=== PATIENT | male | born 1975 | race Native Hawaiian/Other Pacific Islander ===

== ENCOUNTER 2017-09-05 21:23 | Observation (INO) | payer OTHER, MEDICAID, SELFPAY ==
[2017-09-05 21:43] VITALS: BP 154/99; PULSE 99; RESP 18; TEMP 37.2; O2SAT 97; BMI 26.6
[2017-09-05 22:24] LABS: Add Manual Diff / Slide Review NO; Basophils Percent Auto 0.6 % (0-2); Eosinophils Percent Auto 0.1 % (2-4); Hematocrit 42.8 % (41-53); Lymphocytes Percent Auto 4.6 % (25-40); Mean Corpuscular Hemoglobin 36.1 PG (26-34); Monocytes Percent Auto 4.3 % (3-14); Neutrophils Absolute Auto 7600 /uL (3000-5900); Neutrophils Percent Auto 90.4 % (50-75); Platelet Count 84 X10^3/uL (150-400); Red Blood Cell Count 4.16 X10^6/uL (4.5-5.9); Red Cell Distribution Width 13.6 % (11.6-14.8); White Blood Cell Count 8.4 X10^3/uL (4.5-11.0)
[2017-09-05 22:31] LABS: Alanine Aminotransferase 70 IU/L (21-72); Albumin Globulin Ratio 1.4 (1.0-2.8); Alkaline Phosphatase 218 U/L (38-126); Aspartate Aminotransferase 268 IU/L (17-59); Bilirubin Total 1.4 mg/dL (0.2-1.3); Bilirubin Unconjugated 0.7 mg/dL (0.0-1.1); Blood Urea Nitrogen 5 mg/dL (9-20); Calcium 9.7 mg/dL (8.4-10.2); Carbon Dioxide 23 mmol/L (22-32); Chloride 95 mmol/L (98-107); Estimated Glomerular Filt Rate > 60.0 mL/min (>60); Ethanol (ETOH) < 10 mg/dL; Globulin 3.6 g/dL (1.7-4.1); Glucose 146 mg/dL (70-100); HEMOLYSIS < 15 (0-50); Lipase 143 U/L (23-300); Magnesium 1.9 mg/dL (1.6-2.3); Potassium 4.1 mmol/L (3.4-5.1); Sodium 133 mmol/L (137-145); Total Protein 8.6 g/dL (6.3-8.2)
--- NOTE | 2017-09-05 23:05 | DI.CT.S_ITS ---
PROCEDURE: CT HEAD/BRAIN WO CON INDICATIONS: seizures TECHNIQUE: Noncontrast 4.5 mm thick angled axial sections acquired from the foramen magnum to the vertex, with coronal and sagittal reformats. For radiation dose reduction, the following was used: automated exposure control, adjustment of mA and/or kV according to patient size. COMPARISON: None. FINDINGS: Image quality: Excellent. CSF spaces: Basal cisterns are patent. No extra-axial fluid collections. Ventricles are normal in size and shape. Brain: No midline shift. No intracranial masses or hemorrhage. Parmar-white matter interface is normal. Skull and face: Calvarium and visualized facial bones are intact, without suspicious lesions. Sinuses: Mucosal thickening noted in the visualized maxillary sinuses bilaterally. mastoids are clear. IMPRESSION: No acute intracranial disease process. Dictated by: Toya Marina MD, PhD on 09/06/2017 at 7:32 Approved by: Toya Marina MD, PhD on 09/06/2017 at 7:33
[2017-09-05] MEDS: LORazepam 2 MG/ML SYRINGE 4 MG IV (23:10)
[2017-09-05] MEDS: ONDANSETRON 4 MG/2 ML INJ IV (23:11)
[2017-09-05] MEDS: SODIUM CHLORIDE 0.9% 1,000 ML 1000 ML IV (23:12)
--- NOTE | 2017-09-05 23:13 | PC.NURSE ---
Called into room by family, pt having seizure like activity, bleeding from mouth, performed suctioning, medicated with 4mg of ativan and 4mg of zofran at this time. Pt confused and no vocal at this time but agitated in bed. Family at bedside assisting with care.
[2017-09-05 23:19] VITALS: BP 163/102; PULSE 121; RESP 23; O2SAT 97
[2017-09-06 00:11] VITALS: BP 145/86; PULSE 104; RESP 20; O2SAT 97
[2017-09-06] MEDS: PHENobarbital 65 MG/ML VIAL 260 MG IV (00:32)
[2017-09-06 01:10] VITALS: BP 128/75; PULSE 104; RESP 20; O2SAT 94
--- NOTE | 2017-09-06 01:15 | ED_ITS ---
HPI - Seizure General Chief Complaint: Seizure Stated Complaint: SEIZURE History of Present Illness HPI Narrative: HPI 42-year-old male presents for evaluation of an estimated 3-5 minute long generalized seizure with 10+ minutes of post ictal gradually clearing confusion and urinary incontinence. * Seizure history: denies. * Drugs: denies recreational drugs. Denies new medications or medication changes. * Alcohol: notes daily a sixpack or more drinking, he drank only one glass of wine today, did not have his usual alcohol consumption * Diabetes: denies. * Sleep: notes normal sleep. * Trauma: denies. * Notes daily tremors that resolved with alcohol. M/S/F/SocHx notable for: please see HPI; remainder reviewed with patient and in chart. ROS: Negative constitutional, eye, cardiovascular, pulmonary, GI, , MSK, skin , neurologic, psychiatric, endocrine unless noted in the HPI. Exam Gen: Pleasant, non-toxic appearing, resting comfortably. HEENT: NC, AT, PEERL, EOMI. Resp: Clear to auscultation bilaterally, normal work of breathing, no accessory muscle usage. Card: Regular rate and rhythm with no murmurs, rubs, or gallops, extremities warm and well perfused. GI: Non-tender to palpation throughout all quadrants, non-distended, no rebound or guarding. : No suprapubic tenderness to palpation. No incontinence. MSK: No visible deformities, strength and tone without visually appreciable deficit. C, T, L-spine without TTP or palpable abnormalities. Shoulder girdle, chest, pelvis, and appendicular skeleton without palpable or visible abnormalities, full functional range of motion of the appendicular skeleton. Skin: Normal color with no visible lesions. Neuro: Gen AO x 3, no facial asymmetry, no gaze preference, no slurring of speech. CN II-III: pupils equal and reactive; III, IV, : EOMI, V1-V3: sensation to touch bilaterally intact; VII: no facial asymmetry (frown / smile) ; VIII: no nystagmus; X: phonation intact; XI: trapezius 5/5 bilaterally, XII: tongue midline. Cerebellar: no pronator drift, [id number] testing without dysmetria bilaterally, heel to goodwin without dysmetria bilaterally. Bilateral intention tremor. Psych: Mood and affect appropriate. Labs / Imaging: WBC 8.4, Hb 15.0, Na 133, K 4.1, Mg 1.9, AST 268, ALT 70, EtOH <10, UDS pending , CT Head: no acute intracranial abnormality. EKG: SR at [address]-segment elevations or depressions, T-wave inversions or new LBBB. SD interval 148 msec, QTc 91 msec, no delta waves, epsilon waves, coved or saddle ST-segment changes in leads V1-3, preseptal or inferior lead Q-waves, biphasic P-waves, or T-wave inversions; no LVH. MDM Previous chart, nursing note, labs, imaging, and vitals reviewed. A: 42-year-old male presents for evaluation of an estimated 3-5 minute long generalized seizure with 10+ minutes of post ictal gradually clearing confusion and urinary incontinence. DDx: trauma secondary to seizure, medication non-compliance, trauma, intracranial mass, intracranial bleeding, EtOH intoxication, EtOH withdraw, seizure disorder, infection (ENVELOPE STAMPING MACHINE OPERATOR vs non-ENVELOPE STAMPING MACHINE OPERATOR), hyponatremia, B6 deficiency, psychogenic non-epileptiform syndrome (pseudo-seizure), hypoxemia with secondary myoclonus (arrhythmia, ACS, vasovagal, orthostatic syncope, dehydration as primary cause), hypoglycemia, narcolepsy with cataplexy. IF FEMALE 13-55, R/O ECLAMPSIA. Evaluation: basement history and, negative alcohol level, and exam findings suggestive of alcohol withdraw strongly suspect alcohol withdraw seizure. Immediately after examining the patient the patient had a generalized and self- limited approximately 2 minute long seizure, the patient was given 4 mg lorazepam and a 130 mg phenobarbital load. Patient given 1 L normal saline for dehydration. Disposition: admitted for further care. Impression: Seizure. (please reference below for remainder of encounter information) you wake Related Data Home Medications Medication Instructions Recorded Confirmed No Known Home Medications 09/06/17 09/06/17 Allergies Allergy/AdvReac Type Severity Reaction Status Date / Time aspirin [ASPIRIN] Allergy Unknown ?CHILDHOOD Verified 09/05/17 21:43 [facility] Medical History Alcohol abuse (Acute) Alcohol withdrawal seizure (Acute) Social History Smoking Status: Current every day smoker Exam Initial Vital Signs Initial Vital Signs: Vital Signs Temperature 98.9 F 09/05/17 21:43 Pulse Rate 99 H 09/05/17 21:43 Respiratory Rate 18 09/05/17 21:43 Blood Pressure 154/99 H 09/05/17 21:43 Pulse Oximetry 97 09/05/17 21:43 Course Orders Ordered: ED Orders 09/05/17 22:04 Urine Drug Screen, Rapid Stat 09/05/17 22:15 Complete Blood Count AUTO DIFF Stat Comprehensive Metabolic Panel Stat Ethanol (ETOH) Stat Hepatic (Liver) Panel Stat Lipase Stat Magnesium Stat 09/05/17 23:05 CT head/brain wo con Stat 09/05/17 23:06 EKG-12 Lead Stat 09/06/17 01:45 Urinalysis and Microscopic Stat Lorazepam (Ativan) 2 mg IV NOW PRN PRN Reason: Alcohol Withdrawal Discontinued Medications Sodium Chloride (Normal Saline 0.9%) 1,000 mls @ 1,000 mls/hr IV BOLUS ONE Stop: 09/06/17 00:04 Last Infusion: 09/06/17 02:10 Dose: 0 mls/hr Admin: 09/05/17 23:12 Dose: 1,000 mls/hr Lorazepam (Ativan) 4 mg IV NOW ONE Stop: 09/05/17 23:09 Last Admin: 09/05/17 23:10 Dose: 4 mg Ondansetron HCl (Zofran) 4 mg IV NOW ONE Stop: 09/05/17 23:10 Last Admin: 09/05/17 23:11 Dose: 4 mg Phenobarbital (Phenobarbital) 260 mg IV NOW ONE Stop: 09/05/17 23:06 Last Admin: 09/06/17 00:32 Dose: 130 mg Vital Signs - 8 hr 09/05/17 21:43 09/05/17 23:19 09/06/17 00:11 Temperature 98.9 F Pulse Rate 99 H 121 H 104 H Respiratory Rate 18 23 20 Blood Pressure 154/99 H Blood Pressure [Right Arm] 163/102 H 145/86 H Pulse Oximetry 97 97 97 09/06/17 01:10 09/06/17 01:46 09/06/17 02:08 Temperature 99.1 F Pulse Rate 104 H 101 H 98 H Respiratory Rate 20 22 18 Blood Pressure 128/75 H Blood Pressure [Right Arm] 128/75 H Pulse Oximetry 94 99 99 MDM - Seizure Lab Data Result diagrams: 09/05/17 22:15 09/05/17 22:15 Lab Results 09/05/17 09/05/17 09/06/17 Range/Units 22:15 22:15 01:45 WBC 8.4 (4.5-11.0) X10^3/uL RBC 4.16 L (4.5-5.9) X10^6/uL Hgb 15.0 (13.5-17.5) g/dL Hct 42.8 (41-53) % MCV 103.0 H (80-100) fL MCH 36.1 H (26-34) PG MCHC 35.0 (30-36) % RDW 13.6 (11.6-14.8) % Plt Count 84 L (150-400) X10^3/uL Neut % (Auto) 90.4 H (50-75) % Lymph % (Auto) 4.6 L (25-40) % [place] % (Auto) 4.3 (3-14) % Eos % (Auto) 0.1 L (2-4) % Baso % (Auto) 0.6 (0-2) % Neut # (Auto) 7600 H (7173-6008) /uL Sodium 133 L (137-145) mmol/L Potassium 4.1 (3.4-5.1) mmol/L Chloride 95 L (98-107) mmol/L Carbon Dioxide 23 (22-32) mmol/L BUN 5 L (9-20) mg/dL Creatinine 0.50 L (0.66-1.25) mg/dL Estimated GFR > 60.0 (>60) mL/min BUN/Creatinine Ratio 10.0 (6-22) Glucose 146 H (70-100) mg/dL Calcium 9.7 (8.4-10.2) mg/dL Magnesium 1.9 (1.6-2.3) mg/dL Total Bilirubin 1.4 H (0.2-1.3) mg/dL Conjugated Bilirubin 0.0 (0.0-0.3) md/dL Unconjugated Bilirubin 0.7 (0.0-1.1) mg/dL AST 268 H (17-59) IU/L ALT 70 (21-72) IU/L Alkaline Phosphatase 218 H (38-126) U/L Total Protein 8.6 H (6.3-8.2) g/dL Albumin 5.0 (3.5-5.0) g/dL Globulin 3.6 (1.7-4.1) g/dL Albumin/Globulin Ratio 1.4 (1.0-2.8) Lipase 143 (23-300) U/L Urine Opiates Screen Negative (Negative) Ur Oxycodone Screen Negative (Negative) Urine Methadone Screen Negative (Negative) Ur Barbiturates Screen Positive H (Negative) U Tricyclic Antidepress Negative (Negative) Ur Phencyclidine Scrn Negative (Negative) Ur Amphetamines Screen Negative (Negative) U Methamphetamines Scrn Negative (Negative) Ur MDMA Scrn (Ecstasy) Negative (Negative) U Benzodiazepines Scrn Positive H (Negative) Urine Cocaine Screen Negative (Negative) U Marijuana (THC) Screen Positive H (Negative) Ethyl Alcohol < 10 mg/dL Discharge Plan Departure Patient Disposition: Home, Self-Care Clinical Impression: Alcohol withdrawal, Seizures Interventions: ED Discharge Assessment Last Done: 09/06/17 02:08 Prescriptions: No Action No Known Home Medications RF: 0
[2017-09-06 01:46] VITALS: PULSE 101; RESP 22; O2SAT 99
[2017-09-06 01:53] LABS: Urine Amphetamines Negative (Negative); Urine Barbiturates Positive (Negative); Urine Benzodiazepines Positive (Negative); Urine Cocaine Negative (Negative); Urine MDMA Negative (Negative); Urine Methadone Negative (Negative); Urine Methamphetamines Negative (Negative); Urine Morphine/Opi cutoff 2000 Negative (Negative); Urine Oxycodone Negative (Negative); Urine Phencyclidine Negative (Negative); Urine THC Positive (Negative); Urine Tricyclic Antidepressant Negative (Negative)
[2017-09-06 02:08] VITALS: BP 128/75; PULSE 98; RESP 18; TEMP 37.3; O2SAT 99
[2017-09-06 02:38] LABS: Bacteria Urine None Seen
[2017-09-06 02:39] LABS: Appearance Urine UA CLEAR; Bilirubin Urine UA NEGATIVE (NEGATIVE); Color Urine UA YELLOW; Glucose Urine UA NEGATIVE (Normal); Ketones Urine UA 2+ (NEGATIVE); Leukocyte Esterase Urine UA NEGATIVE (NEGATIVE); Nitrite Urine UA Negative (Negative); Occult Blood Urine UA 1+ (Negative); Protein Urine UA 1+ (Negative); Specific Gravity Urine UA 1.015 (1.000-1.035); Urobilinogen Urine UA 0.2 E.U./dL (0.2); pH Urine UA 6.5 (4.5-8.0)
[2017-09-06 02:46] LABS: Hyaline Casts Urine 0-1/LPF; RBC Urine 0-1/HPF (0-5/HPF); WBC Urine 0-1/HPF (0-5/HPF)
[2017-09-06 02:48] LABS: Culture Indicated Urine Cult Not Indicated
[2017-09-06 03:05] VITALS: BP 153/99; PULSE 96; RESP 22; TEMP 38.6; O2SAT 98
[2017-09-06 03:14] VITALS: BMI 26.6
--- NOTE | 2017-09-06 03:38 | PC.NURSE ---
Processing Assistant Note: 0250: Admitted to ICU room 103 from ER. Pt is alert, oriented X3. He was able to stand and walk to the bed from the stretcher. He has a minor tremor in his hands, denies visual, auditory and tactile hallucinations, but states he has a mild headache. No seizure activity noted. Parents are at bedside briefly, to say mariaa.
[2017-09-06] MEDS: LORazepam 2 MG/ML SYRINGE IV (04:08)
[2017-09-06 07:25] VITALS: BP 141/90; PULSE 102; RESP 24; TEMP 38.1; O2SAT 95
--- NOTE | 2017-09-06 09:19 | PC.NURSE ---
Addendum entered by Gaby Rodriguez R.N. 09/06/17 10:46: 1045-Pt is advised of Original Note: Am shift note Pt A/o x3, recalls events leading to ER arrival. No previous Hx of seizures with ETOH w/d. Would like nicotine patch today, reminded of policy for no smoking while in hospital. Pt agreeable. Using light for needs. Seizure pads in place, CIWA 5.
--- NOTE | 2017-09-06 10:16 | P.HP_ITS ---
History of Present Illness Date Patient Seen: 09/06/17 Time Patient Seen: 10:06 Chief complaint: SEIZURE Narrative: Patient is a 42-year-old male with alcohol dependency who had a 1-2 minute seizure at home. He was evaluated in the ER and while there had a witnessed tonic-clonic seizure. He was provided IV lorazepam and phenobarbital. He denies prior history of seizures. He states he drinks 6-8 beers a day but had been trying to cut back over the last couple of days. He has not sought prior treatment for alcohol dependency. Patient History Medical History Alcohol withdrawal seizure (Acute) Alcohol abuse (Acute) Alcohol dependence (Acute) Family & Social History Social History: household members family Prior Living Arrangements House Safety & Behavioral: Feels Safe in Current Yes Environment Been Physically Hurt or No Threatened By a Person Suicidal Ideation Description None Suicide Plan Description No Plan Tobacco & Substance use: Smoking Status Current every day smoker alcohol intake frequency 3 or more drinks per day Substance Use Type marijuana Meds Home Medications Medication Instructions Recorded Confirmed Type citalopram 20 mg PO DAILY 09/06/17 09/06/17 History Allergies Allergy/AdvReac Type Severity Reaction Status Date / Time aspirin [ASPIRIN] Allergy Unknown ?CHILDHOOD Verified 09/05/17 21:43 Review of Systems Review of Systems All systems reviewed & are unremarkable except as noted in HPI and below Exam Vital Signs (past 8 hours): - 09/06/17 02:08 09/06/17 03:05 09/06/17 07:25 Temperature 99.1 F 101.5 F H 100.5 F H Pulse Rate 98 H 96 H 102 H Respiratory Rate 18 22 24 Blood Pressure 128/75 H 153/99 H 141/90 H Pulse Oximetry 99 98 95 Oxygen Delivery Method Room Air Narrative Exam Narrative: GENERAL: This is an alert cooperative well-nourished, well- developed patient, in no apparent distress at this. HEAD: Atraumatic. Normocephalic. EYES: Pupils equal, round and reactive. Extraocular motions intact. No scleral icterus. No injection or drainage. OROPHARYNX: moist mucosa NECK: Trachea midline. No JVD or lymphadenopathy. CARDIOVASCULAR: Mildly tachycardic with regular rhythm without murmurs, gallops , or rubs. RESPIRATORY: Clear to auscultation bilaterally. GASTROINTESTINAL: Abdomen nondistended, soft, non-tender. No hepato- splenomegaly, or palpable masses. EXTREMITIES: No edema. NEUROLOGICAL: Alert, well oriented, speech is intact, normal bilateral upper and lower extremity strength SKIN: warm, dry, no rash petechia Objective Labs Result Diagrams: 09/05/17 22:15 09/05/17 22:15 Labs: Head CT: No acute finding Chest x-ray: No acute findings EKG: Sinus tach, mild ST depression V4 to V6 Laboratory Results - last 24 hr 09/05/17 09/05/17 09/06/17 22:15 22:15 01:45 WBC 8.4 RBC 4.16 L Hgb 15.0 Hct 42.8 MCV 103.0 H MCH 36.1 H MCHC 35.0 RDW 13.6 Plt Count 84 L Neut % (Auto) 90.4 H Lymph % (Auto) 4.6 L [place] % (Auto) 4.3 Eos % (Auto) 0.1 L Baso % (Auto) 0.6 Neut # (Auto) 7600 H Sodium 133 L Potassium 4.1 Chloride 95 L Carbon Dioxide 23 BUN 5 L Creatinine 0.50 L Estimated GFR > 60.0 BUN/Creatinine Ratio 10.0 Glucose 146 H Calcium 9.7 Magnesium 1.9 Total Bilirubin 1.4 H Conjugated Bilirubin 0.0 Unconjugated Bilirubin 0.7 AST 268 H ALT 70 Alkaline Phosphatase 218 H Total Protein 8.6 H Albumin 5.0 Globulin 3.6 Albumin/Globulin Ratio 1.4 Lipase 143 Urine Color Urine Appearance Urine pH Ur Specific [place] Urine Protein Urine Glucose (UA) Urine Ketones Urine Occult Blood Urine Nitrate Urine Bilirubin Urine Urobilinogen Ur Leukocyte Esterase Urine RBC Urine WBC Urine Bacteria Hyaline Casts Ur Culture Indicated? Micro UA Comment Nasal Screen MRSA (PCR) Urine Opiates Screen Negative Ur Oxycodone Screen Negative Urine Methadone Screen Negative Ur Barbiturates Screen Positive H U Tricyclic Antidepress Negative Ur Phencyclidine Scrn Negative Ur Amphetamines Screen Negative U Methamphetamines Scrn Negative Ur MDMA Scrn (Ecstasy) Negative U Benzodiazepines Scrn Positive H Urine Cocaine Screen Negative U Marijuana (THC) Screen Positive H Ethyl Alcohol < 10 09/06/17 09/06/17 01:45 03:20 WBC RBC Hgb Hct MCV MCH MCHC RDW Plt Count Neut % (Auto) Lymph % (Auto) [place] % (Auto) Eos % (Auto) Baso % (Auto) Neut # (Auto) Sodium Potassium Chloride Carbon Dioxide BUN Creatinine Estimated GFR BUN/Creatinine Ratio Glucose Calcium Magnesium Total Bilirubin Conjugated Bilirubin Unconjugated Bilirubin AST ALT Alkaline Phosphatase Total Protein Albumin Globulin Albumin/Globulin Ratio Lipase Urine Color Yellow Urine Appearance Clear Urine pH 6.5 Ur Specific [place] 1.015 Urine Protein 1+ H Urine Glucose (UA) Negative Urine Ketones 2+ H Urine Occult Blood 1+ H Urine Nitrate Negative Urine Bilirubin Negative Urine Urobilinogen 0.2 Ur Leukocyte Esterase Negative Urine RBC 0-1/hpf Urine WBC 0-1/hpf Urine Bacteria None seen Hyaline Casts 0-1/lpf Ur Culture Indicated? Cult not indicated Micro UA Comment Not Reportable Nasal Screen MRSA (PCR) Negative for mrsa Urine Opiates Screen Ur Oxycodone Screen Urine Methadone Screen Ur Barbiturates Screen U Tricyclic Antidepress Ur Phencyclidine Scrn Ur Amphetamines Screen U Methamphetamines Scrn Ur MDMA Scrn (Ecstasy) U Benzodiazepines Scrn Urine Cocaine Screen U Marijuana (THC) Screen Ethyl Alcohol Assessment & Plan Plan: Assessment/Plan Narrative: 1. Acute alcohol withdrawal seizures. Patient has not had any further events since witnessed seizure in the ER. His potassium and magnesium are normal. Glucose normal. Currently mildly tachycardic and hypertensive but without other withdrawal symptoms. He appears stable for discharge home. I have asked care management to provide him information on community resources for alcohol dependency. He is advised not to drive for at least the next week which is his high risk time for another seizure due to alcohol withdrawal. He is strongly advised to seek treatment for alcohol dependency. 2. Transaminitis and mildly elevated bilirubin. Undetermined whether this is acute or chronic related to affects of chronic alcohol intake. Outpatient workup with ultrasonography, testing for hepatitis-C can be obtained but unfortunately the patient is not established with primary care provider. Patient is advised of lab test results and to establish with local PCP. He is currently getting his citalopram filled [facility]. 3. Thrombocytopenia, unknown acuity. This is again likely related to affects of chronic alcohol intake. Patient is advised of this abnormality. Patient is at low risk for another seizure and is medically stable for discharge.
--- NOTE | 2017-09-06 15:39 | CM.SWNOTE ---
COMMERCIAL CREDIT REVIEWER Consult Request: Requested by Dr Ramos to review outpt alcohol treatment/counseling options w/pt before he leaves today. Pt here under obs after a seizure at home, long h/o alcohol dependence. Per RN, CIWA has been approx 6-7. Met w/pt, explained SW role. Pt lives at home w/his parents, he denies h/o seizure. Pt drinks approx 6 beers daily, and has recently attempted to cut down to 2-3. Pt explains he has been drinking for approx 15 years at the prior rate. He has stayed sober for 2 days at a time, he reports drinking again because I'm depressed. Pt takes an anti-depressant, does not know the name, prescribed by a doctor in [place] that he can not remember. Pt is [place] (on my dad's side) and knows of an inpt treatment center in [place] that his cousin had success with. Pt has [facility] benefits like medical, dental. Pt agreeable to [facility] stay because he would like to stay sober once he leaves here. Provided pt with the number for [place] [facility] and offered to arrange direct transportation to [facility] if they have a bed today. Also left pt w/the [facility] Community Resource Guide which includes a listing of all alcohol treatment/counseling agencies and centers in the [facility]. Returned an hour later and pt had gone home w/his parents. [facility]
== END 2017-09-06 12:10 | disposition home or self-care (01) ==
LOC: ED 09-06 02:28 → ICU 09-06 10:16
PROVIDERS: Admitting Provider Internal Medicine; Emergency Provider Emergency Medicine; Family Provider Physician Assistant; PCP Physician Assistant; Visit Provider Internal Medicine
DX: F10.239 Alcohol dependence with withdrawal, unspecified (principal); R56.9 Unspecified convulsions; E80.6 Other disorders of bilirubin metabolism; D69.6 Thrombocytopenia, unspecified; F17.210 Nicotine dependence, cigarettes, uncomplicated; F12.90 Cannabis use, unspecified, uncomplicated
CPT/HCPCS: 36591; 70450; 80053; 80076; 80305; 80320; 81001; 82075; 83690; 83735; 85025; 87797; 93005; 96361; 96374; 96375; 99283; 99285; 99291; G0378; J2060; J2405; J2560

== ENCOUNTER 2018-02-14 20:18 | Emergency (ER) | payer MEDICAID, SELFPAY ==
[2018-02-14 20:37] VITALS: BP 167/106; PULSE 92; RESP 15; TEMP 37; O2SAT 98; BMI 23.6
--- NOTE | 2018-02-14 20:46 | ED.ALCOHOL ---
HPI - Alcohol General Chief Complaint: Toxicology Problem Stated Complaint: NEEDS DETOX FROM ALCOHOL Time Seen by Provider: 02/14/18 20:45 Source: patient Mode of arrival: ambulatory Limitations: no limitations History of Present Illness HPI narrative: Patient is a 42-year-old male brought in with his family requesting help with detox from alcohol. The patient was seen here in the emergency department several weeks ago. Was admitted because he was having withdrawal seizures. Stated he spent 28 days and in patient rehab facility. When he was discharged he went approximately 30 days without drinking and that approximately 30 days ago started drinking again. He said was no specific reason. His last drink was approximately 45 min prior to coming here to the emergency department. He does smoke on a daily basis. Denies any other illicit substances. States that he drinks approximately 1/5 a day. Related Data Home Medications Medication Instructions Recorded Confirmed citalopram 20 mg PO DAILY 09/06/17 10/18/17 ibuprofen 400 mg tablet 400 mg PO QID PRN 10/18/17 10/18/17 Previous Rx's Medication Instructions Recorded epinephrine 0.3 mg/0.3 mL 0.3 mg IM ONCE #2 each 10/17/17 injection, auto-injector albuterol sulfate HFA 90 2 puff INHALATION Q6H PRN #8.5 gram 10/18/17 mcg/actuation aerosol inhaler epinephrine 0.3 mg/0.3 mL 0.3 mg IM ONCE #1 each 10/18/17 injection, auto-injector chlordiazepoxide HCl 25 mg PO Q12H PRN #6 cap 02/15/18 Allergies Allergy/AdvReac Type Severity Reaction Status Date / Time aspirin [ASPIRIN] Allergy Unknown ?CHILDHOOD Verified 02/14/18 20:37 Review of Systems Constitutional Denies fatigue and Denies fever(s) ENT Ears, Nose, Mouth, and Throat: Denies vertigo, Denies dizziness and Denies disequilibrium Cardiovascular Denies chest pain and Denies dyspnea Respiratory Denies dyspnea Gastrointestinal Gastrointestinal: Denies abdominal pain, Denies nausea and Denies vomiting Genitourinary Denies dysuria Musculoskeletal Denies myalgias and Denies arthralgias Integumentary/Breasts Denies rash Neurologic Denies confusion, Denies vertigo, Denies dizziness and Denies disequilibrium Psychiatric Denies anxiety, Denies confusion, Denies depression and Denies irritability Endocrine Denies fatigue Hematologic/Lymphatic Denies easy bleeding and Denies easy bruising PFSH Medical History Alcohol withdrawal seizure (Acute) Alcohol abuse (Acute) Alcohol dependence (Acute) Social History household members: family Smoking Status: Current every day smoker Exam Initial Vital Signs Initial Vital Signs: Vital Signs Temperature 98.6 F 02/14/18 20:37 Pulse Rate 92 H 02/14/18 20:37 Respiratory Rate 15 02/14/18 20:37 Blood Pressure 167/106 H 02/14/18 20:37 Pulse Oximetry 98 02/14/18 20:37 Const General: cooperative, comfortable, well developed, well groomed and No acute distress Orientation: alert, awake and oriented x3 HENMT Head: normal to inspection and normocephalic Resp Effort & Inspection: normal respiratory effort Auscultation: clear to auscultation bilaterally Cardio Rate: regular rate Rhythm: regular rhythm GI Inspection: non-distended Palpation: soft and No firm Skin Lesions: no lesions Rashes: no rashes Neuro General: alert, awake and oriented x3 Extrem General: normal to inspection and capillary refill normal Psych Appearance: grossly normal and well kempt Speech and Movement: speech and movement normal Attitude: cooperative Thought Content: normal Course Orders Ordered: ED Orders 02/14/18 22:02 Consult to Patient Services Clerk Stat 02/15/18 00:52 Ethanol (ETOH) Stat 02/15/18 05:10 Ethanol (ETOH) Stat Discontinued Medications Acetaminophen (Tylenol) 650 mg PO NOW ONE Stop: 02/15/18 03:22 Last Admin: 02/15/18 03:24 Dose: 650 mg Chlordiazepoxide HCl (Librium) 25 mg PO NOW ONE Stop: 02/14/18 21:58 Last Admin: 02/14/18 22:13 Dose: 25 mg Chlordiazepoxide HCl (Librium) 25 mg PO NOW ONE Stop: 02/15/18 05:09 Last Admin: 02/15/18 05:22 Dose: 25 mg Ibuprofen (Advil) 800 mg PO NOW ONE Stop: 02/14/18 22:43 Last Admin: 02/14/18 22:44 Dose: 800 mg Nicotine (Nicoderm) 21 mg TOP NOW ONE Stop: 02/14/18 21:58 Last Admin: 02/14/18 22:14 Dose: 21 mg Vital Signs - 8 hr 02/15/18 01:01 02/15/18 05:24 Pulse Rate 87 88 Respiratory Rate 18 16 Blood Pressure [Left Arm] 142/78 H 131/87 Pulse Oximetry 98 98 MDM - Alcohol Lab Data Attestation: I reviewed the patient's lab results. Result diagrams: 02/14/18 21:12 02/14/18 21:12 Labs: Lab Results 02/14/18 02/14/18 02/15/18 Range/Units 21:12 21:12 00:52 WBC 6.1 (4.5-11.0) X10^3/uL RBC 4.45 L (4.5-5.9) X10^6/uL Hgb 14.7 (13.5-17.5) g/dL Hct 42.4 (41-53) % MCV 95.3 (80-100) fL MCH 33.0 (26-34) PG MCHC 34.7 (30-36) % RDW 14.7 (11.6-14.8) % Plt Count 300 (150-400) X10^3/uL Neut % (Auto) 42.0 L (50-75) % Lymph % (Auto) 47.1 H (25-40) % [place] % (Auto) 6.9 (3-14) % Eos % (Auto) 3.7 (2-4) % Baso % (Auto) 0.3 (0-2) % Neut # (Auto) 2600 (3975-1656) /uL Sodium 145 (137-145) mmol/L Potassium 4.1 (3.4-5.1) mmol/L Chloride 105 (98-107) mmol/L Carbon Dioxide 23 (22-32) mmol/L BUN 7 L (9-20) mg/dL Creatinine 0.80 (0.66-1.25) mg/dL Estimated GFR > 60.0 (>60) mL/min BUN/Creatinine Ratio 8.8 (6-22) Glucose 94 (70-100) mg/dL Calcium 8.9 (8.4-10.2) mg/dL Total Bilirubin 0.4 (0.2-1.3) mg/dL AST 60 H (17-59) IU/L ALT 39 (21-72) IU/L Alkaline Phosphatase 90 (38-126) U/L Total Protein 7.8 (6.3-8.2) g/dL Albumin 4.7 (3.5-5.0) g/dL Globulin 3.1 (1.7-4.1) g/dL Albumin/Globulin Ratio 1.5 (1.0-2.8) Lipase 125 (23-300) U/L Ethyl Alcohol 368 268 mg/dL //18 Range/Units 05:10 WBC (4.5-11.0) X10^3/uL RBC (4.5-5.9) X10^6/uL Hgb (13.5-17.5) g/dL Hct (41-53) % MCV (80-100) fL MCH (26-34) PG MCHC (30-36) % RDW (11.6-14.8) % Plt Count (150-400) X10^3/uL Neut % (Auto) (50-75) % Lymph % (Auto) (25-40) % [place] % (Auto) (3-14) % Eos % (Auto) (2-4) % Baso % (Auto) (0-2) % Neut # (Auto) (3489-6233) /uL Sodium (137-145) mmol/L Potassium (3.4-5.1) mmol/L Chloride (98-107) mmol/L Carbon Dioxide (22-32) mmol/L BUN (9-20) mg/dL Creatinine (0.66-1.25) mg/dL Estimated GFR (>60) mL/min BUN/Creatinine Ratio (6-22) Glucose (70-100) mg/dL Calcium (8.4-10.2) mg/dL Total Bilirubin (0.2-1.3) mg/dL AST (17-59) IU/L ALT (21-72) IU/L Alkaline Phosphatase (38-126) U/L Total Protein (6.3-8.2) g/dL Albumin (3.5-5.0) g/dL Globulin (1.7-4.1) g/dL Albumin/Globulin Ratio (1.0-2.8) Lipase (23-300) U/L Ethyl Alcohol 152 mg/dL MDM Narrative Medical decision making narrative: Patient had no seizure-like activity here in the emergency department. He was re-dosed with Librium again this morning patient is medically cleared. Alcohol level decreasing nicely. We were able to contact [facility] triage beds and they did have a bed available. They evaluated the patient over the phone. The patient stated that the interview went well. He did receive an e-mail from them given call back numbers. He stated that he had to ?figure things out with work ?he was asking to be discharged. His mother was available to come and pick him up. He was given phone numbers for this facility and he had already received an e-mail from them. He stated that he still would like to go to rehab. He was instructed he could return to the emergency department any time if he felt like he needed to. He was also instructed that he could not drive for the next 24 hr. Discharge Plan Departure Patient Disposition: Home Clinical Impression: Alcoholic intoxication Instructions: DI for Alcohol Abuse Activity Restrictions/Additional Instructions: You can contact the [facility] beds at [phone] extension [phone]. This is who you talked with here in the emergency department. Another option would be the [facility] triage Peds at [facility]. We contacted them this morning and they did not have any beds however it is an option in the future. Their phone number is [phone]. Your not to drive for the next 24 hr or in the future if you partake in intoxicating substances. You may return to the emergency department at any point for new or worsening symptoms. You were given a prescription for medication that can help with some of the symptoms of alcohol withdrawal. Use this medication as directed. Prescriptions: New chlordiazepoxide HCl 25 mg capsule 25 mg PO Q12H PRN (Reason: alcohol withdrawal) Qty: 6 RF: 0 No Action epinephrine 0.3 mg/0.3 mL auto-injector 0.3 mg IM ONCE Qty: 1 RF: 0 albuterol sulfate 90 mcg/actuation HFA aerosol inhaler 2 puff INHALATION Q6H PRN (Reason: shortness of breath) Qty: 8.5 RF: 0 ibuprofen 400 mg tablet 400 mg PO QID PRNRF: 0 epinephrine 0.3 mg/0.3 mL auto-injector 0.3 mg IM ONCE Qty: 2 RF: 0 citalopram 20 mg Tablet 20 mg PO DAILY RF: 0
[2018-02-14 21:22] LABS: Add Manual Diff / Slide Review NO; Basophils Percent Auto 0.3 % (0-2); Eosinophils Percent Auto 3.7 % (2-4); Hematocrit 42.4 % (41-53); Hemoglobin 14.7 g/dL (13.5-17.5); Lymphocytes Percent Auto 47.1 % (25-40); Mean Corpuscular HGB Conc 34.7 % (30-36); Mean Corpuscular Volume 95.3 fL (80-100); Monocytes Percent Auto 6.9 % (3-14); Neutrophils Absolute Auto 2600 /uL (1500-7000); Platelet Count 300 X10^3/uL (150-400); Red Blood Cell Count 4.45 X10^6/uL (4.5-5.9); Red Cell Distribution Width 14.7 % (11.6-14.8); White Blood Cell Count 6.1 X10^3/uL (4.5-11.0)
[2018-02-14 21:39] LABS: Alanine Aminotransferase 39 IU/L (21-72); Albumin 4.7 g/dL (3.5-5.0); Albumin Globulin Ratio 1.5 (1.0-2.8); Alkaline Phosphatase 90 U/L (38-126); Aspartate Aminotransferase 60 IU/L (17-59); BUN Creatinine Ratio 8.8 (6-22); Bilirubin Total 0.4 mg/dL (0.2-1.3); Blood Urea Nitrogen 7 mg/dL (9-20); Calcium 8.9 mg/dL (8.4-10.2); Carbon Dioxide 23 mmol/L (22-32); Chloride 105 mmol/L (98-107); Estimated Glomerular Filt Rate > 60.0 mL/min (>60); Globulin 3.1 g/dL (1.7-4.1); Glucose 94 mg/dL (70-100); HEMOLYSIS < 15 (0-50); Lipase 125 U/L (23-300); Potassium 4.1 mmol/L (3.4-5.1); Sodium 145 mmol/L (137-145); Total Protein 7.8 g/dL (6.3-8.2)
[2018-02-14 21:46] LABS: Ethanol (ETOH) 368 mg/dL
[2018-02-14] MEDS: chlordiazePOXIDE 25 MG CAPSULE PO (22:13)
[2018-02-14] MEDS: NICOTINE 21 MG PATCH TOP (22:14)
[2018-02-14] MEDS: IBUPROFEN 400 MG TABLET 800 MG PO (22:44)
[2018-02-15 01:01] VITALS: BP 142/78; PULSE 87; RESP 18; O2SAT 98
[2018-02-15 01:08] LABS: Ethanol (ETOH) 268 mg/dL
[2018-02-15] MEDS: ACETAMINOPHEN 325 MG TABLET 650 MG PO (03:24)
[2018-02-15] MEDS: chlordiazePOXIDE 25 MG CAPSULE PO (05:22)
[2018-02-15 05:24] VITALS: BP 131/87; PULSE 88; RESP 16; O2SAT 98
[2018-02-15 05:53] LABS: Ethanol (ETOH) 152 mg/dL
--- NOTE | 2018-02-15 06:00 | PC.NURSE ---
No beds at [facility], unknown if beds will open until later this afternoon, will call other facilities.
--- NOTE | 2018-02-15 06:11 | PC.NURSE ---
Pt speaking with intake at [facility].
== END 2018-02-15 06:49 | disposition home or self-care (01) ==
PROVIDERS: Emergency Provider Emergency Medicine; Family Provider Family Medicine; PCP Family Medicine
DX: F10.929 Alcohol use, unspecified with intoxication, unspecified (principal)
CPT/HCPCS: 36415; 80053; 80320; 83690; 85025; 99283

== ENCOUNTER 2018-07-12 16:38 | Emergency (ER) | payer MEDICAID, SELFPAY ==
[2018-07-12 16:40] VITALS: BP 154/95; PULSE 121; RESP 17; TEMP 36.4; O2SAT 99
--- NOTE | 2018-07-12 17:10 | ED.MEDCLEAR ---
HPI - Medical Clearance General Chief complaint: Medical Clearance Stated complaint: DETOX Time Seen by Provider: 07/12/18 16:45 Source: patient Mode of arrival: ambulatory Limitations: no limitations History of Present Illness HPI Narrative: 42-year-old smoker with extensive cardiac history presents with a chief complaint of requesting medical clearance prior to detox. He has a bed waiting for him at [facility]. He drinks upwards of 1/5 of liquor daily and had his last drink about 3-4 hours ago. He denies any fever, chills nor nausea or vomiting. He denies any recent injuries. He has had DTs on multiple occasions and even progressed to seizures. His last rehab was about 6 months ago[address] He denies any street drugs. MD complaint: medical clearance requested Onset (ago): hour(s) Reason for Medical Clearance: intoxication Place: home Alleged Intoxication: Yes Compliant with Home Medications: Yes Traumatic Symptoms: denies traumatic injury Associated Symptoms: denies other symptoms Treatments Prior to Arrival: none Home Medications Medication Instructions Recorded Confirmed citalopram 1 tab PO DAILY 07/12/18 07/12/18 naltrexone 1 tab PO DAILY 07/12/18 07/12/18 Previous Rx's Medication Instructions Recorded lorazepam [Ativan] See Rx Instructions .ROUTE 07/12/18 .COMPLEX PRN #19 tab Allergies Allergy/AdvReac Type Severity Reaction Status Date / Time aspirin [ASPIRIN] Allergy Unknown ?CHILDHOOD Verified 02/14/18 20:37 Review of Systems Constitutional Denies chills, Denies fever(s), Denies lethargy and Denies weakness Eyes Denies change in vision, Denies eye discharge, Denies irritation and Denies loss of vision ENT Ears, Nose, Mouth, and Throat: Denies change in voice, Denies neck pain and Denies sore throat Cardiovascular Denies chest pain, Denies irregular heart rhythm, Denies lightheadedness, Denies palpitations, Denies dyspnea, Denies dyspnea on exertion and Denies orthopnea Respiratory Denies cough, Denies dyspnea, Denies dyspnea on exertion and Denies wheezing Gastrointestinal Gastrointestinal: Denies abdominal pain, Denies change in bowel habits, Denies diarrhea, Denies nausea and Denies vomiting Genitourinary Denies hematuria, Denies flank pain, Denies urinary incontinence and Denies urinary urgency Musculoskeletal Denies neck pain Integumentary/Breasts Denies pruritus, Denies erythema, Denies rash and Denies wounds Neurologic Denies confusion, Denies loss of vision and Denies weakness Psychiatric Denies anxiety, Denies confusion, Denies depression, Denies homicidal ideation and Denies suicidal ideation Endocrine Denies palpitations Hematologic/Lymphatic Denies easy bruising Allergic/Immunologic Denies wheezing [facility] Medical History (Updated 07/12/18 @ 18:52 by Mendez Chao DO) Alcohol withdrawal seizure (Acute) Alcohol abuse (Acute) Alcohol dependence (Acute) Social History household members: family Smoking Status: Current every day smoker Social History household members: family Smoking Status: Current every day smoker Exam Narrative Exam Narrative: GENERAL: 42-year-old male appears stated age, bit disheveled, bloodshot eyes, smells of alcohol but speaking clearly HEAD: Atraumatic. Normocephalic. No temporal or scalp tenderness. EYES: Pupils equal round and reactive. Extraocular motions intact. ENT: Nose without bleeding, purulent drainage or septal hematoma. Throat without erythema, tonsillar hypertrophy or exudate. Uvula midline. Airway patent. NECK: Trachea midline. No JVD or lymphadenopathy. Supple, nontender, no meningeal signs. CARDIOVASCULAR: Regular rate and rhythm without murmurs, gallops, or rubs. RESPIRATORY: Clear to auscultation. Breath sounds equal bilaterally. No wheezes, rales, or rhonchi. GASTROINTESTINAL: Abdomen soft, non-tender, nondistended. No hepato-splenomegaly, or palpable masses. No guarding. EXTREMITIES: No clubbing, cyanosis, or edema. No joint tenderness, effusion, or edema noted. BACK: Nontender without deformity or crepitance. No flank tenderness. NEURO: AOx3. SKIN: No rash or erythema. Initial Vital Signs Initial Vital Signs: Vital Signs Temperature 97.6 F 07/12/18 16:40 Pulse Rate 121 H 07/12/18 16:40 Respiratory Rate 17 07/12/18 16:40 Blood Pressure 154/95 H 07/12/18 16:40 Pulse Oximetry 99 07/12/18 16:40 MDM - Medical Clearance Lab Data Result diagrams: 07/12/18 17:30 07/12/18 17:30 Lab Results 07/12/18 07/12/18 07/12/18 Range/Units 00:33 17:30 17:30 WBC 6.5 (4.5-11.0) X10^3/uL RBC 4.73 (4.5-5.9) X10^6/uL Hgb 15.1 (13.5-17.5) g/dL Hct 46.1 (41-53) % MCV 97.6 (80-100) fL MCH 32.0 (26-34) PG MCHC 32.8 (30-36) % RDW 15.5 H (11.6-14.8) % Plt Count 168 (150-400) X10^3/uL Neut % (Auto) 63.5 (50-75) % Lymph % (Auto) 26.7 (25-40) % [place] % (Auto) 6.5 (3-14) % Eos % (Auto) 1.9 L (2-4) % Baso % (Auto) 1.4 (0-2) % Neut # (Auto) 4200 (0579-9617) /uL Lymph # (Auto) 1700 (3057-7408) /uL [place] # (Auto) 400 (0-900) /uL Eos # (Auto) 100 (0-450) /uL Baso # (Auto) 100 (0-100) /uL Sodium 141 (137-145) mmol/L Potassium 4.2 (3.4-5.1) mmol/L Chloride 102 (98-107) mmol/L Carbon Dioxide 25 (22-32) mmol/L BUN 8 L (9-20) mg/dL Creatinine 0.80 (0.66-1.25) mg/dL Estimated GFR > 60.0 (>60) mL/min BUN/Creatinine Ratio 10.0 (6-22) Glucose 88 (70-100) mg/dL Calcium 8.5 (8.4-10.2) mg/dL Phosphorus 2.8 (2.5-4.5) mg/dL Magnesium 1.9 (1.6-2.3) mg/dL Total Bilirubin 0.6 (0.2-1.3) mg/dL Conjugated Bilirubin 0.0 (0.0-0.3) md/dL Unconjugated Bilirubin 0.3 (0.0-1.1) mg/dL AST 57 (17-59) IU/L ALT 36 (21-72) IU/L Alkaline Phosphatase 85 (38-126) U/L Total Protein 8.1 (6.3-8.2) g/dL Albumin 4.9 (3.5-5.0) g/dL Globulin 3.2 (1.7-4.1) g/dL Albumin/Globulin Ratio 1.5 (1.0-2.8) Lipase 179 (23-300) U/L Urine Opiates Screen Negative (Negative) Ur Oxycodone Screen Negative (Negative) Urine Methadone Screen Negative (Negative) Ur Barbiturates Screen Negative (Negative) U Tricyclic Antidepress Negative (Negative) Ur Phencyclidine Scrn Negative (Negative) Ur Amphetamines Screen Negative (Negative) U Methamphetamines Scrn Negative (Negative) Ur MDMA Scrn (Ecstasy) Negative (Negative) U Benzodiazepines Scrn Positive H (Negative) Urine Cocaine Screen Negative (Negative) U Marijuana (THC) Screen Negative (Negative) Ethyl Alcohol 395 mg/dL 07/12/18 07/13/18 Range/Units 21:03 06:28 WBC (4.5-11.0) X10^3/uL RBC (4.5-5.9) X10^6/uL Hgb (13.5-17.5) g/dL Hct (41-53) % MCV (80-100) fL MCH (26-34) PG MCHC (30-36) % RDW (11.6-14.8) % Plt Count (150-400) X10^3/uL Neut % (Auto) (50-75) % Lymph % (Auto) (25-40) % [place] % (Auto) (3-14) % Eos % (Auto) (2-4) % Baso % (Auto) (0-2) % Neut # (Auto) (2599-5803) /uL Lymph # (Auto) (6413-5489) /uL [place] # (Auto) (0-900) /uL Eos # (Auto) (0-450) /uL Baso # (Auto) (0-100) /uL Sodium (137-145) mmol/L Potassium (3.4-5.1) mmol/L Chloride (98-107) mmol/L Carbon Dioxide (22-32) mmol/L BUN (9-20) mg/dL Creatinine (0.66-1.25) mg/dL Estimated GFR (>60) mL/min BUN/Creatinine Ratio (6-22) Glucose (70-100) mg/dL Calcium (8.4-10.2) mg/dL Phosphorus (2.5-4.5) mg/dL Magnesium (1.6-2.3) mg/dL Total Bilirubin (0.2-1.3) mg/dL Conjugated Bilirubin (0.0-0.3) md/dL Unconjugated Bilirubin (0.0-1.1) mg/dL AST (17-59) IU/L ALT (21-72) IU/L Alkaline Phosphatase (38-126) U/L Total Protein (6.3-8.2) g/dL Albumin (3.5-5.0) g/dL Globulin (1.7-4.1) g/dL Albumin/Globulin Ratio (1.0-2.8) Lipase (23-300) U/L Urine Opiates Screen (Negative) Ur Oxycodone Screen (Negative) Urine Methadone Screen (Negative) Ur Barbiturates Screen (Negative) U Tricyclic Antidepress (Negative) Ur Phencyclidine Scrn (Negative) Ur Amphetamines Screen (Negative) U Methamphetamines Scrn (Negative) Ur MDMA Scrn (Ecstasy) (Negative) U Benzodiazepines Scrn (Negative) Urine Cocaine Screen (Negative) U Marijuana (THC) Screen (Negative) Ethyl Alcohol 257 12 mg/dL Urine Dip Bedside Urine Glucose Negative Bedside Urine Bilirubin - Negative Bedside Urine Ketone ++ 40 Urine Specific [place] 1.030 Bedside Urine Occult Blood - Negative Bedside Urine pH 6.0 Bedside Urine Protein + 30 Bedside Urine Urobilinogen - Negative Bedside Urine Nitrite - Negative Bedside Urine Leukocytes - Negative Esterase Discharge Plan Departure Patient Disposition: [facility] Clinical Impression: Alcohol abuse Discharge Date/Time: 07/13/18 07:41 Interventions: ED Discharge Assessment Last Done: 07/13/18 07:40 Activity Restrictions/Additional Instructions: Please proceed directly to [place], stopping anywhere in route and the consumption of any alcohol or street drugs will in validate your medical clearance Prescriptions: New lorazepam [Ativan] 1 mg tablet See Rx Instructions .ROUTE .COMPLEX PRN (Reason: alcohol withdrawal) Qty: 19 RF: 0 No Action citalopram 10 mg tablet 1 tab PO DAILY RF: 0 naltrexone 50 mg tablet 1 tab PO DAILY RF: 0 Referrals: Preston,Alda, DO [Primary Care Provider] -
[2018-07-12] MEDS: SODIUM CHLORIDE 0.9% 1,000 ML 1000 ML IV (17:12)
[2018-07-12 17:16] VITALS: BP 143/103; PULSE 110; RESP 22; O2SAT 100
--- NOTE | 2018-07-12 17:16 | ED_ITS ---
HPI - Medical Clearance General Chief complaint: Medical Clearance Stated complaint: DETOX Time Seen by Provider: 07/12/18 16:45 Source: patient Mode of arrival: ambulatory Limitations: no limitations History of Present Illness HPI Narrative: 42-year-old smoker with extensive cardiac history presents with a chief complaint of requesting medical clearance prior to detox. He has a bed waiting for him at [facility]. He drinks upwards of 1/5 of liquor daily and had his last drink about 3-4 hours ago. He denies any fever, chills nor nausea or vomiting. He denies any recent injuries. He has had DTs on multiple occasions and even progressed to seizures. His last rehab was about 6 months ago. He denies any street drugs. MD complaint: medical clearance requested Onset (ago): hour(s) Reason for Medical Clearance: intoxication Place: home Alleged Intoxication: Yes Compliant with Home Medications: Yes Traumatic Symptoms: denies traumatic injury Associated Symptoms: denies other symptoms Treatments Prior to Arrival: none Home Medications Medication Instructions Recorded Confirmed citalopram 1 tab PO DAILY 07/12/18 07/12/18 naltrexone 1 tab PO DAILY 07/12/18 07/12/18 Previous Rx's Medication Instructions Recorded lorazepam [Ativan] See Rx Instructions .ROUTE 07/12/18 .COMPLEX PRN #19 tab Allergies Allergy/AdvReac Type Severity Reaction Status Date / Time aspirin [ASPIRIN] Allergy Unknown ?CHILDHOOD Verified 02/14/18 20:37 Review of Systems Constitutional Denies chills, Denies fever(s), Denies lethargy and Denies weakness Eyes Denies change in vision, Denies eye discharge, Denies irritation and Denies loss of vision ENT Ears, Nose, Mouth, and Throat: Denies change in voice, Denies neck pain and Denies sore throat Cardiovascular Denies chest pain, Denies irregular heart rhythm, Denies lightheadedness, Denies palpitations, Denies dyspnea, Denies dyspnea on exertion and Denies orthopnea Respiratory Denies cough, Denies dyspnea, Denies dyspnea on exertion and Denies wheezing Gastrointestinal Gastrointestinal: Denies abdominal pain, Denies change in bowel habits, Denies diarrhea, Denies nausea and Denies vomiting Genitourinary Denies hematuria, Denies flank pain, Denies urinary incontinence and Denies urinary urgency Musculoskeletal Denies neck pain Integumentary/Breasts Denies pruritus, Denies erythema, Denies rash and Denies wounds Neurologic Denies confusion, Denies loss of vision and Denies weakness Psychiatric Denies anxiety, Denies confusion, Denies depression, Denies homicidal ideation and Denies suicidal ideation Endocrine Denies palpitations Hematologic/Lymphatic Denies easy bruising Allergic/Immunologic Denies wheezing [facility] Medical History (Updated 07/12/18 @ 18:52 by Mendez Chao DO) Alcohol withdrawal seizure (Acute) Alcohol abuse (Acute) Alcohol dependence (Acute) Social History household members: family Smoking Status: Current every day smoker Social History household members: family Smoking Status: Current every day smoker Exam Narrative Exam Narrative: GENERAL: 42-year-old male appears stated age, bit disheveled, bloodshot eyes, smells of alcohol but speaking clearly HEAD: Atraumatic. Normocephalic. No temporal or scalp tenderness. EYES: Pupils equal round and reactive. Extraocular motions intact. ENT: Nose without bleeding, purulent drainage or septal hematoma. Throat without erythema, tonsillar hypertrophy or exudate. Uvula midline. Airway patent. NECK: Trachea midline. No JVD or lymphadenopathy. Supple, nontender, no meningeal signs. CARDIOVASCULAR: Regular rate and rhythm without murmurs, gallops, or rubs. RESPIRATORY: Clear to auscultation. Breath sounds equal bilaterally. No wheezes, rales, or rhonchi. GASTROINTESTINAL: Abdomen soft, non-tender, nondistended. No hepato-splenom egaly, or palpable masses. No guarding. EXTREMITIES: No clubbing, cyanosis, or edema. No joint tenderness, effusion, or edema noted. BACK: Nontender without deformity or crepitance. No flank tenderness. NEURO: AOx3. SKIN: No rash or erythema. Initial Vital Signs Initial Vital Signs: Vital Signs Temperature 97.6 F 07/12/18 16:40 Pulse Rate 121 H 07/12/18 16:40 Respiratory Rate 17 07/12/18 16:40 Blood Pressure 154/95 H 07/12/18 16:40 Pulse Oximetry 99 07/12/18 16:40 MDM - Medical Clearance Lab Data Result diagrams: 07/12/18 17:30 07/12/18 17:30 Lab Results 07/12/18 07/12/18 07/12/18 Range/Units 00:33 17:30 17:30 WBC 6.5 (4.5-11.0) X10^3/uL RBC 4.73 (4.5-5.9) X10^6/uL Hgb 15.1 (13.5-17.5) g/dL Hct 46.1 (41-53) % MCV 97.6 (80-100) fL MCH 32.0 (26-34) PG MCHC 32.8 (30-36) % RDW 15.5 H (11.6-14.8) % Plt Count 168 (150-400) X10^3/uL Neut % (Auto) 63.5 (50-75) % Lymph % (Auto) 26.7 (25-40) % [place] % (Auto) 6.5 (3-14) % Eos % (Auto) 1.9 L (2-4) % Baso % (Auto) 1.4 (0-2) % Neut # (Auto) 4200 (7351-9884) /uL Lymph # (Auto) 1700 (0741-7777) /uL [place] # (Auto) 400 (0-900) /uL Eos # (Auto) 100 (0-450) /uL Baso # (Auto) 100 (0-100) /uL Sodium 141 (137-145) mmol/L Potassium 4.2 (3.4-5.1) mmol/L Chloride 102 (98-107) mmol/L Carbon Dioxide 25 (22-32) mmol/L BUN 8 L (9-20) mg/dL Creatinine 0.80 (0.66-1.25) mg/dL Estimated GFR > 60.0 (>60) mL/min BUN/Creatinine Ratio 10.0 (6-22) Glucose 88 (70-100) mg/dL Calcium 8.5 (8.4-10.2) mg/dL Phosphorus 2.8 (2.5-4.5) mg/dL Magnesium 1.9 (1.6-2.3) mg/dL Total Bilirubin 0.6 (0.2-1.3) mg/dL Conjugated Bilirubin 0.0 (0.0-0.3) md/dL Unconjugated Bilirubin 0.3 (0.0-1.1) mg/dL AST 57 (17-59) IU/L ALT 36 (21-72) IU/L Alkaline Phosphatase 85 (38-126) U/L Total Protein 8.1 (6.3-8.2) g/dL Albumin 4.9 (3.5-5.0) g/dL Globulin 3.2 (1.7-4.1) g/dL Albumin/Globulin Ratio 1.5 (1.0-2.8) Lipase 179 (23-300) U/L Urine Opiates Screen Negative (Negative) Ur Oxycodone Screen Negative (Negative) Urine Methadone Screen Negative (Negative) Ur Barbiturates Screen Negative (Negative) U Tricyclic Antidepress Negative (Negative) Ur Phencyclidine Scrn Negative (Negative) Ur Amphetamines Screen Negative (Negative) U Methamphetamines Scrn Negative (Negative) Ur MDMA Scrn (Ecstasy) Negative (Negative) U Benzodiazepines Scrn Positive H (Negative) Urine Cocaine Screen Negative (Negative) U Marijuana (THC) Screen Negative (Negative) Ethyl Alcohol 395 mg/dL 07/12/18 07/13/18 Range/Units 21:03 06:28 WBC (4.5-11.0) X10^3/uL RBC (4.5-5.9) X10^6/uL Hgb (13.5-17.5) g/dL Hct (41-53) % MCV (80-100) fL MCH (26-34) PG MCHC (30-36) % RDW (11.6-14.8) % Plt Count (150-400) X10^3/uL Neut % (Auto) (50-75) % Lymph % (Auto) (25-40) % [place] % (Auto) (3-14) % Eos % (Auto) (2-4) % Baso % (Auto) (0-2) % Neut # (Auto) (9395-9766) /uL Lymph # (Auto) (2169-9755) /uL [place] # (Auto) (0-900) /uL Eos # (Auto) (0-450) /uL Baso # (Auto) (0-100) /uL Sodium (137-145) mmol/L Potassium (3.4-5.1) mmol/L Chloride (98-107) mmol/L Carbon Dioxide (22-32) mmol/L BUN (9-20) mg/dL Creatinine (0.66-1.25) mg/dL Estimated GFR (>60) mL/min BUN/Creatinine Ratio (6-22) Glucose (70-100) mg/dL Calcium (8.4-10.2) mg/dL Phosphorus (2.5-4.5) mg/dL Magnesium (1.6-2.3) mg/dL Total Bilirubin (0.2-1.3) mg/dL Conjugated Bilirubin (0.0-0.3) md/dL Unconjugated Bilirubin (0.0-1.1) mg/dL AST (17-59) IU/L ALT (21-72) IU/L Alkaline Phosphatase (38-126) U/L Total Protein (6.3-8.2) g/dL Albumin (3.5-5.0) g/dL Globulin (1.7-4.1) g/dL Albumin/Globulin Ratio (1.0-2.8) Lipase (23-300) U/L Urine Opiates Screen (Negative) Ur Oxycodone Screen (Negative) Urine Methadone Screen (Negative) Ur Barbiturates Screen (Negative) U Tricyclic Antidepress (Negative) Ur Phencyclidine Scrn (Negative) Ur Amphetamines Screen (Negative) U Methamphetamines Scrn (Negative) Ur MDMA Scrn (Ecstasy) (Negative) U Benzodiazepines Scrn (Negative) Urine Cocaine Screen (Negative) U Marijuana (THC) Screen (Negative) Ethyl Alcohol 257 12 mg/dL Urine Dip Bedside Urine Glucose Negative Bedside Urine Bilirubin - Negative Bedside Urine Ketone ++ 40 Urine Specific [place] 1.030 Bedside Urine Occult Blood - Negative Bedside Urine pH 6.0 Bedside Urine Protein + 30 Bedside Urine Urobilinogen - Negative Bedside Urine Nitrite - Negative Bedside Urine Leukocytes - Negative Esterase Discharge Plan Departure Patient Disposition: [facility] Clinical Impression: Alcohol abuse Discharge Date/Time: 07/13/18 07:41 Interventions: ED Discharge Assessment Last Done: 07/13/18 07:40 Activity Restrictions/Additional Instructions: Please proceed directly to [place], stopping anywhere in route and the cons umption of any alcohol or street drugs will in validate your medical clearance Prescriptions: New lorazepam [Ativan] 1 mg tablet See Rx Instructions .ROUTE .COMPLEX PRN (Reason: alcohol withdrawal) Qty: 19 RF: 0 No Action citalopram 10 mg tablet 1 tab PO DAILY RF: 0 naltrexone 50 mg tablet 1 tab PO DAILY RF: 0 Referrals: Alda Johnston DO [Primary Care Provider] -
[2018-07-12] MEDS: LORazepam 2 MG/ML SYRINGE IV (17:20)
[2018-07-12] MEDS: THIAMINE 100 MG in DEXTROSE 5 % IN WATER 50 ML 204 ML IV (17:38)
[2018-07-12 17:49] LABS: Add Manual Diff / Slide Review NO; Basophils Absolute Auto 100 /uL (0-100); Basophils Percent Auto 1.4 % (0-2); Eosinophils Absolute Auto 100 /uL (0-450); Eosinophils Percent Auto 1.9 % (2-4); Hematocrit 46.1 % (41-53); Hemoglobin 15.1 g/dL (13.5-17.5); Lymphocytes Absolute Auto 1700 /uL (1100-4500); Lymphocytes Percent Auto 26.7 % (25-40); Mean Corpuscular HGB Conc 32.8 % (30-36); Mean Corpuscular Volume 97.6 fL (80-100); Monocytes Absolute Auto 400 /uL (0-900); Monocytes Percent Auto 6.5 % (3-14); Neutrophils Absolute Auto 4200 /uL (1500-7000); Neutrophils Percent Auto 63.5 % (50-75); Platelet Count 168 X10^3/uL (150-400); Red Blood Cell Count 4.73 X10^6/uL (4.5-5.9); Red Cell Distribution Width 15.5 % (11.6-14.8); White Blood Cell Count 6.5 X10^3/uL (4.5-11.0)
[2018-07-12 18:02] LABS: Alanine Aminotransferase 36 IU/L (21-72); Albumin 4.9 g/dL (3.5-5.0); Albumin Globulin Ratio 1.5 (1.0-2.8); Alkaline Phosphatase 85 U/L (38-126); Aspartate Aminotransferase 57 IU/L (17-59); Bilirubin Total 0.6 mg/dL (0.2-1.3); Bilirubin Unconjugated 0.3 mg/dL (0.0-1.1); Blood Urea Nitrogen 8 mg/dL (9-20); Calcium 8.5 mg/dL (8.4-10.2); Carbon Dioxide 25 mmol/L (22-32); Chloride 102 mmol/L (98-107); Estimated Glomerular Filt Rate > 60.0 mL/min (>60); Globulin 3.2 g/dL (1.7-4.1); Glucose 88 mg/dL (70-100); Lipase 179 U/L (23-300); Magnesium 1.9 mg/dL (1.6-2.3); Phosphorous 2.8 mg/dL (2.5-4.5); Potassium 4.2 mmol/L (3.4-5.1); Sodium 141 mmol/L (137-145); Total Protein 8.1 g/dL (6.3-8.2)
[2018-07-12 18:09] LABS: Ethanol (ETOH) 395 mg/dL; HEMOLYSIS 48 (0-50)
[2018-07-12 21:00] VITALS: BP 136/84; PULSE 117; RESP 16; O2SAT 92
[2018-07-12 21:32] LABS: Ethanol (ETOH) 257 mg/dL
[2018-07-12 23:20] VITALS: BP 118/72; PULSE 96; RESP 16; O2SAT 94
[2018-07-13 00:39] LABS: Urine Amphetamines Negative (Negative); Urine Barbiturates Negative (Negative); Urine Benzodiazepines Positive (Negative); Urine Cocaine Negative (Negative); Urine MDMA Negative (Negative); Urine Methadone Negative (Negative); Urine Methamphetamines Negative (Negative); Urine Morphine/Opi cutoff 2000 Negative (Negative); Urine Oxycodone Negative (Negative); Urine Phencyclidine Negative (Negative); Urine Tetrahydrocannabinol Negative (Negative); Urine Tricyclic Antidepressant Negative (Negative)
[2018-07-13] MEDS: LORazepam 2 MG/ML SYRINGE IV (02:19)
[2018-07-13 02:25] VITALS: BP 137/87; PULSE 102; RESP 20; O2SAT 100
[2018-07-13 06:45] LABS: Ethanol (ETOH) 12 mg/dL
[2018-07-13 07:40] VITALS: BP 169/103; PULSE 118; RESP 20; O2SAT 96
== END 2018-07-13 07:41 | disposition short-term general hospital (02) ==
PROVIDERS: Emergency Medicine; Emergency Provider Emergency Medicine; PCP Family Medicine
DX: F10.239 Alcohol dependence with withdrawal, unspecified (principal)
CPT/HCPCS: 36415; 36591; 80053; 80076; 80305; 80320; 81003; 83690; 83735; 84100; 85025; 96361; 96374; 96376; 99283; 99284; J2060

== ENCOUNTER 2018-07-26 20:08 | Emergency (ER) | payer MEDICAID, SELFPAY ==
[2018-07-26 20:13] VITALS: BP 136/95; PULSE 102; RESP 20; TEMP 36.6; O2SAT 99; BMI 28.8
[2018-07-26 21:22] LABS: Add Manual Diff / Slide Review NO; Basophils Absolute Auto 200 /uL (0-100); Basophils Percent Auto 2.5 % (0-2); Eosinophils Absolute Auto 200 /uL (0-450); Eosinophils Percent Auto 2.2 % (2-4); Hematocrit 44.9 % (41-53); Hemoglobin 15.6 g/dL (13.5-17.5); Lymphocytes Absolute Auto 2900 /uL (1100-4500); Lymphocytes Percent Auto 41.6 % (25-40); Mean Corpuscular HGB Conc 34.8 % (30-36); Mean Corpuscular Hemoglobin 33.7 PG (26-34); Mean Corpuscular Volume 96.9 fL (80-100); Monocytes Absolute Auto 600 /uL (0-900); Monocytes Percent Auto 8.7 % (3-14); Neutrophils Absolute Auto 3100 /uL (1500-7000); Platelet Count 322 X10^3/uL (150-400); Red Blood Cell Count 4.64 X10^6/uL (4.5-5.9); Red Cell Distribution Width 15.2 % (11.6-14.8); White Blood Cell Count 6.9 X10^3/uL (4.5-11.0)
[2018-07-26 21:35] LABS: HEMOLYSIS < 15 (0-50); Potassium 4.1 mmol/L (3.4-5.1)
[2018-07-26 21:37] LABS: Albumin 4.5 g/dL (3.5-5.0); Albumin Globulin Ratio 1.6 (1.0-2.8); Aspartate Aminotransferase 51 IU/L (17-59); Bilirubin Total 0.3 mg/dL (0.2-1.3); Bilirubin Unconjugated 0.1 mg/dL (0.0-1.1); Blood Urea Nitrogen 12 mg/dL (9-20); Calcium 8.9 mg/dL (8.4-10.2); Carbon Dioxide 27 mmol/L (22-32); Chloride 104 mmol/L (98-107); Estimated Glomerular Filt Rate > 60.0 mL/min (>60); Globulin 2.8 g/dL (1.7-4.1); Glucose 101 mg/dL (70-100); Sodium 142 mmol/L (137-145); Total Protein 7.3 g/dL (6.3-8.2)
[2018-07-26 21:39] LABS: Alanine Aminotransferase 54 IU/L (21-72); Alkaline Phosphatase 79 U/L (38-126); Lipase 158 U/L (23-300); Magnesium 2.2 mg/dL (1.6-2.3)
[2018-07-26 21:47] LABS: Ethanol (ETOH) 361 mg/dL
--- NOTE | 2018-07-26 22:16 | ED.ALCOHOL ---
HPI - Alcohol General Chief Complaint: Toxicology Problem Stated Complaint: DETOX Time Seen by Provider: 07/26/18 21:20 Source: patient and family Mode of arrival: ambulatory Limitations: no limitations History of Present Illness HPI narrative: 43-year-old male smoker and heavy alcohol drinker presents requesting help with detox from alcohol. He states he drinks upwards of 1/5 per day and has an expectant bed at a local facility tomorrow. He was most recently seen under similar conditions about 10 days ago which resulted in a 5 day course at a local. He was discharged 5 days and started drinking heavily nearly immediately. He denies chest pain or shortness of breath. He denies any abdominal pain and was not dizzy nor weak or lightheaded MD complaint: alcohol intoxication Last drink: just prior to this admission Chronic alcohol use: Yes Previous visits for alcohol intoxication: Yes Recent trauma: No Associated symptoms: denies other symptoms Treatments prior to arrival: none Related Data Home Medications Medication Instructions Recorded Confirmed citalopram 1 tab PO DAILY 07/12/18 07/12/18 naltrexone 1 tab PO DAILY 07/12/18 07/12/18 Previous Rx's Medication Instructions Recorded lorazepam [Ativan] See Rx Instructions .ROUTE 07/12/18 .COMPLEX PRN #19 tab lorazepam [Ativan] See Rx Instructions .ROUTE 07/27/18 .COMPLEX #19 tab Allergies Allergy/AdvReac Type Severity Reaction Status Date / Time aspirin [ASPIRIN] Allergy Unknown ?CHILDHOOD Verified 02/14/18 20:37 Review of Systems Constitutional Denies chills, Denies fever(s), Denies lethargy and Denies weakness Eyes Denies change in vision, Denies eye discharge, Denies irritation and Denies loss of vision ENT Ears, Nose, Mouth, and Throat: Denies change in voice, Denies neck pain and Denies sore throat Cardiovascular Denies chest pain, Denies irregular heart rhythm, Denies lightheadedness, Denies palpitations, Denies dyspnea, Denies dyspnea on exertion and Denies orthopnea Respiratory Denies cough, Denies dyspnea, Denies dyspnea on exertion and Denies wheezing Gastrointestinal Gastrointestinal: Denies abdominal pain, Denies change in bowel habits, Denies diarrhea, Denies nausea and Denies vomiting Genitourinary Denies hematuria, Denies flank pain, Denies urinary incontinence and Denies urinary urgency Musculoskeletal Denies neck pain Integumentary/Breasts Denies pruritus, Denies erythema, Denies rash and Denies wounds Neurologic Denies confusion, Denies loss of vision and Denies weakness Psychiatric Denies anxiety, Denies confusion, Denies depression, Denies homicidal ideation and Denies suicidal ideation Endocrine Denies palpitations Hematologic/Lymphatic Denies easy bruising Allergic/Immunologic Denies wheezing [facility] Medical History (Updated 07/27/18 @ 07:12 by Mendez Chao DO) Alcohol withdrawal seizure (Acute) Alcohol abuse (Acute) Alcohol dependence (Acute) Social History household members: family Smoking Status: Current every day smoker Social History household members: family Smoking Status: Current every day smoker Exam Narrative Exam Narrative: GENERAL: 43M, slurring his words, walking with steady gait HEAD: Atraumatic. Normocephalic. No temporal or scalp tenderness. EYES: Pupils equal round and reactive. Extraocular motions intact. No scleral icterus. No injection or drainage. ENT: Nose without bleeding, purulent drainage or septal hematoma. Throat without erythema, tonsillar hypertrophy or exudate. Uvula midline. Airway patent. NECK: Trachea midline. No JVD or lymphadenopathy. Supple, nontender, no meningeal signs. CARDIOVASCULAR: Regular rate and rhythm without murmurs, gallops, or rubs. RESPIRATORY: Clear to auscultation. Breath sounds equal bilaterally. No wheezes, rales, or rhonchi. GASTROINTESTINAL: Abdomen soft, non-tender, nondistended. No hepato-splenomegaly, or palpable masses. No guarding. EXTREMITIES: No clubbing, cyanosis, or edema. No joint tenderness, effusion, or edema noted. BACK: Nontender without deformity or crepitance. No flank tenderness. NEURO: AOx3. SKIN: No rash or erythema. Initial Vital Signs Initial Vital Signs: Vital Signs Temperature 97.9 F 07/26/18 20:13 Pulse Rate 102 H 07/26/18 20:13 Respiratory Rate 20 07/26/18 20:13 Blood Pressure 136/95 H 07/26/18 20:13 Pulse Oximetry 99 07/26/18 20:13 Course Orders Ordered: Discontinued Medications Lorazepam (Ativan) 1 mg PO NOW ONE Stop: 07/27/18 08:54 Last Admin: 07/27/18 09:06 Dose: 1 mg Lorazepam (Ativan) 1 mg PO NOW ONE Stop: 07/27/18 10:08 Last Admin: 07/27/18 10:12 Dose: Not Given Vital Signs - 8 hr 07/26/18 20:13 07/26/18 23:41 Temperature 97.9 F Pulse Rate 102 H 87 Respiratory Rate 20 17 Blood Pressure 136/95 H Blood Pressure [Left Arm] 147/91 H Pulse Oximetry 99 99 MDM - Alcohol Lab Data Result diagrams: 07/26/18 21:10 07/26/18 21:10 Labs: Lab Results 07/26/18 07/26/18 07/26/18 Range/Units 21:10 21:10 21:10 WBC 6.9 (4.5-11.0) X10^3/uL RBC 4.64 (4.5-5.9) X10^6/uL Hgb 15.6 (13.5-17.5) g/dL Hct 44.9 (41-53) % MCV 96.9 (80-100) fL MCH 33.7 (26-34) PG MCHC 34.8 (30-36) % RDW 15.2 H (11.6-14.8) % Plt Count 322 (150-400) X10^3/uL Neut % (Auto) 45.0 L (50-75) % Lymph % (Auto) 41.6 H (25-40) % [place] % (Auto) 8.7 (3-14) % Eos % (Auto) 2.2 (2-4) % Baso % (Auto) 2.5 H (0-2) % Neut # (Auto) 3100 (9851-4806) /uL Lymph # (Auto) 2900 (9148-8166) /uL [place] # (Auto) 600 (0-900) /uL Eos # (Auto) 200 (0-450) /uL Baso # (Auto) 200 H (0-100) /uL Sodium 142 (137-145) mmol/L Potassium 4.1 (3.4-5.1) mmol/L Chloride 104 (98-107) mmol/L Carbon Dioxide 27 (22-32) mmol/L BUN 12 (9-20) mg/dL Creatinine 0.80 (0.66-1.25) mg/dL Estimated GFR > 60.0 (>60) mL/min BUN/Creatinine Ratio 15.0 (6-22) Glucose 101 H (70-100) mg/dL Calcium 8.9 (8.4-10.2) mg/dL Magnesium 2.2 (1.6-2.3) mg/dL Total Bilirubin 0.3 (0.2-1.3) mg/dL Conjugated Bilirubin 0.0 (0.0-0.3) md/dL Unconjugated Bilirubin 0.1 (0.0-1.1) mg/dL AST 51 (17-59) IU/L ALT 54 (21-72) IU/L Alkaline Phosphatase 79 (38-126) U/L Total Protein 7.3 (6.3-8.2) g/dL Albumin 4.5 (3.5-5.0) g/dL Globulin 2.8 (1.7-4.1) g/dL Albumin/Globulin Ratio 1.6 (1.0-2.8) Lipase 158 (23-300) U/L TSH 6.03 H (0.47-4.68) uIU/mL Urine Color Urine Appearance Urine pH (4.5-8.0) Ur Specific [place] (1.000-1.035) Urine Protein (Negative) Urine Glucose (UA) (Negative) g/dL Urine Ketones (NEGATIVE) Urine Occult Blood (Negative) Urine Nitrate (Negative) Urine Bilirubin (NEGATIVE) Urine Urobilinogen (0.2) E.U./dL Ur Leukocyte Esterase (NEGATIVE) Urine RBC (0-5/HPF) Urine WBC (0-5/HPF) Urine Bacteria (None) Ur Culture Indicated? Urine Opiates Screen (Negative) Ur Oxycodone Screen (Negative) Urine Methadone Screen (Negative) Ur Barbiturates Screen (Negative) U Tricyclic Antidepress (Negative) Ur Phencyclidine Scrn (Negative) Ur Amphetamines Screen (Negative) U Methamphetamines Scrn (Negative) Ur MDMA Scrn (Ecstasy) (Negative) U Benzodiazepines Scrn (Negative) Urine Cocaine Screen (Negative) U Marijuana (THC) Screen (Negative) Ethyl Alcohol 361 mg/dL 07/27/18 07/27/18 Range/Units 04:05 04:05 WBC (4.5-11.0) X10^3/uL RBC (4.5-5.9) X10^6/uL Hgb (13.5-17.5) g/dL Hct (41-53) % MCV (80-100) fL MCH (26-34) PG MCHC (30-36) % RDW (11.6-14.8) % Plt Count (150-400) X10^3/uL Neut % (Auto) (50-75) % Lymph % (Auto) (25-40) % [place] % (Auto) (3-14) % Eos % (Auto) (2-4) % Baso % (Auto) (0-2) % Neut # (Auto) (8965-2391) /uL Lymph # (Auto) (5660-2126) /uL [place] # (Auto) (0-900) /uL Eos # (Auto) (0-450) /uL Baso # (Auto) (0-100) /uL Sodium (137-145) mmol/L Potassium (3.4-5.1) mmol/L Chloride (98-107) mmol/L Carbon Dioxide (22-32) mmol/L BUN (9-20) mg/dL Creatinine (0.66-1.25) mg/dL Estimated GFR (>60) mL/min BUN/Creatinine Ratio (6-22) Glucose (70-100) mg/dL Calcium (8.4-10.2) mg/dL Magnesium (1.6-2.3) mg/dL Total Bilirubin (0.2-1.3) mg/dL Conjugated Bilirubin (0.0-0.3) md/dL Unconjugated Bilirubin (0.0-1.1) mg/dL AST (17-59) IU/L ALT (21-72) IU/L Alkaline Phosphatase (38-126) U/L Total Protein (6.3-8.2) g/dL Albumin (3.5-5.0) g/dL Globulin (1.7-4.1) g/dL Albumin/Globulin Ratio (1.0-2.8) Lipase (23-300) U/L TSH (0.47-4.68) uIU/mL Urine Color Yellow Urine Appearance Clear Urine pH 6.5 (4.5-8.0) Ur Specific [place] 1.020 (1.000-1.035) Urine Protein Negative (Negative) Urine Glucose (UA) Negative (Negative) g/dL Urine Ketones Negative (NEGATIVE) Urine Occult Blood Negative (Negative) Urine Nitrate Negative (Negative) Urine Bilirubin Negative (NEGATIVE) Urine Urobilinogen 0.2 (0.2) E.U./dL Ur Leukocyte Esterase Negative (NEGATIVE) Urine RBC None seen (0-5/HPF) Urine WBC None seen (0-5/HPF) Urine Bacteria None seen (None) Ur Culture Indicated? Cult not indicated Urine Opiates Screen Negative (Negative) Ur Oxycodone Screen Negative (Negative) Urine Methadone Screen Negative (Negative) Ur Barbiturates Screen Negative (Negative) U Tricyclic Antidepress Negative (Negative) Ur Phencyclidine Scrn Negative (Negative) Ur Amphetamines Screen Negative (Negative) U Methamphetamines Scrn Negative (Negative) Ur MDMA Scrn (Ecstasy) Negative (Negative) U Benzodiazepines Scrn Positive H (Negative) Urine Cocaine Screen Negative (Negative) U Marijuana (THC) Screen Negative (Negative) Ethyl Alcohol mg/dL Discharge Plan Departure Patient Disposition: Home Clinical Impression: Alcohol abuse Alcoholic intoxication Qualifiers: Complication of substance-induced condition: uncomplicated Qualified Code(s): F10.920 - Alcohol use, unspecified with intoxication, uncomplicated Discharge Date/Time: 07/27/18 10:14 Interventions: ED Discharge Assessment Last Done: 07/27/18 10:13 Instructions: DI for Alcohol Abuse Activity Restrictions/Additional Instructions: *You have been diagnosed with [ alcohol abuse and intoxication ] *What to do: *Take medications as directed *Proceed directly to [facility]. You are medically cleared, if you go elsewhere, and do anything other than proceeding directly there it can negate this clearance *Return to ER if you should have any new, worsening or concerning symptoms Prescriptions: New lorazepam [Ativan] 1 mg tablet See Rx Instructions .ROUTE .COMPLEX Qty: 19 RF: 0 No Action lorazepam [Ativan] 1 mg tablet See Rx Instructions .ROUTE .COMPLEX PRN (Reason: alcohol withdrawal) Qty: 19 RF: 0 citalopram 10 mg tablet 1 tab PO DAILY RF: 0 naltrexone 50 mg tablet 1 tab PO DAILY RF: 0 Referrals: Alda Johnston, [Primary Care Provider] -
[2018-07-26 22:36] LABS: Thyroid Stimulating Hormone 6.03 uIU/mL (0.47-4.68)
[2018-07-26 23:41] VITALS: BP 147/91; PULSE 87; RESP 17; O2SAT 99
[2018-07-27 01:36] VITALS: BP 151/88; PULSE 84; RESP 20; O2SAT 99
--- NOTE | 2018-07-27 02:40 | PC.NURSE ---
He was given a sandwich ,crackers,juice and ate it all.He was alert,polite and thankfull.
[2018-07-27 04:12] LABS: Appearance Urine UA CLEAR; Bacteria Urine None Seen; Bilirubin Urine UA NEGATIVE (NEGATIVE); Color Urine UA YELLOW; Glucose Urine UA NEGATIVE (Negative); Ketones Urine UA NEGATIVE (NEGATIVE); Leukocyte Esterase Urine UA NEGATIVE (NEGATIVE); Nitrite Urine UA NEGATIVE (Negative); Occult Blood Urine UA NEGATIVE (Negative); Protein Urine UA NEGATIVE (Negative); RBC Urine None Seen (0-5/HPF); Urobilinogen Urine UA 0.2 E.U./dL (0.2); WBC Urine None Seen (0-5/HPF); pH Urine UA 6.5 (4.5-8.0)
[2018-07-27 04:16] LABS: Urine Amphetamines Negative (Negative); Urine Barbiturates Negative (Negative); Urine Cocaine Negative (Negative); Urine MDMA Negative (Negative); Urine Methamphetamines Negative (Negative); Urine Morphine/Opi cutoff 2000 Negative (Negative); Urine Phencyclidine Negative (Negative); Urine Tetrahydrocannabinol Negative (Negative)
[2018-07-27 04:17] LABS: Urine Benzodiazepines Positive (Negative); Urine Methadone Negative (Negative); Urine Oxycodone Negative (Negative); Urine Tricyclic Antidepressant Negative (Negative)
[2018-07-27 04:32] LABS: Culture Indicated Urine Cult Not Indicated
[2018-07-27 05:26] VITALS: BP 144/79; PULSE 88; RESP 18; O2SAT 98
[2018-07-27] MEDS: LORazepam 0.5 MG TABLET 1 MG PO (09:06)
--- NOTE | 2018-07-27 09:38 | PC.NURSE ---
Pt left ED and stated to parents I cant be here anymore. It was explained to parents that our attempts to get placement will stop if he is not a willing participate. Pt has returned and will wait to see is Crisis accepts.
[2018-07-27 10:12] VITALS: BP 154/103; PULSE 91; RESP 18; O2SAT 100
--- NOTE | 2018-07-27 10:13 | PC.NURSE ---
I talked with Rosana, The RN accepting the patient @ the [facility]. She has bed availability and would like the patient to come over now. Patient has been discharged and is headed that way. I called back to [facility] and let them know to expect the patient around 11am today.
== END 2018-07-27 10:14 | disposition home or self-care (01) ==
PROVIDERS: Nurse Practitioner Family; Emergency Provider Emergency Medicine; PCP Family Medicine
DX: F10.920 Alcohol use, unspecified with intoxication, uncomplicated (principal)
CPT/HCPCS: 36415; 80053; 80076; 80305; 80320; 81001; 83690; 83735; 84443; 85025; 99283

== ENCOUNTER 2018-09-25 15:35 | Emergency (ER) | payer MEDICAID, SELFPAY ==
[2018-09-25 15:39] VITALS: BP 151/79; PULSE 113; RESP 22; TEMP 37.2; O2SAT 94
--- NOTE | 2018-09-25 16:01 | PC.NURSE ---
Requesting to go out out smoke. Staff at bedside discussing this with pt.
--- NOTE | 2018-09-25 16:19 | PC.NURSE ---
Pt calls nurse into room. Requests ativan. Explained will let provider know of this request. States w/d sx but last drank 2 hours [employer].
[2018-09-25] MEDS: NICOTINE 14 PATCH 14 MG TOP (16:25)
[2018-09-25 16:44] LABS: Add Manual Diff / Slide Review NO; Basophils Absolute Auto 100 /uL (0-100); Basophils Percent Auto 1.3 % (0-2); Eosinophils Absolute Auto 200 /uL (0-450); Eosinophils Percent Auto 4.3 % (2-4); Hematocrit 43.9 % (41-53); Hemoglobin 15.2 g/dL (13.5-17.5); Lymphocytes Absolute Auto 2400 /uL (1100-4500); Lymphocytes Percent Auto 48.1 % (25-40); Mean Corpuscular HGB Conc 34.5 % (30-36); Mean Corpuscular Hemoglobin 33.6 PG (26-34); Mean Corpuscular Volume 97.5 fL (80-100); Monocytes Absolute Auto 400 /uL (0-900); Monocytes Percent Auto 8.6 % (3-14); Neutrophils Absolute Auto 1900 /uL (1500-7000); Neutrophils Percent Auto 37.7 % (50-75); Platelet Count 284 X10^3/uL (150-400); Red Blood Cell Count 4.51 X10^6/uL (4.5-5.9); Red Cell Distribution Width 14.8 % (11.6-14.8)
[2018-09-25 16:51] LABS: Prothrombin Time 11.8 SECONDS (10.1-12.7)
[2018-09-25 17:00] LABS: Urine Tetrahydrocannabinol Positive (Negative)
[2018-09-25 17:00] LABS: Alanine Aminotransferase 52 IU/L (21-72); Albumin 4.4 g/dL (3.5-5.0); Albumin Globulin Ratio 1.6 (1.0-2.8); Alkaline Phosphatase 84 U/L (38-126); Aspartate Aminotransferase 75 IU/L (17-59); BUN Creatinine Ratio 8.6 (6-22); Bilirubin Total 0.3 mg/dL (0.2-1.3); Blood Urea Nitrogen 6 mg/dL (9-20); Calcium 8.9 mg/dL (8.4-10.2); Carbon Dioxide 26 mmol/L (22-32); Chloride 105 mmol/L (98-107); Estimated Glomerular Filt Rate > 60.0 mL/min (>60); Globulin 2.8 g/dL (1.7-4.1); Glucose 92 mg/dL (70-100); HEMOLYSIS < 15 (0-50); Lipase 145 U/L (23-300); Magnesium 1.8 mg/dL (1.6-2.3); Phosphorous 3.9 mg/dL (2.5-4.5); Potassium 3.8 mmol/L (3.4-5.1); Sodium 145 mmol/L (137-145); Total Protein 7.2 g/dL (6.3-8.2)
[2018-09-25 17:01] LABS: Urine Amphetamines Negative (Negative); Urine Barbiturates Negative (Negative); Urine Benzodiazepines Negative (Negative); Urine Cocaine Negative (Negative); Urine MDMA Negative (Negative); Urine Methadone Negative (Negative); Urine Methamphetamines Negative (Negative); Urine Morphine/Opi cutoff 2000 Negative (Negative); Urine Oxycodone Negative (Negative); Urine Phencyclidine Negative (Negative); Urine Tricyclic Antidepressant Negative (Negative)
[2018-09-25 17:01] LABS: Acetaminophen < 10 ug/mL (10-30); Salicylate < 1.0 mg/dL (<20)
[2018-09-25 17:08] LABS: Ethanol (ETOH) 348 mg/dL
--- NOTE | 2018-09-25 20:48 | ED.ALCOHOL ---
HPI - Alcohol <KANDY Hooper-BC - Last Filed: 09/25/18 20:50> General Chief Complaint: Toxicology Problem Stated Complaint: wants alcohol detox Time Seen by Provider: 09/25/18 15:48 Source: patient Mode of arrival: ambulatory Limitations: no limitations History of Present Illness HPI narrative: The patient is a 43-year-old male who presents with a chief complaint of requesting detox. He states he is an alcoholic, and drinks lots of whiskey or [employer] lemonade per day. He states he went to [facility] in July and would like to go back there. He denies any other drug use to me. Denies any suicidal thoughts or suicidal ideations. He states he was drinking up until his arrival to the emergency department. Related Data Home Medications Medication Instructions Recorded Confirmed acamprosate 333 mg PO DAILY 09/25/18 09/30/18 citalopram 20 mg PO DAILY 09/25/18 09/30/18 doxepin 50 mg PO BEDTIME 09/25/18 09/30/18 gabapentin 600 mg PO TID PRN 09/25/18 09/30/18 lorazepam 1 dose PO DIRECTED 09/25/18 naltrexone 25 mg PO DIRECTED 09/30/18 09/30/18 Allergies Allergy/AdvReac Type Severity Reaction Status Date / Time aspirin [ASPIRIN] Allergy Unknown ?CHILDHOOD Verified 09/30/18 14:52 Review of Systems <KANDY Hooper- - Last Filed: 09/25/18 20:50> Review of Systems GENERAL: Denies chills, fatigue, malaise, fever, sweats. HEENT: Denies sinus pain, ear pain, sore throat, difficulty swallowing, dizziness. RESPIRATORY: Denies dyspnea, cough, wheezing, hemoptysis, sputum. CARDIOVASCULAR: Denies chest pain, palpitations, orthopnea, edema, GASTROINTESTINAL: Denies nausea, vomiting, abdominal pain, diarrhea, constipation, melena. : Denies dysuria, frequency, incontinence, hematuria, urinary retention. MUSCULOSKELETAL: denies weakness, joint pain, or bony pain SKIN: Denies rash, skin lesions, or other NEUROLOGIC: Denies weakness, headache, numbness, change in speech, confusion, seizures, incoordination. PSYCHIATRIC see HPI 12 point review of systems is negative except for those stated above PFSH <Sultana MeyersKANDY reece-BC - Last Filed: 09/25/18 20:50> Medical History (Updated 09/30/18 @ 16:59 by Kaur Abreu RN) Reactive airway disease (Chronic) Alcohol dependence (Chronic) Alcohol withdrawal seizure (Resolved) Alcohol abuse (Chronic) Social History household members: family Smoking Status: Current every day smoker Social History household members: family Smoking Status: Current every day smoker Exam <Sultana PrideMILENA - Last Filed: 09/25/18 20:50> Narrative Exam Narrative: GENERAL: This is a well-nourished, well-developed patient, in no acute distress HEAD: Atraumatic. Normocephalic. No temporal or scalp tenderness. EYES: Pupils equal round and reactive. Extraocular motions intact. No scleral icterus. No injection or drainage. ENT: Nose without bleeding, purulent drainage or septal hematoma. Throat without erythema, tonsillar hypertrophy or exudate. Uvula midline. Airway patent. NECK: Trachea midline. No JVD or lymphadenopathy. Supple, nontender, no meningeal signs. CARDIOVASCULAR: Regular rate and rhythm RESPIRATORY: Clear to auscultation. Breath sounds equal bilaterally. No wheezes, rales, or rhonchi. No cough. No increased respiratory effort. No accessory muscle use. GASTROINTESTINAL: Abdomen soft, non-tender, nondistended. No hepato-splenomegaly, or palpable masses. No guarding. Active bowel sounds all 4 quadrants. BACK: Nontender without deformity or crepitance. No flank tenderness. NEURO: AOx3. Perseverative speech. Pressured speech. SKIN: No rash or erythema. Initial Vital Signs Initial Vital Signs: Vital Signs Temperature 98.9 F 09/25/18 15:39 Pulse Rate 113 H 09/25/18 15:39 Respiratory Rate 22 09/25/18 15:39 Blood Pressure 151/79 H 09/25/18 15:39 Pulse Oximetry 94 09/25/18 15:39 <Sultana Ureña DO - Last Filed: 10/02/18 08:23> Initial Vital Signs Initial Vital Signs: Vital Signs Temperature 98.9 F 09/25/18 15:39 Pulse Rate 113 H 09/25/18 15:39 Respiratory Rate 22 09/25/18 15:39 Blood Pressure 151/79 H 09/25/18 15:39 Pulse Oximetry 94 09/25/18 15:39 Course <MILENA Hooper - Last Filed: 09/25/18 20:50> Orders Ordered: Discontinued Medications Nicotine (Nicoderm) 14 mg TOP NOW ONE Stop: 09/25/18 16:11 Last Admin: 09/25/18 16:25 Dose: 14 mg Vital Signs - 8 hr 09/25/18 15:39 Temperature 98.9 F Pulse Rate 113 H Respiratory Rate 22 Blood Pressure 151/79 H Pulse Oximetry 94 <Sultana Ureña DO - Last Filed: 10/02/18 08:23> Orders Ordered: Discontinued Medications Nicotine (Nicoderm) 14 mg TOP NOW ONE Stop: 09/25/18 16:11 Last Admin: 09/25/18 16:25 Dose: 14 mg Vital Signs - 8 hr 09/25/18 15:39 Temperature 98.9 F Pulse Rate 113 H Respiratory Rate 22 Blood Pressure 151/79 H Pulse Oximetry 94 MDM - Alcohol <MILENA Hooper - Last Filed: 09/25/18 20:50> Lab Data Result diagrams: 09/25/18 16:12 09/25/18 16:12 Labs: Lab Results 09/25/18 09/25/18 09/25/18 Range/Units 16:05 16:12 16:12 WBC (4.5-11.0) X10^3/uL RBC (4.5-5.9) X10^6/uL Hgb (13.5-17.5) g/dL Hct (41-53) % MCV (80-100) fL MCH (26-34) PG MCHC (30-36) % RDW (11.6-14.8) % Plt Count (150-400) X10^3/uL Neut % (Auto) (50-75) % Lymph % (Auto) (25-40) % [place] % (Auto) (3-14) % Eos % (Auto) (2-4) % Baso % (Auto) (0-2) % Neut # (Auto) (8426-6764) /uL Lymph # (Auto) (0184-2714) /uL [place] # (Auto) (0-900) /uL Eos # (Auto) (0-450) /uL Baso # (Auto) (0-100) /uL PT 11.8 (10.1-12.7) SECONDS INR 1.0 (0.9-1.3) Sodium Cancelled Potassium Cancelled Chloride Cancelled Carbon Dioxide Cancelled BUN Cancelled Creatinine Cancelled Estimated GFR Cancelled BUN/Creatinine Ratio Cancelled Glucose Cancelled Calcium Cancelled Phosphorus Cancelled Magnesium Cancelled Total Bilirubin Cancelled Conjugated Bilirubin Cancelled Unconjugated Bilirubin Cancelled AST Cancelled ALT Cancelled Alkaline Phosphatase Cancelled Total Protein Cancelled Albumin Cancelled Globulin Cancelled Albumin/Globulin Ratio Cancelled Lipase Cancelled TSH (0.47-4.68) uIU/mL Specimen Hemolysis Cancelled Salicylates (<20) mg/dL Urine Opiates Screen Negative (Negative) Ur Oxycodone Screen Negative (Negative) Urine Methadone Screen Negative (Negative) Acetaminophen (10-30) ug/mL Ur Barbiturates Screen Negative (Negative) U Tricyclic Antidepress Negative (Negative) Ur Phencyclidine Scrn Negative (Negative) Ur Amphetamines Screen Negative (Negative) U Methamphetamines Scrn Negative (Negative) Ur MDMA Scrn (Ecstasy) Negative (Negative) U Benzodiazepines Scrn Negative (Negative) Urine Cocaine Screen Negative (Negative) U Marijuana (THC) Screen Positive H (Negative) Ethyl Alcohol Cancelled 09/25/18 09/25/18 09/25/18 Range/Units 16:12 16:12 16:12 WBC 5.0 (4.5-11.0) X10^3/uL RBC 4.51 (4.5-5.9) X10^6/uL Hgb 15.2 (13.5-17.5) g/dL Hct 43.9 (41-53) % MCV 97.5 (80-100) fL MCH 33.6 (26-34) PG MCHC 34.5 (30-36) % RDW 14.8 (11.6-14.8) % Plt Count 284 (150-400) X10^3/uL Neut % (Auto) 37.7 L (50-75) % Lymph % (Auto) 48.1 H (25-40) % [place] % (Auto) 8.6 (3-14) % Eos % (Auto) 4.3 H (2-4) % Baso % (Auto) 1.3 (0-2) % Neut # (Auto) 1900 (8690-9700) /uL Lymph # (Auto) 2400 (6888-8445) /uL [place] # (Auto) 400 (0-900) /uL Eos # (Auto) 200 (0-450) /uL Baso # (Auto) 100 (0-100) /uL PT (10.1-12.7) SECONDS INR (0.9-1.3) Sodium 145 Potassium 3.8 Chloride 105 Carbon Dioxide 26 BUN 6 L Creatinine 0.70 Estimated GFR > 60.0 BUN/Creatinine Ratio 8.6 Glucose 92 Calcium 8.9 Phosphorus 3.9 Magnesium 1.8 Total Bilirubin 0.3 Conjugated Bilirubin 0.0 Unconjugated Bilirubin 0.0 AST 75 H ALT 52 Alkaline Phosphatase 84 Total Protein 7.2 Albumin 4.4 Globulin 2.8 Albumin/Globulin Ratio 1.6 Lipase 145 TSH (0.47-4.68) uIU/mL Specimen Hemolysis Salicylates < 1.0 (<20) mg/dL Urine Opiates Screen (Negative) Ur Oxycodone Screen (Negative) Urine Methadone Screen (Negative) Acetaminophen < 10 L (10-30) ug/mL Ur Barbiturates Screen (Negative) U Tricyclic Antidepress (Negative) Ur Phencyclidine Scrn (Negative) Ur Amphetamines Screen (Negative) U Methamphetamines Scrn (Negative) Ur MDMA Scrn (Ecstasy) (Negative) U Benzodiazepines Scrn (Negative) Urine Cocaine Screen (Negative) U Marijuana (THC) Screen (Negative) Ethyl Alcohol 348 09/25/18 Range/Units 16:12 WBC (4.5-11.0) X10^3/uL RBC (4.5-5.9) X10^6/uL Hgb (13.5-17.5) g/dL Hct (41-53) % MCV (80-100) fL MCH (26-34) PG MCHC (30-36) % RDW (11.6-14.8) % Plt Count (150-400) X10^3/uL Neut % (Auto) (50-75) % Lymph % (Auto) (25-40) % [place] % (Auto) (3-14) % Eos % (Auto) (2-4) % Baso % (Auto) (0-2) % Neut # (Auto) (1732-4919) /uL Lymph # (Auto) (5006-8986) /uL [place] # (Auto) (0-900) /uL Eos # (Auto) (0-450) /uL Baso # (Auto) (0-100) /uL PT (10.1-12.7) SECONDS INR (0.9-1.3) Sodium Potassium Chloride Carbon Dioxide BUN Creatinine Estimated GFR BUN/Creatinine Ratio Glucose Calcium Phosphorus Magnesium Total Bilirubin Conjugated Bilirubin Unconjugated Bilirubin AST ALT Alkaline Phosphatase Total Protein Albumin Globulin Albumin/Globulin Ratio Lipase TSH 1.60 (0.47-4.68) uIU/mL Specimen Hemolysis Salicylates (<20) mg/dL Urine Opiates Screen (Negative) Ur Oxycodone Screen (Negative) Urine Methadone Screen (Negative) Acetaminophen (10-30) ug/mL Ur Barbiturates Screen (Negative) U Tricyclic Antidepress (Negative) Ur Phencyclidine Scrn (Negative) Ur Amphetamines Screen (Negative) U Methamphetamines Scrn (Negative) Ur MDMA Scrn (Ecstasy) (Negative) U Benzodiazepines Scrn (Negative) Urine Cocaine Screen (Negative) U Marijuana (THC) Screen (Negative) Ethyl Alcohol MDM Narrative Medical decision making narrative: The patient is a 43-year-old male who presents requesting alcohol detox. His alcohol is very elevated on arrival, above 300. He received standard lab work for medical clearance for detox. However while waiting for repeat alcohol level, the patient left the department. Given that he is GCS 15, denies any suicidal thoughts or ideations and denies any homicidal thoughts or ideations he was allowed to leave. I was informed of his departure 30 minutes to an hour after he left. <Sultana Ureña, DO - Last Filed: 10/02/18 08:23> Lab Data Labs: Lab Results 09/25/18 09/25/18 09/25/18 Range/Units 16:05 16:12 16:12 WBC (4.5-11.0) X10^3/uL RBC (4.5-5.9) X10^6/uL Hgb (13.5-17.5) g/dL Hct (41-53) % MCV (80-100) fL MCH (26-34) PG MCHC (30-36) % RDW (11.6-14.8) % Plt Count (150-400) X10^3/uL Neut % (Auto) (50-75) % Lymph % (Auto) (25-40) % [place] % (Auto) (3-14) % Eos % (Auto) (2-4) % Baso % (Auto) (0-2) % Neut # (Auto) (7920-0724) /uL Lymph # (Auto) (5298-3361) /uL [place] # (Auto) (0-900) /uL Eos # (Auto) (0-450) /uL Baso # (Auto) (0-100) /uL PT 11.8 (10.1-12.7) SECONDS INR 1.0 (0.9-1.3) Sodium Cancelled Potassium Cancelled Chloride Cancelled Carbon Dioxide Cancelled BUN Cancelled Creatinine Cancelled Estimated GFR Cancelled BUN/Creatinine Ratio Cancelled Glucose Cancelled Calcium Cancelled Phosphorus Cancelled Magnesium Cancelled Total Bilirubin Cancelled Conjugated Bilirubin Cancelled Unconjugated Bilirubin Cancelled AST Cancelled ALT Cancelled Alkaline Phosphatase Cancelled Total Protein Cancelled Albumin Cancelled Globulin Cancelled Albumin/Globulin Ratio Cancelled Lipase Cancelled TSH (0.47-4.68) uIU/mL Specimen Hemolysis Cancelled Salicylates (<20) mg/dL Urine Opiates Screen Negative (Negative) Ur Oxycodone Screen Negative (Negative) Urine Methadone Screen Negative (Negative) Acetaminophen (10-30) ug/mL Ur Barbiturates Screen Negative (Negative) U Tricyclic Antidepress Negative (Negative) Ur Phencyclidine Scrn Negative (Negative) Ur Amphetamines Screen Negative (Negative) U Methamphetamines Scrn Negative (Negative) Ur MDMA Scrn (Ecstasy) Negative (Negative) U Benzodiazepines Scrn Negative (Negative) Urine Cocaine Screen Negative (Negative) U Marijuana (THC) Screen Positive H (Negative) Ethyl Alcohol Cancelled 09/25/18 09/25/18 09/25/18 Range/Units 16:12 16:12 16:12 WBC 5.0 (4.5-11.0) X10^3/uL RBC 4.51 (4.5-5.9) X10^6/uL Hgb 15.2 (13.5-17.5) g/dL Hct 43.9 (41-53) % MCV 97.5 (80-100) fL MCH 33.6 (26-34) PG MCHC 34.5 (30-36) % RDW 14.8 (11.6-14.8) % Plt Count 284 (150-400) X10^3/uL Neut % (Auto) 37.7 L (50-75) % Lymph % (Auto) 48.1 H (25-40) % [place] % (Auto) 8.6 (3-14) % Eos % (Auto) 4.3 H (2-4) % Baso % (Auto) 1.3 (0-2) % Neut # (Auto) 1900 (0245-3924) /uL Lymph # (Auto) 2400 (7588-2411) /uL [place] # (Auto) 400 (0-900) /uL Eos # (Auto) 200 (0-450) /uL Baso # (Auto) 100 (0-100) /uL PT (10.1-12.7) SECONDS INR (0.9-1.3) Sodium 145 Potassium 3.8 Chloride 105 Carbon Dioxide 26 BUN 6 L Creatinine 0.70 Estimated GFR > 60.0 BUN/Creatinine Ratio 8.6 Glucose 92 Calcium 8.9 Phosphorus 3.9 Magnesium 1.8 Total Bilirubin 0.3 Conjugated Bilirubin 0.0 Unconjugated Bilirubin 0.0 AST 75 H ALT 52 Alkaline Phosphatase 84 Total Protein 7.2 Albumin 4.4 Globulin 2.8 Albumin/Globulin Ratio 1.6 Lipase 145 TSH (0.47-4.68) uIU/mL Specimen Hemolysis Salicylates < 1.0 (<20) mg/dL Urine Opiates Screen (Negative) Ur Oxycodone Screen (Negative) Urine Methadone Screen (Negative) Acetaminophen < 10 L (10-30) ug/mL Ur Barbiturates Screen (Negative) U Tricyclic Antidepress (Negative) Ur Phencyclidine Scrn (Negative) Ur Amphetamines Screen (Negative) U Methamphetamines Scrn (Negative) Ur MDMA Scrn (Ecstasy) (Negative) U Benzodiazepines Scrn (Negative) Urine Cocaine Screen (Negative) U Marijuana (THC) Screen (Negative) Ethyl Alcohol 348 09/25/18 Range/Units 16:12 WBC (4.5-11.0) X10^3/uL RBC (4.5-5.9) X10^6/uL Hgb (13.5-17.5) g/dL Hct (41-53) % MCV (80-100) fL MCH (26-34) PG MCHC (30-36) % RDW (11.6-14.8) % Plt Count (150-400) X10^3/uL Neut % (Auto) (50-75) % Lymph % (Auto) (25-40) % [place] % (Auto) (3-14) % Eos % (Auto) (2-4) % Baso % (Auto) (0-2) % Neut # (Auto) (5849-2463) /uL Lymph # (Auto) (6746-3940) /uL [place] # (Auto) (0-900) /uL Eos # (Auto) (0-450) /uL Baso # (Auto) (0-100) /uL PT (10.1-12.7) SECONDS INR (0.9-1.3) Sodium Potassium Chloride Carbon Dioxide BUN Creatinine Estimated GFR BUN/Creatinine Ratio Glucose Calcium Phosphorus Magnesium Total Bilirubin Conjugated Bilirubin Unconjugated Bilirubin AST ALT Alkaline Phosphatase Total Protein Albumin Globulin Albumin/Globulin Ratio Lipase TSH 1.60 (0.47-4.68) uIU/mL Specimen Hemolysis Salicylates (<20) mg/dL Urine Opiates Screen (Negative) Ur Oxycodone Screen (Negative) Urine Methadone Screen (Negative) Acetaminophen (10-30) ug/mL Ur Barbiturates Screen (Negative) U Tricyclic Antidepress (Negative) Ur Phencyclidine Scrn (Negative) Ur Amphetamines Screen (Negative) U Methamphetamines Scrn (Negative) Ur MDMA Scrn (Ecstasy) (Negative) U Benzodiazepines Scrn (Negative) Urine Cocaine Screen (Negative) U Marijuana (THC) Screen (Negative) Ethyl Alcohol Discharge Plan Departure Patient Disposition: Left Against Medical Advice Clinical Impression: Left against medical advice Discharge Date/Time: 09/25/18 18:53 Interventions: ED Discharge Assessment Last Done: 09/25/18 18:53 Prescriptions: No Action doxepin 50 mg capsule 50 mg PO BEDTIME RF: 0 gabapentin 600 mg tablet 600 mg PO TID PRN (Reason: DIRECTED) RF: 0 citalopram 20 mg tablet 20 mg PO DAILY RF: 0 lorazepam 2 mg tablet 1 dose PO DIRECTED RF: 0 acamprosate 333 mg tablet,delayed release (DR/EC) 333 mg PO DAILY RF: 0 naltrexone 50 mg tablet 25 mg PO DIRECTED RF: 0 Stand Alone Forms: Against Medical Advice <Sultana Ureña DO - Last Filed: 10/02/18 08:23> Cosign ED Attending Cosignature Attestation: I was immediately available in the department for consultation. This documentation has been reviewed and I agree with assessment and plan. Supervised by Sultana Ureña DO
== END 2018-09-25 18:53 | disposition left against medical advice (07) ==
PROVIDERS: Emergency Provider Nurse Practitioner Family; Family Provider Family Medicine; PCP Family Medicine
DX: F10.129 Alcohol abuse with intoxication, unspecified (principal); Y90.8 Blood alcohol level of 240 mg/100 ml or more; Z53.20 Procedure and treatment not carried out because of patient's decision for unspecified reasons
CPT/HCPCS: 36415; 80053; 80305; 80320; 80329; 82248; 83690; 83735; 84100; 84443; 85025; 85610; 99282; 99283; G0480

== ENCOUNTER 2018-09-30 14:14 | Emergency (ER) | payer MEDICAID, SELFPAY ==
--- NOTE | 2018-09-30 14:37 | PC.NURSE ---
Patient out smoking, triage will call when he returns.
--- NOTE | 2018-09-30 14:44 | PC.NURSE ---
2 person assist with ambulation to room 7
[2018-09-30 14:50] VITALS: BP 146/96; PULSE 95; RESP 16; TEMP 36.8; O2SAT 97
--- NOTE | 2018-09-30 14:59 | PC.NURSE ---
family at bs.
--- NOTE | 2018-09-30 15:07 | ED.ALCOHOL ---
HPI - Alcohol <Laila Byrne PA-C - Last Filed: 09/30/18 20:25> General Chief Complaint: Toxicology Problem Stated Complaint: medical detox Time Seen by Provider: 09/30/18 14:55 Source: patient and family Mode of arrival: ambulatory Limitations: no limitations History of Present Illness HPI narrative: This 43-year-old female comes to ED to discuss referral for alcohol detox. He is accompanied by his parents who are concerned about his drinking. Initially he states ?I think I want to keep drinking?, but later admits that he is concerned about being an example for his young nephew as well as appreciative of his parent's concern for him and would like to discuss detox. He has been to detox in the past. He is involved with [facility] and does get medications prescribed by them. He has been hospitalized for alcohol withdrawal symptoms and seizures. He admits to drinking in the last hour prior to arrival, states he typically drinks about a 5th of alcohol per day has had a ?half rack? today. He denies any other drug use, has occasionally use THC in the past. He states he had some headache earlier, denies headache now, denies nausea, vomiting or abdominal pain or other new symptoms today. Related Data Home Medications Medication Instructions Recorded Confirmed acamprosate 333 mg PO DAILY 09/25/18 09/30/18 citalopram 20 mg PO DAILY 09/25/18 09/30/18 doxepin 50 mg PO BEDTIME 09/25/18 09/30/18 gabapentin 600 mg PO TID PRN 09/25/18 09/30/18 lorazepam 1 dose PO DIRECTED 09/25/18 naltrexone 25 mg PO DIRECTED 09/30/18 09/30/18 Allergies Allergy/AdvReac Type Severity Reaction Status Date / Time aspirin [ASPIRIN] Allergy Unknown ?CHILDHOOD Verified 09/30/18 14:52 Review of Systems <Laila Byrne PA-C - Last Filed: 09/30/18 20:25> Review of Systems ROS Unobtainable: All systems reviewed & are unremarkable except as noted in HPI and below PFSH <Laila Byrne PA-C - Last Filed: 09/30/18 20:25> Medical History (Updated 09/30/18 @ 16:59 by Kaur Abreu RN) Reactive airway disease (Chronic) Alcohol dependence (Chronic) Alcohol withdrawal seizure (Resolved) Alcohol abuse (Chronic) Social History household members: family Smoking Status: Current every day smoker Social History household members: family Smoking Status: Current every day smoker Exam <Laila Byrne PA-C - Last Filed: 09/30/18 20:25> Narrative Exam Narrative: GENERAL APPEARANCE: Patient sitting comfortably, in no distress. HEENT: PERRL, EOMI NECK: Supple LUNGS: Clear to auscultation bilaterally. HEART: Rate and rhythm regular without murmur, normal S1 and S2, no S3 or S4. ABDOMEN: Soft, NT, ND, + BS x 4 quadrants NEUROLOGIC: Alert, normal but at times tangential speech, normal coordination, no tremor Initial Vital Signs Initial Vital Signs: Vital Signs Temperature 98.3 F 09/30/18 14:50 Pulse Rate 95 H 09/30/18 14:50 Respiratory Rate 16 09/30/18 14:50 Blood Pressure 146/96 H 09/30/18 14:50 Pulse Oximetry 97 09/30/18 14:50 <Mendez Chao DO - Last Filed: 10/01/18 13:41> Initial Vital Signs Initial Vital Signs: Vital Signs Temperature 98.3 F 09/30/18 14:50 Pulse Rate 95 H 09/30/18 14:50 Respiratory Rate 16 09/30/18 14:50 Blood Pressure 146/96 H 09/30/18 14:50 Pulse Oximetry 97 09/30/18 14:50 Course <Laila Byrne PA-C - Last Filed: 09/30/18 20:25> Additional Information: Patient left Against Medical Advice while I was in another room and refused to wait. Care management did not get to visit with him prior to him leaving. Orders Ordered: ED Orders 09/30/18 14:55 Consult to Category Development Analyst Stat 09/30/18 15:15 Urine Drug Screen, Rapid Stat 09/30/18 15:29 Acetaminophen Stat Complete Blood Count AUTO DIFF Stat Comprehensive Metabolic Panel Stat Magnesium Stat Salicylate Stat Vital Signs - 8 hr 09/30/18 14:50 09/30/18 15:25 Temperature 98.3 F Pulse Rate 95 H 99 H Respiratory Rate 16 20 Blood Pressure 146/96 H Blood Pressure [Left Arm] 156/109 H Pulse Oximetry 97 100 <Mendez Chao DO - Last Filed: 10/01/18 13:41> Orders Ordered: ED Orders 09/30/18 14:55 Consult to Category Development Analyst Stat 09/30/18 15:15 Urine Drug Screen, Rapid Stat 09/30/18 15:29 Acetaminophen Stat Complete Blood Count AUTO DIFF Stat Comprehensive Metabolic Panel Stat Magnesium Stat Salicylate Stat Vital Signs - 8 hr 09/30/18 14:50 09/30/18 15:25 Temperature 98.3 F Pulse Rate 95 H 99 H Respiratory Rate 16 20 Blood Pressure 146/96 H Blood Pressure [Left Arm] 156/109 H Pulse Oximetry 97 100 MDM - Alcohol <Laila Byrne PA-C - Last Filed: 09/30/18 20:25> Lab Data Attestation: I reviewed the patient's lab results. Result diagrams: 09/30/18 15:29 09/30/18 15:29 Labs: Lab Results 09/30/18 09/30/18 09/30/18 Range/Units 15:15 15:29 15:29 WBC 7.9 (4.5-11.0) X10^3/uL RBC 4.80 (4.5-5.9) X10^6/uL Hgb 16.0 (13.5-17.5) g/dL Hct 46.6 (41-53) % MCV 97.2 (80-100) fL MCH 33.3 (26-34) PG MCHC 34.2 (30-36) % RDW 14.4 (11.6-14.8) % Plt Count 212 (150-400) X10^3/uL Neut % (Auto) 58.7 (50-75) % Lymph % (Auto) 32.8 (25-40) % [place] % (Auto) 5.9 (3-14) % Eos % (Auto) 2.0 (2-4) % Baso % (Auto) 0.6 (0-2) % Neut # (Auto) 4700 (8974-1219) /uL Lymph # (Auto) 2600 (1985-6435) /uL [place] # (Auto) 500 (0-900) /uL Eos # (Auto) 200 (0-450) /uL Baso # (Auto) 0 (0-100) /uL Sodium 142 (137-145) mmol/L Potassium 4.3 (3.4-5.1) mmol/L Chloride 104 (98-107) mmol/L Carbon Dioxide 23 (22-32) mmol/L BUN 15 (9-20) mg/dL Creatinine 0.80 (0.66-1.25) mg/dL Estimated GFR > 60.0 (>60) mL/min BUN/Creatinine Ratio 18.8 (6-22) Glucose 90 (70-100) mg/dL Calcium 8.8 (8.4-10.2) mg/dL Magnesium (1.6-2.3) mg/dL Total Bilirubin 0.5 (0.2-1.3) mg/dL AST 93 H (17-59) IU/L ALT 53 (21-72) IU/L Alkaline Phosphatase 107 (38-126) U/L Total Protein 7.5 (6.3-8.2) g/dL Albumin 4.6 (3.5-5.0) g/dL Globulin 2.9 (1.7-4.1) g/dL Albumin/Globulin Ratio 1.6 (1.0-2.8) Salicylates (<20) mg/dL Urine Opiates Screen Negative (Negative) Ur Oxycodone Screen Negative (Negative) Urine Methadone Screen Negative (Negative) Acetaminophen (10-30) ug/mL Ur Barbiturates Screen Negative (Negative) U Tricyclic Antidepress Negative (Negative) Ur Phencyclidine Scrn Negative (Negative) Ur Amphetamines Screen Negative (Negative) U Methamphetamines Scrn Negative (Negative) Ur MDMA Scrn (Ecstasy) Negative (Negative) U Benzodiazepines Scrn Negative (Negative) Urine Cocaine Screen Negative (Negative) U Marijuana (THC) Screen Negative (Negative) 09/30/18 Range/Units 15:29 WBC (4.5-11.0) X10^3/uL RBC (4.5-5.9) X10^6/uL Hgb (13.5-17.5) g/dL Hct (41-53) % MCV (80-100) fL MCH (26-34) PG MCHC (30-36) % RDW (11.6-14.8) % Plt Count (150-400) X10^3/uL Neut % (Auto) (50-75) % Lymph % (Auto) (25-40) % [place] % (Auto) (3-14) % Eos % (Auto) (2-4) % Baso % (Auto) (0-2) % Neut # (Auto) (0361-1386) /uL Lymph # (Auto) (8665-2094) /uL [place] # (Auto) (0-900) /uL Eos # (Auto) (0-450) /uL Baso # (Auto) (0-100) /uL Sodium (137-145) mmol/L Potassium (3.4-5.1) mmol/L Chloride (98-107) mmol/L Carbon Dioxide (22-32) mmol/L BUN (9-20) mg/dL Creatinine (0.66-1.25) mg/dL Estimated GFR (>60) mL/min BUN/Creatinine Ratio (6-22) Glucose (70-100) mg/dL Calcium (8.4-10.2) mg/dL Magnesium 1.9 (1.6-2.3) mg/dL Total Bilirubin (0.2-1.3) mg/dL AST (17-59) IU/L ALT (21-72) IU/L Alkaline Phosphatase (38-126) U/L Total Protein (6.3-8.2) g/dL Albumin (3.5-5.0) g/dL Globulin (1.7-4.1) g/dL Albumin/Globulin Ratio (1.0-2.8) Salicylates < 1.0 (<20) mg/dL Urine Opiates Screen (Negative) Ur Oxycodone Screen (Negative) Urine Methadone Screen (Negative) Acetaminophen < 10 L (10-30) ug/mL Ur Barbiturates Screen (Negative) U Tricyclic Antidepress (Negative) Ur Phencyclidine Scrn (Negative) Ur Amphetamines Screen (Negative) U Methamphetamines Scrn (Negative) Ur MDMA Scrn (Ecstasy) (Negative) U Benzodiazepines Scrn (Negative) Urine Cocaine Screen (Negative) U Marijuana (THC) Screen (Negative) Point of Care Testing Breathalizer 195 Urine Dip Bedside Urine Glucose Negative Bedside Urine Bilirubin - Negative Bedside Urine Ketone - Negative Urine Specific [place] 1.010 Bedside Urine Occult Blood - Negative Bedside Urine pH 6.0 Bedside Urine Protein - Negative Bedside Urine Urobilinogen - Negative Bedside Urine Nitrite - Negative Bedside Urine Leukocytes - Negative Esterase <Mendez Chao DO - Last Filed: 10/01/18 13:41> Lab Data Labs: Lab Results 09/30/18 09/30/18 09/30/18 Range/Units 15:15 15:29 15:29 WBC 7.9 (4.5-11.0) X10^3/uL RBC 4.80 (4.5-5.9) X10^6/uL Hgb 16.0 (13.5-17.5) g/dL Hct 46.6 (41-53) % MCV 97.2 (80-100) fL MCH 33.3 (26-34) PG MCHC 34.2 (30-36) % RDW 14.4 (11.6-14.8) % Plt Count 212 (150-400) X10^3/uL Neut % (Auto) 58.7 (50-75) % Lymph % (Auto) 32.8 (25-40) % [place] % (Auto) 5.9 (3-14) % Eos % (Auto) 2.0 (2-4) % Baso % (Auto) 0.6 (0-2) % Neut # (Auto) 4700 (5902-2384) /uL Lymph # (Auto) 2600 (1561-7412) /uL [place] # (Auto) 500 (0-900) /uL Eos # (Auto) 200 (0-450) /uL Baso # (Auto) 0 (0-100) /uL Sodium 142 (137-145) mmol/L Potassium 4.3 (3.4-5.1) mmol/L Chloride 104 (98-107) mmol/L Carbon Dioxide 23 (22-32) mmol/L BUN 15 (9-20) mg/dL Creatinine 0.80 (0.66-1.25) mg/dL Estimated GFR > 60.0 (>60) mL/min BUN/Creatinine Ratio 18.8 (6-22) Glucose 90 (70-100) mg/dL Calcium 8.8 (8.4-10.2) mg/dL Magnesium (1.6-2.3) mg/dL Total Bilirubin 0.5 (0.2-1.3) mg/dL AST 93 H (17-59) IU/L ALT 53 (21-72) IU/L Alkaline Phosphatase 107 (38-126) U/L Total Protein 7.5 (6.3-8.2) g/dL Albumin 4.6 (3.5-5.0) g/dL Globulin 2.9 (1.7-4.1) g/dL Albumin/Globulin Ratio 1.6 (1.0-2.8) Salicylates (<20) mg/dL Urine Opiates Screen Negative (Negative) Ur Oxycodone Screen Negative (Negative) Urine Methadone Screen Negative (Negative) Acetaminophen (10-30) ug/mL Ur Barbiturates Screen Negative (Negative) U Tricyclic Antidepress Negative (Negative) Ur Phencyclidine Scrn Negative (Negative) Ur Amphetamines Screen Negative (Negative) U Methamphetamines Scrn Negative (Negative) Ur MDMA Scrn (Ecstasy) Negative (Negative) U Benzodiazepines Scrn Negative (Negative) Urine Cocaine Screen Negative (Negative) U Marijuana (THC) Screen Negative (Negative) 09/30/18 Range/Units 15:29 WBC (4.5-11.0) X10^3/uL RBC (4.5-5.9) X10^6/uL Hgb (13.5-17.5) g/dL Hct (41-53) % MCV (80-100) fL MCH (26-34) PG MCHC (30-36) % RDW (11.6-14.8) % Plt Count (150-400) X10^3/uL Neut % (Auto) (50-75) % Lymph % (Auto) (25-40) % [place] % (Auto) (3-14) % Eos % (Auto) (2-4) % Baso % (Auto) (0-2) % Neut # (Auto) (0072-4096) /uL Lymph # (Auto) (3567-4425) /uL [place] # (Auto) (0-900) /uL Eos # (Auto) (0-450) /uL Baso # (Auto) (0-100) /uL Sodium (137-145) mmol/L Potassium (3.4-5.1) mmol/L Chloride (98-107) mmol/L Carbon Dioxide (22-32) mmol/L BUN (9-20) mg/dL Creatinine (0.66-1.25) mg/dL Estimated GFR (>60) mL/min BUN/Creatinine Ratio (6-22) Glucose (70-100) mg/dL Calcium (8.4-10.2) mg/dL Magnesium 1.9 (1.6-2.3) mg/dL Total Bilirubin (0.2-1.3) mg/dL AST (17-59) IU/L ALT (21-72) IU/L Alkaline Phosphatase (38-126) U/L Total Protein (6.3-8.2) g/dL Albumin (3.5-5.0) g/dL Globulin (1.7-4.1) g/dL Albumin/Globulin Ratio (1.0-2.8) Salicylates < 1.0 (<20) mg/dL Urine Opiates Screen (Negative) Ur Oxycodone Screen (Negative) Urine Methadone Screen (Negative) Acetaminophen < 10 L (10-30) ug/mL Ur Barbiturates Screen (Negative) U Tricyclic Antidepress (Negative) Ur Phencyclidine Scrn (Negative) Ur Amphetamines Screen (Negative) U Methamphetamines Scrn (Negative) Ur MDMA Scrn (Ecstasy) (Negative) U Benzodiazepines Scrn (Negative) Urine Cocaine Screen (Negative) U Marijuana (THC) Screen (Negative) Point of Care Testing Breathalizer 195 Urine Dip Bedside Urine Glucose Negative Bedside Urine Bilirubin - Negative Bedside Urine Ketone - Negative Urine Specific [place] 1.010 Bedside Urine Occult Blood - Negative Bedside Urine pH 6.0 Bedside Urine Protein - Negative Bedside Urine Urobilinogen - Negative Bedside Urine Nitrite - Negative Bedside Urine Leukocytes - Negative Esterase Discharge Plan Departure Patient Disposition: Left Against Medical Advice Clinical Impression: Alcohol abuse Discharge Date/Time: 09/30/18 16:59 Interventions: ED Discharge Assessment Last Done: 09/30/18 16:54 Prescriptions: No Action doxepin 50 mg capsule 50 mg PO BEDTIME RF: 0 gabapentin 600 mg tablet 600 mg PO TID PRN (Reason: DIRECTED) RF: 0 citalopram 20 mg tablet 20 mg PO DAILY RF: 0 lorazepam 2 mg tablet 1 dose PO DIRECTED RF: 0 acamprosate 333 mg tablet,delayed release (DR/EC) 333 mg PO DAILY RF: 0 naltrexone 50 mg tablet 25 mg PO DIRECTED RF: 0 Stand Alone Forms: Against Medical Advice <Mendez Chao, DO - Last Filed: 10/01/18 13:41> Cosign ED Attending Carrieature Attestation: I was immediately available in the department for consultation. Documentation has been reviewed. I agree with assessment and plan.
--- NOTE | 2018-09-30 15:11 | PC.NURSE ---
admitted to the hospital, states, working on detoxing from alcohol.
[2018-09-30 15:25] VITALS: BP 156/109; PULSE 99; RESP 20; O2SAT 100
[2018-09-30 15:31] LABS: Add Manual Diff / Slide Review NO; Basophils Absolute Auto 0 /uL (0-100); Basophils Percent Auto 0.6 % (0-2); Eosinophils Absolute Auto 200 /uL (0-450); Hematocrit 46.6 % (41-53); Lymphocytes Absolute Auto 2600 /uL (1100-4500); Lymphocytes Percent Auto 32.8 % (25-40); Mean Corpuscular HGB Conc 34.2 % (30-36); Mean Corpuscular Hemoglobin 33.3 PG (26-34); Mean Corpuscular Volume 97.2 fL (80-100); Monocytes Absolute Auto 500 /uL (0-900); Monocytes Percent Auto 5.9 % (3-14); Neutrophils Absolute Auto 4700 /uL (1500-7000); Neutrophils Percent Auto 58.7 % (50-75); Platelet Count 212 X10^3/uL (150-400); Red Cell Distribution Width 14.4 % (11.6-14.8); White Blood Cell Count 7.9 X10^3/uL (4.5-11.0)
--- NOTE | 2018-09-30 15:31 | ED_ITS ---
HPI - Alcohol <Laila Byrne PA-C - Last Filed: 09/30/18 20:25> General Chief Complaint: Toxicology Problem Stated Complaint: medical detox Time Seen by Provider: 09/30/18 14:55 Source: patient and family Mode of arrival: ambulatory Limitations: no limitations History of Present Illness HPI narrative: This 43-year-old female comes to ED to discuss referral for alcohol detox. He is accompanied by his parents who are concerned about his drinking. Initially he states ?I think I want to keep drinking?, but later admits that he is concerned about being an example for his young nephew as well as appreciative of his parent's concern for him and would like to discuss detox. He has been to detox in the past. He is involved with [facility] and does get medications prescribed by them. He has been hospitalized for alcohol withdrawal symptoms and seizures. He admits to drinking in the last hour prior to arrival, states he typically drinks about a 5th of alcohol per day has had a ?half rack? today. He denies any other drug use, has occasionally use THC in the past. He states he had some headache earlier, denies headache now, denies nausea, vomiting or abdominal pain or other new symptoms today. Related Data Home Medications Medication Instructions Recorded Confirmed acamprosate 333 mg PO DAILY 09/25/18 09/30/18 citalopram 20 mg PO DAILY 09/25/18 09/30/18 doxepin 50 mg PO BEDTIME 09/25/18 09/30/18 gabapentin 600 mg PO TID PRN 09/25/18 09/30/18 lorazepam 1 dose PO DIRECTED 09/25/18 naltrexone 25 mg PO DIRECTED 09/30/18 09/30/18 Allergies Allergy/AdvReac Type Severity Reaction Status Date / Time aspirin [ASPIRIN] Allergy Unknown ?CHILDHOOD Verified 09/30/18 14:52 Review of Systems <Laila Byrne PA-C - Last Filed: 09/30/18 20:25> Review of Systems ROS Unobtainable: All systems reviewed & are unremarkable except as noted in HPI and below PFSH <Laila Byrne PA-C - Last Filed: 09/30/18 20:25> Medical History (Updated 09/30/18 @ 16:59 by Kaur Abreu RN) Reactive airway disease (Chronic) Alcohol dependence (Chronic) Alcohol withdrawal seizure (Resolved) Alcohol abuse (Chronic) Social History household members: family Smoking Status: Current every day smoker Social History household members: family Smoking Status: Current every day smoker Exam <Laila Byrne PA-C - Last Filed: 09/30/18 20:25> Narrative Exam Narrative: GENERAL APPEARANCE: Patient sitting comfortably, in no distress. HEENT: PERRL, EOMI NECK: Supple LUNGS: Clear to auscultation bilaterally. HEART: Rate and rhythm regular without murmur, normal S1 and S2, no S3 or S4. ABDOMEN: Soft, NT, ND, + BS x 4 quadrants NEUROLOGIC: Alert, normal but at times tangential speech, normal coordination, no tremor Initial Vital Signs Initial Vital Signs: Vital Signs Temperature 98.3 F 09/30/18 14:50 Pulse Rate 95 H 09/30/18 14:50 Respiratory Rate 16 09/30/18 14:50 Blood Pressure 146/96 H 09/30/18 14:50 Pulse Oximetry 97 09/30/18 14:50 <Mendez Chao DO - Last Filed: 10/01/18 13:41> Initial Vital Signs Initial Vital Signs: Vital Signs Temperature 98.3 F 09/30/18 14:50 Pulse Rate 95 H 09/30/18 14:50 Respiratory Rate 16 09/30/18 14:50 Blood Pressure 146/96 H 09/30/18 14:50 Pulse Oximetry 97 09/30/18 14:50 Course <Laila Byrne PA-C - Last Filed: 09/30/18 20:25> Additional Information: Patient left Against Medical Advice while I was in another room and refused to wait. Care management did not get to visit with him prior to him leaving. Orders Ordered: ED Orders 09/30/18 14:55 Consult to Game Advisor Stat 09/30/18 15:15 Urine Drug Screen, Rapid Stat 09/30/18 15:29 Acetaminophen Stat Complete Blood Count AUTO DIFF Stat Comprehensive Metabolic Panel Stat Magnesium Stat Salicylate Stat Vital Signs - 8 hr 09/30/18 14:50 09/30/18 15:25 Temperature 98.3 F Pulse Rate 95 H 99 H Respiratory Rate 16 20 Blood Pressure 146/96 H Blood Pressure [Left Arm] 156/109 H Pulse Oximetry 97 100 <Mendez Chao DO - Last Filed: 10/01/18 13:41> Orders Ordered: ED Orders 09/30/18 14:55 Consult to Game Advisor Stat 09/30/18 15:15 Urine Drug Screen, Rapid Stat 09/30/18 15:29 Acetaminophen Stat Complete Blood Count AUTO DIFF Stat Comprehensive Metabolic Panel Stat Magnesium Stat Salicylate Stat Vital Signs - 8 hr 09/30/18 14:50 09/30/18 15:25 Temperature 98.3 F Pulse Rate 95 H 99 H Respiratory Rate 16 20 Blood Pressure 146/96 H Blood Pressure [Left Arm] 156/109 H Pulse Oximetry 97 100 MDM - Alcohol <Laila Byrne PA-C - Last Filed: 09/30/18 20:25> Lab Data Attestation: I reviewed the patient's lab results. Result diagrams: 09/30/18 15:29 09/30/18 15:29 Labs: Lab Results 09/30/18 09/30/18 09/30/18 Range/Units 15:15 15:29 15:29 WBC 7.9 (4.5-11.0) X10^3/uL RBC 4.80 (4.5-5.9) X10^6/uL Hgb 16.0 (13.5-17.5) g/dL Hct 46.6 (41-53) % MCV 97.2 (80-100) fL MCH 33.3 (26-34) PG MCHC 34.2 (30-36) % RDW 14.4 (11.6-14.8) % Plt Count 212 (150-400) X10^3/uL Neut % (Auto) 58.7 (50-75) % Lymph % (Auto) 32.8 (25-40) % Delta % (Auto) 5.9 (3-14) % Eos % (Auto) 2.0 (2-4) % Baso % (Auto) 0.6 (0-2) % Neut # (Auto) 4700 (9204-8723) /uL Lymph # (Auto) 2600 (9972-0471) /uL Delta # (Auto) 500 (0-900) /uL Eos # (Auto) 200 (0-450) /uL Baso # (Auto) 0 (0-100) /uL Sodium 142 (137-145) mmol/L Potassium 4.3 (3.4-5.1) mmol/L Chloride 104 (98-107) mmol/L Carbon Dioxide 23 (22-32) mmol/L BUN 15 (9-20) mg/dL Creatinine 0.80 (0.66-1.25) mg/dL Estimated GFR > 60.0 (>60) mL/min BUN/Creatinine Ratio 18.8 (6-22) Glucose 90 (70-100) mg/dL Calcium 8.8 (8.4-10.2) mg/dL Magnesium (1.6-2.3) mg/dL Total Bilirubin 0.5 (0.2-1.3) mg/dL AST 93 H (17-59) IU/L ALT 53 (21-72) IU/L Alkaline Phosphatase 107 (38-126) U/L Total Protein 7.5 (6.3-8.2) g/dL Albumin 4.6 (3.5-5.0) g/dL Globulin 2.9 (1.7-4.1) g/dL Albumin/Globulin Ratio 1.6 (1.0-2.8) Salicylates (<20) mg/dL Urine Opiates Screen Negative (Negative) Ur Oxycodone Screen Negative (Negative) Urine Methadone Screen Negative (Negative) Acetaminophen (10-30) ug/mL Ur Barbiturates Screen Negative (Negative) U Tricyclic Antidepress Negative (Negative) Ur Phencyclidine Scrn Negative (Negative) Ur Amphetamines Screen Negative (Negative) U Methamphetamines Scrn Negative (Negative) Ur MDMA Scrn (Ecstasy) Negative (Negative) U Benzodiazepines Scrn Negative (Negative) Urine Cocaine Screen Negative (Negative) U Marijuana (THC) Screen Negative (Negative) 09/30/18 Range/Units 15:29 WBC (4.5-11.0) X10^3/uL RBC (4.5-5.9) X10^6/uL Hgb (13.5-17.5) g/dL Hct (41-53) % MCV (80-100) fL MCH (26-34) PG MCHC (30-36) % RDW (11.6-14.8) % Plt Count (150-400) X10^3/uL Neut % (Auto) (50-75) % Lymph % (Auto) (25-40) % Delta % (Auto) (3-14) % Eos % (Auto) (2-4) % Baso % (Auto) (0-2) % Neut # (Auto) (2486-7607) /uL Lymph # (Auto) (7466-5800) /uL Delta # (Auto) (0-900) /uL Eos # (Auto) (0-450) /uL Baso # (Auto) (0-100) /uL Sodium (137-145) mmol/L Potassium (3.4-5.1) mmol/L Chloride (98-107) mmol/L Carbon Dioxide (22-32) mmol/L BUN (9-20) mg/dL Creatinine (0.66-1.25) mg/dL Estimated GFR (>60) mL/min BUN/Creatinine Ratio (6-22) Glucose (70-100) mg/dL Calcium (8.4-10.2) mg/dL Magnesium 1.9 (1.6-2.3) mg/dL Total Bilirubin (0.2-1.3) mg/dL AST (17-59) IU/L ALT (21-72) IU/L Alkaline Phosphatase (38-126) U/L Total Protein (6.3-8.2) g/dL Albumin (3.5-5.0) g/dL Globulin (1.7-4.1) g/dL Albumin/Globulin Ratio (1.0-2.8) Salicylates < 1.0 (<20) mg/dL Urine Opiates Screen (Negative) Ur Oxycodone Screen (Negative) Urine Methadone Screen (Negative) Acetaminophen < 10 L (10-30) ug/mL Ur Barbiturates Screen (Negative) U Tricyclic Antidepress (Negative) Ur Phencyclidine Scrn (Negative) Ur Amphetamines Screen (Negative) U Methamphetamines Scrn (Negative) Ur MDMA Scrn (Ecstasy) (Negative) U Benzodiazepines Scrn (Negative) Urine Cocaine Screen (Negative) U Marijuana (THC) Screen (Negative) Point of Care Testing Breathalizer 195 Urine Dip Bedside Urine Glucose Negative Bedside Urine Bilirubin - Negative Bedside Urine Ketone - Negative Urine Specific [place] 1.010 Bedside Urine Occult Blood - Negative Bedside Urine pH 6.0 Bedside Urine Protein - Negative Bedside Urine Urobilinogen - Negative Bedside Urine Nitrite - Negative Bedside Urine Leukocytes - Negative Esterase <Mendez Chao DO - Last Filed: 10/01/18 13:41> Lab Data Labs: Lab Results 09/30/18 09/30/18 09/30/18 Range/Units 15:15 15:29 15:29 WBC 7.9 (4.5-11.0) X10^3/uL RBC 4.80 (4.5-5.9) X10^6/uL Hgb 16.0 (13.5-17.5) g/dL Hct 46.6 (41-53) % MCV 97.2 (80-100) fL MCH 33.3 (26-34) PG MCHC 34.2 (30-36) % RDW 14.4 (11.6-14.8) % Plt Count 212 (150-400) X10^3/uL Neut % (Auto) 58.7 (50-75) % Lymph % (Auto) 32.8 (25-40) % Delta % (Auto) 5.9 (3-14) % Eos % (Auto) 2.0 (2-4) % Baso % (Auto) 0.6 (0-2) % Neut # (Auto) 4700 (9519-6259) /uL Lymph # (Auto) 2600 (3627-9489) /uL Delta # (Auto) 500 (0-900) /uL Eos # (Auto) 200 (0-450) /uL Baso # (Auto) 0 (0-100) /uL Sodium 142 (137-145) mmol/L Potassium 4.3 (3.4-5.1) mmol/L Chloride 104 (98-107) mmol/L Carbon Dioxide 23 (22-32) mmol/L BUN 15 (9-20) mg/dL Creatinine 0.80 (0.66-1.25) mg/dL Estimated GFR > 60.0 (>60) mL/min BUN/Creatinine Ratio 18.8 (6-22) Glucose 90 (70-100) mg/dL Calcium 8.8 (8.4-10.2) mg/dL Magnesium (1.6-2.3) mg/dL Total Bilirubin 0.5 (0.2-1.3) mg/dL AST 93 H (17-59) IU/L ALT 53 (21-72) IU/L Alkaline Phosphatase 107 (38-126) U/L Total Protein 7.5 (6.3-8.2) g/dL Albumin 4.6 (3.5-5.0) g/dL Globulin 2.9 (1.7-4.1) g/dL Albumin/Globulin Ratio 1.6 (1.0-2.8) Salicylates (<20) mg/dL Urine Opiates Screen Negative (Negative) Ur Oxycodone Screen Negative (Negative) Urine Methadone Screen Negative (Negative) Acetaminophen (10-30) ug/mL Ur Barbiturates Screen Negative (Negative) U Tricyclic Antidepress Negative (Negative) Ur Phencyclidine Scrn Negative (Negative) Ur Amphetamines Screen Negative (Negative) U Methamphetamines Scrn Negative (Negative) Ur MDMA Scrn (Ecstasy) Negative (Negative) U Benzodiazepines Scrn Negative (Negative) Urine Cocaine Screen Negative (Negative) U Marijuana (THC) Screen Negative (Negative) 09/30/18 Range/Units 15:29 WBC (4.5-11.0) X10^3/uL RBC (4.5-5.9) X10^6/uL Hgb (13.5-17.5) g/dL Hct (41-53) % MCV (80-100) fL MCH (26-34) PG MCHC (30-36) % RDW (11.6-14.8) % Plt Count (150-400) X10^3/uL Neut % (Auto) (50-75) % Lymph % (Auto) (25-40) % Delta % (Auto) (3-14) % Eos % (Auto) (2-4) % Baso % (Auto) (0-2) % Neut # (Auto) (1361-5988) /uL Lymph # (Auto) (8415-8706) /uL Delta # (Auto) (0-900) /uL Eos # (Auto) (0-450) /uL Baso # (Auto) (0-100) /uL Sodium (137-145) mmol/L Potassium (3.4-5.1) mmol/L Chloride (98-107) mmol/L Carbon Dioxide (22-32) mmol/L BUN (9-20) mg/dL Creatinine (0.66-1.25) mg/dL Estimated GFR (>60) mL/min BUN/Creatinine Ratio (6-22) Glucose (70-100) mg/dL Calcium (8.4-10.2) mg/dL Magnesium 1.9 (1.6-2.3) mg/dL Total Bilirubin (0.2-1.3) mg/dL AST (17-59) IU/L ALT (21-72) IU/L Alkaline Phosphatase (38-126) U/L Total Protein (6.3-8.2) g/dL Albumin (3.5-5.0) g/dL Globulin (1.7-4.1) g/dL Albumin/Globulin Ratio (1.0-2.8) Salicylates < 1.0 (<20) mg/dL Urine Opiates Screen (Negative) Ur Oxycodone Screen (Negative) Urine Methadone Screen (Negative) Acetaminophen < 10 L (10-30) ug/mL Ur Barbiturates Screen (Negative) U Tricyclic Antidepress (Negative) Ur Phencyclidine Scrn (Negative) Ur Amphetamines Screen (Negative) U Methamphetamines Scrn (Negative) Ur MDMA Scrn (Ecstasy) (Negative) U Benzodiazepines Scrn (Negative) Urine Cocaine Screen (Negative) U Marijuana (THC) Screen (Negative) Point of Care Testing Breathalizer 195 Urine Dip Bedside Urine Glucose Negative Bedside Urine Bilirubin - Negative Bedside Urine Ketone - Negative Urine Specific [place] 1.010 Bedside Urine Occult Blood - Negative Bedside Urine pH 6.0 Bedside Urine Protein - Negative Bedside Urine Urobilinogen - Negative Bedside Urine Nitrite - Negative Bedside Urine Leukocytes - Negative Esterase Discharge Plan Departure Patient Disposition: Left Against Medical Advice Clinical Impression: Alcohol abuse Discharge Date/Time: 09/30/18 16:59 Interventions: ED Discharge Assessment Last Done: 09/30/18 16:54 Prescriptions: No Action doxepin 50 mg capsule 50 mg PO BEDTIME RF: 0 gabapentin 600 mg tablet 600 mg PO TID PRN (Reason: DIRECTED) RF: 0 citalopram 20 mg tablet 20 mg PO DAILY RF: 0 lorazepam 2 mg tablet 1 dose PO DIRECTED RF: 0 acamprosate 333 mg tablet,delayed release (DR/EC) 333 mg PO DAILY RF: 0 naltrexone 50 mg tablet 25 mg PO DIRECTED RF: 0 Stand Alone Forms: Against Medical Advice <Mendez Chao, DO - Last Filed: 10/01/18 13:41> Cosign ED Attending Carrieature Attestation: I was immediately available in the department for consultation. Documentation has been reviewed. I agree with assessment and plan.
[2018-09-30 15:44] LABS: Alanine Aminotransferase 53 IU/L (21-72); Albumin 4.6 g/dL (3.5-5.0); Albumin Globulin Ratio 1.6 (1.0-2.8); Alkaline Phosphatase 107 U/L (38-126); Aspartate Aminotransferase 93 IU/L (17-59); BUN Creatinine Ratio 18.8 (6-22); Bilirubin Total 0.5 mg/dL (0.2-1.3); Blood Urea Nitrogen 15 mg/dL (9-20); Calcium 8.8 mg/dL (8.4-10.2); Carbon Dioxide 23 mmol/L (22-32); Chloride 104 mmol/L (98-107); Estimated Glomerular Filt Rate > 60.0 mL/min (>60); Globulin 2.9 g/dL (1.7-4.1); Glucose 90 mg/dL (70-100); HEMOLYSIS < 15 (0-50); Potassium 4.3 mmol/L (3.4-5.1); Sodium 142 mmol/L (137-145); Total Protein 7.5 g/dL (6.3-8.2)
[2018-09-30 15:55] LABS: Acetaminophen < 10 ug/mL (10-30); Magnesium 1.9 mg/dL (1.6-2.3); Salicylate < 1.0 mg/dL (<20)
[2018-09-30 15:56] LABS: Urine Amphetamines Negative (Negative); Urine Barbiturates Negative (Negative); Urine Benzodiazepines Negative (Negative); Urine Cocaine Negative (Negative); Urine MDMA Negative (Negative); Urine Methadone Negative (Negative); Urine Methamphetamines Negative (Negative); Urine Morphine/Opi cutoff 2000 Negative (Negative); Urine Oxycodone Negative (Negative); Urine Phencyclidine Negative (Negative); Urine Tetrahydrocannabinol Negative (Negative); Urine Tricyclic Antidepressant Negative (Negative)
== END 2018-09-30 16:59 | disposition left against medical advice (07) ==
PROVIDERS: Emergency Provider Internal Medicine; Family Provider Family Medicine; PCP Family Medicine
DX: F10.10 Alcohol abuse, uncomplicated (principal); Z53.20 Procedure and treatment not carried out because of patient's decision for unspecified reasons
CPT/HCPCS: 36415; 80053; 80305; 80329; 81003; 82075; 83735; 85025; 99283; G0480

== ENCOUNTER 2019-03-18 20:14 | Emergency (ER) | payer MEDICAID, SELFPAY ==
[2019-03-18 20:20] VITALS: BP 117/73; PULSE 99; RESP 16; TEMP 36.6; O2SAT 93
[2019-03-18 20:41] LABS: Add Manual Diff / Slide Review NO; Basophils Absolute Auto 100 /uL (0-100); Basophils Percent Auto 1.5 % (0-2); Eosinophils Absolute Auto 400 /uL (0-450); Eosinophils Percent Auto 5.5 % (2-4); Hematocrit 42.4 % (41-53); Hemoglobin 14.5 g/dL (13.5-17.5); Lymphocytes Absolute Auto 3300 /uL (1100-4500); Lymphocytes Percent Auto 50.9 % (25-40); Mean Corpuscular HGB Conc 34.1 % (30-36); Mean Corpuscular Hemoglobin 33.9 PG (26-34); Mean Corpuscular Volume 99.3 fL (80-100); Monocytes Absolute Auto 400 /uL (0-900); Monocytes Percent Auto 6.5 % (3-14); Neutrophils Absolute Auto 2300 /uL (1500-7000); Neutrophils Percent Auto 35.6 % (50-75); Platelet Count 270 X10^3/uL (150-400); Red Blood Cell Count 4.27 X10^6/uL (4.5-5.9); Red Cell Distribution Width 14.7 % (11.6-14.8); White Blood Cell Count 6.4 X10^3/uL (4.5-11.0)
[2019-03-18 20:56] LABS: Acetaminophen < 10 ug/mL (10-30); Alanine Aminotransferase 26 IU/L (<50); Albumin 4.7 g/dL (3.5-5.0); Albumin Globulin Ratio 1.7 (1.0-2.8); Alkaline Phosphatase 73 U/L (38-126); Aspartate Aminotransferase 39 IU/L (17-59); BUN Creatinine Ratio 11.3 (6-22); Bilirubin Total 0.2 mg/dL (0.2-1.3); Blood Urea Nitrogen 9 mg/dL (9-20); Calcium 9.1 mg/dL (8.4-10.2); Carbon Dioxide 27 mmol/L (22-32); Chloride 108 mmol/L (98-107); Estimated Glomerular Filt Rate > 60.0 mL/min (>60); Ethanol (ETOH) 275 mg/dL; Globulin 2.8 g/dL (1.7-4.1); Glucose 94 mg/dL (70-100); HEMOLYSIS < 15 (0-50); Potassium 4.3 mmol/L (3.4-5.1); Salicylate < 1.0 mg/dL (<20); Sodium 144 mmol/L (137-145); Total Protein 7.5 g/dL (6.3-8.2)
[2019-03-18 21:00] LABS: UR Morphine/Opiate cutoff 300 Negative (Negative); Ur Creatinine Normal (Normal); Ur Specific Gravity Normal (Normal); Urine Amphetamines Negative (Negative); Urine Barbiturates Negative (Negative); Urine Benzodiazepines Negative (Negative); Urine Cocaine Negative (Negative); Urine MDMA Negative (Negative); Urine Methadone Negative (Negative); Urine Methamphetamines Negative (Negative); Urine Oxycodone Negative (Negative); Urine Phencyclidine Negative (Negative); Urine Tetrahydrocannabinol Negative (Negative); Urine Tricyclic Antidepressant Negative (Negative); Urine pH Normal (Normal)
--- NOTE | 2019-03-18 21:04 | PC.NURSE ---
ACCOUNTS SUPERVISOR/CADD DRAFTER Note: Pt. stated if I can't kill myself, Maybe I have a cup of coffe? RN notified and Pt. received cup of black coffee.
--- NOTE | 2019-03-18 21:08 | PC.NURSE ---
Pt has made multiple comments about I don't want to alive When can I kill myself. Talked to brother on phone. States pt had made comment about about shooting himself in front of his brother. Photo Tube Assembler had removed weapon from patient before arrival.
--- NOTE | 2019-03-18 21:32 | PC.NURSE ---
TOOL CRIB MANAGER/ORCHARDIST Note: Pt. got agitated and aggressive. Pt. started to yell and hit his head against the wall. call my brother...I'm going to [facility]. aware. Harris called.
--- NOTE | 2019-03-18 21:36 | PC.NURSE ---
Police called for standby. Patient banging his head on the wall.
[2019-03-18 21:39] LABS: Free T4, Direct Thyroxine 1.11 ng/dL (0.78-2.19)
[2019-03-18] MEDS: diphenhydrAMINE 50 MG/ML VIAL IM (21:52)
[2019-03-18] MEDS: HALOPERIDOL 5 MG/ML VIAL IM (21:52)
[2019-03-18] MEDS: LORazepam 2 MG/ML INJ IM (21:52)
[2019-03-18 21:53] LABS: Thyroid Stimulating Hormone 0.97 uIU/mL (0.47-4.68)
[2019-03-19 02:00] VITALS: BP 101/70; PULSE 75; RESP 16; TEMP 36.9; O2SAT 95
--- NOTE | 2019-03-19 02:18 | PC.NURSE ---
got patient vitals he was calm and polite
--- NOTE | 2019-03-19 03:47 | ED.PSYCH ---
HPI - Psych General Chief Complaint: Psychiatric Symptoms Stated Complaint: fit for fpc Time Seen by Provider: 03/18/19 20:16 Source: patient and police Mode of arrival: other (police) History of Present Illness HPI Narrative: The patient's brother apparently contacted police. The patient had sent a text: Leave me alone. That way he would not leave mess please were contacted. They removed a 22 hand gun from the patient, the loaded gun was in his waist. He told the officers that he intended to kill himself. Police initially brought him to the ER for medical clearance. He was going to be arrested for other issues, the details are not obvious to the ER. The patient had ongoing suicidal thoughts. Please released him, leaving him here for medical evaluation. The patient confirmed to me he was still suicidal. He was placed in our isolation room. He became verbally violent. He was hitting his head against the wall. He was initially compliant, he did become verbally confrontational but not physically complication. Police were called back in. The patient was medicated, resting/sleeping soon thereafter. He awoke, calm and compliant. Initially told me he has no history of suicidal attempts. He does take medications for mental health, did not initially identify the medications. He denies using street drugs. He has not inflict any harm on himself tonight. Related Data Home Medications Medication Instructions Recorded Confirmed acamprosate 333 mg PO DAILY 09/25/18 09/30/18 doxepin 50 mg PO BEDTIME 09/25/18 09/30/18 gabapentin 600 mg PO TID PRN 09/25/18 09/30/18 lorazepam 1 dose PO DIRECTED 09/25/18 naltrexone 25 mg PO DIRECTED 09/30/18 09/30/18 amlodipine 10 mg tablet 10 mg PO DAILY 11/09/18 11/09/18 Previous Rx's Medication Instructions Recorded citalopram 20 mg tablet 20 mg PO DAILY #30 tab 11/09/18 Allergies Allergy/AdvReac Type Severity Reaction Status Date / Time aspirin [ASPIRIN] Allergy Unknown ?CHILDHOOD Verified 11/09/18 11:30 Review of Systems Review of Systems Narrative: ROS is limited due to the patient's poor compliance. Constitutional Comments: No illness or recent injury Eyes Eyes: Denies change in vision ENT Ears, Nose, Mouth, and Throat: Denies vertigo, Denies dizziness and Denies sore throat Cardiovascular Cardiovascular: Denies chest pain and Denies dyspnea Respiratory Respiratory: Denies cough and Denies dyspnea Gastrointestinal Gastrointestinal: Denies abdominal pain, Denies diarrhea, Denies nausea and Denies vomiting Musculoskeletal Musculoskeletal: Denies back pain Comments: No extremity injuries. No self-inflicted injuries. Integumentary/Breasts Skin/Breast: Denies skin ulcer and Denies wounds Neurologic Neurologic: Denies confusion, Denies vertigo and Denies dizziness Psychiatric Psychiatric: Denies confusion, Denies hallucinations and Reports suicidal ideation Patient History Medical History Alcohol abuse (Chronic) Alcohol dependence (Chronic) Alcohol withdrawal seizure (Resolved) Reactive airway disease (Chronic) Social History household members: family Smoking Status: Current every day smoker Smoking Status: Current every day smoker alcohol intake frequency: 3 or more drinks per day Substance Use Type: marijuana Exam Initial Vital Signs Initial Vital Signs: Vital Signs Temperature 97.9 F 03/18/19 20:20 Pulse Rate 99 H 03/18/19 20:20 Respiratory Rate 16 03/18/19 20:20 Blood Pressure 117/73 03/18/19 20:20 Pulse Oximetry 93 03/18/19 20:20 Const General: No acute distress, disheveled and intoxicated appearing Other: He is handcuffed upon arrival with police. [facility] Head: normocephalic and atraumatic Eyes Conjunctivae: conjunctivae normal Sclera: sclerae normal Pupils: PERRL EOM: No nystagmus Neck Neck: No lymphadenopathy and No JVD Resp Effort & Inspection: normal respiratory effort and able to speak in complete sentences Auscultation: clear to auscultation bilaterally, no rales, no rhonchi and no wheezes Cardio Rate: regular rate Rhythm: regular rhythm Heart Sounds: S1 normal, S2 normal, no click, no gallops, no murmurs and no rubs Pulses: normal peripheral pulses GI Palpation: soft, no hepatosplenomegaly, No guarding and No tender Auscultation: normal bowel sounds Back/Spine/Pelvis Back: No back tenderness Skin General: no rashes or lesions noted Neuro General: alert, oriented x3, gait normal and no focal motor deficits Cranial Nerves: No nystagmus Speech: speech normal Extrem Other: No evidence of injury/trauma. Psych Appearance: disheveled Speech and Movement: speech and movement normal Mood: labile mood Affect: labile affect Thought Process: confabulating Thought Content: no hallucinations, no homicidality and suicidality Judgment: poor Course Course Course Narrative: 04:20 AM.The police released him. His arresting officer left an affidavit, recommending involuntary confinement. The patient became violent, hitting head against the wall and yelling. With police present, the patient was compliant toward receiving medication. His over sleep, and relax. Afterward he is calmer and cooperative. His initial alcohol level upon arrival was 275. A tox screen was negative. The patient has been observed through the most of the night. Sitting [facility] is contacted at 4:00 a.m., to establish assessment this a.m. He is medically cleared, appropriate for ongoing mental health care. 06:35. AM. Sitting she was contacted, they will evaluate the patient later this morning. The patient has been compliant through the night, now managed with an open door without issues. The patient has tentatively been accepted at [place], with [facility] evaluation pending. As noted earlier, he is medically cleared. Orders Ordered: ED Orders 03/19/19 04:23 Ethanol (ETOH) Stat Discontinued Medications Diphenhydramine HCl (Benadryl) 50 mg IM NOW ONE Stop: 03/18/19 21:40 Last Admin: 03/18/19 21:52 Dose: 50 mg Documented by: KLAUDIA Haloperidol (Haldol) 5 mg IM NOW ONE Stop: 03/18/19 21:40 Last Admin: 03/18/19 21:52 Dose: 5 mg Documented by: KLAUDIA Lorazepam (Ativan) 2 mg IM NOW ONE Stop: 03/18/19 21:40 Last Admin: 03/18/19 21:52 Dose: 2 mg Documented by: KLAUDIA Vital Signs Vital signs: Vital Signs - 8 hr 03/19/19 02:00 03/19/19 07:20 Temperature 98.4 F 99.3 F Pulse Rate 75 96 H Respiratory Rate 16 16 Blood Pressure [Left Arm] 101/70 121/80 Pulse Oximetry 95 94 MDM - Psych Lab Data Result diagrams: 03/18/19 20:33 03/18/19 20:33 Labs: Lab Results 03/18/19 03/18/19 03/18/19 Range/Units 20:33 20:33 20:33 WBC 6.4 (4.5-11.0) X10^3/uL RBC 4.27 L (4.5-5.9) X10^6/uL Hgb 14.5 (13.5-17.5) g/dL Hct 42.4 (41-53) % MCV 99.3 (80-100) fL MCH 33.9 (26-34) PG MCHC 34.1 (30-36) % RDW 14.7 (11.6-14.8) % Plt Count 270 (150-400) X10^3/uL Neut % (Auto) 35.6 L (50-75) % Lymph % (Auto) 50.9 H (25-40) % [place] % (Auto) 6.5 (3-14) % Eos % (Auto) 5.5 H (2-4) % Baso % (Auto) 1.5 (0-2) % Neut # (Auto) 2300 (9812-3696) /uL Lymph # (Auto) 3300 (7650-6540) /uL [place] # (Auto) 400 (0-900) /uL Eos # (Auto) 400 (0-450) /uL Baso # (Auto) 100 (0-100) /uL Sodium 144 (137-145) mmol/L Potassium 4.3 (3.4-5.1) mmol/L Chloride 108 H (98-107) mmol/L Carbon Dioxide 27 (22-32) mmol/L BUN 9 (9-20) mg/dL Creatinine 0.80 (0.66-1.25) mg/dL Estimated GFR > 60.0 (>60) mL/min BUN/Creatinine Ratio 11.3 (6-22) Glucose 94 (70-100) mg/dL Calcium 9.1 (8.4-10.2) mg/dL Total Bilirubin 0.2 (0.2-1.3) mg/dL AST 39 (17-59) IU/L ALT 26 (<50) IU/L Alkaline Phosphatase 73 (38-126) U/L Total Protein 7.5 (6.3-8.2) g/dL Albumin 4.7 (3.5-5.0) g/dL Globulin 2.8 (1.7-4.1) g/dL Albumin/Globulin Ratio 1.7 (1.0-2.8) TSH 0.97 (0.47-4.68) uIU/mL Free T4 1.11 (0.78-2.19) ng/dL Salicylates < 1.0 (<20) mg/dL U Opiates 300ng/mL cut (Negative) Ur Oxycodone Screen (Negative) Urine Methadone Screen (Negative) Acetaminophen < 10 L (10-30) ug/mL Ur Barbiturates Screen (Negative) U Tricyclic Antidepress (Negative) Ur Phencyclidine Scrn (Negative) Ur Amphetamines Screen (Negative) U Methamphetamines Scrn (Negative) Ur MDMA Scrn (Ecstasy) (Negative) U Benzodiazepines Scrn (Negative) Urine Cocaine Screen (Negative) U Marijuana (THC) Screen (Negative) Ethyl Alcohol 275 H ( - 10) mg/dL 03/18/19 03/19/19 Range/Units 20:40 04:23 WBC (4.5-11.0) X10^3/uL RBC (4.5-5.9) X10^6/uL Hgb (13.5-17.5) g/dL Hct (41-53) % MCV (80-100) fL MCH (26-34) PG MCHC (30-36) % RDW (11.6-14.8) % Plt Count (150-400) X10^3/uL Neut % (Auto) (50-75) % Lymph % (Auto) (25-40) % [place] % (Auto) (3-14) % Eos % (Auto) (2-4) % Baso % (Auto) (0-2) % Neut # (Auto) (1638-2208) /uL Lymph # (Auto) (4424-0906) /uL [place] # (Auto) (0-900) /uL Eos # (Auto) (0-450) /uL Baso # (Auto) (0-100) /uL Sodium (137-145) mmol/L Potassium (3.4-5.1) mmol/L Chloride (98-107) mmol/L Carbon Dioxide (22-32) mmol/L BUN (9-20) mg/dL Creatinine (0.66-1.25) mg/dL Estimated GFR (>60) mL/min BUN/Creatinine Ratio (6-22) Glucose (70-100) mg/dL Calcium (8.4-10.2) mg/dL Total Bilirubin (0.2-1.3) mg/dL AST (17-59) IU/L ALT (<50) IU/L Alkaline Phosphatase (38-126) U/L Total Protein (6.3-8.2) g/dL Albumin (3.5-5.0) g/dL Globulin (1.7-4.1) g/dL Albumin/Globulin Ratio (1.0-2.8) TSH (0.47-4.68) uIU/mL Free T4 (0.78-2.19) ng/dL Salicylates (<20) mg/dL U Opiates 300ng/mL cut Negative (Negative) Ur Oxycodone Screen Negative (Negative) Urine Methadone Screen Negative (Negative) Acetaminophen (10-30) ug/mL Ur Barbiturates Screen Negative (Negative) U Tricyclic Antidepress Negative (Negative) Ur Phencyclidine Scrn Negative (Negative) Ur Amphetamines Screen Negative (Negative) U Methamphetamines Scrn Negative (Negative) Ur MDMA Scrn (Ecstasy) Negative (Negative) U Benzodiazepines Scrn Negative (Negative) Urine Cocaine Screen Negative (Negative) U Marijuana (THC) Screen Negative (Negative) Ethyl Alcohol 162 H ( - 10) mg/dL Urine Dip Bedside Urine Glucose Negative Bedside Urine Bilirubin - Negative Bedside Urine Ketone - Negative Urine Specific [place] 1.020 Bedside Urine Occult Blood - Negative Bedside Urine pH 6.0 Bedside Urine Protein - Negative Bedside Urine Urobilinogen - Negative Bedside Urine Nitrite - Negative Bedside Urine Leukocytes - Negative Esterase Discharge Plan Departure Patient Disposition: Xfer Psychiatric Hosp Clinical Impression: Suicidal ideation Alcohol intoxication Qualifiers: Complication of substance-induced condition: with delirium Qualified Code(s): F10.921 - Alcohol use, unspecified with intoxication delirium Referrals: Alda Johnston DO [Primary Care Provider] -
--- NOTE | 2019-03-19 04:10 | PC.NURSE ---
Provider medically cleared ptMichaela MARTINEZ called, stated would dispatch DCR after 0500.
--- NOTE | 2019-03-19 04:15 | PC.NURSE ---
door is open, pt laying on mattress with pillow and blankets. 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
--- NOTE | 2019-03-19 04:27 | PC.NURSE ---
pt received lab draw, pt was calm and cooperative.
[2019-03-19 04:44] LABS: Ethanol (ETOH) 162 mg/dL
--- NOTE | 2019-03-19 05:28 | PC.NURSE ---
Received call from RO Hernandes. states someone would come to assess pt after 1000
[2019-03-19 07:20] VITALS: BP 121/80; PULSE 96; RESP 16; TEMP 37.4; O2SAT 94
--- NOTE | 2019-03-19 07:37 | PC.NURSE ---
plan attestation testimony from brother, he is at work at this time. nkechi STARR working/pending admission to [facility]
[2019-03-19] MEDS: ALBUTEROL HFA 60 PUFF/8 GM INH INH (07:50)
[2019-03-19] MEDS: LORazepam 0.5 MG TABLET 2 MG PO (09:46)
--- NOTE | 2019-03-19 10:38 | PC.NURSE ---
contacted Greta , she is on her way in. +admission to [facility].
--- NOTE | 2019-03-19 10:42 | PC.NURSE ---
she is on her way, and pt with pending admission to [facility] per Greta.
--- NOTE | 2019-03-19 11:46 | PC.NURSE ---
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 talking with CM. Pt. was compliant. Pt. talked with family over telephone and requested for some personal belongs. clothing, toothbrush, meds...ect. Pt. is back in the room. [facility] accepted.
[2019-03-19] MEDS: NICOTINE 21 MG PATCH TOP (12:17)
[2019-03-19 16:20] VITALS: BP 138/86; PULSE 91; RESP 18; TEMP 37.4; O2SAT 96
--- NOTE | 2019-03-19 16:22 | PC.NURSE ---
pair of black boots, 3 bags of personal belonging given to ems crew.
== END 2019-03-19 16:22 ==
PROVIDERS: Emergency Medicine; Emergency Provider Emergency Medicine; Family Provider Family Medicine; PCP Family Medicine
DX: R45.851 Suicidal ideations (principal); F10.921 Alcohol use, unspecified with intoxication delirium
CPT/HCPCS: 36415; 80053; 80305; 80320; 80329; 81003; 84439; 84443; 85025; 96372; 99285; G0480; J1200; J1630; J2060

== ENCOUNTER 2020-03-09 08:10 | Emergency (ER) | payer MEDICAID, SELFPAY ==
[2020-03-09 08:27] VITALS: BP 179/86; PULSE 97; RESP 18; TEMP 37.1; O2SAT 100; BMI 26.6
--- NOTE | 2020-03-09 08:38 | PC.NURSE ---
denies all thoughs of self harm, states he never even thinks about that. Patient calm cooperative polite
[2020-03-09 08:52] LABS: Add Manual Diff / Slide Review NO; Basophils Absolute Auto 0 /uL (0-100); Basophils Percent Auto 0.2 % (0-2); Eosinophils Absolute Auto 200 /uL (0-450); Eosinophils Percent Auto 3.5 % (2-4); Hematocrit 41.6 % (41-53); Hemoglobin 14.3 g/dL (13.5-17.5); Lymphocytes Absolute Auto 1300 /uL (1100-4500); Lymphocytes Percent Auto 22.2 % (25-40); Mean Corpuscular HGB Conc 34.3 % (30-36); Mean Corpuscular Hemoglobin 37.4 PG (26-34); Monocytes Absolute Auto 500 /uL (0-900); Monocytes Percent Auto 8.1 % (3-14); Neutrophils Absolute Auto 3800 /uL (1500-7000); Platelet Count 241 X10^3/uL (150-400); Red Blood Cell Count 3.82 X10^6/uL (4.5-5.9); Red Cell Distribution Width 14.6 % (11.6-14.8); White Blood Cell Count 5.8 X10^3/uL (4.5-11.0)
[2020-03-09 09:02] LABS: Acetaminophen < 10 ug/mL (10-30); Alanine Aminotransferase 49 IU/L (<50); Albumin 4.2 g/dL (3.5-5.0); Albumin Globulin Ratio 1.4 (1.0-2.8); Alkaline Phosphatase 118 U/L (38-126); Aspartate Aminotransferase 215 IU/L (17-59); BUN Creatinine Ratio 12.1 (6-22); Bilirubin Total 0.3 mg/dL (0.2-1.3); Blood Urea Nitrogen 7 mg/dL (9-20); Calcium 9.6 mg/dL (8.4-10.2); Carbon Dioxide 30 mmol/L (22-32); Chloride 103 mmol/L (98-107); Estimated Glomerular Filt Rate > 60.0 mL/min (>60); Ethanol (ETOH) 107 mg/dL; Globulin 3.1 g/dL (1.7-4.1); Glucose 101 mg/dL (70-100); HEMOLYSIS < 15 (0-50); Potassium 4.2 mmol/L (3.4-5.1); Salicylate < 1.0 mg/dL (<20); Sodium 140 mmol/L (137-145); Total Protein 7.3 g/dL (6.3-8.2)
--- NOTE | 2020-03-09 09:28 | ED_ITS ---
HPI - Alcohol General Chief Complaint: Toxicology Problem Stated Complaint: detox Time Seen by Provider: 03/09/20 09:15 Source: patient Mode of arrival: Ambulatory Limitations: no limitations History of Present Illness HPI narrative: This is a 44-year-old male who comes requesting detox for alcohol. Patient states he has a history of alcohol abuse. His last drink was 5-7 hours ago. He does use marijuana but denies any other recreational drugs. He has had withdrawal symptoms in the past including alcohol withdrawal seizures. Patient states he has felt a little shaky and has a headache but denies any other symptoms. No fevers, no chills, no chest pain or shortness of breath. Patient denies any nausea, no vomiting. No diarrhea or constipation. Patient has not had any COVID symptoms. Patient has already contacted the facility and has come for medical clearance. Related Data Home Medications Medication Instructions Recorded Confirmed acamprosate 333 mg PO DAILY 09/25/18 09/30/18 doxepin 50 mg PO BEDTIME 09/25/18 09/30/18 gabapentin 600 mg PO TID PRN 09/25/18 09/30/18 lorazepam 1 dose PO DIRECTED 09/25/18 naltrexone 25 mg PO DIRECTED 09/30/18 09/30/18 amlodipine 10 mg tablet 10 mg PO DAILY 11/09/18 11/09/18 Previous Rx's Medication Instructions Recorded citalopram 20 mg tablet 20 mg PO DAILY #30 tab 11/09/18 lorazepam [Ativan] 2 mg PO TID PRN #10 tab 03/09/20 Allergies Allergy/AdvReac Type Severity Reaction Status Date / Time aspirin [ASPIRIN] Allergy Unknown ?CHILDHOOD Verified 03/09/20 08:33 Review of Systems Review of Systems ROS Unobtainable: All systems reviewed & are unremarkable except as noted in HPI and below Patient History Medical History (Updated 03/09/20 @ 10:35 by Sultana Ureña DO) Alcohol abuse Alcohol dependence Alcohol withdrawal seizure Reactive airway disease Social History household members: family Smoking Status: Current every day smoker Smoking Status: Current every day smoker alcohol intake frequency: 3 or more drinks per day Substance Use Type: marijuana Exam Narrative Exam Narrative: GENERAL: Alert and oriented x three, well-nourished, well- appearing male in mild distress. HEENT: Head normocephalic, atraumatic, EOMI, pupils reactive, face symmetric, moist mucous membranes NECK: Supple, full range of motion CARDIOVASCULAR: Regular rate and rhythm without murmurs, rubs or gallops. No tachycardia. RESPIRATORY: Breath sounds equal bilaterally, no wheezes rales or rhonchi. No tachypnea accessory muscle use. ABDOMEN: Soft, nontender. Normoactive bowel sounds all 4 quadrants. No guarding or rebound, rigidity, no mass : No CVA tenderness EXTREMITIES: Normal range of motion, no clubbing or edema. Neurovascularly in tact NEUROLOGICAL: Cranial nerves II through XII grossly intact. Moving all extremities. Mild tremor. SKIN: Warm, dry, no petechiae, no rashes or lesions. Initial Vital Signs Initial Vital Signs: Vital Signs Temperature 98.7 F 03/09/20 08:27 Pulse Rate 97 H 03/09/20 08:27 Respiratory Rate 18 03/09/20 08:27 Blood Pressure 179/86 H 03/09/20 08:27 Pulse Oximetry 100 03/09/20 08:27 Course Orders Ordered: ED Orders 03/09/20 10:30 COVID19 Stat 03/09/20 11:12 Urine Drug Screen, Rapid Stat 03/09/20 11:25 UA Complete [Urinalysis and Microscopic] Stat Discontinued Medications Chlordiazepoxide HCl (Chlordiazepoxide 25 Mg Capsule) 50 mg PO NOW ONE Stop: 03/09/20 10:32 Last Admin: 03/09/20 11:23 Dose: 50 mg Documented by: KYLAH Reevaluation(s) Reevaluation #1: Patient states that he is feeling better after the librium. Paperwork faxed to detox facility awaiting update. Time: 11:55 Vital Signs Vital signs: Vital Signs - 8 hr 03/09/20 12:33 Pulse Rate 104 H Respiratory Rate 24 Blood Pressure 173/96 H Pulse Oximetry 97 MDM - Alcohol Lab Data Attestation: I reviewed the patient's lab results. Result diagrams: 03/09/20 08:40 03/09/20 08:40 Labs: Lab Results 03/09/20 03/09/20 03/09/20 Range/Units 08:40 08:40 08:40 WBC 5.8 (4.5-11.0) X10^3/uL RBC 3.82 L (4.5-5.9) X10^6/uL Hgb 14.3 (13.5-17.5) g/dL Hct 41.6 (41-53) % MCV 109.0 H (80-100) fL MCH 37.4 H (26-34) PG MCHC 34.3 (30-36) % RDW 14.6 (11.6-14.8) % Plt Count 241 (150-400) X10^3/uL Neut % (Auto) 66.0 (50-75) % Lymph % (Auto) 22.2 L (25-40) % Slope % (Auto) 8.1 (3-14) % Eos % (Auto) 3.5 (2-4) % Baso % (Auto) 0.2 (0-2) % Neut # (Auto) 3800 (4746-9121) /uL Lymph # (Auto) 1300 (5845-7042) /uL Slope # (Auto) 500 (0-900) /uL Eos # (Auto) 200 (0-450) /uL Baso # (Auto) 0 (0-100) /uL Sodium 140 (137-145) mmol/L Potassium 4.2 (3.4-5.1) mmol/L Chloride 103 (98-107) mmol/L Carbon Dioxide 30 (22-32) mmol/L BUN 7 L (9-20) mg/dL Creatinine 0.58 L (0.66-1.25) mg/dL Estimated GFR > 60.0 (>60) mL/min BUN/Creatinine Ratio 12.1 (6-22) Glucose 101 H (70-100) mg/dL Calcium 9.6 (8.4-10.2) mg/dL Total Bilirubin 0.3 (0.2-1.3) mg/dL AST 215 H (17-59) IU/L ALT 49 (<50) IU/L Alkaline Phosphatase 118 (38-126) U/L Total Protein 7.3 (6.3-8.2) g/dL Albumin 4.2 (3.5-5.0) g/dL Globulin 3.1 (1.7-4.1) g/dL Albumin/Globulin Ratio 1.4 (1.0-2.8) TSH 3.13 (0.47-4.68) uIU/mL Free T4 0.85 (0.78-2.19) ng/dL Urine Color Urine Appearance Urine pH (4.5-8.0) Ur Specific Reliance (1.000-1.035) Urine Protein (Negative) Urine Glucose (UA) (Negative) g/dL Urine Ketones (NEGATIVE) Urine Occult Blood (Negative) Urine Nitrate (Negative) Urine Bilirubin (NEGATIVE) Urine Urobilinogen (0.2) E.U./dL Ur Leukocyte Esterase (NEGATIVE) Urine RBC (0-5/HPF) Urine WBC (0-5/HPF) Urine Bacteria (None) Ur Culture Indicated? Micro UA Comment Salicylates < 1.0 (<20) mg/dL U Opiates 300ng/mL cut (Negative) Ur Oxycodone Screen (Negative) Urine Methadone Screen (Negative) Acetaminophen < 10 L (10-30) ug/mL Ur Barbiturates Screen (Negative) U Tricyclic Antidepress (Negative) Ur Phencyclidine Scrn (Negative) Ur Amphetamines Screen (Negative) U Methamphetamines Scrn (Negative) Ur MDMA Scrn (Ecstasy) (Negative) U Benzodiazepines Scrn (Negative) Urine Cocaine Screen (Negative) U Marijuana (THC) Screen (Negative) Ethyl Alcohol 107 H ( - 10) mg/dL SARS-CoV-2 (PCR) (Negative) 03/09/20 03/09/20 03/09/20 Range/Units 10:30 11:12 11:25 WBC (4.5-11.0) X10^3/uL RBC (4.5-5.9) X10^6/uL Hgb (13.5-17.5) g/dL Hct (41-53) % MCV (80-100) fL MCH (26-34) PG MCHC (30-36) % RDW (11.6-14.8) % Plt Count (150-400) X10^3/uL Neut % (Auto) (50-75) % Lymph % (Auto) (25-40) % Slope % (Auto) (3-14) % Eos % (Auto) (2-4) % Baso % (Auto) (0-2) % Neut # (Auto) (7742-1847) /uL Lymph # (Auto) (8520-7851) /uL Slope # (Auto) (0-900) /uL Eos # (Auto) (0-450) /uL Baso # (Auto) (0-100) /uL Sodium (137-145) mmol/L Potassium (3.4-5.1) mmol/L Chloride (98-107) mmol/L Carbon Dioxide (22-32) mmol/L BUN (9-20) mg/dL Creatinine (0.66-1.25) mg/dL Estimated GFR (>60) mL/min BUN/Creatinine Ratio (6-22) Glucose (70-100) mg/dL Calcium (8.4-10.2) mg/dL Total Bilirubin (0.2-1.3) mg/dL AST (17-59) IU/L ALT (<50) IU/L Alkaline Phosphatase (38-126) U/L Total Protein (6.3-8.2) g/dL Albumin (3.5-5.0) g/dL Globulin (1.7-4.1) g/dL Albumin/Globulin Ratio (1.0-2.8) TSH (0.47-4.68) uIU/mL Free T4 (0.78-2.19) ng/dL Urine Color Yellow Urine Appearance Clear Urine pH 7.0 (4.5-8.0) Ur Specific Reliance 1.015 (1.000-1.035) Urine Protein Negative (Negative) Urine Glucose (UA) Negative (Negative) g/dL Urine Ketones Negative (NEGATIVE) Urine Occult Blood Negative (Negative) Urine Nitrate Negative (Negative) Urine Bilirubin Negative (NEGATIVE) Urine Urobilinogen 0.2 (0.2) E.U./dL Ur Leukocyte Esterase Negative (NEGATIVE) Urine RBC None seen (0-5/HPF) Urine WBC None seen (0-5/HPF) Urine Bacteria None seen (None) Ur Culture Indicated? Cult not indicated Micro UA Comment Microscopic normal Salicylates (<20) mg/dL U Opiates 300ng/mL cut Negative (Negative) Ur Oxycodone Screen Negative (Negative) Urine Methadone Screen Negative (Negative) Acetaminophen (10-30) ug/mL Ur Barbiturates Screen Negative (Negative) U Tricyclic Antidepress Negative (Negative) Ur Phencyclidine Scrn Negative (Negative) Ur Amphetamines Screen Negative (Negative) U Methamphetamines Scrn Negative (Negative) Ur MDMA Scrn (Ecstasy) Negative (Negative) U Benzodiazepines Scrn Negative (Negative) Urine Cocaine Screen Negative (Negative) U Marijuana (THC) Screen Positive H (Negative) Ethyl Alcohol ( - 10) mg/dL SARS-CoV-2 (PCR) Negative (Negative) MDM Narrative Medical decision making narrative: Patient BHAVESH was 4 in the department. Given dose of PO librium. Labs consistent with priors except for single AST of 215, ALT is 49, with a normal bilirubin. Tylenol, salicylate are negative, ETOH is 107. Patient rapid drug screen is positive for THC but negative for other substances. Covid swab is negative. Patient medically cleared. Discharge Plan Departure Patient Disposition: Home Clinical Impression: Alcohol abuse, Desire for detoxification Instructions: Alcohol Use Disorder Activity Restrictions/Additional Instructions: If you feel you need to go to [facility] Crisis[facility]Detox [facility]. Call had of time ([phone]) to inquire about an available bed. If there are no beds called daily and 9 AM and 9 PM to check on bed availability. If you're feeling suicidal or having suicidal thoughts, contact the suicide hotline: . Go directly to the crisis/detox center. Take the prescribed medications for your symptoms. Medications will be dispensed by the staff there. If you leave the Center you CANNOT take the extra medication home with you. Prescriptions: New lorazepam [Ativan] 2 mg tablet 2 mg PO TID PRN (Reason: alcohol withdrawal) Qty: 10 RF: 0 No Action citalopram 20 mg tablet 20 mg PO DAILY Qty: 30 RF: 0 amlodipine 10 mg tablet 10 mg PO DAILY RF: 0 doxepin 50 mg capsule 50 mg PO BEDTIME RF: 0 gabapentin 600 mg tablet 600 mg PO TID PRN (Reason: DIRECTED) RF: 0 lorazepam 2 mg tablet 1 dose PO DIRECTED RF: 0 acamprosate 333 mg tablet,delayed release (DR/EC) 333 mg PO DAILY RF: 0 naltrexone 50 mg tablet 25 mg PO DIRECTED RF: 0
[2020-03-09 09:57] LABS: Free T4, Direct Thyroxine 0.85 ng/dL (0.78-2.19)
[2020-03-09 10:11] LABS: Thyroid Stimulating Hormone 3.13 uIU/mL (0.47-4.68)
[2020-03-09 11:01] LABS: COVID19 -Nasal RAPID Negative (Negative)
[2020-03-09 11:21] LABS: UR Morphine/Opiate cutoff 300 Negative (Negative); Ur Creatinine Normal (Normal); Ur Specific Gravity Normal (Normal); Urine Amphetamines Negative (Negative); Urine Barbiturates Negative (Negative); Urine Benzodiazepines Negative (Negative); Urine Cocaine Negative (Negative); Urine MDMA Negative (Negative); Urine Methadone Negative (Negative); Urine Methamphetamines Negative (Negative); Urine Oxycodone Negative (Negative); Urine Phencyclidine Negative (Negative); Urine Tetrahydrocannabinol Positive (Negative); Urine Tricyclic Antidepressant Negative (Negative); Urine pH Normal (Normal)
[2020-03-09] MEDS: chlordiazePOXIDE 25 MG CAPSULE 50 MG PO (11:23)
[2020-03-09 11:29] LABS: Appearance Urine UA CLEAR; Bacteria Urine None Seen; Bilirubin Urine UA NEGATIVE (NEGATIVE); Color Urine UA YELLOW; Glucose Urine UA NEGATIVE (Negative); Ketones Urine UA NEGATIVE (NEGATIVE); Leukocyte Esterase Urine UA NEGATIVE (NEGATIVE); Nitrite Urine UA NEGATIVE (Negative); Occult Blood Urine UA NEGATIVE (Negative); Protein Urine UA NEGATIVE (Negative); RBC Urine None Seen (0-5/HPF); Specific Gravity Urine UA 1.015 (1.000-1.035); Urobilinogen Urine UA 0.2 E.U./dL (0.2); WBC Urine None Seen (0-5/HPF)
[2020-03-09 11:39] LABS: Culture Indicated Urine Cult Not Indicated; Urine Comments Microscopic Normal
[2020-03-09 12:33] VITALS: BP 173/96; PULSE 104; RESP 24; O2SAT 97
== END 2020-03-09 12:36 | disposition home or self-care (01) ==
PROVIDERS: Emergency Provider Emergency Medicine; Family Provider Family Medicine
DX: F10.229 Alcohol dependence with intoxication, unspecified (principal); Y90.5 Blood alcohol level of 100-119 mg/100 ml; Z20.822 Contact with and (suspected) exposure to COVID-19
CPT/HCPCS: 36415; 80053; 80305; 80320; 80329; 81001; 84439; 84443; 85025; 87635; 99281; 99283; C9803; G0480

== ENCOUNTER → 2020-06-11 07:57 | Outpatient (CLI) | payer MEDICAID, SELFPAY ==
[2020-06-11] MEDS: COVID-19 VACC, Ad26(JANSSEN)/PF 0.5 ML IM (08:04)
== END ==
PROVIDERS: Family Provider Family Medicine; Visit Provider Internal Medicine
DX: Z23 Encounter for immunization (principal)
CPT/HCPCS: 0031A; 91303

== ENCOUNTER → 2020-07-22 10:20 | Outpatient (CLI) | payer MEDICAID, SELFPAY ==
--- NOTE | 2020-07-22 | DI.RAD.S_ITS ---
PROCEDURE: XR KNEE RT 3V INDICATIONS: bilateral knee pain TECHNIQUE: 3 views of the knee were acquired. COMPARISON: None. FINDINGS: Bones: No fractures or dislocations. No suspicious bony lesions. Soft tissues: No joint effusion. No suspicious soft tissue calcifications. IMPRESSION: Trace joint effusion. If the patient's pain or other symptoms persist, consider further evaluation with MRI Dictated by: David Jameson M.D. on 07/22/2020 at 13:01 Approved by: David Jameson M.D. on 07/22/2020 at 13:02
--- NOTE | 2020-07-22 | DI.RAD.S_ITS ---
PROCEDURE: XR KNEE LT 3V INDICATIONS: BILATERAL KNEE PAIN TECHNIQUE: 3 views of the knee were acquired. COMPARISON: None. FINDINGS: Bones: No fractures or dislocations. No suspicious bony lesions. Joint spaces grossly preserved. There is lateral patellar tilt, and borderline patella ernesto Soft tissues: No joint effusion. No suspicious soft tissue calcifications. IMPRESSION: Lateral patellar tilt and borderline patella ernesto otherwise negative examination. If the patient's pain or other symptoms persist, consider further evaluation with MRI Dictated by: David Jameson M.D. on 07/22/2020 at 12:37 Approved by: David Jameson M.D. on 07/22/2020 at 12:39
== END ==
PROVIDERS: Family Provider Family Medicine; PCP Family Medicine; Referring Provider Family Medicine; Visit Provider Family Medicine
DX: M25.561 Pain in right knee (principal); M25.562 Pain in left knee
CPT/HCPCS: 73562

== ENCOUNTER → 2021-06-15 11:21 | Outpatient (CLI) | payer MEDICAID, SELFPAY ==
--- NOTE | 2021-06-15 11:28 | DI.RAD.S_ITS ---
PROCEDURE: XR CHEST 2V INDICATIONS: CHEST WALL PAIN TECHNIQUE: 2 views of the chest were acquired. COMPARISON: [facility], CR, RIBS UNILATERAL WITH PA CXR, 07/23/2016, 11:48. [facility], CR, RIBS UNILATERAL WITH PA CXR, 08/16/2016, 9:41. FINDINGS: Surgical changes and devices: None. Lungs and pleura: Elevation of the right hemidiaphragm. Atelectasis in the right lung base. No pleural effusions or pneumothorax. Mediastinum: Mediastinal contours are normal. Heart size is normal. Bones and chest wall: Displaced left 7th and 8th rib fractures. No suspicious bony abnormalities. Soft tissues appear unremarkable. IMPRESSION: 1. Left 7th and 8th rib fractures. 2. No pneumothorax. 3. Elevated right hemidiaphragm of uncertain etiology. Recommend CT scan of the chest for additional evaluation. Dictated by: Toya Marina MD, PhD on 06/15/2021 at 17:28 Approved by: Toya Marina MD, PhD on 06/15/2021 at 17:29
--- NOTE | 2021-06-15 11:46 | DI.RAD.S_ITS ---
PROCEDURE: XR RIBS LT 2V INDICATIONS: RIB PAIN AND LEFT CHEST WALL PAIN TECHNIQUE: 2 views of the left ribs were acquired. COMPARISON: None. FINDINGS: Surgical changes and devices: None. Bones and chest wall: Left 7th and 8th rib fractures are noted. No suspicious bony lesions. Overlying soft tissues appear unremarkable. Lungs and pleura: The visualized lung appears clear. No pleural effusions or pneumothorax are visible. IMPRESSION: Left 7th and 8th rib fractures. Dictated by: Toya Marina MD, PhD on 06/15/2021 at 17:31 Approved by: Toya Marina MD, PhD on 06/15/2021 at 17:32
== END ==
PROVIDERS: Family Provider Family Medicine; PCP Physician Assistant; Referring Provider Physician Assistant; Visit Provider Physician Assistant
DX: S22.42XA Multiple fractures of ribs, left side, initial encounter for closed fracture (principal); R07.82 Intercostal pain
CPT/HCPCS: 71046; 71100

== ENCOUNTER → 2021-06-24 12:09 | Outpatient (CLI) | payer MEDICAID, SELFPAY ==
--- NOTE | 2021-06-24 | DI.CT.S_ITS ---
PROCEDURE: CT CHEST WO CON INDICATIONS: Disorders of diaphragm, multiple rib fractures TECHNIQUE: Noncontrast 5 mm thick sections acquired from the pulmonary apices to the posterior costophrenic angles. 1 mm lung window, 5 mm thick coronal and sagittal and 7 mm axial MIP reformats were then acquired. For radiation dose reduction, the following was used: automated exposure control, adjustment of mA and/or kV according to patient size. COMPARISON: [facility], CR, XR CHEST 2V, 06/15/2021, 11:41. [facility], CR, XR RIBS LT 2V, 06/15/2021, 11:41. FINDINGS: Image quality: Excellent. Lungs and pleura: Severe centrilobular emphysema. No acute air space opacities. No pleural effusions or pneumothorax. Central and peripheral airways are patent and marked elevation of the right hemidiaphragm with mild right basilar atelectasis versus scarring. normal in caliber. Mediastinum: Heart size is normal. No pericardial effusion. Mild to moderate coronary artery calcifications. No mediastinal adenopathy by size criteria. Thoracic aorta and central pulmonary arteries are normal in size. Esophagus is normal in caliber. No hiatal hernia. Bones and chest wall: There are fractures of the left posterior lateral 7th through 11th ribs. The 8th and 9th and 10th rib fractures are mildly distracted. Old healed right rib fracture. No suspicious bony lesions. No vertebral body compression fractures. No axillary or supraclavicular adenopathy by size criteria. Thyroid gland is unremarkable as visualized . Abdomen: [id number] diffuse hepatic steatosis. Prominent left lobe of the liver raises the question of cirrhotic change. IMPRESSION: 1. There are acute fractures of the 7th through 11th left ribs. 2. There is no underlying pulmonary contusion or pneumothorax or pleural effusion. 3. Severe centrilobular emphysema. 4. Elevation of the right hemidiaphragm. 5. Diffuse hepatic steatosis. 6. Question cirrhotic change. 7. Coronary artery disease. Dictated by: Chuy Shoemaker M.D. on 06/24/2021 at 13:58 Approved by: Chuy Shoemaker M.D. on 06/24/2021 at 14:28
== END ==
PROVIDERS: Family Provider Family Medicine; PCP Physician Assistant; Referring Provider Physician Assistant; Visit Provider Physician Assistant
DX: S22.42XA Multiple fractures of ribs, left side, initial encounter for closed fracture (principal); J98.6 Disorders of diaphragm; J43.2 Centrilobular emphysema; K76.0 Fatty (change of) liver, not elsewhere classified; I25.10 Atherosclerotic heart disease of native coronary artery without angina pectoris; X58.XXXA Exposure to other specified factors, initial encounter
CPT/HCPCS: 71250

== ENCOUNTER → 2021-08-18 07:03 | Outpatient (CLI) | payer MEDICAID, SELFPAY ==
[2021-08-18 07:34] LABS: Add Manual Diff / Slide Review NO; Basophils Absolute Auto 100 /uL (0-100); Basophils Percent Auto 1.4 % (0-2); Eosinophils Absolute Auto 400 /uL (0-450); Eosinophils Percent Auto 3.9 % (2-4); Hematocrit 39.2 % (41-53); Hemoglobin 13.8 g/dL (13.5-17.5); Lymphocytes Absolute Auto 1400 /uL (1100-4500); Lymphocytes Percent Auto 13.8 % (25-40); Mean Corpuscular HGB Conc 35.3 % (30-36); Mean Corpuscular Hemoglobin 36.8 PG (26-34); Mean Corpuscular Volume 104.4 fL (80-100); Monocytes Absolute Auto 500 /uL (0-900); Monocytes Percent Auto 4.6 % (3-14); Neutrophils Absolute Auto 7500 /uL (1500-7000); Neutrophils Percent Auto 76.3 % (50-75); Platelet Count 425 X10^3/uL (150-400); Red Blood Cell Count 3.76 X10^6/uL (4.5-5.9); Red Cell Distribution Width 14.7 % (11.6-14.8); White Blood Cell Count 9.9 X10^3/uL (4.5-11.0)
[2021-08-18 08:04] LABS: Alanine Aminotransferase 30 IU/L (<50); Albumin 3.6 g/dL (3.5-5.0); Albumin Globulin Ratio 1.2 (1.0-2.8); Alkaline Phosphatase 145 U/L (38-126); Aspartate Aminotransferase 134 IU/L (17-59); BUN Creatinine Ratio 10.2 (6-22); Bilirubin Total 0.9 mg/dL (0.2-1.3); Blood Urea Nitrogen 6 mg/dL (9-20); Calcium 8.4 mg/dL (8.4-10.2); Carbon Dioxide 26 mmol/L (22-32); Chloride 99 mmol/L (98-107); Cholesterol 193 mg/dL (140-199); Estimated Glomerular Filt Rate > 60 mL/min (>60); Globulin 3.1 g/dL (1.7-4.1); Glucose 110 mg/dL (70-100); HDL Cholesterol 21 mg/dL (40-60); HEMOLYSIS < 15 (0-50); LDL Cholesterol Calculated 116 mg/dL (<100); Potassium 2.8 mmol/L (3.4-5.1); Sodium 133 mmol/L (137-145); Total Protein 6.7 g/dL (6.3-8.2); Triglycerides 282 mg/dL (35-150)
== END ==
PROVIDERS: Family Provider Family Medicine; PCP Physician Assistant; Referring Provider Physician Assistant; Visit Provider Physician Assistant
DX: I10 Essential (primary) hypertension (principal); E78.5 Hyperlipidemia, unspecified
CPT/HCPCS: 36415; 80053; 80061; 85025

== ENCOUNTER → 2021-10-11 08:25 | Outpatient (CLI) | payer MEDICAID, SELFPAY ==
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
== END ==
PROVIDERS: Family Provider Family Medicine; PCP Family Medicine; Referring Provider Family Medicine; Visit Provider Family Medicine
DX: S22.43XA Multiple fractures of ribs, bilateral, initial encounter for closed fracture (principal); R94.5 Abnormal results of liver function studies
CPT/HCPCS: 71046

== ENCOUNTER → 2022-01-16 08:27 | Outpatient (CLI) | payer MEDICAID, SELFPAY ==
[2022-01-16 09:20] LABS: Ammonia (NH3) < 9 umol/L (9-30)
[2022-01-16 09:22] LABS: Add Manual Diff / Slide Review NO; Basophils Absolute Auto 0 /uL (0-100); Basophils Percent Auto 0.4 % (0-2); Eosinophils Absolute Auto 200 /uL (0-450); Eosinophils Percent Auto 1.7 % (2-4); Hematocrit 43.7 % (41-53); Hemoglobin 15.2 g/dL (13.5-17.5); Lymphocytes Absolute Auto 1000 /uL (1100-4500); Lymphocytes Percent Auto 11.3 % (25-40); Mean Corpuscular HGB Conc 34.8 % (30-36); Mean Corpuscular Hemoglobin 35.7 PG (26-34); Mean Corpuscular Volume 102.6 fL (80-100); Monocytes Absolute Auto 600 /uL (0-900); Monocytes Percent Auto 6.4 % (3-14); Neutrophils Absolute Auto 7300 /uL (1500-7000); Neutrophils Percent Auto 80.2 % (50-75); Platelet Count 263 X10^3/uL (150-400); Red Blood Cell Count 4.26 X10^6/uL (4.5-5.9); Red Cell Distribution Width 15.4 % (11.6-14.8); White Blood Cell Count 9.1 X10^3/uL (4.5-11.0)
[2022-01-16 09:51] LABS: Alanine Aminotransferase 30 IU/L (<50); Albumin Globulin Ratio 1.2 (1.0-2.8); Alkaline Phosphatase 137 U/L (38-126); Aspartate Aminotransferase 69 IU/L (17-59); BUN Creatinine Ratio 5.8 (6-22); Bilirubin Total 0.6 mg/dL (0.2-1.3); Blood Urea Nitrogen 4 mg/dL (9-20); Calcium 8.6 mg/dL (8.4-10.2); Carbon Dioxide 26 mmol/L (22-32); Chloride 100 mmol/L (98-107); Cholesterol 182 mg/dL (140-199); Estimated Glomerular Filt Rate > 60 mL/min (>60); Globulin 3.3 g/dL (1.7-4.1); Glucose 116 mg/dL (70-100); HDL Cholesterol 38 mg/dL (40-60); HEMOLYSIS < 15 (0-50); LDL Cholesterol Calculated 92 mg/dL (<100); Magnesium 1.5 mg/dL (1.6-2.3); Potassium 4.1 mmol/L (3.4-5.1); Sodium 133 mmol/L (137-145); Total Protein 7.3 g/dL (6.3-8.2); Triglycerides 260 mg/dL (35-150)
[2022-01-16 09:56] LABS: Vitamin D 25 Hydroxy (D3) 23.2 ng/mL (30.0-100.0)
[2022-01-16 10:20] LABS: TSH w/ Reflex to FT4 1.92 uIU/mL (0.47-4.68)
[2022-01-16 10:34] LABS: Vitamin B12 724 pg/mL (239-931)
[2022-01-16 10:49] LABS: Microalbumin Urine Random 10.3 mg/dL (0-1.6)
[2022-01-16 11:08] LABS: Creatinine Urine Random 390.7 mg/dL; Microalbumi Creatinin Ratio Ur 26.3 ug/mg CR (<30)
== END ==
PROVIDERS: Family Provider Family Medicine; PCP Family Medicine; Referring Provider Family Medicine; Visit Provider Family Medicine
DX: E87.6 Hypokalemia (principal); R94.5 Abnormal results of liver function studies; K70.30 Alcoholic cirrhosis of liver without ascites; E87.1 Hypo-osmolality and hyponatremia; E78.5 Hyperlipidemia, unspecified; F10.29 Alcohol dependence with unspecified alcohol-induced disorder; R00.0 Tachycardia, unspecified; G25.2 Other specified forms of tremor; I10 Essential (primary) hypertension
CPT/HCPCS: 36415; 80053; 80061; 82043; 82140; 82306; 82570; 82607; 83735; 84443; 85025

== ENCOUNTER → 2022-04-12 07:19 | Outpatient (CLI) | payer MEDICAID, SELFPAY ==
[2022-04-12 08:25] LABS: Alanine Aminotransferase 31 IU/L (<50); Albumin 4.4 g/dL (3.5-5.0); Albumin Globulin Ratio 1.4 (1.0-2.8); Alkaline Phosphatase 110 U/L (38-126); Aspartate Aminotransferase 49 IU/L (17-59); BUN Creatinine Ratio 8.6 (6-22); Bilirubin Total 0.9 mg/dL (0.2-1.3); Blood Urea Nitrogen 6 mg/dL (9-20); Calcium 9.6 mg/dL (8.4-10.2); Carbon Dioxide 28 mmol/L (22-32); Chloride 99 mmol/L (98-107); Cholesterol 160 mg/dL (140-199); Estimated Glomerular Filt Rate > 60 mL/min (>60); Globulin 3.2 g/dL (1.7-4.1); Glucose 100 mg/dL (70-100); HDL Cholesterol 49 mg/dL (40-60); HEMOLYSIS < 15 (0-50); LDL Cholesterol Calculated 70 mg/dL (<100); Potassium 3.6 mmol/L (3.4-5.1); Sodium 136 mmol/L (137-145); Total Protein 7.6 g/dL (6.3-8.2); Triglycerides 206 mg/dL (35-150)
[2022-04-15 16:12] LABS: Vitamin B1 212.2 nmol/L (66.5-200.0)
== END ==
PROVIDERS: Family Provider Family Medicine; PCP Family Medicine; Referring Provider Family Medicine; Visit Provider Family Medicine
DX: E87.1 Hypo-osmolality and hyponatremia (principal); R94.5 Abnormal results of liver function studies; E78.5 Hyperlipidemia, unspecified; R73.01 Impaired fasting glucose; K70.30 Alcoholic cirrhosis of liver without ascites; F10.29 Alcohol dependence with unspecified alcohol-induced disorder
CPT/HCPCS: 36415; 80053; 80061; 83036; 84425

== ENCOUNTER 2022-10-29 13:06 | Emergency (ER) | payer MEDICAID, SELFPAY ==
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
[2022-10-29 13:11] VITALS: BP 101/68; PULSE 81; RESP 17; TEMP 36.8; O2SAT 96; BMI 26.5
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
--- NOTE | 2022-10-29 14:20 | DI.RAD.S_ITS ---
PROCEDURE: XR SHOULDER LT MIN 2V INDICATIONS: fall, posterior shoulder pain TECHNIQUE: 3 views of the shoulder were acquired. COMPARISON: [facility], CR, XR CHEST 2V, 10/11/2021, 8:33. [facility], CR, XR RIBS LT MIN 3V W CXR1V, 10/29/2022, 13:27. FINDINGS: Bones: No acute fracture can be seen. There are left-sided rib fractures seen, as previously demonstrated. No suspicious bony lesions. Soft tissues: No suspicious soft tissue calcifications. Atherosclerotic calcification of the aortic arch is noted. The visualized lung demonstrates an unremarkable appearance. IMPRESSION: Previously demonstrated rib fractures, without an acute abnormality identified. Dictated by: Soy Patel M.D. on 10/29/2022 at 14:41 Approved by: Soy Patel M.D. on 10/29/2022 at 14:42
[2022-10-29] MEDS: HYDROCODONE/ACET 5/325 TABLET 1 TAB PO (14:29)
[2022-10-29] MEDS: KETOROLAC 30 MG/ML VIAL 15 MG IM (14:29)
[2022-10-29] MEDS: LIDOCAINE PATCH 1 EACH ADH..PATCH TOP (14:29)
[2022-10-29 15:10] VITALS: BP 110/75; PULSE 74; RESP 16; O2SAT 97
== END 2022-10-29 15:10 | disposition home or self-care (01) ==
PROVIDERS: Emergency Provider Nurse Practitioner Critical Care Medicine; Family Provider Family Medicine; PCP Family Medicine
DX: R07.81 Pleurodynia (principal); M25.512 Pain in left shoulder; V19.9XXA Pedal cyclist (driver) (passenger) injured in unspecified traffic accident, initial encounter
CPT/HCPCS: 71101; 73030; 96372; 99283; 99284; J1885

== ENCOUNTER 2023-02-16 10:52 | Emergency (ER) | payer MEDICAID, SELFPAY ==
[2023-02-16] VITALS (10 sets, daily range): BP systolic 126–150; BP diastolic 86–102; PULSE 100–113; RESP 20–22; TEMP 36.6–36.7; O2SAT 92–98; BMI 28.7
--- NOTE | 2023-02-16 11:14 | PC.NURSE ---
Medication reconciliation completed w/ outside pharmacy lists.
[2023-02-16] MEDS: SODIUM CHLORIDE 0.9% 1,000 ML 1000 ML IV (11:35)
[2023-02-16 11:51] LABS: Alanine Aminotransferase 54 IU/L (<50); Albumin 4.2 g/dL (3.5-5.0); Albumin Globulin Ratio 1.2 (1.0-2.8); Alkaline Phosphatase 130 U/L (38-126); Aspartate Aminotransferase 98 IU/L (17-59); Bilirubin Total 0.5 mg/dL (0.2-1.3); Calcium 9.1 mg/dL (8.4-10.2); Carbon Dioxide 21 mmol/L (22-32); Chloride 104 mmol/L (98-107); Estimated Glomerular Filt Rate > 60 mL/min (>60); Ethanol (ETOH) 281 mg/dL; Globulin 3.4 g/dL (1.7-4.1); Glucose 147 mg/dL (70-100); HEMOLYSIS < 15 (0-50); Potassium 3.8 mmol/L (3.4-5.1); Sodium 139 mmol/L (137-145); Total Protein 7.6 g/dL (6.3-8.2)
[2023-02-16 11:52] LABS: Blood Urea Nitrogen < 2 mg/dL (9-20)
[2023-02-16 11:59] LABS: Add Manual Diff / Slide Review NO; Basophils Absolute Auto 0 /uL (0-100); Basophils Percent Auto 0.9 % (0-2); Eosinophils Absolute Auto 100 /uL (0-450); Eosinophils Percent Auto 1.5 % (2-4); Hematocrit 44.2 % (41-53); Hemoglobin 15.6 g/dL (13.5-17.5); Lymphocytes Absolute Auto 1000 /uL (1100-4500); Mean Corpuscular HGB Conc 35.2 % (30-36); Mean Corpuscular Hemoglobin 37.2 PG (26-34); Mean Corpuscular Volume 105.7 fL (80-100); Monocytes Absolute Auto 300 /uL (0-900); Monocytes Percent Auto 5.5 % (3-14); Neutrophils Absolute Auto 3800 /uL (1500-7000); Neutrophils Percent Auto 72.1 % (50-75); Platelet Count 296 X10^3/uL (150-400); Red Blood Cell Count 4.18 X10^6/uL (4.5-5.9); Red Cell Distribution Width 17.4 % (11.6-14.8); White Blood Cell Count 5.2 X10^3/uL (4.5-11.0)
--- NOTE | 2023-02-16 12:07 | ED_ITS ---
HPI - Alcohol General Chief Complaint: Toxicology Problem Stated Complaint: detox Time Seen by Provider: 02/16/23 11:24 Source: patient Mode of arrival: Ambulatory History of Present Illness HPI narrative: Patient 47-year-old male history of hypertension presents today wanting detox. History of alcohol abuse previously sober for about 3 reports that he had restless up and started drinking 3 or 4 days ago. Reports that he and about 5 beers daily them last night had a 5th of vodka. No thoughts of suicide or homicide. He is tearful ever get regretful. Wants to get back into detox. Feels a little shaky in his tachycardic. Related Data Home Medications Medication Instructions Recorded Confirmed amlodipine 10 mg tablet 10 mg PO DAILY 11/09/18 02/16/23 ibuprofen 600 mg tablet 600 mg PO TID PRN pain/discomfort 07/06/21 02/16/23 albuterol sulfate 90 mcg/actuation 1 puff inhalation Q4H PRN 02/16/23 02/16/23 aerosol inhaler wheezing/ sob fluticasone 250 mcg-salmeterol 50 1 ea inhalation BID 02/16/23 02/16/23 mcg/dose blistr powdr for inhalation tizanidine 4 mg tablet 4 mg PO Q8H PRN Muscle Spasm 02/16/23 02/16/23 Allergies Allergy/AdvReac Type Severity Reaction Status Date / Time aspirin [ASPIRIN] Allergy Unknown ?CHILDHOOD Verified 10/29/22 13:17 Review of Systems Review of Systems ROS Unobtainable: All systems reviewed & are unremarkable except as noted in HPI and below Patient History Medical History Reactive airway disease Alcohol dependence Alcohol withdrawal seizure Alcohol abuse Social History household members: family Smoking Status: Current every day smoker substance use type: marijuana Smoking Status: Current every day smoker tobacco type: cigarettes alcohol intake frequency: 3 or more drinks per day Alcohol type: hard liquor Substance Use Type: marijuana Exam Initial Vital Signs Initial Vital Signs: Vital Signs Pulse Rate 113 H 02/16/23 11:02 Pulse Oximetry 97 02/16/23 11:02 GENERAL: Alert 7-year-old male and in no acute distress. HEENT: Head atraumatic,EOMI, pupils reactive, face symmetric, moist mucous membranes CARDIOVASCULAR: Regular rate and rhythm without murmurs, rubs or gallops. RESPIRATORY: Breath sounds equal bilaterally, no wheezes rales or rhonchi. ABDOMEN: Soft, nontender. Normoactive bowel sounds all 4 quadrants. No guarding or rebound. EXTREMITIES: Normal range of motion, no clubbing or edema. Neurovascularly intact NEUROLOGICAL: Alert and oriented x4, minimal tremor SKIN: Warm, dry, no laceration, no petechiae, no rashes or lesions. Course Orders Ordered: ED Orders 02/16/23 11:17 Consult to SENIOR SOFTWARE QA ENGINEER - Teacher Resource Stat 02/16/23 11:24 EKG-12 Lead Stat 02/16/23 11:30 Complete Blood Count AUTO DIFF Stat Comprehensive Metabolic Panel Stat Ethanol (ETOH) Stat TSH w/ Reflex to FT4 Stat 02/16/23 12:25 Urine Drug Screen, Rapid Stat Discontinued Medications Sodium Chloride (Normal Saline 0.9%) 1,000 mls @ 1,000 mls/hr IV BOLUS ONE Stop: 02/16/23 12:23 Last Infusion: 02/16/23 12:22 Dose: Infused Documented By: Admin: 02/16/23 11:35 Dose: 1,000 mls/hr Documented By: TC Ketorolac Tromethamine (Ketorolac 30 Mg/Ml Vial) 15 mg IV NOW ONE Stop: 02/16/23 12:53 Last Admin: 02/16/23 12:54 Dose: 15 mg Documented By: TC Phenobarbital (Phenobarbital 65 Mg/Ml Vial) 130 mg IV NOW ONE Stop: 02/16/23 12:25 Last Admin: 02/16/23 12:33 Dose: 130 mg Documented By: TC Vital Signs Vital signs: Vital Signs - 8 hr 02/16/23 11:02 02/16/23 11:03 02/16/23 11:03 Temperature Pulse Rate 113 H 113 H Respiratory Rate Blood Pressure 150/95 H Pulse Oximetry 97 96 Oxygen Delivery Method 02/16/23 11:05 02/16/23 11:30 02/16/23 11:30 Temperature 97.8 F Pulse Rate 112 H 100 H Respiratory Rate 20 Blood Pressure 150/95 H 126/90 Pulse Oximetry 97 92 Oxygen Delivery Method Room Air 02/16/23 12:00 02/16/23 12:30 02/16/23 13:00 Temperature Pulse Rate 106 H 106 H 113 H Respiratory Rate 20 Blood Pressure 137/93 H 147/102 H 131/86 Pulse Oximetry 98 95 95 Oxygen Delivery Method 02/16/23 13:30 02/16/23 13:30 02/16/23 14:06 Temperature Pulse Rate 111 H 109 H Respiratory Rate 22 Blood Pressure 135/93 H Pulse Oximetry 95 95 Oxygen Delivery Method Room Air MDM - Alcohol Lab Data 02/16/23 11:30 02/16/23 11:30 Labs: Lab Results 02/16/23 02/16/23 Range/Units 11:30 12:25 WBC 5.2 (4.5-11.0) X10^3/uL RBC 4.18 L (4.5-5.9) X10^6/uL Hgb 15.6 (13.5-17.5) g/dL Hct 44.2 (41-53) % MCV 105.7 H (80-100) fL MCH 37.2 H (26-34) PG MCHC 35.2 (30-36) % RDW 17.4 H (11.6-14.8) % Plt Count 296 (150-400) X10^3/uL Neut % (Auto) 72.1 (50-75) % Lymph % (Auto) 20.0 L (25-40) % [place] % (Auto) 5.5 (3-14) % Eos % (Auto) 1.5 L (2-4) % Baso % (Auto) 0.9 (0-2) % Neut # (Auto) 3800 (3502-7883) /uL Lymph # (Auto) 1000 L (7373-0890) /uL [place]enton # (Auto) 300 (0-900) /uL Eos # (Auto) 100 (0-450) /uL Baso # (Auto) 0 (0-100) /uL Sodium 139 (137-145) mmol/L Potassium 3.8 (3.4-5.1) mmol/L Chloride 104 (98-107) mmol/L Carbon Dioxide 21 L (22-32) mmol/L BUN < 2 L (9-20) mg/dL Creatinine 0.50 L (0.66-1.25) mg/dL Estimated GFR > 60 (>60) mL/min BUN/Creatinine Ratio 4.0 L (6-22) Glucose 147 H (70-100) mg/dL Calcium 9.1 (8.4-10.2) mg/dL Total Bilirubin 0.5 (0.2-1.3) mg/dL AST 98 H (17-59) IU/L ALT 54 H (<50) IU/L Alkaline Phosphatase 130 H (38-126) U/L Total Protein 7.6 (6.3-8.2) g/dL Albumin 4.2 (3.5-5.0) g/dL Globulin 3.4 (1.7-4.1) g/dL Albumin/Globulin Ratio 1.2 (1.0-2.8) TSH 1.43 (0.47-4.68) uIU/mL U Opiates 300ng/mL cut Negative (Negative) Ur Oxycodone Screen Negative (Negative) Urine Methadone Screen Negative (Negative) Ur Barbiturates Screen Negative (Negative) U Tricyclic Antidepress Negative (Negative) Ur Phencyclidine Scrn Negative (Negative) Ur Amphetamines Screen Negative (Negative) U Methamphetamines Scrn Negative (Negative) Ur MDMA Scrn (Ecstasy) Negative (Negative) U Benzodiazepines Scrn Positive H (Negative) Urine Cocaine Screen Negative (Negative) U Marijuana (THC) Screen Negative (Negative) Ethyl Alcohol 281 H ( - 10) mg/dL Urine Dip Bedside Urine Glucose Negative Bedside Urine Bilirubin - Negative Bedside Urine Ketone - Negative Urine Specific [place] 1.015 Bedside Urine Occult Blood - Negative Bedside Urine pH 6 Bedside Urine Protein - Negative Bedside Urine Urobilinogen +/- 1mg Bedside Urine Nitrite - Negative Bedside Urine Leukocytes - Negative Esterase ECG Data Interpretation: Sinus tachycardia rate 103 AR [address] changes similar to previous EKGs MDM Narrative Medical decision making narrative: Patient initially presenting for wanting detox from alcohol withdrawal. He was a little shaky given phenobarbital. Ultimately oncology social worker did speak with him he did not want to go to detox she asked multiple times. He ultimately got very anxious and wanted to leave. Blood work reviewed overall reassuring mild elevation in liver enzymes consistent with alcohol use bilirubin 0.5. At this time his CIWA very anxious wanting to leave. No need for admission and declined detox attempts. Encouraged him to go to detox centers himself. Also encouraged him not to stop drinking concern for alcohol withdrawal seizures. Discharge Plan Departure Patient Disposition: Home Clinical Impression: Alcohol abuse Instructions: DI for Alcohol Use Disorder Activity Restrictions/Additional Instructions: *You have been diagnosed with alcohol abuse *What to do: At this time I strongly encourage you to go to [facility]. Decreased drinking slowly. Do not stop suddenly *Continue to take medications as directed *Follow up with your primary care provider in 2-3 days or call [phone] *Return to ER if you should have seizure, shaking, anxiety any new, worsening or concerning symptoms Prescriptions: No Action amlodipine 10 mg tablet 10 mg PO DAILY ibuprofen 600 mg tablet 600 mg PO TID PRN (Reason: pain/discomfort) fluticasone propion-salmeterol 250-50 mcg/dose blister with device 1 ea INHALATION BID tizanidine 4 mg tablet 4 mg PO Q8H PRN (Reason: Muscle Spasm) albuterol sulfate 90 mcg/actuation HFA aerosol inhaler 1 puff INHALATION Q4H PRN (Reason: wheezing/ sob) Referrals: Griselda Delaney ARNP [Primary Care Provider] - Stand Alone Forms: Patient Portal/API
[2023-02-16] MEDS: PHENobarbital 65 MG/ML VIAL 130 MG IV (12:33)
[2023-02-16 12:40] LABS: TSH w/ Reflex to FT4 1.43 uIU/mL (0.47-4.68)
[2023-02-16] MEDS: KETOROLAC 30 MG/ML VIAL 15 MG IV (12:54)
[2023-02-16 12:55] LABS: UR Morphine/Opiate cutoff 300 Negative (Negative); Ur Creatinine Normal (Normal); Ur Specific Gravity Normal (Normal); Urine Amphetamines Negative (Negative); Urine Barbiturates Negative (Negative); Urine Benzodiazepines Positive (Negative); Urine Cocaine Negative (Negative); Urine MDMA Negative (Negative); Urine Methadone Negative (Negative); Urine Methamphetamines Negative (Negative); Urine Oxycodone Negative (Negative); Urine Phencyclidine Negative (Negative); Urine Tetrahydrocannabinol Negative (Negative); Urine Tricyclic Antidepressant Negative (Negative); Urine pH Normal (Normal)
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
== END 2023-02-16 14:21 | disposition home or self-care (01) ==
PROVIDERS: Emergency Provider Emergency Medicine; Family Provider Family Medicine; PCP Family Medicine
DX: F10.129 Alcohol abuse with intoxication, unspecified (principal); Y90.8 Blood alcohol level of 240 mg/100 ml or more; R00.0 Tachycardia, unspecified
CPT/HCPCS: 36415; 80053; 80305; 80320; 81003; 84443; 85025; 93005; 93010; 96361; 96374; 96375; 99284; J1885; J2560

== ENCOUNTER → 2023-08-20 09:57 | Outpatient (CLI) | payer MEDICAID, SELFPAY ==
--- NOTE | 2023-08-20 10:03 | DI.RAD.S_ITS ---
PROCEDURE: XR RIBS BI MIN 4V W CXR1V INDICATIONS: RIB PAIN TECHNIQUE: 4 views of the ribs were acquired, along with a single view chest. COMPARISON: [facility], JOANNA, XR RIBS LT MIN 3V W CXR1V, 10/29/2022, 13:27. [facility], CR, XR CHEST 2V, 10/11/2021, 8:33. FINDINGS: Surgical changes and devices: None. Bones and chest wall: There are mildly displaced 5th 6th and 7th left rib fractures. Lungs and pleura: [id number] left effusion. No pneumothorax. Mediastinum: Mediastinal contours appear normal. Heart size is normal. IMPRESSION: Mildly displaced left 5th through 6th rib fractures with left effusion. Dictated by: Pam Couch M.D. on 08/20/2023 at 16:01 Approved by: Pam Couch M.D. on 08/20/2023 at 16:03
== END ==
PROVIDERS: Family Provider Family Medicine; PCP Nurse Practitioner Family; Referring Provider Nurse Practitioner Family; Visit Provider Nurse Practitioner Family
DX: S22.42XA Multiple fractures of ribs, left side, initial encounter for closed fracture (principal); R07.81 Pleurodynia; J90 Pleural effusion, not elsewhere classified
CPT/HCPCS: 71111

== ENCOUNTER 2023-08-21 17:44 | Emergency (ER) | payer MEDICAID, SELFPAY ==
[2023-08-21 17:49] VITALS: BP 126/79; PULSE 116; RESP 20; TEMP 36.8; O2SAT 97; BMI 27.9
--- NOTE | 2023-08-21 17:57 | EKG_ITS ---
[place] [id number] [place] [id number] Test Date: 2023-08-21 Pat Name: Sam Morel Department: [facility] Room: Gender: Male Parking Technician: LISETTE : 1975 Requested By: Order Number: [id number] Reading MD: Ramon Lei Measurements Intervals [facility] Rate: 104 P: 57 OR: 132 QRS: 24 QRSD: 88 T: 13 QT: 334 QTc: 439 Interpretive Statements Sinus tachycardia with premature atrial complexes ST & T wave abnormality, consider anterior ischemia Electronically Signed On 08-22-2023 18:38:51 PDT by Ramon Lei
[2023-08-21 18:00] VITALS: BP 129/82; PULSE 112; RESP 21; O2SAT 96
--- NOTE | 2023-08-21 18:05 | ED_ITS ---
HPI - Chest Pain General Chief Complaint: Chest Pain Stated Complaint: Fluid in lungs/Dr ref Time Seen by Provider: 08/21/23 18:05 Source: patient Mode of arrival: Ambulatory History of Present Illness HPI narrative: 48-year-old gentleman with a history of hypertension, asthma actively working to quit smoking, drinks less than a beer a day who presents to his primary care physician complaining of some rib pain chest x-ray was done and he was noted to have mildly displaced left ribs 5 6 and 7 fractures with a mild to moderate left effusion. Patient describes recognizing that he had rib fractures 2 years ago. About a week ago he describes twisting and turning while lifting a box and felt some mild pain. He has not complaining of significant pain, tachypnea, orthopnea, dyspnea. No palpitations. His primary care doctor called him this afternoon after reviewing chest x-ray and asked him to come to the ER for further evaluation. The entire clinical picture with the absence of significant recent trauma to cause the rib fractures and the new effusion is somewhat puzzling Related Data Home Medications Medication Instructions Recorded Confirmed amlodipine 10 mg tablet 10 mg PO DAILY 11/09/18 02/16/23 ibuprofen 600 mg tablet 600 mg PO TID PRN pain/discomfort 07/06/21 02/16/23 albuterol sulfate 90 mcg/actuation 1 puff inhalation Q4H PRN 02/16/23 02/16/23 aerosol inhaler wheezing/ sob fluticasone 250 mcg-salmeterol 50 1 ea inhalation BID 02/16/23 02/16/23 mcg/dose blistr powdr for inhalation tizanidine 4 mg tablet 4 mg PO Q8H PRN Muscle Spasm 02/16/23 02/16/23 Allergies Allergy/AdvReac Type Severity Reaction Status Date / Time aspirin [ASPIRIN] Allergy Unknown ?CHILDHOOD Verified 10/29/22 13:17 Review of Systems Review of Systems Narrative: Pertinent positive and negative findings as per HPI Patient History Medical History Reactive airway disease Alcohol dependence Alcohol withdrawal seizure Alcohol abuse Social History household members: family Smoking Status: Current every day smoker substance use type: marijuana Smoking Status: Current every day smoker tobacco type: cigarettes alcohol intake frequency: 3 or more drinks per day Alcohol type: hard liquor Substance Use Type: marijuana and other Exam Initial Vital Signs Initial Vital Signs: Vital Signs Temperature 98.3 F 08/21/23 17:49 Pulse Rate 116 H 08/21/23 17:49 Respiratory Rate 20 08/21/23 17:49 Blood Pressure 126/79 08/21/23 17:49 Pulse Oximetry 97 08/21/23 17:49 Oxygen Delivery Method Room Air 08/21/23 17:49 General: Healthy appearing, in no acute distress. Able to give a complete and coherent history. Well-nourished well-developed, slight odor of alcohol HEENT: Moist mucous membranes, normal sclera with reactive pupils, Neck: No JVD, supple Respiratory: Lungs are clear to auscultation, no wheezing no rales no rhonchi. Full and symmetrical air movement Chest: No particular point tenderness over the left ribs, no bruising or contusion, Cardiac: Regular rate and rhythm no murmurs no bruits Abdomen: Soft, nontender, good bowel tones, no flank pain. No trauma over the lower thoracic or lumbar spine no bruising/contusion appreciated Skin: Warm and dry, no rashes Neurologic: Grossly neurologically intact with no obvious asymmetries or abnormalities Extremities: No trauma, well perfused Psych: Cooperative, appropriate insight and affect Course Orders Ordered: ED Orders 08/21/23 17:57 EKG-12 Lead Stat 08/21/23 18:29 CT chest w con Stat 08/21/23 18:40 Complete Blood Count AUTO DIFF Stat Comprehensive Metabolic Panel Stat D Dimer Stat ETOH [Ethanol (ETOH)] Stat NT-proBNP (BNP-Adult 18+) Stat Troponin I Stat 08/21/23 19:19 Urinalysis and Microscopic Stat Vital Signs Vital signs: Vital Signs - 8 hr 08/21/23 17:49 Temperature 98.3 F Pulse Rate 116 H Respiratory Rate 20 Blood Pressure 126/79 Pulse Oximetry 97 Oxygen Delivery Method Room Air MDM - Chest Pain Lab Data 08/21/23 18:40 08/21/23 18:40 Labs: Lab Results 08/21/23 08/21/23 Range/Units 18:40 19:19 WBC 6.6 (4.5-11.0) X10^3/uL RBC 3.73 L (4.5-5.9) X10^6/uL Hgb 14.7 (13.5-17.5) g/dL Hct 41.4 (41-53) % MCV 111.1 H (80-100) fL MCH 39.4 H (26-34) PG MCHC 35.5 (30-36) % RDW 13.5 (11.6-14.8) % Plt Count 241 (150-400) X10^3/uL Neut % (Auto) 70.3 (50-75) % Lymph % (Auto) 18.7 L (25-40) % [place] % (Auto) 8.6 (3-14) % Eos % (Auto) 1.6 L (2-4) % Baso % (Auto) 0.8 (0-2) % Neut # (Auto) 4600 (5228-9502) /uL Lymph # (Auto) 1200 (3398-5653) /uL [place] # (Auto) 600 (0-900) /uL Eos # (Auto) 100 (0-450) /uL Baso # (Auto) 100 (0-100) /uL RBC Morphology See below Macrocytosis 1+ H D-Dimer 259 (<500) ng/ml Sodium 137 (137-145) mmol/L Potassium 3.1 L (3.4-5.1) mmol/L Chloride 99 (98-107) mmol/L Carbon Dioxide 28 (22-32) mmol/L BUN < 2 L (9-20) mg/dL Creatinine 0.51 L (0.66-1.25) mg/dL Estimated GFR > 60 (>60) mL/min BUN/Creatinine Ratio 3.9 L (6-22) Glucose 94 (70-100) mg/dL Calcium 9.4 (8.4-10.2) mg/dL Total Bilirubin 0.5 (0.2-1.3) mg/dL AST 142 H (17-59) IU/L ALT 44 (<50) IU/L Alkaline Phosphatase 101 (38-126) U/L Troponin I < 0.012 (0.01-0.034) ng/mL NT-Pro-B Natriuret Pep 129 H (<125) pg/mL Total Protein 7.1 (6.3-8.2) g/dL Albumin 4.0 (3.5-5.0) g/dL Globulin 3.1 (1.7-4.1) g/dL Albumin/Globulin Ratio 1.3 (1.0-2.8) Urine Color Yellow Urine Appearance Clear Urine pH 6.5 (4.5-8.0) Ur Specific [place] <=1.005 (1.000-1.035) Urine Protein Negative (Negative) Urine Glucose (UA) Negative (Negative) g/dL Urine Ketones Negative (NEGATIVE) Urine Occult Blood Negative (Negative) Urine Nitrate Negative (Negative) Urine Bilirubin Negative (NEGATIVE) Urine Urobilinogen 0.2 (0.2) E.U./dL Ur Leukocyte Esterase Negative (NEGATIVE) Urine RBC None seen (0-5/HPF) Urine WBC None seen (0-5/HPF) Ur Squamous Epith Cells None seen (0-5/HPF) Urine Bacteria None seen (None) Ur Culture Indicated? Cult not indicated Vol Urine Centrifuged 10ml (spun) Ethyl Alcohol 144 H ( - 10) mg/dL Imaging Data Chest CT: Radiologist's Impression: PROCEDURE: CT CHEST W CON INDICATIONS: new effusion L, rib rx #5,6,7 but no hx trauma TECHNIQUE: After the administration of intravenous contrast, 5 mm thick sections acquired from the pulmonary apices to the posterior costophrenic angles. 1 mm axial lung, 5 mm thick coronal and sagittal reformats and 7 mm axial MIP were acquired. For radiation dose reduction, the following was used: automated exposure control, adjustment of mA and/or kV according to patient size. COMPARISON: [facility], CR, XR RIBS BI MIN 4V W CXR1V, 08/20/2023, 10:31. [facility], CT, CT CHEST WO CON, 06/24/2021, 12:22. FINDINGS: Image quality: Diagnostic. Lower Neck: No enlarged lymph nodes. Thyroid: No thyroid nodules which require sonographic follow up, per consensus guidelines. Axillae: No enlarged lymph nodes. Chest Wall: Unremarkable. Bones: Chronic appearing slightly displaced fractures involving left posterior and lateral 4th, 5th, 6, 7th, 8th, 9th 10th and 11th ribs are seen. Chronic appearing right posterior lateral 4th, 5th, 6, 7th, 8th, and 9th rib fractures also noted. No gross acute fracture. No vertebral body compression fracture. Lungs and Pleura: Severe emphysematous changes are noted in bilateral lung anne not significantly changed from prior study. Scattered scarring/atelectasis in posterior and lateral periphery of bilateral lower lobes are seen. Small loculated pleural effusion along posterior and lateral periphery of left mid to lower lung field is noted with adjacent compressive atelectasis in left lower lobe and left lingular segment. No pneumothorax. No suspicious pulmonary nodule or mass. Central and peripheral airway is patent. Heart: Heart size is mildly enlarged. No pericardial effusion. Thoracic Vessels: The aorta and pulmonary arteries demonstrate normal size. [id number] atherosclerotic calcifications are seen in coronary arteries. Mediastinum and [place]: No enlarged lymph nodes. Esophagus: No wall thickening. No hiatal hernia. Upper Abdomen: Visualized upper abdomen solid organs and bowel loops appear normal. IMPRESSION: 1. Subacute to chronic appearing extensive bilateral posterior lateral rib fractures as described above. 2. Small partially loculated left pleural effusion. Scattered atelectasis in posterior and lateral periphery of bilateral mid to lower lung anne. Advanced centrilobular emphysema. No pneumothorax. No right-sided pleural effusion. 3. Cardiomegaly, no pericardial effusion. [id number] atherosclerotic disease in coronary arteries. No thoracic aortic aneurysm or dissection. Dictated by: Dimitris Painter M.D. on 08/21/2023 at 19:38 MDM Narrative Medical decision making narrative: CC: Chest x-ray was found to have 3 rib fractures and small left pleural effusion, no obvious trauma to explain this Complicating co-morbidities: Patient has a history of alcohol use disorder but states that he does not drink much anymore, has not been short of breath, states that he had some mild back pain and felt some pulling and twisting after lifting a box about a week ago Data collected from: patient Differential considered: Unexplained/unremembered trauma, left rib fractures with pleural effusion resolving, more trauma not identified, congestive heart failure, acute coronary syndrome Exam documented above, pertinent findings include: Exam is relatively benign. There was no tenderness or contusion to the area. Lab Test results independently reviewed as above. Pertinent findings: CBC is reassuring Chemistries, mild hypokalemia at 3.1. Appropriate renal function. Mild increased AST at 1:42 a.m. BNP is not elevated Urine is unremarkable Alcohol level is 144 (after 1 beer that he drank prior to his physician calling him and coming to the ER) Independently reviewed EKG: Sinus tachycardia at a rate of 104 nonspecific STT wave changes Imaging studies independently reviewed: Chronic appearing slightly displaced fractures involving left posterior and lateral 4th, 5th, 6, 7th, 8th, 9th 10th and 11th ribs are seen. Chronic appearing right posterior lateral 4th, 5th, 6, 7th, 8th, and 9th rib fractures also noted. No gross acute fracture. No vertebral body compression fracture. Small partially loculated left pleural effusion. Discussion: 48-year-old gentleman with a partially loculated left pleural effusion with no evidence of overall infection, congestive heart failure or pulmonary embolism. He has multiple prior rib fractures bilaterally none of which appear acute and given his absolute lack of pain consistent with his clinical exam. No new compression fractures. At this point I do not believe that there is new trauma that is caused this left pleural effusion. There was no evidence of overt infection, empyema or congestive heart failure. Will continue to manage this conservatively. Would not recommend any additional changes at this point and in 6-8 weeks I believe repeating a chest x-ray to see if the pleural effusion has resolved we will be appropriate before any additional diagnostic intervention will be required. Findings reviewed with the patient and he is safe for discharge Discharge Plan Departure Patient Disposition: Home Clinical Impression: Pleural effusion on left Instructions: DI for Pleural Effusion Activity Restrictions/Additional Instructions: Thank you for coming in tonight We ended up doing a CT scan of your chest and it looks like he broken almost all of your ribs at 1 point. Fortunately, none of them are new and I do not think that any of these old rib fractures are related to the small amount of fluid in your left lung. That is consistent with your clinical exam as well. I also looked for infection, heart failure, liver failure or other reasons to explain the pleural effusion. Fortunately everything actually looks good. You had 1 liver enzyme that was slightly elevated and, as you know, the more days you have without any alcohol at all the healthier your body including your liver is going to be. At this point, do not think that we need to do anything else. I would recommend that you follow up with your primary care physician in 6-8 weeks and simply have another chest x-ray to see that the pleural effusion is resolving. If not you may need additional workup done as an outpatient but should not need another ER visit for this. If you find that you are getting worse or develop any new symptoms, please feel free to return to the emergency department for further evaluation. Prescriptions: No Action amlodipine 10 mg tablet 10 mg PO DAILY ibuprofen 600 mg tablet 600 mg PO TID PRN (Reason: pain/discomfort) fluticasone propion-salmeterol 250-50 mcg/dose blister with device 1 ea INHALATION BID tizanidine 4 mg tablet 4 mg PO Q8H PRN (Reason: Muscle Spasm) albuterol sulfate 90 mcg/actuation HFA aerosol inhaler 1 puff INHALATION Q4H PRN (Reason: wheezing/ sob) Referrals: Cruz Blankenship [Primary Care Provider] - Stand Alone Forms: Patient Portal/API
--- NOTE | 2023-08-21 18:29 | DI.CT.S_ITS ---
PROCEDURE: CT CHEST W CON INDICATIONS: new effusion L, rib rx #5,6,7 but no hx trauma TECHNIQUE: After the administration of intravenous contrast, 5 mm thick sections acquired from the pulmonary apices to the posterior costophrenic angles. 1 mm axial lung, 5 mm thick coronal and sagittal reformats and 7 mm axial MIP were acquired. For radiation dose reduction, the following was used: automated exposure control, adjustment of mA and/or kV according to patient size. COMPARISON: [facility], CR, XR RIBS BI MIN 4V W CXR1V, 08/20/2023, 10:31. [facility], CT, CT CHEST WO CON, 06/24/2021, 12:22. FINDINGS: Image quality: Diagnostic. Lower Neck: No enlarged lymph nodes. Thyroid: No thyroid nodules which require sonographic follow up, per consensus guidelines. Axillae: No enlarged lymph nodes. Chest Wall: Unremarkable. Bones: Chronic appearing slightly displaced fractures involving left posterior and lateral 4th, 5th, 6, 7th, 8th, 9th 10th and 11th ribs are seen. Chronic appearing right posterior lateral 4th, 5th, 6, 7th, 8th, and 9th rib fractures also noted. No gross acute fracture. No vertebral body compression fracture. Lungs and Pleura: Severe emphysematous changes are noted in bilateral lung anne not significantly changed from prior study. Scattered scarring/atelectasis in posterior and lateral periphery of bilateral lower lobes are seen. Small loculated pleural effusion along posterior and lateral periphery of left mid to lower lung field is noted with adjacent compressive atelectasis in left lower lobe and left lingular segment. No pneumothorax. No suspicious pulmonary nodule or mass. Central and peripheral airway is patent. Heart: Heart size is mildly enlarged. No pericardial effusion. Thoracic Vessels: The aorta and pulmonary arteries demonstrate normal size. [id number] atherosclerotic calcifications are seen in coronary arteries. Mediastinum and [place]: No enlarged lymph nodes. Esophagus: No wall thickening. No hiatal hernia. Upper Abdomen: Visualized upper abdomen solid organs and bowel loops appear normal. IMPRESSION: 1. Subacute to chronic appearing extensive bilateral posterior lateral rib fractures as described above. 2. Small partially loculated left pleural effusion. Scattered atelectasis in posterior and lateral periphery of bilateral mid to lower lung anne. Advanced centrilobular emphysema. No pneumothorax. No right-sided pleural effusion. 3. Cardiomegaly, no pericardial effusion. [id number] atherosclerotic disease in coronary arteries. No thoracic aortic aneurysm or dissection. Dictated by: Dimitris Painter M.D. on 08/21/2023 at 19:38 Approved by: Dimitris Painter M.D. on 08/21/2023 at 19:44
[2023-08-21 18:30] VITALS: BP 119/76; PULSE 107; RESP 20; O2SAT 95
[2023-08-21 18:55] LABS: Add Manual Diff / Slide Review NO; Basophils Absolute Auto 100 /uL (0-100); Basophils Percent Auto 0.8 % (0-2); Eosinophils Absolute Auto 100 /uL (0-450); Eosinophils Percent Auto 1.6 % (2-4); Hematocrit 41.4 % (41-53); Hemoglobin 14.7 g/dL (13.5-17.5); Lymphocytes Absolute Auto 1200 /uL (1100-4500); Lymphocytes Percent Auto 18.7 % (25-40); Mean Corpuscular HGB Conc 35.5 % (30-36); Mean Corpuscular Hemoglobin 39.4 PG (26-34); Mean Corpuscular Volume 111.1 fL (80-100); Monocytes Absolute Auto 600 /uL (0-900); Monocytes Percent Auto 8.6 % (3-14); Neutrophils Absolute Auto 4600 /uL (1500-7000); Neutrophils Percent Auto 70.3 % (50-75); Platelet Count 241 X10^3/uL (150-400); Red Blood Cell Count 3.73 X10^6/uL (4.5-5.9); Red Cell Distribution Width 13.5 % (11.6-14.8); White Blood Cell Count 6.6 X10^3/uL (4.5-11.0)
[2023-08-21 19:04] LABS: D Dimer 259 ng/ml (<500)
[2023-08-21 19:08] LABS: Alanine Aminotransferase 44 IU/L (<50); Albumin Globulin Ratio 1.3 (1.0-2.8); Alkaline Phosphatase 101 U/L (38-126); Aspartate Aminotransferase 142 IU/L (17-59); Bilirubin Total 0.5 mg/dL (0.2-1.3); Calcium 9.4 mg/dL (8.4-10.2); Carbon Dioxide 28 mmol/L (22-32); Chloride 99 mmol/L (98-107); Estimated Glomerular Filt Rate > 60 mL/min (>60); Globulin 3.1 g/dL (1.7-4.1); Glucose 94 mg/dL (70-100); HEMOLYSIS < 15 (0-50); Potassium 3.1 mmol/L (3.4-5.1); Sodium 137 mmol/L (137-145); Total Protein 7.1 g/dL (6.3-8.2)
[2023-08-21 19:10] LABS: BUN Creatinine Ratio 3.9 (6-22); Blood Urea Nitrogen < 2 mg/dL (9-20)
[2023-08-21 19:12] LABS: Ethanol (ETOH) 144 mg/dL
[2023-08-21 19:19] LABS: NT-proBNP (BNP-Adult 18+) 129 pg/mL (<125); Troponin I < 0.012 ng/mL (0.01-0.034)
[2023-08-21 19:20] LABS: Macrocytosis 1+
[2023-08-21 19:31] LABS: Appearance Urine UA CLEAR; Bilirubin Urine UA NEGATIVE (NEGATIVE); Color Urine UA YELLOW; Glucose Urine UA NEGATIVE (Negative); Ketones Urine UA NEGATIVE (NEGATIVE); Leukocyte Esterase Urine UA NEGATIVE (NEGATIVE); Nitrite Urine UA NEGATIVE (Negative); Occult Blood Urine UA NEGATIVE (Negative); Protein Urine UA NEGATIVE (Negative); Specific Gravity Urine UA <=1.005 (1.000-1.035); Urobilinogen Urine UA 0.2 E.U./dL (0.2); pH Urine UA 6.5 (4.5-8.0)
[2023-08-21 19:39] LABS: Bacteria Urine None Seen; Culture Indicated Urine Cult Not Indicated; RBC Urine None Seen (0-5/HPF); Squamous Epithelial Cell Urine None Seen (0-5/HPF); Urine Volume 10mL (spun); WBC Urine None Seen (0-5/HPF)
[2023-08-21 20:00] VITALS: BP 130/86; PULSE 95; RESP 18; O2SAT 95
== END 2023-08-21 21:00 | disposition home or self-care (01) ==
PROVIDERS: Emergency Provider Emergency Medicine; Family Provider Family Medicine; PCP Nurse Practitioner Family
DX: J90 Pleural effusion, not elsewhere classified (principal); F17.200 Nicotine dependence, unspecified, uncomplicated
CPT/HCPCS: 71260; 80053; 80320; 81001; 83880; 84484; 85025; 85379; 93005; 99283; 99284; Q9967

== ENCOUNTER 2024-03-01 19:45 | Emergency (ER) | payer OTHER, SELFPAY ==
[2024-03-01] VITALS (9 sets, daily range): BP systolic 94–116; BP diastolic 67–78; PULSE 69–89; RESP 17–24; TEMP 36.9; O2SAT 92–96; BMI 28.3
--- NOTE | 2024-03-01 20:02 | EKG_ITS ---
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
[2024-03-01 20:19] LABS: Add Manual Diff / Slide Review NO; Basophils Absolute Auto 100 /uL (0-100); Basophils Percent Auto 1.4 % (0-2); Eosinophils Absolute Auto 200 /uL (0-450); Eosinophils Percent Auto 2.2 % (2-4); Hemoglobin 12.5 g/dL (13.5-17.5); Lymphocytes Absolute Auto 1500 /uL (1100-4500); Lymphocytes Percent Auto 20.2 % (25-40); Mean Corpuscular HGB Conc 35.8 % (30-36); Mean Corpuscular Hemoglobin 40.7 PG (26-34); Mean Corpuscular Volume 113.9 fL (80-100); Monocytes Absolute Auto 700 /uL (0-900); Monocytes Percent Auto 9.7 % (3-14); Neutrophils Absolute Auto 4900 /uL (1500-7000); Neutrophils Percent Auto 66.5 % (50-75); Platelet Count 289 X10^3/uL (150-400); Red Blood Cell Count 3.07 X10^6/uL (4.5-5.9); Red Cell Distribution Width 15.9 % (11.6-14.8); White Blood Cell Count 7.4 X10^3/uL (4.5-11.0)
[2024-03-01 20:26] LABS: Alanine Aminotransferase 28 IU/L (<50); Albumin 3.9 g/dL (3.5-5.0); Albumin Globulin Ratio 1.4 (1.0-2.8); Alkaline Phosphatase 90 U/L (38-126); Aspartate Aminotransferase 100 IU/L (17-59); BUN Creatinine Ratio 10.1 (6-22); Bilirubin Total 0.7 mg/dL (0.2-1.3); Blood Urea Nitrogen 7 mg/dL (9-20); Calcium 8.9 mg/dL (8.4-10.2); Carbon Dioxide 25 mmol/L (22-32); Chloride 92 mmol/L (98-107); Estimated Glomerular Filt Rate > 60 mL/min (>60); Globulin 2.8 g/dL (1.7-4.1); Glucose 124 mg/dL (70-100); HEMOLYSIS 22 (0-50); Lipase 89 U/L (23-300); Magnesium 1.6 mg/dL (1.6-2.3); Sodium 130 mmol/L (137-145); Total Protein 6.7 g/dL (6.3-8.2)
[2024-03-01 20:35] LABS: Potassium 2.4 mmol/L (3.4-5.1)
[2024-03-01 20:37] LABS: Anisocytosis 1+; Macrocytosis 1+
[2024-03-01 20:39] LABS: Basophilic Stippling 1+; Tear Drop Cells 1+
[2024-03-01] MEDS: POTASSIUM CHLORIDE 20 MEQ TAB 40 MEQ PO (21:02)
[2024-03-01] MEDS: POTASSIUM CHLORIDE IN WATER 10 MEQ/100 ML PIGGYBACK 100 MEQ IV ×2 (21:03→22:10)
--- NOTE | 2024-03-01 21:36 | ED.RECABL ---
HPI - Recheck/Abnormal Lab/Rx General Chief Complaint: Recheck/Abnormal Lab/Rx Stated Complaint: sent by PCP, potassium level low Time Seen by Provider: 03/01/24 20:36 Source: patient Mode of arrival: Ambulatory History of Present Illness HPI narrative: Patient is a 48-year-old male who is here for evaluation of low potassium. He states yesterday he had blood drawn has a routine outpatient by his primary doctor. He received a call stating that his potassium is low that he needed to come to the emergency department. He was not on any diuretics. He does sometimes take albuterol but nothing recently. He reports no chest pain, lightheadedness, abdominal pain, nausea vomiting or diarrhea or urinary symptoms. He was never had an issue with low potassium in the past. Related Data Home Medications Medication Instructions Recorded Confirmed amlodipine 10 mg tablet 10 mg PO DAILY 11/09/18 02/16/23 ibuprofen 600 mg tablet 600 mg PO TID PRN pain/discomfort 07/06/21 02/16/23 albuterol sulfate 90 mcg/actuation 1 puff inhalation Q4H PRN 02/16/23 02/16/23 aerosol inhaler wheezing/ sob fluticasone 250 mcg-salmeterol 50 1 ea inhalation BID 02/16/23 02/16/23 mcg/dose blistr powdr for inhalation tizanidine 4 mg tablet 4 mg PO Q8H PRN Muscle Spasm 02/16/23 02/16/23 gabapentin 600 mg tablet 600 mg PO TID PRN 11/21/23 11/21/23 Previous Rx's Medication Instructions Recorded tiotropium bromide 18 mcg capsule 1 cap inhalation DAILY #60 12/19/23 with inhalation device (Spiriva inhalations with HandiHaler) potassium chloride 20 mEq 20 meq PO DAILY #20 tabs 03/01/24 tablet,extended release Allergies Allergy/AdvReac Type Severity Reaction Status Date / Time aspirin [ASPIRIN] Allergy Unknown ?CHILDHOOD Verified 03/01/24 19:51 Review of Systems Review of Systems ROS Unobtainable: All systems reviewed & are unremarkable except as noted in HPI and below Patient History Medical History Loculated pleural effusion Nicotine dependence Emphysema lung Tobacco use disorder Reactive airway disease Alcohol dependence Alcohol withdrawal seizure Alcohol abuse Social History household members: family Smoking Status: Former smoker substance use type: marijuana Smoking Status: Former smoker tobacco type: cigarettes alcohol intake frequency: 3 or more drinks per day Alcohol type: beer Exam Initial Vital Signs Initial Vital Signs: Vital Signs Temperature 98.5 F 03/01/24 19:51 Pulse Rate 89 03/01/24 19:51 Respiratory Rate 17 03/01/24 19:51 Blood Pressure 108/75 03/01/24 19:51 Pulse Oximetry 96 03/01/24 19:51 Oxygen Delivery Method Room Air 03/01/24 19:51 Const General: cooperative, comfortable and No ill appearing [facility] Head: normal to inspection and normocephalic Resp Effort & Inspection: normal respiratory effort Auscultation: clear to auscultation bilaterally Cardio Rate: regular rate Rhythm: regular rhythm GI Inspection: normal to inspection Neuro General: patient alert, patient awake and moves all extremities Course Orders Ordered: ED Orders 03/01/24 19:52 EKG-12 Lead Stat 03/01/24 20:09 Complete Blood Count AUTO DIFF Stat Comprehensive Metabolic Panel Stat Lipase Stat Magnesium Stat Discontinued Medications POTASSIUM CHLORIDE IN WATER (Potassium Cl 10 Meq/100 Ml Hilda) 10 meq in 100 mls @ 100 mls/hr IV Q1H KRYSTAL Stop: 03/01/24 22:44 Last Infusion: 03/01/24 22:57 Dose: Infused Documented By: Admin: 03/01/24 22:10 Dose: 100 mls/hr Documented By: Infusion: 03/01/24 22:10 Dose: Infused Documented By: Admin: 03/01/24 21:03 Dose: 100 mls/hr Documented By: LUCIANA Potassium Chloride (Potassium Chloride 20 Meq Tab) 40 meq PO NOW ONE Stop: 03/01/24 20:37 Last Admin: 03/01/24 21:02 Dose: 40 meq Documented By: LUCIANA Vital Signs Vital signs: Vital Signs - 8 hr 03/01/24 21:15 03/01/24 21:15 03/01/24 21:30 Pulse Rate 81 83 Respiratory Rate 23 24 Blood Pressure 116/78 Pulse Oximetry 95 96 03/01/24 22:00 03/01/24 22:00 03/01/24 22:29 Pulse Rate 79 74 Respiratory Rate 23 22 Blood Pressure 102/69 Pulse Oximetry 93 94 03/01/24 22:30 03/01/24 22:31 03/01/24 23:00 Pulse Rate 69 73 Respiratory Rate 22 24 Blood Pressure 94/67 Pulse Oximetry 95 92 03/01/24 23:00 03/01/24 23:11 03/01/24 23:11 Pulse Rate 77 Respiratory Rate Blood Pressure 100/68 101/74 Pulse Oximetry 94 MDM - Recheck/Abnormal Lab/Rx Lab Data Attestation: I reviewed the patient's lab results. 03/01/24 20:09 03/01/24 20:09 Labs: Lab Results 03/01/24 Range/Units 20:09 WBC 7.4 (4.5-11.0) X10^3/uL RBC 3.07 L (4.5-5.9) X10^6/uL Hgb 12.5 L (13.5-17.5) g/dL Hct 35.0 L (41-53) % MCV 113.9 H (80-100) fL MCH 40.7 H (26-34) PG MCHC 35.8 (30-36) % RDW 15.9 H (11.6-14.8) % Plt Count 289 (150-400) X10^3/uL Neut % (Auto) 66.5 (50-75) % Lymph % (Auto) 20.2 L (25-40) % [place] % (Auto) 9.7 (3-14) % Eos % (Auto) 2.2 (2-4) % Baso % (Auto) 1.4 (0-2) % Neut # (Auto) 4900 (7427-8650) /uL Lymph # (Auto) 1500 (6379-7626) /uL [place] # (Auto) 700 (0-900) /uL Eos # (Auto) 200 (0-450) /uL Baso # (Auto) 100 (0-100) /uL RBC Morphology See below Basophilic Stippling 1+ H Anisocytosis 1+ H Macrocytosis 1+ H Tear Drop Cells 1+ H Sodium 130 L (137-145) mmol/L Potassium 2.4 L* (3.4-5.1) mmol/L Chloride 92 L (98-107) mmol/L Carbon Dioxide 25 (22-32) mmol/L BUN 7 L (9-20) mg/dL Creatinine 0.69 (0.66-1.25) mg/dL Estimated GFR > 60 (>60) mL/min BUN/Creatinine Ratio 10.1 (6-22) Glucose 124 H (70-100) mg/dL Calcium 8.9 (8.4-10.2) mg/dL Magnesium 1.6 (1.6-2.3) mg/dL Total Bilirubin 0.7 (0.2-1.3) mg/dL AST 100 H (17-59) IU/L ALT 28 (<50) IU/L Alkaline Phosphatase 90 (38-126) U/L Total Protein 6.7 (6.3-8.2) g/dL Albumin 3.9 (3.5-5.0) g/dL Globulin 2.8 (1.7-4.1) g/dL Albumin/Globulin Ratio 1.4 (1.0-2.8) Lipase 89 (23-300) U/L ECG Data Attestation: I personally reviewed and interpreted this ECG as follows: Interpretation: Sinus rhythm Ventricular rate of [address] T wave changes MDM Narrative Medical decision making narrative: Patient is hypokalemic. Kidney functions unremarkable of the rest of his electrolytes are unremarkable. He was not on any potassium wasting diuretic. Patient tolerated oral potassium. Was given IV potassium. He was asymptomatic. No EKG changes. Will place him on oral potassium with instructions to contact his primary doctor on Sunday for follow-up and repeat blood draw. Discharge Plan Departure Patient Disposition: Home Clinical Impression: Hypokalemia Instructions: DI for Hypokalemia Activity Restrictions/Additional Instructions: Continue to take all of your medications as directed. I recommend on Sunday you contact your primary doctor to schedule a repeat blood test. Return to the emergency department for new or worsening symptoms. Prescriptions: New potassium chloride 20 mEq tablet extended release 20 meq PO DAILY Qty: 20 0RF No Action amlodipine 10 mg tablet 10 mg PO DAILY ibuprofen 600 mg tablet 600 mg PO TID PRN (Reason: pain/discomfort) fluticasone propion-salmeterol 250-50 mcg/dose blister with device 1 ea INHALATION BID tizanidine 4 mg tablet 4 mg PO Q8H PRN (Reason: Muscle Spasm) albuterol sulfate 90 mcg/actuation HFA aerosol inhaler 1 puff INHALATION Q4H PRN (Reason: wheezing/ sob) gabapentin 600 mg tablet 600 mg PO TID PRN tiotropium bromide [Spiriva with HandiHaler] 18 mcg capsule, w/inhalation device 1 cap inhalation DAILY Qty: 60 4RF Rx Instructions: puncture 1 cap using device; one dose = 2 inhalations Referrals: Elizabeth Milian ARNP [Primary Care Provider] - Stand Alone Forms: Patient Portal/API/Survey
== END 2024-03-01 23:27 | disposition home or self-care (01) ==
PROVIDERS: Emergency Provider Emergency Medicine; PCP Nurse Practitioner Family
DX: E87.6 Hypokalemia (principal)
CPT/HCPCS: 36415; 80053; 83690; 83735; 85025; 93005; 96365; 96366; 99284

== ENCOUNTER 2024-03-08 23:25 | Emergency (ER) | payer OTHER, SELFPAY ==
[2024-03-08 23:30] VITALS: BP 106/69; PULSE 107; RESP 22; TEMP 36.9; O2SAT 95; BMI 29.2
--- NOTE | 2024-03-08 23:32 | EKG_ITS ---
[facility] [address] [place] [address] Test Date: 2024-03-08 Pat Name: Sam Morel Department: 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
--- NOTE | 2024-03-08 23:36 | DI.RAD.S_ITS ---
PROCEDURE: XR CHEST 2V INDICATIONS: chest pain TECHNIQUE: 2 views of the chest were acquired. COMPARISON: [facility], CR, XR CHEST 2V, 10/11/2021, 8:33. FINDINGS: Surgical changes and devices: None. Lungs and pleura: Asymmetric right hemidiaphragm elevation. Right lower lobe atelectatic change. Chronic left lower lung linear opacities. Small bilateral pleural effusions. No pneumothorax. Mediastinum: Mediastinal contours are normal. Heart size is normal. Bones and chest wall: Bilateral lateral rib fractures and healing chest wall deformity. IMPRESSION: Increasing bibasilar atelectatic changes. Underlying pneumonia cannot be excluded. Small bilateral pleural effusions, nonspecific. Dictated by: Megan Bustamante M.D. on 03/09/2024 at 0:17 Approved by: Megan Bustamante M.D. on 03/09/2024 at 0:25
[2024-03-09] VITALS (9 sets, daily range): BP systolic 109–128; BP diastolic 63–82; PULSE 84–95; RESP 18–21; O2SAT 91–95
[2024-03-09 00:01] LABS: Add Manual Diff / Slide Review NO; Basophils Absolute Auto 100 /uL (0-100); Basophils Percent Auto 1.4 % (0-2); Eosinophils Absolute Auto 100 /uL (0-450); Eosinophils Percent Auto 2.1 % (2-4); Hematocrit 34.5 % (41-53); Hemoglobin 11.9 g/dL (13.5-17.5); Lymphocytes Absolute Auto 1300 /uL (1100-4500); Lymphocytes Percent Auto 18.2 % (25-40); Mean Corpuscular HGB Conc 34.6 % (30-36); Mean Corpuscular Hemoglobin 40.4 PG (26-34); Mean Corpuscular Volume 116.5 fL (80-100); Monocytes Absolute Auto 600 /uL (0-900); Neutrophils Absolute Auto 4800 /uL (1500-7000); Neutrophils Percent Auto 69.3 % (50-75); Platelet Count 269 X10^3/uL (150-400); Red Blood Cell Count 2.96 X10^6/uL (4.5-5.9); Red Cell Distribution Width 16.6 % (11.6-14.8); White Blood Cell Count 6.9 X10^3/uL (4.5-11.0)
[2024-03-09 00:07] LABS: INR 1.1 (0.9-1.3); Prothrombin Time 12.7 SECONDS (9.4-12.5)
[2024-03-09 00:09] LABS: PTT Partial Thromboplastin Tim 33 SECONDS (25.1-36.5)
[2024-03-09 00:10] LABS: Alanine Aminotransferase 29 IU/L (<50); Albumin 3.1 g/dL (3.5-5.0); Alkaline Phosphatase 81 U/L (38-126); Aspartate Aminotransferase 102 IU/L (17-59); Bilirubin Total 0.5 mg/dL (0.2-1.3); Calcium 9.1 mg/dL (8.4-10.2); Carbon Dioxide 24 mmol/L (22-32); Chloride 101 mmol/L (98-107); Creatine Kinase 55 U/L (55-170); Estimated Glomerular Filt Rate > 60 mL/min (>60); Globulin 3.1 g/dL (1.7-4.1); Glucose 159 mg/dL (70-100); HEMOLYSIS 39 (0-50); Lipase 71 U/L (23-300); Magnesium 1.1 mg/dL (1.6-2.3); Potassium 3.2 mmol/L (3.4-5.1); Sodium 135 mmol/L (137-145); Total Protein 6.2 g/dL (6.3-8.2)
[2024-03-09 00:12] LABS: BUN Creatinine Ratio 3.1 (6-22); Blood Urea Nitrogen 2 mg/dL (9-20)
[2024-03-09 00:22] LABS: NT-proBNP (BNP-Adult 18+) 446 pg/mL (<125); Troponin I < 0.012 ng/mL (0.01-0.034)
[2024-03-09 00:28] LABS: Anisocytosis 1+; Macrocytosis 2+; Stomatocytes 2+
--- NOTE | 2024-03-09 00:48 | ED_ITS ---
HPI - Chest Pain General Chief Complaint: Chest Pain Stated Complaint: chest pain Time Seen by Provider: 03/09/24 00:31 Source: patient Mode of arrival: Ambulatory Limitations: no limitations History of Present Illness HPI narrative: 48-year-old male former smoker with history of COPD, complains of 2 days duration left anterior chest pain, somewhat pleuritic in nature, sharp in quality, no associated nausea or vomiting, no associated diaphoresis, nonradiating, no treatments tried, not particularly worse with arm movements. No fevers or chills. He has not feel short of breath. He denies abdominal pain, diarrhea, black or red stools. He denies painful urination or frequency of urination. He denies headache or neck pain. He denies focal or generalized weakness. Related Data Home Medications Medication Instructions Recorded Confirmed amlodipine 10 mg tablet 10 mg PO DAILY 11/09/18 02/16/23 ibuprofen 600 mg tablet 600 mg PO TID PRN pain/discomfort 07/06/21 02/16/23 albuterol sulfate 90 mcg/actuation 1 puff inhalation Q4H PRN 02/16/23 02/16/23 aerosol inhaler wheezing/ sob fluticasone 250 mcg-salmeterol 50 1 ea inhalation BID 02/16/23 02/16/23 mcg/dose blistr powdr for inhalation tizanidine 4 mg tablet 4 mg PO Q8H PRN Muscle Spasm 02/16/23 02/16/23 gabapentin 600 mg tablet 600 mg PO TID PRN 11/21/23 11/21/23 Previous Rx's Medication Instructions Recorded tiotropium bromide 18 mcg capsule 1 cap inhalation DAILY #60 12/19/23 with inhalation device (Spiriva inhalations with HandiHaler) potassium chloride 20 mEq 20 meq PO DAILY #20 tabs 03/01/24 tablet,extended release Allergies Allergy/AdvReac Type Severity Reaction Status Date / Time aspirin [ASPIRIN] Allergy Unknown ?CHILDHOOD Verified 03/01/24 19:51 Patient History Medical History Loculated pleural effusion Nicotine dependence Emphysema lung Tobacco use disorder Reactive airway disease Alcohol dependence Alcohol withdrawal seizure Alcohol abuse Social History household members: family Smoking Status: Former smoker substance use type: marijuana Smoking Status: Former smoker tobacco type: cigarettes alcohol intake frequency: 3 or more drinks per day Alcohol type: beer Exam Narrative Exam Narrative: GENERAL: Well-developed patient, in mild distress. HEAD: Atraumatic. Normocephalic. EYES: Pupils equal round and reactive. Extraocular motions intact. No scleral icterus. No injection or drainage. ENT: Nose without bleeding, purulent drainage. Throat without erythema, tonsillar hypertrophy or exudate. Airway patent. NECK: Trachea midline. Non tender CARDIOVASCULAR: Regular rate and rhythm without murmurs, gallops, or rubs. RESPIRATORY: Clear to auscultation. Breath sounds equal bilaterally. No wheezes, rales, or rhonchi. Left anterior chest tenderness on examination, no obvious crepitance. Speaks in full sentences GASTROINTESTINAL: Abdomen soft, non-tender, nondistended. EXTREMITIES: No edema or joint tenderness. BACK: Nontender without deformity or crepitance. No flank tenderness. NEURO: AOx3. Motor functions grossly nonfocal SKIN: No rash or erythema of visible areas Initial Vital Signs Initial Vital Signs: Vital Signs Temperature 98.4 F 03/08/24 23:30 Pulse Rate 107 H 03/08/24 23:30 Respiratory Rate 22 03/08/24 23:30 Blood Pressure 106/69 03/08/24 23:30 Pulse Oximetry 95 03/08/24 23:30 Oxygen Delivery Method Room Air 03/08/24 23:30 Course Orders Ordered: ED Orders 03/08/24 23:29 EKG-12 Lead Stat 03/08/24 23:36 XR chest 2V Stat 03/08/24 23:45 Complete Blood Count AUTO DIFF Stat Comprehensive Metabolic Panel Stat Lipase Stat Magnesium Stat NT-proBNP (BNP-Adult 18+) Stat PTT Partial Thromboplastin Anibal Stat Prothrombin Time INR Stat Troponin & CK Cardiac Panel Stat 03/09/24 01:52 Troponin I Stat Discontinued Medications Albuterol (Albuterol 2.5 Mg/3 Ml Neb (Adult)) 2.5 mg INH NOW ONE Stop: 03/09/24 01:24 Last Admin: 03/09/24 01:43 Dose: 2.5 mg Documented By: HANNY Magnesium Sulfate (Magnesium Sulfate) 2 gm in 50 mls @ 150 mls/hr IV NOW ONE Stop: 03/09/24 01:08 Last Infusion: 03/09/24 01:32 Dose: Infused Documented By: ESTELA Co-signed By: WON Admin: 03/09/24 00:53 Dose: 150 mls/hr Documented By: ESTELA Co-signed By: LOLITA Ketorolac Tromethamine (Ketorolac 30 Mg/Ml Vial) 15 mg IV NOW ONE Stop: 03/09/24 01:24 Last Admin: 03/09/24 01:47 Dose: 15 mg Documented By: ESTELA Potassium Chloride (Potassium Chloride 20 Meq/15 Ml Udc) 40 meq PO NOW ONE Stop: 03/09/24 01:27 Last Admin: 03/09/24 01:46 Dose: 40 meq Documented By: ESTELA Vital Signs Vital signs: Vital Signs - 8 hr 03/08/24 23:30 03/09/24 00:14 03/09/24 00:15 Temperature 98.4 F Pulse Rate 107 H 91 H Respiratory Rate 22 21 Blood Pressure 106/69 117/68 Pulse Oximetry 95 94 Oxygen Delivery Method Room Air Fraction of Inspired Oxygen 03/09/24 00:25 03/09/24 00:25 03/09/24 00:30 Temperature Pulse Rate 95 H 94 H Respiratory Rate 18 20 Blood Pressure 120/74 Pulse Oximetry 92 93 Oxygen Delivery Method Fraction of Inspired Oxygen 03/09/24 00:30 03/09/24 01:00 03/09/24 01:00 Temperature Pulse Rate 94 H Respiratory Rate 19 Blood Pressure 128/82 109/63 Pulse Oximetry 92 Oxygen Delivery Method Fraction of Inspired Oxygen 03/09/24 01:30 03/09/24 01:30 03/09/24 01:44 Temperature Pulse Rate 84 93 H 84 Respiratory Rate 18 20 18 Blood Pressure 126/78 Pulse Oximetry 92 95 95 Oxygen Delivery Method Room Air Room Air Fraction of Inspired Oxygen 21 03/09/24 02:00 03/09/24 02:30 03/09/24 02:30 Temperature Pulse Rate 86 Respiratory Rate 21 Blood Pressure 118/69 115/72 Pulse Oximetry 91 Oxygen Delivery Method Fraction of Inspired Oxygen MDM - Chest Pain Lab Data Attestation: I reviewed the patient's lab results. Lab results narrative: White blood cell count 6900, hemoglobin 11.9, platelets adequate. Basic metabolic panel shows low potassium 3.2 noted. Magnesium 1.1 also noted. BNP 446 noted. Troponin negative/unmeasurable. 03/08/24 23:45 03/08/24 23:45 Labs: Lab Results 01/04/25 01/05/25 Range/Units 23:45 01:52 WBC 6.9 (4.5-11.0) X10^3/uL RBC 2.96 L (4.5-5.9) X10^6/uL Hgb 11.9 L (13.5-17.5) g/dL Hct 34.5 L (41-53) % MCV 116.5 H (80-100) fL MCH 40.4 H (26-34) PG MCHC 34.6 (30-36) % RDW 16.6 H (11.6-14.8) % Plt Count 269 (150-400) X10^3/uL Neut % (Auto) 69.3 (50-75) % Lymph % (Auto) 18.2 L (25-40) % [place] % (Auto) 9.0 (3-14) % Eos % (Auto) 2.1 (2-4) % Baso % (Auto) 1.4 (0-2) % Neut # (Auto) 4800 (5070-3818) /uL Lymph # (Auto) 1300 (7139-0948) /uL [place] # (Auto) 600 (0-900) /uL Eos # (Auto) 100 (0-450) /uL Baso # (Auto) 100 (0-100) /uL RBC Morphology See below Anisocytosis 1+ H Macrocytosis 2+ H Stomatocytes 2+ H PT 12.7 H (9.4-12.5) SECONDS INR 1.1 (0.9-1.3) APTT 33 (25.1-36.5) SECONDS Sodium 135 L (137-145) mmol/L Potassium 3.2 L (3.4-5.1) mmol/L Chloride 101 (98-107) mmol/L Carbon Dioxide 24 (22-32) mmol/L BUN 2 L (9-20) mg/dL Creatinine 0.65 L (0.66-1.25) mg/dL Estimated GFR > 60 (>60) mL/min BUN/Creatinine Ratio 3.1 L (6-22) Glucose 159 H (70-100) mg/dL Calcium 9.1 (8.4-10.2) mg/dL Magnesium 1.1 L (1.6-2.3) mg/dL Total Bilirubin 0.5 (0.2-1.3) mg/dL AST 102 H (17-59) IU/L ALT 29 (<50) IU/L Alkaline Phosphatase 81 (38-126) U/L Total Creatine Kinase 55 (55-170) U/L Troponin I < 0.012 < 0.012 (0.01-0.034) ng/mL NT-Pro-B Natriuret Pep 446 H (<125) pg/mL Total Protein 6.2 L (6.3-8.2) g/dL Albumin 3.1 L (3.5-5.0) g/dL Globulin 3.1 (1.7-4.1) g/dL Albumin/Globulin Ratio 1.0 (1.0-2.8) Lipase 71 (23-300) U/L ECG Data Attestation: I personally reviewed and interpreted this ECG as follows: Interpretation: 2332, Sinus tachycardia with a rate of 103, no obvious ST segment elevation or depression changes. HI 122, QRS 84, QTC 453. MDM Narrative Medical decision making narrative: 48-year-old male with history of former smoking, COPD, not using oxygen, prior use of home inhaler, complains of 2 days duration of left anterior pleuritic like chest discomfort, some tenderness on examination. No injury or trauma. No respiratory distress. Afebrile, sirs screen negative. Screening EKG without obvious ischemic changes. Troponin negative Repeat troponin negative. Pain improved after IV Toradol. Chest x-ray without acute changes. Symptoms most consistent with chest wall etiology, continue home use of albuterol as needed. Encouraged to continue not smoking. Continue use of pulmonary medications at home. Can take Tylenol and or Motrin as needed for chest wall discomfort. Recheck in clinic mid week advised. Return precautions discussed Discharge Plan Departure Patient Disposition: Home Clinical Impression: Chest wall pain, Hypokalemia, Hypomagnesemia, History of COPD Activity Restrictions/Additional Instructions: Left-sided anterior chest discomfort, some tenderness on examination on palpation, likely chest wall in etiology. Chest x-ray showed no acute changes. EKG and serial blood tests not suggestive of heart attack concerns at this time. Consider use of [id number] Tylenol and or Motrin medications for chest wall discomfort. Continue use of your inhaler lung medications at home. Continue avoiding smoking, and avoidance of secondhand smoke. Your potassium and magnesium levels were low, oral and IV repletion was initiated. Consider checking your symptoms mid week, along with repeat blood draw to make sure your electrolytes are okay. Return earlier to this/nearest emergency department for any change worsening symptoms or any concerns prior Prescriptions: No Action amlodipine 10 mg tablet 10 mg PO DAILY ibuprofen 600 mg tablet 600 mg PO TID PRN (Reason: pain/discomfort) fluticasone propion-salmeterol 250-50 mcg/dose blister with device 1 ea INHALATION BID tizanidine 4 mg tablet 4 mg PO Q8H PRN (Reason: Muscle Spasm) albuterol sulfate 90 mcg/actuation HFA aerosol inhaler 1 puff INHALATION Q4H PRN (Reason: wheezing/ sob) potassium chloride 20 mEq tablet extended release 20 meq PO DAILY Qty: 20 0RF gabapentin 600 mg tablet 600 mg PO TID PRN tiotropium bromide [Spiriva with HandiHaler] 18 mcg capsule, w/inhalation device 1 cap inhalation DAILY Qty: 60 4RF Rx Instructions: puncture 1 cap using device; one dose = 2 inhalations Referrals: Elizabeth Milian ARNP [Primary Care Provider] - Stand Alone Forms: Patient Portal/API/Survey
[2024-03-09] MEDS: MAGNESIUM SULFATE 2 GM/50 ML PIGGYBACK IV (00:53)
--- NOTE | 2024-03-09 01:22 | PC.NURSE ---
Dr. Baltazar at bedside
[2024-03-09] MEDS: ALBUTEROL 2.5 MG/3 ML NEB (ADULT) INH (01:43)
[2024-03-09] MEDS: POTASSIUM CHLORIDE 20 MEQ/15 ML UDC 40 MEQ PO (01:46)
[2024-03-09] MEDS: KETOROLAC 30 MG/ML VIAL 15 MG IV (01:47)
--- NOTE | 2024-03-09 01:54 | PC.NURSE ---
Repeat troponin drawn from existing IV line without complications.
[2024-03-09 02:23] LABS: Troponin I < 0.012 ng/mL (0.01-0.034)
== END 2024-03-09 02:42 | disposition home or self-care (01) ==
PROVIDERS: Emergency Provider Emergency Medicine; PCP Nurse Practitioner Family
DX: R07.89 Other chest pain (principal); E87.6 Hypokalemia; E83.42 Hypomagnesemia; Z87.09 Personal history of other diseases of the respiratory system; Z87.891 Personal history of nicotine dependence
CPT/HCPCS: 36415; 71046; 80053; 82550; 83690; 83735; 83880; 84484; 85025; 85610; 85730; 93005; 94640; 96365; 96375; 99284; J1885; J3475; J7613

== ENCOUNTER → 2024-03-11 10:07 | Outpatient (CLI) | payer OTHER, SELFPAY ==
[2024-03-11 11:02] LABS: Iron 230 ug/dL (49-181)
[2024-03-11 11:03] LABS: Alanine Aminotransferase 31 IU/L (<50); Albumin 3.7 g/dL (3.5-5.0); Albumin Globulin Ratio 1.2 (1.0-2.8); Alkaline Phosphatase 81 U/L (38-126); Aspartate Aminotransferase 89 IU/L (17-59); Bilirubin Total 0.9 mg/dL (0.2-1.3); Blood Urea Nitrogen 4 mg/dL (9-20); Calcium 10.2 mg/dL (8.4-10.2); Carbon Dioxide 30 mmol/L (22-32); Chloride 94 mmol/L (98-107); Estimated Glomerular Filt Rate > 60 mL/min (>60); Globulin 3.2 g/dL (1.7-4.1); Glucose 115 mg/dL (70-100); HEMOLYSIS < 15 (0-50); Potassium 4.2 mmol/L (3.4-5.1); Sodium 135 mmol/L (137-145); Total Protein 6.9 g/dL (6.3-8.2)
[2024-03-11 11:14] LABS: Total Iron Binding Capacity 258 ug/dL (261-462)
[2024-03-11 11:15] LABS: Percent Iron Saturation 89 % (20-50)
[2024-03-11 11:40] LABS: Ferritin 205 ng/mL (18-464)
[2024-03-11 12:12] LABS: Folate 2.7 ng/mL (2.76-20.0); Vitamin B12 774 pg/mL (239-931)
== END ==
PROVIDERS: PCP Nurse Practitioner Family; Referring Provider Family Medicine; Visit Provider Family Medicine
DX: E87.1 Hypo-osmolality and hyponatremia (principal); D64.9 Anemia, unspecified
CPT/HCPCS: 36415; 80053; 82607; 82728; 82746; 83540; 83550

== ENCOUNTER → 2024-05-05 14:41 | Outpatient (CLI) | payer MEDICAID, SELFPAY ==
--- NOTE | 2024-05-05 14:42 | DI.CT.S_ITS ---
PROCEDURE: CT CHEST W CON INDICATIONS: PLEURAL EFFUSION TECHNIQUE: After the administration of intravenous contrast, 5 mm thick sections acquired from the pulmonary apices to the posterior costophrenic angles. 1 mm axial lung, 5 mm thick coronal and sagittal reformats and 7 mm axial MIP were acquired. For radiation dose reduction, the following was used: automated exposure control, adjustment of mA and/or kV according to patient size. COMPARISON: [facility], CT, CT CHEST W CON, 08/21/2023, 18:37. FINDINGS: Image quality: Diagnostic. Lower Neck: No enlarged lymph nodes. Thyroid: No thyroid nodules which require sonographic follow up, per consensus guidelines. Axillae: No enlarged lymph nodes. Chest Wall: Unremarkable. Bones: Extensive healed rib fractures. Lungs and Pleura: No pneumothorax or pleural effusions. 1 centimeter spiculated nodule in the anterior left upper lobe (series 3, image 165). Moderate centrilobular emphysema. Elevation the right hemidiaphragm. Right basilar atelectasis. No effusions. Heart: Heart size is normal. No pericardial effusion. Three-vessel coronary artery calcifications. Thoracic Vessels: The aorta and pulmonary arteries demonstrate normal size. Mediastinum and [place]: No enlarged lymph nodes. Esophagus: No wall thickening. No hiatal hernia. Upper Abdomen: At least moderate hepatic steatosis. Smooth contour. IMPRESSION: Spiculated nodule in the anterior left upper lobe, concerning for primary malignancy. Recommend PET-CT. Marked coronary artery calcifications for age. Correlate with risk factors and advise counseling. No effusions. Elevation of the right hemidiaphragm, which could be posttraumatic given extensive healed rib fractures. Dictated by: Mark Watkins M.D. on 05/07/2024 at 12:05 Approved by: Mark Watkins M.D. on 05/07/2024 at 12:08
== END ==
PROVIDERS: PCP Nurse Practitioner Family; Referring Provider Nurse Practitioner Family; Visit Provider Nurse Practitioner Family
DX: J90 Pleural effusion, not elsewhere classified (principal); J43.2 Centrilobular emphysema; I25.10 Atherosclerotic heart disease of native coronary artery without angina pectoris; R91.1 Solitary pulmonary nodule; K76.0 Fatty (change of) liver, not elsewhere classified; Z87.81 Personal history of (healed) traumatic fracture
CPT/HCPCS: 71260; Q9967

== ENCOUNTER 2024-07-22 10:26 | Emergency (ER) | payer MEDICAID, SELFPAY ==
[2024-07-22] VITALS (10 sets, daily range): BP systolic 101–117; BP diastolic 56–72; PULSE 81–90; RESP 12–24; TEMP 36.9; O2SAT 92–98; BMI 28.7
--- NOTE | 2024-07-22 10:34 | DI.RAD.S_ITS ---
PROCEDURE: XR CHEST 1V INDICATIONS: Shortness of breath TECHNIQUE: One view of the chest was acquired. COMPARISON: [facility], CR, XR CHEST 2V, 03/08/2024, 23:37. [facility], CR, XR CHEST 2V, 10/11/2021, 8:33. FINDINGS AND IMPRESSION: Low lung volumes. Mild bibasal opacities possibly early airspace disease versus atelectasis. Consider future imaging surveillance to assess for resolution. Possible trace effusions. Heart size is within normal limits. Right rib old deformities. Degenerative osseous changes. Dictated by: Frank Feliz M.D. on 07/22/2024 at 11:04 Approved by: Frank Feliz M.D. on 07/22/2024 at 11:05
--- NOTE | 2024-07-22 10:39 | EKG_ITS ---
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
[2024-07-22 11:00] LABS: Add Manual Diff / Slide Review NO; Basophils Absolute Auto 0 /uL (0-100); Basophils Percent Auto 0.1 % (0-2); Eosinophils Absolute Auto 300 /uL (0-450); Eosinophils Percent Auto 2.3 % (2-4); Hematocrit 32.2 % (41-53); Hemoglobin 10.9 g/dL (13.5-17.5); Lymphocytes Absolute Auto 800 /uL (1100-4500); Lymphocytes Percent Auto 6.1 % (25-40); Mean Corpuscular Hemoglobin 42.1 PG (26-34); Mean Corpuscular Volume 124.1 fL (80-100); Monocytes Absolute Auto 900 /uL (0-900); Monocytes Percent Auto 6.8 % (3-14); Neutrophils Absolute Auto 11600 /uL (1500-7000); Neutrophils Percent Auto 84.7 % (50-75); Platelet Count 165 X10^3/uL (150-400); Red Cell Distribution Width 15.7 % (11.6-14.8); White Blood Cell Count 13.7 X10^3/uL (4.5-11.0)
[2024-07-22 11:08] LABS: INR 2.1 (0.9-1.3); Prothrombin Time 22.9 SECONDS (9.4-12.5)
[2024-07-22 11:10] LABS: Macrocytosis 3+
[2024-07-22 11:13] LABS: Alanine Aminotransferase 43 IU/L (<50); Albumin 2.6 g/dL (3.5-5.0); Albumin Globulin Ratio 0.7 (1.0-2.8); Alkaline Phosphatase 146 U/L (38-126); Aspartate Aminotransferase 139 IU/L (17-59); BUN Creatinine Ratio 10.1 (6-22); Bilirubin Total 4.2 mg/dL (0.2-1.3); Blood Urea Nitrogen 9 mg/dL (9-20); Calcium 8.6 mg/dL (8.4-10.2); Carbon Dioxide 21 mmol/L (22-32); Chloride 95 mmol/L (98-107); Estimated Glomerular Filt Rate > 60 mL/min (>60); Globulin 3.7 g/dL (1.7-4.1); Glucose 122 mg/dL (70-99); HEMOLYSIS 21 (0-50); Potassium 4.3 mmol/L (3.4-5.1); Sodium 126 mmol/L (137-145); Total Protein 6.3 g/dL (6.3-8.2)
[2024-07-22 11:15] LABS: Lactate (Lactic Acid) 4.1 mmol/L (0.7-2.1)
[2024-07-22 11:25] LABS: NT-proBNP (BNP-Adult 18+) 476 pg/mL (<125); Troponin I < 0.012 ng/mL (0.01-0.034)
--- NOTE | 2024-07-22 11:43 | ED.EXTPRO ---
HPI - Extremity Problem General Chief complaint: Extremity Problem,Nontraumatic Stated complaint: Bilateral Leg pain x 3 weeks Time Seen by Provider: 07/22/24 11:12 Source: patient, RN notes reviewed and old records reviewed Mode of arrival: Ambulatory Limitations: no limitations History of Present Illness HPI Narrative: 49-year-old male history of COPD, hypertension, prior history of alcohol abuse, chronic pain who presents with complaint of bilateral lower extremity edema and pain. Patient states has been going on for a couple weeks has not been improving. He denies any active chest pain or shortness of breath. States he does sometimes have some shortness of breath but feels like he was at his baseline currently. States he felt hot last night but denies any cold cough or congestion symptoms. States no nausea or vomiting currently. Had some about a week or 2 ago that had resolved. He was having some constipation but was improved with [id number] medication. He notes some lower abdominal pain that is been coming and going for about a week describes. Does not localize it to either side. Denies back or flank pain. Denies any distention. He notes no urinary symptoms. Notes increased swelling of his lower extremities and they become painful over time. He has not appreciate any warmth or redness. Patient states he was normally on tizanidine, amlodipine and takes Tylenol daily. Stopped his Tylenol in the last week because he thought maybe having liver issues. His amlodipine was decreased from 10-5 mg because his blood pressure has been running low. Patient states no other daily medications. He denies any prior surgeries. States quit tobacco in the last couple of months, states quit alcohol with that. Denies any IV or recreational drugs. Follows with the [facility] for primary care. Related Data Home Medications Medication Instructions Recorded Confirmed amlodipine 10 mg tablet 10 mg PO DAILY 11/09/18 02/16/23 ibuprofen 600 mg tablet 600 mg PO TID PRN pain/discomfort 07/06/21 02/16/23 albuterol sulfate 90 mcg/actuation 1 puff inhalation Q4H PRN 02/16/23 02/16/23 aerosol inhaler wheezing/ sob fluticasone 250 mcg-salmeterol 50 1 ea inhalation BID 02/16/23 02/16/23 mcg/dose blistr powdr for inhalation tizanidine 4 mg tablet 4 mg PO Q8H PRN Muscle Spasm 02/16/23 02/16/23 gabapentin 600 mg tablet 600 mg PO TID PRN 11/21/23 11/21/23 Previous Rx's Medication Instructions Recorded tiotropium bromide 18 mcg capsule 1 cap inhalation DAILY #60 12/19/23 with inhalation device (Spiriva inhalations with HandiHaler) potassium chloride 20 mEq 20 meq PO DAILY #20 tabs 03/01/24 tablet,extended release furosemide 40 mg tablet (Lasix) 40 mg PO DAILY #10 tabs 07/22/24 lorazepam 0.5 mg tablet (Ativan) 0.5 mg PO BID PRN muscle spasm #10 07/22/24 tabs meloxicam 7.5 mg tablet 7.5 mg PO BID PRN pain #10 tabs 07/22/24 Allergies Allergy/AdvReac Type Severity Reaction Status Date / Time aspirin [ASPIRIN] Allergy Unknown ?CHILDHOOD Verified 07/22/24 10:30 Review of Systems Review of Systems ROS Unobtainable: All systems reviewed & are unremarkable except as noted in HPI and below Patient History Medical History Loculated pleural effusion Nicotine dependence Emphysema lung Tobacco use disorder Reactive airway disease Alcohol dependence Alcohol withdrawal seizure Alcohol abuse Social History household members: family Smoking Status: Unknown if ever smoked substance use type: marijuana Smoking Status: Unknown if ever smoked tobacco type: cigarettes alcohol intake frequency: 3 or more drinks per day Alcohol type: beer Exam Narrative Exam Narrative: GENERAL: Alert and oriented x three, male in mild distress HEENT: Head normocephalic, atraumatic, EOMI, pupils reactive, face symmetric, moist mucous membranes NECK: Supple, full range of motion CARDIOVASCULAR: Regular rate and rhythm without murmurs, rubs or gallops. No JVD. 2+ bilateral lower extremity edema. RESPIRATORY: Breath sounds equal bilaterally, no wheezes rales or rhonchi. No tachypnea accessory muscle use. ABDOMEN: Soft, mild suprapubic tenderness little bit more localized to the right than the left. Normoactive bowel sounds all 4 quadrants. No guarding or rebound, rigidity, no mass, no rash or skin changes noted. : No CVA tenderness EXTREMITIES: Normal range of motion, no clubbing or edema. Neurovascularly intact NEUROLOGICAL: Cranial nerves II through XII grossly intact. Moving all extremities SKIN: Warm, dry, no petechiae, no rashes or lesions. Initial Vital Signs Initial Vital Signs: Vital Signs Temperature 98.4 F 07/22/24 10:30 Pulse Rate 90 07/22/24 10:30 Respiratory Rate 17 07/22/24 10:30 Blood Pressure 117/56 L 07/22/24 10:30 Pulse Oximetry 98 07/22/24 10:30 Oxygen Delivery Method Room Air 07/22/24 10:30 Course Orders Ordered: ED Orders 07/22/24 10:34 XR chest 1V Stat EKG-12 Lead Stat Measure peak expiratory flow STAT RT Consult Eval and Treat STAT 07/22/24 10:49 Complete Blood Count AUTO DIFF Stat Comprehensive Metabolic Panel Stat ETOH [Ethanol (ETOH)] Stat Lactate (Lactic Acid) Stat Lipase Stat NT-proBNP (BNP-Adult 18+) Stat Procalcitonin Stat Prothrombin Time INR Stat Troponin I Stat 07/22/24 11:45 US periph venous low extrem bi Stat 07/22/24 11:53 CT abdomen pelvis w con Stat 07/22/24 13:00 Blood Culture Stat Discontinued Medications Furosemide (Furosemide 40 Mg/4 Ml Vial) 40 mg IV NOW ONE Stop: 07/22/24 14:19 Last Admin: 07/22/24 14:30 Dose: 40 mg Documented By: CLAUDETTE Sodium Chloride (Normal Saline 0.9%) 500 mls @ 1,000 mls/hr IV BOLUS ONE Stop: 07/22/24 12:14 Last Infusion: 07/22/24 13:34 Dose: Infused Documented By: Admin: 07/22/24 11:59 Dose: 1,000 mls/hr Documented By: SB Ketorolac Tromethamine (Ketorolac 30 Mg/Ml Vial) 15 mg IV NOW ONE Stop: 07/22/24 11:47 Last Admin: 07/22/24 11:59 Dose: 15 mg Documented By: CLAUDETTE Vital Signs Vital signs: Vital Signs - 8 hr 07/22/24 10:30 07/22/24 10:43 07/22/24 11:00 Temperature 98.4 F Pulse Rate 90 84 84 Respiratory Rate 17 19 23 Blood Pressure 117/56 L 101/63 101/69 Pulse Oximetry 98 96 93 Oxygen Delivery Method Room Air 07/22/24 11:30 07/22/24 12:56 07/22/24 13:00 Temperature Pulse Rate 82 90 83 Respiratory Rate 24 18 Blood Pressure 106/64 117/71 111/72 Pulse Oximetry 94 93 94 Oxygen Delivery Method Room Air 07/22/24 13:30 07/22/24 14:00 07/22/24 14:29 Temperature Pulse Rate 87 82 81 Respiratory Rate 16 12 16 Blood Pressure 109/69 103/56 L Pulse Oximetry 92 93 93 Oxygen Delivery Method Room Air 07/22/24 14:30 Temperature Pulse Rate Respiratory Rate Blood Pressure 108/57 L Pulse Oximetry Oxygen Delivery Method MDM - Extremity (Nontraumatic) Lab Data 07/22/24 10:49 07/22/24 10:49 Labs: Lab Results 07/22/24 07/22/24 Range/Units 10:49 13:00 WBC 13.7 H (4.5-11.0) X10^3/uL RBC 2.60 L (4.5-5.9) X10^6/uL Hgb 10.9 L (13.5-17.5) g/dL Hct 32.2 L (41-53) % MCV 124.1 H (80-100) fL MCH 42.1 H (26-34) PG MCHC 34.0 (30-36) % RDW 15.7 H (11.6-14.8) % Plt Count 165 (150-400) X10^3/uL Neut % (Auto) 84.7 H (50-75) % Lymph % (Auto) 6.1 L (25-40) % [place] % (Auto) 6.8 (3-14) % Eos % (Auto) 2.3 (2-4) % Baso % (Auto) 0.1 (0-2) % Neut # (Auto) 23980 H (7030-9397) /uL Lymph # (Auto) 800 L (6852-4027) /uL [place] # (Auto) 900 (0-900) /uL Eos # (Auto) 300 (0-450) /uL Baso # (Auto) 0 (0-100) /uL RBC Morphology Not Reportable Macrocytosis 3+ H PT 22.9 H (9.4-12.5) SECONDS INR 2.1 H (0.9-1.3) Sodium 126 L (137-145) mmol/L Potassium 4.3 (3.4-5.1) mmol/L Chloride 95 L (98-107) mmol/L Carbon Dioxide 21 L (22-32) mmol/L BUN 9 (9-20) mg/dL Creatinine 0.89 (0.66-1.25) mg/dL Estimated GFR > 60 (>60) mL/min BUN/Creatinine Ratio 10.1 (6-22) Glucose 122 H (70-99) mg/dL Lactate 4.1 H* 3.8 H (0.7-2.1) mmol/L Calcium 8.6 (8.4-10.2) mg/dL Total Bilirubin 4.2 H (0.2-1.3) mg/dL AST 139 H (17-59) IU/L ALT 43 (<50) IU/L Alkaline Phosphatase 146 H (38-126) U/L Troponin I < 0.012 (0.01-0.034) ng/mL NT-Pro-B Natriuret Pep 476 H (<125) pg/mL Total Protein 6.3 (6.3-8.2) g/dL Albumin 2.6 L (3.5-5.0) g/dL Globulin 3.7 (1.7-4.1) g/dL Albumin/Globulin Ratio 0.7 L (1.0-2.8) Lipase 132 (23-300) U/L Procalcitonin 0.186 (<0.5) ng/mL Ethyl Alcohol < 10 ( - 10) mg/dL Urine Dip Bedside Urine Glucose Negative Bedside Urine Bilirubin - Negative Bedside Urine Ketone - Negative Urine Specific [place] 1.005 Bedside Urine Occult Blood - Negative Bedside Urine pH 6.0 Bedside Urine Protein - Negative Bedside Urine Urobilinogen - Negative Bedside Urine Nitrite - Negative Bedside Urine Leukocytes - Negative Esterase ECG Data Attestation EKG: I personally reviewed and interpreted this ECG as follows: Prior ECG tracings: available for review Interpretation: Sinus rhythm rate 86 FL 140 QRS of 92 QTC [address] elevation depression. Patient was prior from 03/08/2024 showed sinus tach rate of 103, nonspecific change. Patient was prior from 03/08/2024 some nonspecific change. MDM Narrative Medical decision making narrative: Labs show white count of 13 hemoglobin is 10.9 patient has been 11-12 range in the past 6 months. Platelets are 165. Predominance of neutrophils. INR is 2.1 patient was not anticoagulated. Sodium is 126, chloride 95 CO2 is 21 glucose is 122 normal renal function lactate 4.1 bilirubin is 4.2 with an AST of 139 ALT of 43 alk-phos of 146, Troponins less than 0.012 with a BNP of 476. Lipase lipase of 132. ETOH is less than 10. Procalcitonin 0.186. Blood cultures obtained. Repeat lactate is 3.8 not normalized but improved. EKG sinus rhythm rate 86 nonspecific change from prior March 2024. Chest x-ray, right rib old deformities degenerative osseous changes. Heart size within normal limits mild bibasilar opacities possible early airspace disease versus atelectasis. Possible trace effusion. CT abdomen pelvis shows cirrhosis, recanalization umbilical vein consistent with portal venous hypertension. Development moderate ascites not previously seen consistent with portal venous hypertension, cholelithiasis, incidental note made of reflux, right greater than left basilar atelectasis. Emphysematous change. Bilateral lower extremity DVT ultrasound no findings of DVT. Significant soft tissue edema bilaterally. Patient had 500 mL bolus, Toradol. Patient does not appear to be in heart failure but likely he was having some lower extremity edema secondary to cirrhosis and liver failure. Creatinine appears normal does not appear to have any hepatorenal syndrome, bilirubin is elevated AST ALT are elevated as well, patient does have new ascites compared to prior. He was mildly hyponatremic. INR is also elevated. Meld score is 27 with estimated 3 month mortality of 19.6%. Patient's pressure did improve with fluids. Reviewed all of patient's findings today he would like to return home he feels comfortable with this plan. We did discuss his MELD score and importance of follow up he was probably benefit from pain Gastroenterology. We will start on a course of diuretic but discussed this may drop his sodium and he needs short term follow up. Discussed return precautions all questions answered. Patient was aware he was cirrhosis but we did discuss that his mortality he was 19.6% based on his score at this time. Discharge Plan Departure Patient Disposition: Home Clinical Impression: Cirrhosis, Bilateral edema of lower extremity, Hyponatremia Instructions: Liver Failure Activity Restrictions/Additional Instructions: Based on your prior labs it appears your liver function is worsening and causing fluid to accumulate in her belly as well as some swelling in your lower extremities. It was good that you have stopped drinking alcohol but I would recommend follow up with Gastroenterology to see if they have any additional recommendations or workup to try to help improve your liver function. In the short term I would follow up with your physician in the diuretic your prescribed could affect your sodium level which is slightly low already. Please follow up to have your labs rechecked. Tizanidine is noted to sometimes cause hepatotoxicity sided avoid this muscle relaxer replacement prescription was sent. It can make you altered in his a controlled substance. Continue to avoid acetaminophen but ibuprofen or similar medications are acceptable. You can take meloxicam 1 tablet twice daily as needed for pain There is a prescription for diuretic, take once daily. Prescription was sent to Please return if you develop fevers, sudden changes to mentation, worsening or new jaundice, chest pain or shortness of breath, rapidly worsening swelling of your abdomen or legs, lightheadedness or passing out, persistent vomiting, black or bloody stools or other new or concerning changes. Prescriptions: New furosemide [Lasix] 40 mg tablet 40 mg PO DAILY Qty: 10 0RF lorazepam [Ativan] 0.5 mg tablet 0.5 mg PO BID PRN (Reason: muscle spasm) Qty: 10 0RF meloxicam 7.5 mg tablet 7.5 mg PO BID PRN (Reason: pain) Qty: 10 0RF No Action amlodipine 10 mg tablet 10 mg PO DAILY ibuprofen 600 mg tablet 600 mg PO TID PRN (Reason: pain/discomfort) fluticasone propion-salmeterol 250-50 mcg/dose blister with device 1 ea INHALATION BID tizanidine 4 mg tablet 4 mg PO Q8H PRN (Reason: Muscle Spasm) albuterol sulfate 90 mcg/actuation HFA aerosol inhaler 1 puff INHALATION Q4H PRN (Reason: wheezing/ sob) potassium chloride 20 mEq tablet extended release 20 meq PO DAILY Qty: 20 0RF gabapentin 600 mg tablet 600 mg PO TID PRN tiotropium bromide [Spiriva with HandiHaler] 18 mcg capsule, w/inhalation device 1 cap inhalation DAILY Qty: 60 4RF Rx Instructions: puncture 1 cap using device; one dose = 2 inhalations Referrals: Luis Rojas MD [Non-Staff] - Elizabeth Milian ARNP [Primary Care Provider] - Stand Alone Forms: Patient Portal/API/Survey
--- NOTE | 2024-07-22 11:45 | DI.US.S_ITS ---
PROCEDURE: US PERIPH VENOUS LOW EXTREM BI INDICATIONS: b/l le swelling, pain TECHNIQUE: Real-time imaging, as well as color and pulse Doppler interrogation, were performed of the deep veins of both legs from the inguinal ligament to the popliteal fossa, with documentation of the visualized calf veins. COMPARISON: None. FINDINGS: Right: The common femoral, femoral, popliteal, and the visualized calf veins are normally compressible, and free of intraluminal thrombus. Color and pulse Doppler demonstrate normal phasic intravascular flow. There is normal augmentation response to distal compression maneuver. Left: The common femoral, femoral, popliteal, and the visualized calf veins are normally compressible, and free of intraluminal thrombus. Color and pulse Doppler demonstrate normal phasic intravascular flow. There is normal augmentation response to distal compression maneuver. Significant soft tissue edema bilaterally. IMPRESSION: No findings of deep venous thrombosis in either lower extremity. Dictated by: Frank Feliz M.D. on 07/22/2024 at 12:57 Approved by: Frank Feliz M.D. on 07/22/2024 at 12:58
--- NOTE | 2024-07-22 11:53 | DI.CT.S_ITS ---
PROCEDURE: CT ABDOMEN PELVIS W CON INDICATIONS: lower abd pain, leg swelling, LFTs elevated, COPD hx. TECHNIQUE: After the administration of intravenous contrast, axial sections acquired from the lung bases to the pubic symphysis. Coronal and sagittal reformats were performed. For radiation dose reduction, the following was used: automated exposure control, adjustment of mA and/or kV according to patient size. COMPARISON: [facility], CT, CT CHEST W CON, 05/05/2024, 14:49. [facility], [place], [place] PET CT FUSION SKULL 2 THIGH, 06/11/2024, 14:28. FINDINGS: Image quality: Diagnostic. Lower Chest: Fluid in the distal esophagus is consistent with reflux. Right greater than left basilar atelectasis. Emphysematous change. ABDOMEN: Liver: Cirrhosis. Recanalization of the umbilical vein consistent with portal venous hypertension. Gallbladder: Small calcified gallstone. No abnormal wall thickening. Gallbladder is nondistended. Biliary ducts: No biliary dilation. Pancreas: No ductal dilation. Scattered pancreatic calcifications are consistent with chronic pancreatitis. Spleen: No splenomegaly. Adrenal Glands: No adrenal nodules. Kidneys and Ureters: No hydronephrosis. No solid mass. No complex renal cystic lesion which requires follow up. Stomach and Bowel: Narrowing of the distal antrum of the stomach is consistent with peristalsis. Mild diverticulosis without evidence of acute diverticulitis. Normal appendix. No abnormal bowel wall thickening or dilatation of bowel loops. Peritoneum: Development of moderate abdominal and pelvic ascites, not previously present. No free air. Ventral Wall: No significant ventral hernia. Abdominal Nodes: No retroperitoneal or mesenteric adenopathy by size criteria. Vessels: Aorta and inferior vena cava are normal in size. PELVIS: Pelvic Organs: Unremarkable. Bladder: No bladder wall thickening, accounting for underdistention. Pelvic Nodes: No enlarged lymph nodes. Miscellaneous: No inguinal hernias are seen. Bones: No aggressive osseous abnormality. IMPRESSION: 1. Cirrhosis. 2. Recanalization of the umbilical vein, consistent with portal venous hypertension. 3. Development of moderate ascites, previously not present, consistent with portal venous hypertension. 4. Cholelithiasis. 5. Incidental note made of reflux. 6. Right greater than left basilar atelectasis. 7. Emphysematous change. Dictated by: Chuy Shoemaker M.D. on 07/22/2024 at 12:27 Approved by: Chuy Shoemaker M.D. on 07/22/2024 at 12:44
[2024-07-22] MEDS: KETOROLAC 30 MG/ML VIAL 15 MG IV (11:59)
[2024-07-22] MEDS: SODIUM CHLORIDE 0.9% 500 ML 1000 ML IV (11:59)
[2024-07-22 12:16] LABS: Ethanol (ETOH) < 10 mg/dL; Lipase 132 U/L (23-300)
[2024-07-22 12:32] LABS: Reflexed Lactate in 2 Hours Y
[2024-07-22 12:33] LABS: Procalcitonin 0.186 ng/mL (<0.5)
[2024-07-22 13:19] LABS: Lactate 2HR (Lactic Acid Rflx) 3.8 mmol/L (0.7-2.1)
[2024-07-22] MEDS: FUROSEMIDE 40 MG/4 ML VIAL IV (14:30)
== END 2024-07-22 14:44 | disposition home or self-care (01) ==
PROVIDERS: Emergency Provider Emergency Medicine; PCP Nurse Practitioner Family
DX: R60.0 Localized edema (principal); E87.1 Hypo-osmolality and hyponatremia; K74.60 Unspecified cirrhosis of liver; M79.605 Pain in left leg; M79.604 Pain in right leg
CPT/HCPCS: 36415; 71045; 74177; 80053; 80320; 81003; 83605; 83690; 83880; 84145; 84484; 85025; 85610; 87040; 93005; 93041; 93970; 96361; 96374; 96375; 99284; J1885; J1938; Q9967

== ENCOUNTER 2024-07-29 10:31 | Inpatient (IN) | payer MEDICAID, SELFPAY ==
[2024-07-29 10:32] VITALS: BP 129/73; PULSE 89; RESP 14; TEMP 36.9; O2SAT 93; BMI 28.7
--- NOTE | 2024-07-29 10:43 | ED.GENADULT ---
HPI - General Adult General Chief complaint: Extremity Problem,Nontraumatic Stated complaint: Legs swollen past knees to thighs turning red Time Seen by Provider: 07/29/24 10:36 History of Present Illness HPI narrative: 49-year-old gentleman with a history of prior alcohol use disorder with cirrhosis, hypertension, COPD, chronic pain presents complaining of worsening lower extremity edema with increasing pain in the legs because of the tense edema. He was seen for the same on July 22, edema was suspected to be secondary to liver failure and cirrhosis, mild hyponatremia. Was discharged home with new furosemide that he states he has been taking. He does not describe fevers he does describe increasing mild abdominal pain increasing overall weakness and increasing general malaise Related Data Home Medications Medication Instructions Recorded Confirmed ibuprofen 600 mg tablet 600 mg PO TID PRN pain/discomfort 07/06/21 07/29/24 albuterol sulfate 90 mcg/actuation 1 puff inhalation Q4H PRN 02/16/23 07/29/24 aerosol inhaler wheezing/ sob fluticasone 250 mcg-salmeterol 50 1 ea inhalation BID 02/16/23 07/29/24 mcg/dose blistr powdr for inhalation tizanidine 4 mg tablet 4 mg PO Q8H PRN Muscle Spasm 02/16/23 07/29/24 gabapentin 600 mg tablet 600 mg PO TID PRN Pain (Scale 11/21/23 07/29/24 Score 1-3) epinephrine 0.3 mg/0.3 mL 0.3 mg IM PRN PRN Anaphylaxis 07/29/24 07/29/24 injection, auto-injector ipratropium 0.5 mg-albuterol 3 mg 3 ml inhalation Q6H PRN sob 07/29/24 07/29/24 (2.5 mg base)/3 mL nebulization soln Previous Rx's Medication Instructions Recorded tiotropium bromide 18 mcg capsule 1 cap inhalation DAILY #60 12/19/23 with inhalation device (Spiriva inhalations with HandiHaler) furosemide 40 mg tablet (Lasix) 40 mg PO DAILY #10 tabs 07/22/24 lorazepam 0.5 mg tablet (Ativan) 0.5 mg PO BID PRN muscle spasm #10 07/22/24 tabs meloxicam 7.5 mg tablet 7.5 mg PO BID PRN pain #10 tabs 07/22/24 Allergies Allergy/AdvReac Type Severity Reaction Status Date / Time aspirin [ASPIRIN] Allergy Unknown ?CHILDHOOD Verified 07/29/24 10:42 Review of Systems Review of Systems Narrative: Pertinent positive and negative findings as per HPI Patient History Medical History Loculated pleural effusion Nicotine dependence Emphysema lung Tobacco use disorder Reactive airway disease Alcohol dependence Alcohol withdrawal seizure Alcohol abuse Social History household members: family Smoking Status: Former smoker alcohol intake: current substance use type: marijuana tobacco type: cigarettes alcohol intake frequency: 3 or more drinks per day Alcohol type: beer Exam Initial Vital Signs Initial Vital Signs: Vital Signs Temperature 98.4 F 07/29/24 10:32 Pulse Rate 89 07/29/24 10:32 Respiratory Rate 14 07/29/24 10:32 Blood Pressure 129/73 07/29/24 10:32 Pulse Oximetry 93 07/29/24 10:32 Oxygen Delivery Method Room Air 07/29/24 10:32 General:Appears chronically ill, frail, globally weak and in pain HEENT: Moist mucous membranes, normal sclera with reactive pupils, Respiratory: Lungs with scattered wheeze, diminished lower extremity breath sounds, no rhonchi, no accessory muscle use Cardiac: Regular rate and rhythm no murmurs no bruits Abdomen: Soft, mild distention, slight fluid wave. No rebound or guarding Skin: thin, pale, telangiectasias, scattered minor bruises in various stages of healing Neurologic: globally weak but otherwiseGrossly neurologically intact with no obvious asymmetries or abnormalities Extremities: significant bilateral lower extremity edema beginning to develop bulla secondary to the edema. Edema does extend up to the lower portion of the abdomen Psych: Cooperative, able to speak in full sentences Course Orders Ordered: ED Orders 07/29/24 10:45 XR chest 1V Stat 07/29/24 10:46 EKG-12 Lead Stat 07/29/24 11:08 Complete Blood Count AUTO DIFF Stat Comprehensive Metabolic Panel Stat Ethanol (ETOH) Stat Lactate (Lactic Acid) Stat Lipase Stat Magnesium Stat NT-proBNP (BNP-Adult 18+) Stat Troponin I Stat 07/29/24 11:14 Urinalysis and Microscopic Stat 07/29/24 13:31 Ammonia (NH3) Stat Furosemide (Furosemide 40 Mg/4 Ml Vial) 40 mg IV Q12H KRYSTAL Ceftriaxone Sodium 1,000 mg/ (Sodium Chloride) 100 mls @ 200 mls/hr IV Q24H [facility] Last Admin: 07/29/24 16:07 Dose: 200 mls/hr Documented By: ELAYNE Naloxone HCl (Naloxone 0.4 Mg/Ml Vial) 0.2 mg IV Q2MIN PRN PRN Reason: Opiate Reversal Oxycodone HCl (Oxycodone Ir 5 Mg Tablet) 5 mg PO Q4HR PRN PRN Reason: Pain, Moderate (4-6) Last Admin: 07/29/24 17:09 Dose: 5 mg Documented By: ELAYNE Prednisone (Prednisone 20 Mg Tablet) 40 mg PO DAILY [facility] Spironolactone (Spironolactone 25 Mg Tablet) 100 mg PO DAILY [facility] Last Admin: 07/29/24 16:08 Dose: 100 mg Documented By: ELAYNE Discontinued Medications Furosemide (Furosemide 40 Mg/4 Ml Vial) 40 mg IV NOW ONE Stop: 07/29/24 13:27 Last Admin: 07/29/24 13:36 Dose: 40 mg Documented By: ASYA Hydromorphone HCl (Hydromorphone 0.5 Mg Inj) 0.5 mg IV NOW ONE Stop: 07/29/24 13:30 Last Admin: 07/29/24 13:36 Dose: 0.5 mg Documented By: ASYA Vital Signs Vital signs: Vital Signs - 8 hr 07/29/24 10:32 Temperature 98.4 F Pulse Rate 89 Respiratory Rate 14 Blood Pressure 129/73 Pulse Oximetry 93 Oxygen Delivery Method Room Air Medical Decision Making Lab Data 07/29/24 11:08 07/29/24 11:08 Labs: Lab Results 07/29/24 07/29/24 07/29/24 Range/Units 11:08 11:14 13:07 WBC 9.5 (4.5-11.0) X10^3/uL RBC 3.15 L (4.5-5.9) X10^6/uL Hgb 13.2 L (13.5-17.5) g/dL Hct 38.3 L (41-53) % MCV 121.3 H (80-100) fL MCH 41.8 H (26-34) PG MCHC 34.4 (30-36) % RDW 15.9 H (11.6-14.8) % Plt Count 146 L (150-400) X10^3/uL Neut % (Auto) 73.2 (50-75) % Lymph % (Auto) 13.3 L (25-40) % [place] % (Auto) 8.6 (3-14) % Eos % (Auto) 4.2 H (2-4) % Baso % (Auto) 0.7 (0-2) % Neut # (Auto) 7000 (8562-6626) /uL Lymph # (Auto) 1300 (9183-1901) /uL [place] # (Auto) 800 (0-900) /uL Eos # (Auto) 400 (0-450) /uL Baso # (Auto) 100 (0-100) /uL RBC Morphology See below Anisocytosis 1+ H Macrocytosis 2+ H Sodium 129 L (137-145) mmol/L Potassium 3.3 L (3.4-5.1) mmol/L Chloride 93 L (98-107) mmol/L Carbon Dioxide 24 (22-32) mmol/L BUN 7 L (9-20) mg/dL Creatinine 1.01 (0.66-1.25) mg/dL Estimated GFR > 60 (>60) mL/min BUN/Creatinine Ratio 6.9 (6-22) Glucose 116 H (70-99) mg/dL Lactate 4.2 H* 5.1 H* (0.7-2.1) mmol/L Calcium 8.2 L (8.4-10.2) mg/dL Magnesium 1.7 (1.6-2.3) mg/dL Total Bilirubin 5.4 H (0.2-1.3) mg/dL AST 141 H (17-59) IU/L ALT 40 (<50) IU/L Alkaline Phosphatase 184 H (38-126) U/L Troponin I < 0.012 (0.01-0.034) ng/mL NT-Pro-B Natriuret Pep 515 H (<125) pg/mL Total Protein 7.5 (6.3-8.2) g/dL Albumin 3.2 L (3.5-5.0) g/dL Globulin 4.3 H (1.7-4.1) g/dL Albumin/Globulin Ratio 0.7 L (1.0-2.8) Lipase 70 (23-300) U/L Urine Color Yellow Urine Appearance Clear Urine pH 6.0 (4.5-8.0) Ur Specific [place] <=1.005 (1.000-1.035) Urine Protein Negative (Negative) Urine Glucose (UA) Negative (Negative) g/dL Urine Ketones Negative (NEGATIVE) Urine Occult Blood Negative (Negative) Urine Nitrate Negative (Negative) Urine Bilirubin Negative (NEGATIVE) Urine Urobilinogen 0.2 (0.2) E.U./dL Ur Leukocyte Esterase Negative (NEGATIVE) Urine RBC None seen (0-5/HPF) Urine WBC None seen (0-5/HPF) Ur Squamous Epith Cells 0-1 /hpf (0-5/HPF) Urine Bacteria None seen (None) Ur Culture Indicated? Cult not indicated Vol Urine Centrifuged 10ml (spun) Ethyl Alcohol 78 H (<10) mg/dL MDM Narrative Medical decision making narrative: CC:Increasing lower extremity edema, pain and weakness Complicating co-morbidities: worsening liver disease, hypertension, hyperlipidemia Data collected from: patient Medical records reviewed: ER note from July 22 for similar complaint is reviewed Differential considered: worsening congestive heart failure with portal hypertension, developing ascites, developing effusion, congestive heart failure, acute coronary syndrome, overt liver failure, hepatorenal syndrome, infection Exam documented above, pertinent findings include: globally weak, distended abdomen without being specifically tender, increased lower extremity edema to the point of developing bulla over the left dorsum of the foot with edema extending up to the lower abdomen Lab Test results independently reviewed as above. Pertinent findings: CBC shows increase in his H&H from 10.9-13.24 hemoglobin. Likely related to appropriate use of Lasix as prescribed chemistries show continued hyponatremia, new hypokalemia liver studies have worsened in the last week with bilirubin increasing from point 0.2-5.4, AST from 139-141, ALT remains within normal limits, alk-phos is increased from 146-184 proBNP is minimally elevated at 5 4 lactic acid is elevated at 4.2 without evidence of acute infection at this point Independently reviewed EKG: sinus rhythm at a rate of 92, no acute ischemic changes Imaging studies independently reviewed: chest x-ray shows streaky bibasilar opacities that are worse compared to a week ago with new left pleural effusion CT of the abdomen and pelvis from July 22 is reviewed again today, showing cirrhosis, portal venous hypertension, ascites, cholelithiasis, right greater than left atelectasis and emphysematous changes no mentioned of pleural effusion Consultations: brief discussion with , gastroenterology at [facility]. No indication for immediate GI consult. Recommended diuresis and discharge with Lasix and spironolactone with close follow up of renal function Treatments: IV furosemide, IV Dilaudid Discussion: 49-year-old gentleman with worsening cirrhosis, increasing ascites/ anasarca not of the point of tense edema with developing bulla of the lower extremities, small left pleural effusion, increasing bilirubin, AST and ALT with increasing overall discomfort. there was no evidence of obvious infection, DVT or spontaneous bacterial peritonitis. He was given IV Lasix to begin diuresis. With the pain in the lower extremities from the significant swelling is given 0.5 mg of IV Dilaudid initially. Care is reviewed with Dr. Alvarez, hospitalist. Patient be admitted for further diuresis and we will need continued outpatient follow up for his decompensating alcoholic cirrhosis. Discharge Plan Departure Patient Disposition: Admitted as Observation Clinical Impression: Anasarca Cirrhosis of liver with ascites Qualifiers: Hepatic cirrhosis type: alcoholic cirrhosis Qualified Code(s): K70.31 - Alcoholic cirrhosis of liver with ascites Admit Date/Time: 07/29/24 13:27 Admit Provider: Sergei Alvarez
--- NOTE | 2024-07-29 10:45 | DI.RAD.S_ITS ---
PROCEDURE: XR CHEST 1V INDICATIONS: anasarca TECHNIQUE: One view of the chest was acquired. COMPARISON: [facility], CR, XR CHEST 1V, 07/22/2024, 10:36. FINDINGS: Surgical changes and devices: None. Lungs and pleura: Streaky bibasilar opacities more pronounced on the left. New left pleural effusion. No pneumothorax. No new dense consolidation. Mediastinum: Mediastinal contours appear normal. Heart size is normal. Bones and chest wall: No suspicious bony lesions. Overlying soft tissues appear unremarkable. Redemonstration of multiple bilateral posterior rib fracture deformities. IMPRESSION: Streaky bibasilar opacities more pronounced on the left with new left pleural effusion. Redemonstration of multiple bilateral rib fracture deformities. Dictated by: Trae Jo M.D. on 07/29/2024 at 11:33 Approved by: Trae Jo M.D. on 07/29/2024 at 11:36
--- NOTE | 2024-07-29 10:46 | EKG_ITS ---
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
[2024-07-29 11:23] LABS: Add Manual Diff / Slide Review NO; Basophils Absolute Auto 100 /uL (0-100); Basophils Percent Auto 0.7 % (0-2); Eosinophils Absolute Auto 400 /uL (0-450); Eosinophils Percent Auto 4.2 % (2-4); Hematocrit 38.3 % (41-53); Hemoglobin 13.2 g/dL (13.5-17.5); Lymphocytes Absolute Auto 1300 /uL (1100-4500); Lymphocytes Percent Auto 13.3 % (25-40); Mean Corpuscular HGB Conc 34.4 % (30-36); Mean Corpuscular Hemoglobin 41.8 PG (26-34); Mean Corpuscular Volume 121.3 fL (80-100); Monocytes Absolute Auto 800 /uL (0-900); Monocytes Percent Auto 8.6 % (3-14); Neutrophils Absolute Auto 7000 /uL (1500-7000); Neutrophils Percent Auto 73.2 % (50-75); Platelet Count 146 X10^3/uL (150-400); Red Blood Cell Count 3.15 X10^6/uL (4.5-5.9); Red Cell Distribution Width 15.9 % (11.6-14.8); White Blood Cell Count 9.5 X10^3/uL (4.5-11.0)
[2024-07-29 11:30] LABS: Alanine Aminotransferase 40 IU/L (<50); Albumin 3.2 g/dL (3.5-5.0); Albumin Globulin Ratio 0.7 (1.0-2.8); Alkaline Phosphatase 184 U/L (38-126); Aspartate Aminotransferase 141 IU/L (17-59); BUN Creatinine Ratio 6.9 (6-22); Bilirubin Total 5.4 mg/dL (0.2-1.3); Blood Urea Nitrogen 7 mg/dL (9-20); Calcium 8.2 mg/dL (8.4-10.2); Carbon Dioxide 24 mmol/L (22-32); Chloride 93 mmol/L (98-107); Estimated Glomerular Filt Rate > 60 mL/min (>60); Ethanol (ETOH) 78 mg/dL (<10); Globulin 4.3 g/dL (1.7-4.1); Glucose 116 mg/dL (70-99); HEMOLYSIS < 15 (0-50); Lactate (Lactic Acid) 4.2 mmol/L (0.7-2.1); Lipase 70 U/L (23-300); Magnesium 1.7 mg/dL (1.6-2.3); Potassium 3.3 mmol/L (3.4-5.1); Sodium 129 mmol/L (137-145); Total Protein 7.5 g/dL (6.3-8.2)
[2024-07-29 11:31] LABS: Appearance Urine UA CLEAR; Bilirubin Urine UA NEGATIVE (NEGATIVE); Color Urine UA YELLOW; Glucose Urine UA NEGATIVE (Negative); Ketones Urine UA NEGATIVE (NEGATIVE); Leukocyte Esterase Urine UA NEGATIVE (NEGATIVE); Nitrite Urine UA NEGATIVE (Negative); Occult Blood Urine UA NEGATIVE (Negative); Protein Urine UA NEGATIVE (Negative); Specific Gravity Urine UA <=1.005 (1.000-1.035); Urobilinogen Urine UA 0.2 E.U./dL (0.2)
[2024-07-29 11:38] LABS: Anisocytosis 1+
[2024-07-29 11:39] LABS: Macrocytosis 2+
[2024-07-29 11:41] LABS: NT-proBNP (BNP-Adult 18+) 515 pg/mL (<125); Troponin I < 0.012 ng/mL (0.01-0.034)
[2024-07-29 11:46] LABS: Bacteria Urine None Seen; Culture Indicated Urine Cult Not Indicated; RBC Urine None Seen (0-5/HPF); Squamous Epithelial Cell Urine 0-1 /HPF (0-5/HPF); Urine Volume 10mL (spun); WBC Urine None Seen (0-5/HPF)
[2024-07-29 12:49] LABS: Reflexed Lactate in 2 Hours Y
[2024-07-29] MEDS: HYDROMORPHONE 0.5 MG INJ IV (13:36)
[2024-07-29] MEDS: FUROSEMIDE 40 MG/4 ML VIAL IV ×2 (13:36→18:38)
[2024-07-29 13:39] LABS: Lactate 2HR (Lactic Acid Rflx) 5.1 mmol/L (0.7-2.1)
[2024-07-29 13:48] LABS: Ammonia (NH3) 15 umol/L (9-30)
--- NOTE | 2024-07-29 14:09 | P.HP_ITS ---
History of Present Illness History of Present Illness Date Patient Seen: 07/29/24 Chief complaint: Legs swollen past knees to thighs turning red Narrative: He presents with leg swelling and redness. He was history of alcohol use and possible cirrhosis. He was developed more profound edema of both legs are less several days and now they are also red and warm. Because of discomfort he presents. Here he was found to have anasarca and possible cellulitis. He has been sober for several years but then relapsed a week ago and again yesterday. He only drank 1 malt liquor beverages yesterday. He uses marijuana edibles but no other drugs. He denies fevers, or chills. He does have some abdominal distention but no known history of ascites. No fevers, or chills. He denies any dyspnea. [facility] Medical History Loculated pleural effusion Nicotine dependence Emphysema lung Tobacco use disorder Reactive airway disease Alcohol dependence Alcohol withdrawal seizure Alcohol abuse Social History household members: family alcohol intake: current substance use type: marijuana Meds Home Medications and Allergies Home Medications Medication Instructions Recorded Confirmed Type ibuprofen 600 mg tablet 600 mg PO TID PRN pain/discomfort 07/06/21 07/29/24 History albuterol sulfate 90 mcg/actuation 1 puff inhalation Q4H PRN 02/16/23 07/29/24 History aerosol inhaler wheezing/ sob fluticasone 250 mcg-salmeterol 50 1 ea inhalation BID 02/16/23 07/29/24 History mcg/dose blistr powdr for inhalation tizanidine 4 mg tablet 4 mg PO Q8H PRN Muscle Spasm 02/16/23 07/29/24 History gabapentin 600 mg tablet 600 mg PO TID PRN Pain (Scale 11/21/23 07/29/24 History Score 1-3) tiotropium bromide 18 mcg capsule 1 cap inhalation DAILY #60 12/19/23 07/29/24 Rx with inhalation device (Spiriva inhalations with HandiHaler) furosemide 40 mg tablet (Lasix) 40 mg PO DAILY #10 tabs 07/22/24 07/29/24 Rx lorazepam 0.5 mg tablet (Ativan) 0.5 mg PO BID PRN muscle spasm #10 07/22/24 07/29/24 Rx tabs meloxicam 7.5 mg tablet 7.5 mg PO BID PRN pain #10 tabs 07/22/24 07/29/24 Rx epinephrine 0.3 mg/0.3 mL 0.3 mg IM PRN PRN Anaphylaxis 07/29/24 07/29/24 History injection, auto-injector ipratropium 0.5 mg-albuterol 3 mg 3 ml inhalation Q6H PRN sob 07/29/24 07/29/24 History (2.5 mg base)/3 mL nebulization soln Allergies Allergy/AdvReac Type Severity Reaction Status Date / Time aspirin [ASPIRIN] Allergy Unknown ?CHILDHOOD Verified 07/29/24 10:42 Review of Systems Review of Systems Narrative: All else reviewed and otherwise unremarkable except as noted in the history and physical. Exam Vital Signs (past 8 hours): - 07/29/24 10:32 Temperature 98.4 F Pulse Rate 89 Respiratory Rate 14 Blood Pressure 129/73 Pulse Oximetry 93 Oxygen Delivery Method Room Air Oxygen Delivery Method Room Air Narrative Exam Narrative: NAD, alert and oriented, fluent speech, calm. Normocephalic skull, EOMI, anicteric sclera, symmetric pupils. Oropharynx unremarkable, no droop. Neck supple, midline trachea, no adenopathy. Lungs clear, normal rate and effort. Heart regular, no murmur gallop or rub. Abdomen is soft, distended and non tender. Extremities are with gross edema. Skin is free of rash or lesions. MANY tattoos. Joints are not swollen or deformed. Judgment appears to be normal. Objective ECG Impression: Intervals [place] Rate: 92 P: 45 [place]: 140 QRS: 14 QRSD: 90 T: 22 QT: 386 QTc: 477 Interpretive Statements Normal sinus rhythm Low voltage QRS Imaging Multiple studies:: Radiologist's impression: Chest x-ray (07/29): Streaky bibasilar opacities more pronounced on the left with new left pleural effusion. Redemonstration of multiple bilateral rib fracture deformities. Abdomen pelvis CT (07/22): ABDOMEN: Liver: Cirrhosis. Recanalization of the umbilical vein consistent with portal venous hypertension. Gallbladder: Small calcified gallstone. No abnormal wall thickening. Gallbladder is nondistended. Biliary ducts: No biliary dilation. Pancreas: No ductal dilation. Scattered pancreatic calcifications are consistent with chronic pancreatitis. Spleen: No splenomegaly. Adrenal Glands: No adrenal nodules. Kidneys and Ureters: No hydronephrosis. No solid mass. No complex renal cystic lesion which requires follow up. Stomach and Bowel: Narrowing of the distal antrum of the stomach is consistent with peristalsis. Mild diverticulosis without evidence of acute diverticulitis. Normal appendix. No abnormal bowel wall thickening or dilatation of bowel loops. Peritoneum: Development of moderate abdominal and pelvic ascites, not previously present. No free air. Ventral Wall: No significant ventral hernia. Abdominal Nodes: No retroperitoneal or mesenteric adenopathy by size criteria. Vessels: Aorta and inferior vena cava are normal in size. PELVIS: Pelvic Organs: Unremarkable. Bladder: No bladder wall thickening, accounting for underdistention. Pelvic Nodes: No enlarged lymph nodes. Miscellaneous: No inguinal hernias are seen. Bones: No aggressive osseous abnormality. IMPRESSION: 1. Cirrhosis. 2. Recanalization of the umbilical vein, consistent with portal venous hypertension. 3. Development of moderate ascites, previously not present, consistent with portal venous hypertension. 4. Cholelithiasis. 5. Incidental note made of reflux. 6. Right greater than left basilar atelectasis. 7. Emphysematous change. Vascular ultrasound (07/22): IMPRESSION: No findings of deep venous thrombosis in either lower extremity. PET scan (06/11): New complete resolution of the left upper lobe nodule, without significant radiotracer uptake to suggest malignancy. Findings are likely post infectious/inflammatory. Abnormal fasting glucose 135 mg/dL. Findings may indicate diabetes. Correlate with A1c if this is a new possible diagnosis. Labs 07/29/24 11:08 07/29/24 11:08 Labs: Laboratory Results - last 24 hr 07/29/24 07/29/24 07/29/24 11:08 11:14 13:07 WBC 9.5 RBC 3.15 L Hgb 13.2 L Hct 38.3 L MCV 121.3 H MCH 41.8 H MCHC 34.4 RDW 15.9 H Plt Count 146 L Neut % (Auto) 73.2 Lymph % (Auto) 13.3 L [place] % (Auto) 8.6 Eos % (Auto) 4.2 H Baso % (Auto) 0.7 Neut # (Auto) 7000 Lymph # (Auto) 1300 [place] # (Auto) 800 Eos # (Auto) 400 Baso # (Auto) 100 RBC Morphology See below Anisocytosis 1+ H Macrocytosis 2+ H Sodium 129 L Potassium 3.3 L Chloride 93 L Carbon Dioxide 24 BUN 7 L Creatinine 1.01 Estimated GFR > 60 BUN/Creatinine Ratio 6.9 Glucose 116 H Lactate 4.2 H* 5.1 H* Calcium 8.2 L Magnesium 1.7 Total Bilirubin 5.4 H AST 141 H ALT 40 Alkaline Phosphatase 184 H Ammonia Troponin I < 0.012 NT-Pro-B Natriuret Pep 515 H Total Protein 7.5 Albumin 3.2 L Globulin 4.3 H Albumin/Globulin Ratio 0.7 L Lipase 70 Urine Color Yellow Urine Appearance Clear Urine pH 6.0 Ur Specific [place] <=1.005 Urine Protein Negative Urine Glucose (UA) Negative Urine Ketones Negative Urine Occult Blood Negative Urine Nitrate Negative Urine Bilirubin Negative Urine Urobilinogen 0.2 Ur Leukocyte Esterase Negative Urine RBC None seen Urine WBC None seen Ur Squamous Epith Cells 0-1 /hpf Urine Bacteria None seen Ur Culture Indicated? Cult not indicated Vol Urine Centrifuged 10ml (spun) Ethyl Alcohol 78 H 07/29/24 13:31 WBC RBC Hgb Hct MCV MCH MCHC RDW Plt Count Neut % (Auto) Lymph % (Auto) [place] % (Auto) Eos % (Auto) Baso % (Auto) Neut # (Auto) Lymph # (Auto) [place] # (Auto) Eos # (Auto) Baso # (Auto) RBC Morphology Anisocytosis Macrocytosis Sodium Potassium Chloride Carbon Dioxide BUN Creatinine Estimated GFR BUN/Creatinine Ratio Glucose Lactate Calcium Magnesium Total Bilirubin AST ALT Alkaline Phosphatase Ammonia 15 Troponin I NT-Pro-B Natriuret Pep Total Protein Albumin Globulin Albumin/Globulin Ratio Lipase Urine Color Urine Appearance Urine pH Ur Specific [place] Urine Protein Urine Glucose (UA) Urine Ketones Urine Occult Blood Urine Nitrate Urine Bilirubin Urine Urobilinogen Ur Leukocyte Esterase Urine RBC Urine WBC Ur Squamous Epith Cells Urine Bacteria Ur Culture Indicated? Vol Urine Centrifuged Ethyl Alcohol Assessment & Plan Assessment & Plan narrative: 1. Alcohol use disorder, active. 2. Anasarca from liver dysfunction, active. 3. Lactic acidosis, active. From liver dysfunction. 4. Portal hypertension with ascites, present on admission and active. 5. Possible leg cellulitis, bilateral. Present on admission and active. 6. Acute liver failure, present on admission and active. MELD SCORE 19.3 (% 3 month mortality). Maddrey's Discriminant function is 67.3% (> 32 indicates a poor prognosis). PLAN: -Steroids -Diuresis -Ceftriaxone -MRSA screen -Analgesics -lactic acidosis as a function of liver function, this is not a function of sepsis. This will not be trended. Full code Anticipate 1 midnight in the hospital, supports observation status. Time-Based Coding :: 40 min spent with patient and on the chart (including review of chart, obtaining history, exam, reviewing outside data, placing orders, documenting exam and treatment plan, and counseling patient) on 07/29. Quality MIPS - Admit I confirm the patient?s Advance Care Plan is present, Code status is documented, Surrogate decision maker is in patient?s record [If Yes, STOP here]: Yes MIPS - Meds 'Current medications' to include all prescriptions, [id number] products, herbals, cannabis/cannabidiol products, and vitamin/mineral/dietary (nutritional) supplements. I have utilized all available resources to obtain, update, or review the patient?s current medications. [If Yes, STOP here]: Yes
[2024-07-29 14:24] VITALS: BMI 28.7
[2024-07-29] MEDS: cefTRIAXone 1,000 MG in SODIUM CHLORIDE 0.9% 100 ML 200 MG IV (16:07)
[2024-07-29] MEDS: SPIRONOLACTONE 25 MG TABLET 100 MG PO (16:08)
[2024-07-29] MEDS: OXYCODONE IR 5 MG TABLET PO ×3 (17:09→23:58)
[2024-07-29 18:56] LABS: MRSA (Nasal) PCR NOT DETECTED (Not Detect)
[2024-07-29 20:02] VITALS: BP 107/73; PULSE 98; RESP 18; TEMP 37.9; O2SAT 93
[2024-07-29] MEDS: ALBUTEROL 2.5 MG/3 ML NEB (ADULT) INH (22:35)
[2024-07-30] MEDS: OXYCODONE IR 5 MG TABLET PO (05:11)
--- NOTE | 2024-07-30 05:29 | PC.NURSE ---
shiftman: Pt complained of nausea, vomited x 1, less than 100 mls. Texted tele doc with request for antiemetic, awaiting orders . Will continue to monitor.
[2024-07-30] MEDS: ONDANSETRON 4 MG/2 ML INJ IV ×2 (06:19→17:14)
[2024-07-30] MEDS: FUROSEMIDE 40 MG/4 ML VIAL IV ×2 (06:20→17:14)
[2024-07-30 06:51] LABS: Add Manual Diff / Slide Review NO; Basophils Absolute Auto 200 /uL (0-100); Basophils Percent Auto 1.4 % (0-2); Eosinophils Absolute Auto 200 /uL (0-450); Eosinophils Percent Auto 1.8 % (2-4); Hematocrit 34.7 % (41-53); Hemoglobin 12.3 g/dL (13.5-17.5); Lymphocytes Absolute Auto 900 /uL (1100-4500); Lymphocytes Percent Auto 7.3 % (25-40); Mean Corpuscular HGB Conc 35.3 % (30-36); Mean Corpuscular Hemoglobin 42.3 PG (26-34); Mean Corpuscular Volume 119.7 fL (80-100); Monocytes Absolute Auto 800 /uL (0-900); Monocytes Percent Auto 6.7 % (3-14); Neutrophils Absolute Auto 10100 /uL (1500-7000); Neutrophils Percent Auto 82.8 % (50-75); Platelet Count 138 X10^3/uL (150-400); Red Cell Distribution Width 15.4 % (11.6-14.8); White Blood Cell Count 12.2 X10^3/uL (4.5-11.0)
[2024-07-30 06:54] LABS: Alanine Aminotransferase 32 IU/L (<50); Albumin 2.5 g/dL (3.5-5.0); Albumin Globulin Ratio 0.7 (1.0-2.8); Alkaline Phosphatase 151 U/L (38-126); Aspartate Aminotransferase 109 IU/L (17-59); BUN Creatinine Ratio 8.9 (6-22); Bilirubin Total 7.2 mg/dL (0.2-1.3); Blood Urea Nitrogen 8 mg/dL (9-20); Calcium 7.8 mg/dL (8.4-10.2); Carbon Dioxide 26 mmol/L (22-32); Chloride 94 mmol/L (98-107); Estimated Glomerular Filt Rate > 60 mL/min (>60); Globulin 3.8 g/dL (1.7-4.1); Glucose 110 mg/dL (70-99); HEMOLYSIS < 15 (0-50); Magnesium 1.4 mg/dL (1.6-2.3); Potassium 3.6 mmol/L (3.4-5.1); Sodium 126 mmol/L (137-145); Total Protein 6.3 g/dL (6.3-8.2)
[2024-07-30 07:00] VITALS: BP 134/90; PULSE 105; RESP 20; TEMP 37.4
[2024-07-30 07:08] LABS: Rouleaux 1+
[2024-07-30] MEDS: ALBUTEROL 2.5 MG/3 ML NEB (ADULT) INH ×2 (07:34→20:37)
[2024-07-30] MEDS: BUDESONIDE 0.5 MG/2 ML NEB INH ×2 (07:34→20:37)
[2024-07-30 07:38] VITALS: PULSE 99; RESP 20; O2SAT 94
--- NOTE | 2024-07-30 08:03 | PM.PN.1 ---
Subjective Subjective Interval history: Summary: 49-year-old male with a history of alcohol-induced cirrhosis. He has been sober for couple of years but had 2 relapses in the last week. He presented with anasarca and red legs. He was diuresed overnight but still has a lot of volume and redness in his legs. S: He feels about the same as yesterday, bilateral leg pain. No fevers. He does not have any withdrawal symptoms. Exam Vital Signs (past 8 hours): - 07/30/24 07:00 07/30/24 07:38 Temperature 99.4 F Pulse Rate 105 H 99 H Respiratory Rate 20 20 Blood Pressure 134/90 Pulse Oximetry 94 Oxygen Delivery Method Room Air Oxygen Flow Rate 0 Oxygen Delivery Method Room Air Oxygen Flow Rate 0 Narrative Exam Narrative: NAD, alert and oriented. Fluent speech. Lungs are clear, normal rate and effort. Heart is regular, no murmur gallop or rub. Abdomen is soft, non distended. Extremities are swollen and red. Many tattoos Objective Imaging CT scan - abdomen: Radiologist's impression: ABDOMEN: Liver: Cirrhosis. Recanalization of the umbilical vein consistent with portal venous hypertension. Gallbladder: Small calcified gallstone. No abnormal wall thickening. Gallbladder is nondistended. Biliary ducts: No biliary dilation. Pancreas: No ductal dilation. Scattered pancreatic calcifications are consistent with chronic pancreatitis. Spleen: No splenomegaly. Adrenal Glands: No adrenal nodules. Kidneys and Ureters: No hydronephrosis. No solid mass. No complex renal cystic lesion which requires follow up. Stomach and Bowel: Narrowing of the distal antrum of the stomach is consistent with peristalsis. Mild diverticulosis without evidence of acute diverticulitis. Normal appendix. No abnormal bowel wall thickening or dilatation of bowel loops. Peritoneum: Development of moderate abdominal and pelvic ascites, not previously present. No free air. Ventral Wall: No significant ventral hernia. Abdominal Nodes: No retroperitoneal or mesenteric adenopathy by size criteria. Vessels: Aorta and inferior vena cava are normal in size. PELVIS: Pelvic Organs: Unremarkable. Bladder: No bladder wall thickening, accounting for underdistention. Pelvic Nodes: No enlarged lymph nodes. Miscellaneous: No inguinal hernias are seen. Bones: No aggressive osseous abnormality. IMPRESSION: 1. Cirrhosis. 2. Recanalization of the umbilical vein, consistent with portal venous hypertension. 3. Development of moderate ascites, previously not present, consistent with portal venous hypertension. 4. Cholelithiasis. 5. Incidental note made of reflux. 6. Right greater than left basilar atelectasis. 7. Emphysematous change. Labs 07/30/24 06:20 07/30/24 06:20 Labs: Laboratory Results - last 24 hr 07/29/24 07/29/24 07/29/24 11:08 11:14 13:07 WBC 9.5 RBC 3.15 L Hgb 13.2 L Hct 38.3 L MCV 121.3 H MCH 41.8 H MCHC 34.4 RDW 15.9 H Plt Count 146 L Neut % (Auto) 73.2 Lymph % (Auto) 13.3 L [place] % (Auto) 8.6 Eos % (Auto) 4.2 H Baso % (Auto) 0.7 Neut # (Auto) 7000 Lymph # (Auto) 1300 [place] # (Auto) 800 Eos # (Auto) 400 Baso # (Auto) 100 RBC Morphology See below Anisocytosis 1+ H Macrocytosis 2+ H Rouleaux Sodium 129 L Potassium 3.3 L Chloride 93 L Carbon Dioxide 24 BUN 7 L Creatinine 1.01 Estimated GFR > 60 BUN/Creatinine Ratio 6.9 Glucose 116 H Lactate 4.2 H* 5.1 H* Calcium 8.2 L Magnesium 1.7 Total Bilirubin 5.4 H AST 141 H ALT 40 Alkaline Phosphatase 184 H Ammonia Troponin I < 0.012 NT-Pro-B Natriuret Pep 515 H Total Protein 7.5 Albumin 3.2 L Globulin 4.3 H Albumin/Globulin Ratio 0.7 L Lipase 70 Urine Color Yellow Urine Appearance Clear Urine pH 6.0 Ur Specific [place] <=1.005 Urine Protein Negative Urine Glucose (UA) Negative Urine Ketones Negative Urine Occult Blood Negative Urine Nitrate Negative Urine Bilirubin Negative Urine Urobilinogen 0.2 Ur Leukocyte Esterase Negative Urine RBC None seen Urine WBC None seen Ur Squamous Epith Cells 0-1 /hpf Urine Bacteria None seen Ur Culture Indicated? Cult not indicated Vol Urine Centrifuged 10ml (spun) Nasal Screen MRSA (PCR) Ethyl Alcohol 78 H 07/29/24 07/29/24 07/30/24 13:31 17:28 06:20 WBC 12.2 H RBC 2.90 L Hgb 12.3 L Hct 34.7 L MCV 119.7 H MCH 42.3 H MCHC 35.3 RDW 15.4 H Plt Count 138 L Neut % (Auto) 82.8 H Lymph % (Auto) 7.3 L [place] % (Auto) 6.7 Eos % (Auto) 1.8 L Baso % (Auto) 1.4 Neut # (Auto) 33821 H Lymph # (Auto) 900 L [place] # (Auto) 800 Eos # (Auto) 200 Baso # (Auto) 200 H RBC Morphology Not Reportable Anisocytosis Macrocytosis Rouleaux 1+ H Sodium 126 L Potassium 3.6 Chloride 94 L Carbon Dioxide 26 BUN 8 L Creatinine 0.90 Estimated GFR > 60 BUN/Creatinine Ratio 8.9 Glucose 110 H Lactate Calcium 7.8 L Magnesium 1.4 L Total Bilirubin 7.2 H AST 109 H ALT 32 Alkaline Phosphatase 151 H Ammonia 15 Troponin I NT-Pro-B Natriuret Pep Total Protein 6.3 Albumin 2.5 L Globulin 3.8 Albumin/Globulin Ratio 0.7 L Lipase Urine Color Urine Appearance Urine pH Ur Specific [place] Urine Protein Urine Glucose (UA) Urine Ketones Urine Occult Blood Urine Nitrate Urine Bilirubin Urine Urobilinogen Ur Leukocyte Esterase Urine RBC Urine WBC Ur Squamous Epith Cells Urine Bacteria Ur Culture Indicated? Vol Urine Centrifuged Nasal Screen MRSA (PCR) Not detected Ethyl Alcohol PFSH Medical History Loculated pleural effusion Nicotine dependence Emphysema lung Tobacco use disorder Reactive airway disease Alcohol dependence Alcohol withdrawal seizure Alcohol abuse Social History household members: family Smoking Status: Former smoker alcohol intake: current substance use type: marijuana Assessment & Plan Assessment & Plan narrative: 1. Alcohol use disorder, active. 2. Anasarca from liver dysfunction, active. 3. Lactic acidosis, active. From liver dysfunction. 4. Portal hypertension with ascites, present on admission and active. 5. Possible leg cellulitis, bilateral. Present on admission and active. 6. Acute liver failure, present on admission and active. MELD SCORE 19.3 (% 3 month mortality). Maddrey's Discriminant function is 67.3% (> 32 indicates a poor prognosis). PLAN: -Steroids -Diuresis -Ceftriaxone IV -MRSA screen negative. -Analgesics -lactic acidosis as a function of liver function, this is not a function of sepsis. This will not be trended. He requires another night of IV antibiotics and aggressive IV diuresis. We will continue to monitor electrolytes. TONEY: Time-Based Coding :: [TOTAL MINUTES] spent with patient and on the chart (including review of chart, obtaining history, exam, reviewing outside data, placing orders, documenting exam and treatment plan, and counseling patient) on [DATE].
[2024-07-30] MEDS: SPIRONOLACTONE 25 MG TABLET 100 MG PO (08:06)
[2024-07-30] MEDS: predniSONE 20 MG TABLET 40 MG PO (08:06)
[2024-07-30] MEDS: OXYCODONE IR 5 MG TABLET 10 MG PO ×4 (08:42→21:17)
[2024-07-30] MEDS: MAGNESIUM CHLORIDE 64 MG TABLET 128 MG PO (11:25)
--- NOTE | 2024-07-30 13:35 | CM.DANOTE ---
Initial DCP Assessment Visit Note Reviewed EMR and team rounds for pt's medical status and updates. Went to meet with pt, however has in the middle of receiving personal care with the [employer]. Pt lives independently in his own home here in [place] with his family. Family will provide transort at d/c, no CM d/c assistance or resource needs are indicated at this time. Payor: Jamil [employer] PCP: Elizabeth Milian Pt is a 49 year-old M with a hx of ETOH ALYSIA disorder and known liver cirrhosis. He has additional medical hx of HTN, COPD, and chronic pain. He presented to the ED with complaints of worsening pain and bilateral edema in his legs. He was also noted to have worsening abd pain and distension, consistent with ascites. He shared that he has had 2-years of sobriety, however did relapse twice this week. ED labs showed that he does have worsening liver failure, and the bilateral leg edema was red and moving upwards. He was started on IV diuretics, pain meds, and IV ABO's, and brought to the floor as OBS for further tx and monitoring. Today he was still not quite diuresed, so the plan was made to keep him one more night for additional IV ABO's and diuresis. DCP will continue to monitor for any further evolving needs prior to d/c. Discharge Planning/Care Management CM Discharge Assessment Start: 07/29/24 14:16 Freq: Status: Active Protocol: Document 07/30/24 13:34 DPL (Rec: 07/30/24 13:35 DPL [id number]) Discharge Planning Assessment Assigned Super[employer] [facility] Advance Directives? No History Provided By Medical Record Expected Length of Stay 1 Has Patient been admitted in last 30 No days? Prior Living Arrangements RV Household Members family Type of transporation used prior to Drives own vehicle admit Independent with ADL's Yes Is patient alert and oriented? Yes Comment N/A Caregiver for Another Yes: family Comment No identified home d/c needs at this time. Barriers to Discharge No Discharge Plan Home Transportation Arrangement Family Referrals Initiated None needed Review Status In Process Please Provide Date Initial DC 07/30/24 Assessment Was Performed
[2024-07-30] MEDS: cefTRIAXone 1,000 MG in SODIUM CHLORIDE 0.9% 100 ML 200 MG IV (15:22)
[2024-07-30 20:00] VITALS: BP 125/78; PULSE 100; RESP 17; TEMP 37.1; O2SAT 91
[2024-07-30] MEDS: SODIUM CHLORIDE 0.9% FLUSH 10 ML IV (21:09)
--- NOTE | 2024-07-30 21:42 | PC.NURSE ---
Addendum entered by Tiffanie Flowers R.N. 07/31/24 05:52: O2 sat checked and RA sat found to be at 86% so placed on oxygen at 2L/min per NC and sat now at 92%. Original Note: Patient is alert and oriented. Breath sounds CTA with RA sat of 91%; has hx of COPD. HRR but is tachy with rate in low 100's. Endorses mild nausea but declines antiemetic. Abdomen is distended but soft and BT are present. Does complain of 6/10 abdominal pain from umbilicus down. Denies urinary dysuria, frequency or urgency. Is able to turn himself in bed. Is getting up to bathroom with walker independently but has been instructed that if he is feeling unsteady, dizzy or lightheaded he should call for staff assist. Has 2-3+ edema in bilateral lower extremities and they are erythematous from below knee to toes and warm to touch. Complains of 6/10 pain in bilateral legs and has been medicated with oxycodone. He declines to wear SCD's due to leg discomfort so reminded to ankle wave when awake. Fall risk score is high but declines to have bed alarm activated.
[2024-07-31] MEDS: ALBUTEROL 2.5 MG/3 ML NEB (ADULT) INH ×2 (00:31→08:51)
[2024-07-31] MEDS: OXYCODONE IR 5 MG TABLET 10 MG PO ×6 (01:26→22:05)
[2024-07-31] MEDS: FUROSEMIDE 40 MG/4 ML VIAL IV ×2 (05:41→17:05)
[2024-07-31] MEDS: SODIUM CHLORIDE 0.9% FLUSH 10 ML IV ×3 (05:41→22:06)
[2024-07-31 07:00] VITALS: BP 134/83; PULSE 108; RESP 20; TEMP 36.8; O2SAT 92
[2024-07-31 07:00] LABS: Add Manual Diff / Slide Review NO; Basophils Absolute Auto 0 /uL (0-100); Basophils Percent Auto 0.3 % (0-2); Eosinophils Absolute Auto 0 /uL (0-450); Eosinophils Percent Auto 0.1 % (2-4); Hematocrit 35.3 % (41-53); Hemoglobin 12.3 g/dL (13.5-17.5); Lymphocytes Absolute Auto 1500 /uL (1100-4500); Lymphocytes Percent Auto 11.5 % (25-40); Mean Corpuscular HGB Conc 34.8 % (30-36); Mean Corpuscular Hemoglobin 41.7 PG (26-34); Mean Corpuscular Volume 119.8 fL (80-100); Monocytes Absolute Auto 800 /uL (0-900); Neutrophils Absolute Auto 11100 /uL (1500-7000); Neutrophils Percent Auto 82.1 % (50-75); Platelet Count 157 X10^3/uL (150-400); Red Blood Cell Count 2.95 X10^6/uL (4.5-5.9); Red Cell Distribution Width 15.7 % (11.6-14.8); White Blood Cell Count 13.5 X10^3/uL (4.5-11.0)
[2024-07-31 07:11] LABS: Magnesium 1.8 mg/dL (1.6-2.3)
[2024-07-31 07:12] LABS: Alanine Aminotransferase 40 IU/L (<50); Albumin Globulin Ratio 0.7 (1.0-2.8); Alkaline Phosphatase 149 U/L (38-126); Aspartate Aminotransferase 103 IU/L (17-59); BUN Creatinine Ratio 12.9 (6-22); Bilirubin Total 6.7 mg/dL (0.2-1.3); Blood Urea Nitrogen 13 mg/dL (9-20); Calcium 8.4 mg/dL (8.4-10.2); Carbon Dioxide 26 mmol/L (22-32); Chloride 94 mmol/L (98-107); Estimated Glomerular Filt Rate > 60 mL/min (>60); Globulin 4.1 g/dL (1.7-4.1); Glucose 124 mg/dL (70-99); HEMOLYSIS < 15 (0-50); Sodium 129 mmol/L (137-145); Total Protein 7.1 g/dL (6.3-8.2)
[2024-07-31 07:19] LABS: Macrocytosis 3+
[2024-07-31] MEDS: SPIRONOLACTONE 25 MG TABLET 100 MG PO (08:11)
[2024-07-31] MEDS: predniSONE 20 MG TABLET 40 MG PO (08:11)
[2024-07-31] MEDS: BUDESONIDE 0.5 MG/2 ML NEB INH (08:51)
[2024-07-31 08:54] VITALS: PULSE 99; RESP 20; O2SAT 97
[2024-07-31 10:42] VITALS: BP 134/84; PULSE 110; RESP 20; TEMP 37.1; O2SAT 91
--- NOTE | 2024-07-31 10:43 | CM.DPC ---
DCP Cont. Reviewed EMR and team rounds for status updates. Pt has been medically cleared for home d/c. Family will transport him home, no further CM needs indicated at this time.
[2024-07-31] MEDS: ONDANSETRON 4 MG/2 ML INJ IV (13:37)
[2024-07-31] MEDS: cefTRIAXone 1,000 MG in SODIUM CHLORIDE 0.9% 100 ML 200 MG IV (15:11)
--- NOTE | 2024-07-31 17:16 | PM.PN.1 ---
Subjective Subjective Interval history: Summary: 49-year-old male with a history of alcohol-induced cirrhosis. He has been sober for couple of years but had 2 relapses in the last week. He presented with anasarca and red legs. He was diuresed overnight but still has a lot of volume and redness in his legs. S: His legs still feel swollen, red, tender but slight improvement today. His legs are less swollen. slight suprapubic abdominal discomfort as well, no nausea or vomiting. Exam Vital Signs (past 8 hours): - 07/31/24 10:42 Temperature 98.8 F Pulse Rate 110 H Respiratory Rate 20 Blood Pressure 134/84 Pulse Oximetry 91 Oxygen Flow Rate 0 Oxygen Delivery Method Room Air Oxygen Flow Rate 0 Narrative Exam Narrative: NAD, alert and oriented. Fluent speech. Lungs are clear, normal rate and effort. Heart is regular, no murmur gallop or rub. Abdomen is soft, non distended, non tender. LE peripheral edema, trace to +1 with LE erythema, mild warmth and tenderness. Objective Labs 07/31/24 06:40 07/31/24 06:40 Labs: Laboratory Results - last 24 hr 07/31/24 06:40 WBC 13.5 H RBC 2.95 L Hgb 12.3 L Hct 35.3 L MCV 119.8 H MCH 41.7 H MCHC 34.8 RDW 15.7 H Plt Count 157 Neut % (Auto) 82.1 H Lymph % (Auto) 11.5 L [place] % (Auto) 6.0 Eos % (Auto) 0.1 L Baso % (Auto) 0.3 Neut # (Auto) 71814 H Lymph # (Auto) 1500 [place] # (Auto) 800 Eos # (Auto) 0 Baso # (Auto) 0 RBC Morphology Not Reportable Macrocytosis 3+ H Sodium 129 L Potassium 4.0 Chloride 94 L Carbon Dioxide 26 BUN 13 Creatinine 1.01 Estimated GFR > 60 BUN/Creatinine Ratio 12.9 Glucose 124 H Calcium 8.4 Magnesium 1.8 Total Bilirubin 6.7 H AST 103 H ALT 40 Alkaline Phosphatase 149 H Total Protein 7.1 Albumin 3.0 L Globulin 4.1 Albumin/Globulin Ratio 0.7 L PFSH Medical History Loculated pleural effusion Nicotine dependence Emphysema lung Tobacco use disorder Reactive airway disease Alcohol dependence Alcohol withdrawal seizure Alcohol abuse Social History household members: family Smoking Status: Former smoker alcohol intake: current substance use type: marijuana Assessment & Plan Assessment & Plan narrative: 1. Alcohol use disorder, active. 2. Acute decompensated alcoholic cirrhosis vs acute alcoholic hepatitis. 3. Lactic acidosis, active. From liver dysfunction. 4. Portal hypertension with ascites, present on admission and active. 5. Possible leg cellulitis, bilateral. Present on admission and active. 6. Chronic hyponatremia, present on admission PLAN: -Continue steroids for possible alcoholic hepatitis. Recalculate DF with tomorrows labs after a few days of prednisione. No coags done this admission thus far so DF calculation was done using most recent bilirubin and prior INR done on 07/22. -Ceftriaxone IV for possible nonpurulent cellulitis. -MRSA screen negative. -Continue pain relief with oxycodone, tylenol as needed. -lactic acidosis as a function of liver function, this is not a function of sepsis. This was not trended. -will need outpatient follow up with GI/hepatology -hold NSAIDs for pain. -hyponatremia likely due to volume overload, continue to follow with BMP, stable at 129 today. Will continue diuresis until more euvolemic. Changed to inpatient status given continued volume overload and need for more diuresis along with continued LE pain and swelling. Time-Based Coding :: [TOTAL MINUTES] spent with patient and on the chart (including review of chart, obtaining history, exam, reviewing outside data, placing orders, documenting exam and treatment plan, and counseling patient) on [DATE].
[2024-07-31 20:22] VITALS: BP 102/62; PULSE 91; RESP 18; TEMP 36.8; O2SAT 94
[2024-08-01 05:00] LABS: Add Manual Diff / Slide Review NO; Basophils Absolute Auto 0 /uL (0-100); Basophils Percent Auto 0.2 % (0-2); Eosinophils Absolute Auto 0 /uL (0-450); Lymphocytes Absolute Auto 900 /uL (1100-4500); Lymphocytes Percent Auto 9.2 % (25-40); Mean Corpuscular HGB Conc 35.5 % (30-36); Mean Corpuscular Hemoglobin 42.5 PG (26-34); Mean Corpuscular Volume 119.6 fL (80-100); Monocytes Absolute Auto 600 /uL (0-900); Monocytes Percent Auto 6.5 % (3-14); Neutrophils Absolute Auto 8300 /uL (1500-7000); Neutrophils Percent Auto 84.1 % (50-75); Platelet Count 99 X10^3/uL (150-400); Red Blood Cell Count 2.34 X10^6/uL (4.5-5.9); Red Cell Distribution Width 15.1 % (11.6-14.8); White Blood Cell Count 9.9 X10^3/uL (4.5-11.0)
[2024-08-01 05:08] LABS: INR 2.2 (0.9-1.3); Prothrombin Time 24.1 SECONDS (9.4-12.5)
[2024-08-01 05:11] LABS: PTT Partial Thromboplastin Tim 42 SECONDS (25.1-36.5)
[2024-08-01 05:12] LABS: Alanine Aminotransferase 29 IU/L (<50); Albumin 2.3 g/dL (3.5-5.0); Albumin Globulin Ratio 0.7 (1.0-2.8); Alkaline Phosphatase 124 U/L (38-126); Aspartate Aminotransferase 76 IU/L (17-59); BUN Creatinine Ratio 21.3 (6-22); Bilirubin Total 3.7 mg/dL (0.2-1.3); Blood Urea Nitrogen 20 mg/dL (9-20); Calcium 7.9 mg/dL (8.4-10.2); Carbon Dioxide 27 mmol/L (22-32); Chloride 92 mmol/L (98-107); Estimated Glomerular Filt Rate > 60 mL/min (>60); Globulin 3.5 g/dL (1.7-4.1); Glucose 128 mg/dL (70-99); HEMOLYSIS < 15 (0-50); Potassium 4.3 mmol/L (3.4-5.1); Sodium 124 mmol/L (137-145); Total Protein 5.8 g/dL (6.3-8.2)
[2024-08-01 05:31] VITALS: BP 95/62; PULSE 82; RESP 18; TEMP 36.6; O2SAT 90
[2024-08-01 05:43] LABS: Anisocytosis 1+; Macrocytosis 3+; Platelet Estimate Decreased on smear
[2024-08-01] MEDS: OXYCODONE IR 5 MG TABLET 10 MG PO ×5 (07:34→23:15)
[2024-08-01 08:14] VITALS: BP 113/49; PULSE 86; RESP 18; TEMP 36.9; O2SAT 93
[2024-08-01 08:28] VITALS: BP 103/75
[2024-08-01] MEDS: predniSONE 20 MG TABLET 40 MG PO (08:48)
[2024-08-01] MEDS: SPIRONOLACTONE 25 MG TABLET 100 MG PO (08:48)
[2024-08-01] MEDS: SODIUM CHLORIDE 0.9% FLUSH 10 ML IV ×2 (08:49→19:24)
--- NOTE | 2024-08-01 10:22 | CM.DPNOTE ---
DCP Continued: Reviewed EMR and team rounds for pt?s medical status. Per hospitalist, pt continues to be in volume overload and pain needs to be managed; not medically cleared to discharge. Plan: Anticipating dc on Sunday, 08/02 or when medically cleared with family to transport. CM Team will continue to follow for coordination of discharge plans. ROMANA Akhtar
[2024-08-01] MEDS: cefTRIAXone 1,000 MG in SODIUM CHLORIDE 0.9% 100 ML 200 MG IV (15:35)
[2024-08-01] MEDS: ENOXAPARIN 40 MG/0.4 ML SYRINGE SUBCUT (16:15)
[2024-08-01] MEDS: FUROSEMIDE 40 MG/4 ML VIAL IV (17:15)
[2024-08-01] MEDS: ALBUTEROL INHALER 1 EACH INH (17:16)
--- NOTE | 2024-08-01 17:43 | PM.PN.1 ---
Subjective Subjective Interval history: Summary: 49-year-old male with a history of alcohol-induced cirrhosis. He has been sober for couple of years but had 2 relapses in the last week. He presented with anasarca and red legs. He was diuresed overnight but still has a lot of volume and redness in his legs. S: His legs still feel swollen, and tender though his redness is nearly gone today. Exam Vital Signs (past 8 hours): Oxygen Delivery Method Room Air Oxygen Flow Rate 0 Narrative Exam Narrative: NAD, alert and oriented. Fluent speech. Lungs are clear, normal rate and effort. Heart is regular, no murmur gallop or rub. Abdomen is soft, non distended, non tender. LE peripheral edema, 1+ to knees bilaterally, erythema now gone. Objective Labs 08/01/24 04:14 08/01/24 04:14 Labs: Laboratory Results - last 24 hr 08/01/24 04:14 WBC 9.9 RBC 2.34 L Hgb 10.0 L Hct 28.0 L MCV 119.6 H MCH 42.5 H MCHC 35.5 RDW 15.1 H Plt Count 99 L Neut % (Auto) 84.1 H Lymph % (Auto) 9.2 L [place] % (Auto) 6.5 Eos % (Auto) 0.0 L Baso % (Auto) 0.2 Neut # (Auto) 8300 H Lymph # (Auto) 900 L [place] # (Auto) 600 Eos # (Auto) 0 Baso # (Auto) 0 Platelet Estimate Decreased on smear RBC Morphology See below Anisocytosis 1+ H Macrocytosis 3+ H PT 24.1 H INR 2.2 H APTT 42 H Sodium 124 L Potassium 4.3 Chloride 92 L Carbon Dioxide 27 BUN 20 Creatinine 0.94 Estimated GFR > 60 BUN/Creatinine Ratio 21.3 Glucose 128 H Calcium 7.9 L Total Bilirubin 3.7 H AST 76 H ALT 29 Alkaline Phosphatase 124 Total Protein 5.8 L Albumin 2.3 L Globulin 3.5 Albumin/Globulin Ratio 0.7 L PFSH Medical History Loculated pleural effusion Nicotine dependence Emphysema lung Tobacco use disorder Reactive airway disease Alcohol dependence Alcohol withdrawal seizure Alcohol abuse Social History household members: family Smoking Status: Former smoker alcohol intake: current substance use type: marijuana Assessment & Plan Assessment & Plan narrative: 1. Alcohol use disorder, active. 2. Acute decompensated alcoholic cirrhosis vs acute alcoholic hepatitis. 3. Lactic acidosis, active. From liver dysfunction. 4. Portal hypertension with ascites, present on admission and active. 5. Possible leg cellulitis, bilateral. Present on admission and active. 6. Chronic hyponatremia, present on admission PLAN: -Continue steroids for possible alcoholic hepatitis. Maddrey's score is 64 on todays lab, improved Tbili and stable INR. -Ceftriaxone IV for nonpurulent cellulitis. Now starting to improve today. -MRSA screen negative. -Continue pain relief with oxycodone, tylenol as needed. -lactic acidosis as a function of liver function, this is not a function of sepsis. This was not trended. -will need outpatient follow up with GI/hepatology -hold NSAIDs for pain. -hyponatremia likely due to volume overload, worse today at 124. continue to follow with BMP and worsened leg edema today. Continue furosemide BID, was held overnight given low BP but will try to continue aggressively. Will continue diuresis until more euvolemic. Changed to inpatient status given continued volume overload and need for more diuresis along with continued LE pain and swelling. Time-Based Coding :: [TOTAL MINUTES] spent with patient and on the chart (including review of chart, obtaining history, exam, reviewing outside data, placing orders, documenting exam and treatment plan, and counseling patient) on [DATE].
[2024-08-01 19:00] VITALS: BP 132/79; PULSE 100; RESP 19; TEMP 36.4; O2SAT 95
[2024-08-01] MEDS: FLUTICASONE/SALMETEROL 250/50 1 EACH INH (19:54)
[2024-08-01] MEDS: CALCIUM CARBONATE 500 MG TAB 1000 MG PO (19:55)
[2024-08-02] MEDS: ALBUTEROL INHALER 1 EACH INH (00:11)
[2024-08-02] MEDS: OXYCODONE IR 5 MG TABLET 10 MG PO ×4 (04:41→21:55)
[2024-08-02 05:41] VITALS: BP 114/75; PULSE 89; RESP 20; TEMP 37.3; O2SAT 91
[2024-08-02] MEDS: SODIUM CHLORIDE 0.9% FLUSH 10 ML IV ×2 (05:48→09:02)
[2024-08-02] MEDS: FUROSEMIDE 40 MG/4 ML VIAL IV (05:48)
[2024-08-02 08:45] VITALS: BP 121/80; PULSE 93; RESP 16; TEMP 37.1; O2SAT 95
[2024-08-02] MEDS: SPIRONOLACTONE 25 MG TABLET 100 MG PO (08:54)
[2024-08-02] MEDS: predniSONE 20 MG TABLET 40 MG PO (08:54)
[2024-08-02] MEDS: FLUTICASONE/SALMETEROL 250/50 1 EACH INH ×2 (08:57→21:56)
[2024-08-02] MEDS: ENOXAPARIN 40 MG/0.4 ML SYRINGE SUBCUT (09:07)
--- NOTE | 2024-08-02 12:26 | CM.DPC ---
DCP Cont: Per MD, pt's cellulitis has improved but continues to have orthostatics and trying to balance bp issues with diuresis and pain and not yet stable for discharge today. [facility]
--- NOTE | 2024-08-02 12:48 | P.PN_ITS ---
Subjective Subjective Interval history: Summary: 49-year-old male with a history of alcohol-induced cirrhosis. He has been sober for couple of years but had 2 relapses in the last week. He presented with anasarca and red legs. His cellulitis and redness have improved, but lost IV access today. Legs have increasing edema today. Exam Vital Signs (past 8 hours): - 08/02/24 05:41 08/02/24 08:45 Temperature 99.1 F 98.7 F Pulse Rate 89 93 H Respiratory Rate 20 16 Blood Pressure 114/75 121/80 Pulse Oximetry 91 95 Oxygen Flow Rate 0 Oxygen Delivery Method Room Air Oxygen Flow Rate 0 Narrative Exam Narrative: NAD, alert and oriented. Fluent speech. Lungs are clear, normal rate and effort. Heart is regular, no murmur gallop or rub. Abdomen is soft, non distended, non tender. LE peripheral edema, now 2+ to knees bilaterally and now edema in his thighs, erythema now gone. Objective Labs 08/01/24 04:14 08/01/24 04:14 [facility] Medical History Loculated pleural effusion Nicotine dependence Emphysema lung Tobacco use disorder Reactive airway disease Alcohol dependence Alcohol withdrawal seizure Alcohol abuse Social History household members: family Smoking Status: Former smoker alcohol intake: current substance use type: marijuana Assessment & Plan Assessment & Plan narrative: 1. Alcohol use disorder, active. 2. Acute decompensated alcoholic cirrhosis vs acute alcoholic hepatitis. 3. Lactic acidosis, active. From liver dysfunction. 4. Portal hypertension with ascites, present on admission and active. 5. Possible leg cellulitis, bilateral. Present on admission and active. 6. Acute on Chronic hyponatremia, present on admission PLAN: -Continue steroids for possible alcoholic hepatitis. Maddrey's score is 64 on 08/02 labs, improved Tbili and stable INR. -Ceftriaxone IV for nonpurulent cellulitis. Will likely complete 7 day course in the hospital. MRSA screen negative. -Continue pain relief with oxycodone, tylenol as needed. -lactic acidosis as a function of liver function, this is not a function of sepsis. This was not trended. -will need outpatient follow up with GI/hepatology -hold NSAIDs for pain. -main issue now is leg edema and volume overload, will increase furosemide to 80 mg IV BID today. Midline ordered as he has lost IV access. Will continue diuresis until more euvolemic. Changed to inpatient status given continued volume overload and need for more diuresis along with continued LE pain and swelling. Anticipate 2-3 more days in the hospital. Time-Based Coding :: [TOTAL MINUTES] spent with patient and on the chart (including review of chart, obtaining history, exam, reviewing outside data, placing orders, documenting exam and treatment plan, and counseling patient) on [DATE].
[2024-08-02] MEDS: CALCIUM CARBONATE 500 MG TAB 1000 MG PO (13:09)
[2024-08-02 15:05] LABS: Alanine Aminotransferase 43 IU/L (<50); Albumin 2.5 g/dL (3.5-5.0); Albumin Globulin Ratio 0.7 (1.0-2.8); Alkaline Phosphatase 128 U/L (38-126); Aspartate Aminotransferase 123 IU/L (17-59); BUN Creatinine Ratio 23.6 (6-22); Blood Urea Nitrogen 21 mg/dL (9-20); Calcium 8.3 mg/dL (8.4-10.2); Carbon Dioxide 32 mmol/L (22-32); Chloride 90 mmol/L (98-107); Estimated Glomerular Filt Rate > 60 mL/min (>60); Globulin 3.4 g/dL (1.7-4.1); Glucose 130 mg/dL (70-99); HEMOLYSIS < 15 (0-50); Potassium 4.6 mmol/L (3.4-5.1); Sodium 127 mmol/L (137-145); Total Protein 5.9 g/dL (6.3-8.2)
--- NOTE | 2024-08-02 15:29 | PC.NURSE ---
Pt informed that he does not wish to be disturbed so he can sleep until midline insertion time. Bed low/locked, pt sleeping comfortably, plan of care continues.
[2024-08-02] MEDS: cefTRIAXone 1,000 MG in SODIUM CHLORIDE 0.9% 100 ML 200 MG IV (17:23)
[2024-08-02] MEDS: FUROSEMIDE 80 MG in SODIUM CHLORIDE 0.9% 50 ML 116 MG IV (18:52)
[2024-08-02 21:31] VITALS: BP 109/70; PULSE 89; RESP 19; TEMP 37.2; O2SAT 94
[2024-08-02] MEDS: DOCUSATE 100 MG CAPSULE 200 MG PO (21:55)
[2024-08-03] MEDS: OXYCODONE IR 5 MG TABLET 10 MG PO ×6 (01:34→21:47)
[2024-08-03] MEDS: CALCIUM CARBONATE 500 MG TAB 1000 MG PO ×2 (02:07→08:39)
[2024-08-03] MEDS: FUROSEMIDE 80 MG in SODIUM CHLORIDE 0.9% 50 ML 116 MG IV ×2 (05:19→18:02)
[2024-08-03 05:42] LABS: Add Manual Diff / Slide Review NO; Basophils Absolute Auto 100 /uL (0-100); Basophils Percent Auto 0.4 % (0-2); Eosinophils Absolute Auto 0 /uL (0-450); Eosinophils Percent Auto 0.3 % (2-4); Lymphocytes Absolute Auto 800 /uL (1100-4500); Lymphocytes Percent Auto 6.2 % (25-40); Mean Corpuscular HGB Conc 35.5 % (30-36); Mean Corpuscular Hemoglobin 42.2 PG (26-34); Monocytes Absolute Auto 1000 /uL (0-900); Monocytes Percent Auto 7.7 % (3-14); Neutrophils Absolute Auto 10700 /uL (1500-7000); Neutrophils Percent Auto 85.4 % (50-75); Platelet Count 119 X10^3/uL (150-400); Red Blood Cell Count 2.61 X10^6/uL (4.5-5.9); Red Cell Distribution Width 15.6 % (11.6-14.8); White Blood Cell Count 12.5 X10^3/uL (4.5-11.0)
[2024-08-03 05:52] LABS: Alanine Aminotransferase 54 IU/L (<50); Albumin 2.9 g/dL (3.5-5.0); Albumin Globulin Ratio 0.8 (1.0-2.8); Alkaline Phosphatase 136 U/L (38-126); Aspartate Aminotransferase 133 IU/L (17-59); BUN Creatinine Ratio 23.5 (6-22); Bilirubin Total 5.5 mg/dL (0.2-1.3); Blood Urea Nitrogen 20 mg/dL (9-20); Calcium 8.4 mg/dL (8.4-10.2); Carbon Dioxide 29 mmol/L (22-32); Chloride 91 mmol/L (98-107); Estimated Glomerular Filt Rate > 60 mL/min (>60); Globulin 3.8 g/dL (1.7-4.1); Glucose 115 mg/dL (70-99); HEMOLYSIS < 15 (0-50); Magnesium 1.9 mg/dL (1.6-2.3); Potassium 4.1 mmol/L (3.4-5.1); Sodium 127 mmol/L (137-145); Total Protein 6.7 g/dL (6.3-8.2)
[2024-08-03 06:07] LABS: Anisocytosis 1+; Macrocytosis 3+; Platelet Estimate Decreased on smear
[2024-08-03] MEDS: DOCUSATE 100 MG CAPSULE 200 MG PO ×2 (08:38→21:47)
[2024-08-03] MEDS: FLUTICASONE/SALMETEROL 250/50 1 EACH INH ×2 (08:38→21:48)
[2024-08-03] MEDS: predniSONE 20 MG TABLET 40 MG PO (08:38)
[2024-08-03] MEDS: ENOXAPARIN 40 MG/0.4 ML SYRINGE SUBCUT (08:39)
[2024-08-03] MEDS: SPIRONOLACTONE 25 MG TABLET 100 MG PO (08:39)
[2024-08-03] MEDS: SODIUM CHLORIDE 0.9% FLUSH 10 ML IV ×2 (08:40→21:48)
[2024-08-03 08:53] VITALS: BP 129/77; PULSE 102; RESP 17; TEMP 37.3; O2SAT 96
--- NOTE | 2024-08-03 14:06 | PM.PN.1 ---
Subjective Subjective Interval history: Summary: 49-year-old male with a history of alcohol-induced cirrhosis. He has been sober for couple of years but had 2 relapses in the last week. He presented with anasarca and red legs. His cellulitis and redness have improved, but his LE edema has increased. Increase furosemide yesterday evenings, appears stable to slight improvement today. Exam Vital Signs (past 8 hours): - 08/03/24 08:53 Temperature 99.1 F Pulse Rate 102 H Respiratory Rate 17 Blood Pressure 129/77 Pulse Oximetry 96 Oxygen Flow Rate 0 Oxygen Delivery Method Room Air Oxygen Flow Rate 0 Narrative Exam Narrative: NAD, alert and oriented. Fluent speech. Lungs are clear, normal rate and effort. Heart is regular, no murmur gallop or rub. Abdomen is soft, non distended, non tender. LE peripheral edema, now 2+ to knees bilaterally and now edema in his thighs, erythema now gone. Objective Labs 08/03/24 05:26 08/03/24 05:26 Labs: Laboratory Results - last 24 hr 08/02/24 08/03/24 14:30 05:26 WBC 12.5 H RBC 2.61 L Hgb 11.0 L Hct 31.0 L MCV 119.0 H MCH 42.2 H MCHC 35.5 RDW 15.6 H Plt Count 119 L Neut % (Auto) 85.4 H Lymph % (Auto) 6.2 L [place] % (Auto) 7.7 Eos % (Auto) 0.3 L Baso % (Auto) 0.4 Neut # (Auto) 19142 H Lymph # (Auto) 800 L [place] # (Auto) 1000 H Eos # (Auto) 0 Baso # (Auto) 100 Platelet Estimate Decreased on smear RBC Morphology See below Anisocytosis 1+ H Macrocytosis 3+ H Sodium 127 L 127 L Potassium 4.6 4.1 Chloride 90 L 91 L Carbon Dioxide 32 29 BUN 21 H 20 Creatinine 0.89 0.85 Estimated GFR > 60 > 60 BUN/Creatinine Ratio 23.6 H 23.5 H Glucose 130 H 115 H Calcium 8.3 L 8.4 Magnesium 1.9 Total Bilirubin 6.0 H 5.5 H AST 123 H 133 H ALT 43 54 H Alkaline Phosphatase 128 H 136 H Total Protein 5.9 L 6.7 Albumin 2.5 L 2.9 L Globulin 3.4 3.8 Albumin/Globulin Ratio 0.7 L 0.8 L PFSH Medical History Loculated pleural effusion Nicotine dependence Emphysema lung Tobacco use disorder Reactive airway disease Alcohol dependence Alcohol withdrawal seizure Alcohol abuse Social History household members: family Smoking Status: Former smoker alcohol intake: current substance use type: marijuana Assessment & Plan Assessment & Plan narrative: 1. Alcohol use disorder, active. 2. Acute decompensated alcoholic cirrhosis vs acute alcoholic hepatitis. 3. Lactic acidosis, active. From liver dysfunction. 4. Portal hypertension with ascites, present on admission and active. 5. Possible leg cellulitis, bilateral. Present on admission and active. 6. Acute on Chronic hyponatremia, present on admission PLAN: -Continue steroids for possible alcoholic hepatitis. Maddrey's score is 64 on 08/02 labs, improved Tbili and stable INR. -Ceftriaxone IV for nonpurulent cellulitis. Will likely complete 7 day course in the hospital. MRSA screen negative. -Continue pain relief with oxycodone, tylenol as needed. -lactic acidosis as a function of liver function, this is not a function of sepsis. This was not trended. -will need outpatient follow up with GI/hepatology -hold NSAIDs for pain. -main issue now is leg edema and volume overload, have increased furosemide to 80 mg IV BID today. Midline ordered as he has lost IV access. Continue to monitor renal function and electrolytes with labs. Will continue diuresis until more euvolemic. Changed to inpatient status given continued volume overload and need for more diuresis along with continued LE pain and swelling. Anticipate 2-3 more days in the hospital. Time-Based Coding :: [TOTAL MINUTES] spent with patient and on the chart (including review of chart, obtaining history, exam, reviewing outside data, placing orders, documenting exam and treatment plan, and counseling patient) on [DATE].
[2024-08-03] MEDS: cefTRIAXone 1,000 MG in SODIUM CHLORIDE 0.9% 100 ML 200 MG IV (17:23)
[2024-08-03 20:46] VITALS: BP 142/80; PULSE 110; RESP 18; TEMP 37.8; O2SAT 94
[2024-08-03 21:51] VITALS: TEMP 36.8
[2024-08-04] MEDS: OXYCODONE IR 5 MG TABLET 10 MG PO ×5 (01:40→19:15)
[2024-08-04] MEDS: FUROSEMIDE 80 MG in SODIUM CHLORIDE 0.9% 50 ML 116 MG IV ×2 (05:56→18:15)
[2024-08-04 07:00] VITALS: BP 112/83; PULSE 87; RESP 12; TEMP 37.1; O2SAT 97
[2024-08-04 07:01] LABS: Add Manual Diff / Slide Review NO; Basophils Absolute Auto 100 /uL (0-100); Basophils Percent Auto 0.4 % (0-2); Eosinophils Absolute Auto 100 /uL (0-450); Eosinophils Percent Auto 0.9 % (2-4); Hematocrit 36.9 % (41-53); Hemoglobin 12.9 g/dL (13.5-17.5); Lymphocytes Absolute Auto 2100 /uL (1100-4500); Lymphocytes Percent Auto 12.3 % (25-40); Mean Corpuscular HGB Conc 35.1 % (30-36); Mean Corpuscular Hemoglobin 41.9 PG (26-34); Mean Corpuscular Volume 119.5 fL (80-100); Monocytes Absolute Auto 2000 /uL (0-900); Monocytes Percent Auto 11.8 % (3-14); Neutrophils Absolute Auto 12600 /uL (1500-7000); Neutrophils Percent Auto 74.6 % (50-75); Platelet Count 159 X10^3/uL (150-400); Red Blood Cell Count 3.09 X10^6/uL (4.5-5.9); White Blood Cell Count 16.8 X10^3/uL (4.5-11.0)
[2024-08-04 07:12] LABS: Alanine Aminotransferase 68 IU/L (<50); Albumin 3.6 g/dL (3.5-5.0); Albumin Globulin Ratio 0.8 (1.0-2.8); Alkaline Phosphatase 185 U/L (38-126); Aspartate Aminotransferase 141 IU/L (17-59); BUN Creatinine Ratio 21.8 (6-22); Bilirubin Total 5.9 mg/dL (0.2-1.3); Blood Urea Nitrogen 17 mg/dL (9-20); Calcium 8.8 mg/dL (8.4-10.2); Carbon Dioxide 32 mmol/L (22-32); Chloride 93 mmol/L (98-107); Estimated Glomerular Filt Rate > 60 mL/min (>60); Globulin 4.6 g/dL (1.7-4.1); Glucose 86 mg/dL (70-99); HEMOLYSIS 19 (0-50); Potassium 3.5 mmol/L (3.4-5.1); Sodium 133 mmol/L (137-145); Total Protein 8.2 g/dL (6.3-8.2)
[2024-08-04 07:17] LABS: Rouleaux 2+
--- NOTE | 2024-08-04 08:41 | P.PN_ITS ---
Subjective Subjective Date Patient Seen: 08/04/24 Interval history: Chief complaint: Acute on chronic ascites with Laennec's cirrhosis and portal hypertension with anasarca History of present illness: presents with leg swelling and redness. He was history of alcohol use and possible cirrhosis. He was developed more profound edema of both legs are less several days and now they are also red and warm. Because of discomfort he presents. Here he was found to have anasarca and possible cellulitis. He has been sober for several years but then relapsed a week ago and again yesterday. He only drank 1 malt liquor beverages yesterday. He uses marijuana edibles but no other drugs. He denies fevers, or chills. He does have some abdominal distention but no known history of ascites. No fevers, or chills. He denies any dyspnea. Hospital course: 07/30-08/03: Treated with IV antibiotics and diuretic for cellulitis anasarca and corticosteroids for acute alcoholic hepatitis 08/04: Patient is having in his swelling Continues to have brisk urine output correction of sodium some drop in potassium We will continue with brisk intravenous diuretic Review of systems: Patient says he has the jitters No headache No sinus congestion No chest pain No wheezing or cough No shortness a breath No nausea Physical exam: Chronically ill middle-aged male tremulous HEENT unremarkable Heart rate and rhythm regular Abdomen distended with shifting dullness 3+ edema from groin distally Neuro nonfocal Assessment and plan: 1. Alcohol use disorder, active. 2. Acute decompensated alcoholic cirrhosis vs acute alcoholic hepatitis. 3. Lactic acidosis, active. From liver dysfunction. 4. Portal hypertension with ascites, present on admission and active. 5. Possible leg cellulitis, bilateral. Present on admission and active. 6. Acute on Chronic hyponatremia, present on admission PLAN: -Continue steroids for possible alcoholic hepatitis. Maddrey's score is 64 on 08/02 labs, unchanged Tbili and stable INR. -Ceftriaxone IV for nonpurulent cellulitis. Will likely complete 7 day course in the hospital. MRSA screen negative. -Continue pain relief with oxycodone, tylenol as needed. -lactic acidosis as a function of liver function, this is not a function of sepsis. This was not trended. -will need outpatient follow up with GI/hepatology may be candidate for TIPPS procedure -hold NSAIDs for pain. -main issue now is leg edema and volume overload, have increased furosemide to 80 mg IV BID today. Midline ordered as he has lost IV access. Continue to monitor renal function and electrolytes with labs. Will continue diuresis until more euvolemic. Changed to inpatient status given continued volume overload and need for more diuresis along with continued LE pain and swelling. Anticipate 2-3 more days in the hospital. Time-Based Coding :: 35 minutes spent with patient and on the chart (including review of chart, obtaining history, exam, reviewing outside data, placing orders, documenting exam and treatment plan, and counseling patient). Exam Vital Signs (past 8 hours): - 08/04/24 07:00 Temperature 98.7 F Pulse Rate 87 Respiratory Rate 12 Blood Pressure 112/83 Pulse Oximetry 97 Oxygen Flow Rate 0 Oxygen Delivery Method Room Air Oxygen Flow Rate 0 Objective Labs 08/04/24 06:31 08/04/24 06:31 Labs: Laboratory Results - last 24 hr 08/04/24 06:31 WBC 16.8 H RBC 3.09 L Hgb 12.9 L Hct 36.9 L MCV 119.5 H MCH 41.9 H MCHC 35.1 RDW 16.0 H Plt Count 159 Neut % (Auto) 74.6 Lymph % (Auto) 12.3 L [place] % (Auto) 11.8 Eos % (Auto) 0.9 L Baso % (Auto) 0.4 Neut # (Auto) 60319 H Lymph # (Auto) 2100 [place] # (Auto) 2000 H Eos # (Auto) 100 Baso # (Auto) 100 RBC Morphology Not Reportable Rouleaux 2+ H Sodium 133 L Potassium 3.5 Chloride 93 L Carbon Dioxide 32 BUN 17 Creatinine 0.78 Estimated GFR > 60 BUN/Creatinine Ratio 21.8 Glucose 86 Calcium 8.8 Magnesium 2.0 Total Bilirubin 5.9 H AST 141 H ALT 68 H Alkaline Phosphatase 185 H Total Protein 8.2 Albumin 3.6 Globulin 4.6 H Albumin/Globulin Ratio 0.8 L PFSH Medical History Loculated pleural effusion Nicotine dependence Emphysema lung Tobacco use disorder Reactive airway disease Alcohol dependence Alcohol withdrawal seizure Alcohol abuse Social History household members: family Smoking Status: Former smoker alcohol intake: current substance use type: marijuana Assessment & Plan Time-Based Coding :: [TOTAL MINUTES] spent with patient and on the chart (including review of chart, obtaining history, exam, reviewing outside data, placing orders, documenting exam and treatment plan, and counseling patient) on [DATE].
[2024-08-04] MEDS: FLUTICASONE/SALMETEROL 250/50 1 EACH INH ×2 (09:04→20:11)
[2024-08-04] MEDS: SPIRONOLACTONE 25 MG TABLET 100 MG PO (09:04)
[2024-08-04] MEDS: predniSONE 20 MG TABLET 40 MG PO (09:04)
[2024-08-04] MEDS: DOCUSATE 100 MG CAPSULE 200 MG PO ×2 (09:04→20:12)
[2024-08-04] MEDS: ENOXAPARIN 40 MG/0.4 ML SYRINGE SUBCUT (09:04)
[2024-08-04] MEDS: SODIUM CHLORIDE 0.9% FLUSH 10 ML IV ×2 (09:05→20:13)
[2024-08-04] MEDS: POTASSIUM CHLORIDE 20 MEQ TAB 40 MEQ PO (09:57)
--- NOTE | 2024-08-04 10:48 | CM.DPNOTE ---
DCP note DIET THERAPIST reviewed EMR per chart review/Sunday PN, pt needs 7 day course of IV abx completed in the hospital. per EMR, Ceftriaxone started 08/02. 7 days would be completed 08/08. P: anticipate dc home with family support when medically stable/completes ABX. no CM needs identified at this time. will continue to follow as needed [facility]
[2024-08-04] MEDS: cefTRIAXone 1,000 MG in SODIUM CHLORIDE 0.9% 100 ML 200 MG IV (16:53)
[2024-08-04 22:21] VITALS: BP 76/43; PULSE 77; RESP 19; TEMP 36.9; O2SAT 94
[2024-08-04 22:52] VITALS: BP 88/57; PULSE 80
[2024-08-05] VITALS: BP 90/53; PULSE 74; RESP 16; TEMP 36.6; O2SAT 92
--- NOTE | 2024-08-05 01:35 | PC.NURSE ---
Dr. Suarez notified 08/04/24 @ 6367, pt. was hypotensive 88/57, (MAP 63) HR. 80. Order to hold Lasix 80 mg. IVPB. Sent message that his Lasix is not due until 0600 on 08/05/24, Changed his vital signs check to q6 hrs. Rechecked his vital signs @ [place] trending up 90/53 ( MAP 65) heart rate 74. Did not C/O pain & he was sound asleep when his vital signs was taken. Will continue plan of care & monitor.
[2024-08-05] MEDS: OXYCODONE IR 5 MG TABLET 10 MG PO ×3 (02:45→12:33)
[2024-08-05 02:46] VITALS: BP 105/68; PULSE 90
[2024-08-05] MEDS: FUROSEMIDE 80 MG in SODIUM CHLORIDE 0.9% 50 ML 116 MG IV (06:00)
[2024-08-05] MEDS: SODIUM CHLORIDE 0.9% FLUSH 10 ML IV ×2 (06:05→08:04)
[2024-08-05] MEDS: SODIUM CHLORIDE 0.9% 250 ML 21 ML IV (06:05)
[2024-08-05 06:40] LABS: Alanine Aminotransferase 61 IU/L (<50); Albumin Globulin Ratio 0.8 (1.0-2.8); Alkaline Phosphatase 131 U/L (38-126); Aspartate Aminotransferase 109 IU/L (17-59); BUN Creatinine Ratio 21.3 (6-22); Bilirubin Total 4.7 mg/dL (0.2-1.3); Blood Urea Nitrogen 16 mg/dL (9-20); Calcium 8.3 mg/dL (8.4-10.2); Carbon Dioxide 28 mmol/L (22-32); Chloride 94 mmol/L (98-107); Estimated Glomerular Filt Rate > 60 mL/min (>60); Globulin 3.6 g/dL (1.7-4.1); Glucose 104 mg/dL (70-99); HEMOLYSIS < 15 (0-50); Magnesium 1.9 mg/dL (1.6-2.3); Potassium 3.5 mmol/L (3.4-5.1); Sodium 129 mmol/L (137-145); Total Protein 6.6 g/dL (6.3-8.2)
[2024-08-05] MEDS: ENOXAPARIN 40 MG/0.4 ML SYRINGE SUBCUT (08:04)
[2024-08-05] MEDS: predniSONE 20 MG TABLET 40 MG PO (08:05)
[2024-08-05] MEDS: DOCUSATE 100 MG CAPSULE 200 MG PO (08:06)
[2024-08-05] MEDS: SPIRONOLACTONE 25 MG TABLET 100 MG PO (08:06)
[2024-08-05 08:13] LABS: Add Manual Diff / Slide Review NO; Basophils Absolute Auto 100 /uL (0-100); Basophils Percent Auto 1.4 % (0-2); Eosinophils Absolute Auto 200 /uL (0-450); Eosinophils Percent Auto 2.1 % (2-4); Hematocrit 31.9 % (41-53); Hemoglobin 11.2 g/dL (13.5-17.5); Lymphocytes Absolute Auto 1100 /uL (1100-4500); Lymphocytes Percent Auto 11.8 % (25-40); Mean Corpuscular HGB Conc 35.1 % (30-36); Mean Corpuscular Hemoglobin 42.2 PG (26-34); Mean Corpuscular Volume 120.3 fL (80-100); Monocytes Absolute Auto 800 /uL (0-900); Monocytes Percent Auto 9.2 % (3-14); Neutrophils Absolute Auto 6900 /uL (1500-7000); Neutrophils Percent Auto 75.5 % (50-75); Platelet Count 101 X10^3/uL (150-400); Red Blood Cell Count 2.65 X10^6/uL (4.5-5.9); Red Cell Distribution Width 16.5 % (11.6-14.8); White Blood Cell Count 9.2 X10^3/uL (4.5-11.0)
[2024-08-05 08:40] LABS: Macrocytosis 3+
[2024-08-05 09:00] VITALS: BP 122/85; PULSE 86; RESP 16; TEMP 36.6; O2SAT 94
--- NOTE | 2024-08-05 11:33 | PM.DS.1 ---
History of Present Illness History of Present Illness Date Patient Seen: 08/05/24 Chief complaint: Cellulitis left lower leg and anasarca Narrative: Chief complaint: Acute on chronic ascites with Laennec's cirrhosis and portal hypertension with anasarca History of present illness: presents with leg swelling and redness. He was history of alcohol use and possible cirrhosis. He was developed more profound edema of both legs are less several days and now they are also red and warm. Because of discomfort he presents. Here he was found to have anasarca and possible cellulitis. He has been sober for several years but then relapsed a week ago and again yesterday. He only drank 1 malt liquor beverages yesterday. He uses marijuana edibles but no other drugs. He denies fevers, or chills. He does have some abdominal distention but no known history of ascites. No fevers, or chills. He denies any dyspnea. Hospital course: 07/30-08/03: Treated with IV antibiotics and diuretic for cellulitis anasarca and corticosteroids for acute alcoholic hepatitis /2: Patient is having in his swelling Continues to have brisk urine output correction of sodium some drop in potassium We will continue with brisk intravenous diuretic 6-3: Still having some swelling some dizziness and hypotension last night but better today. Patient ready for discharge and to switch to oral antibiotics Review of systems: Patient says he has the jitters No headache No sinus congestion No chest pain No wheezing or cough No shortness a breath No nausea Physical exam: Chronically ill middle-aged male tremulous HEENT unremarkable Heart rate and rhythm regular Abdomen distended with shifting dullness 3+ edema from groin distally Neuro nonfocal Assessment and plan: 1. Alcohol use disorder, active. 2. Acute decompensated alcoholic cirrhosis vs acute alcoholic hepatitis. 3. Lactic acidosis, active. From liver dysfunction. 4. Portal hypertension with ascites, present on admission and active. 5. Possible leg cellulitis, bilateral. Present on admission and active. 6. Acute on Chronic hyponatremia, present on admission PLAN: -Continue steroids for possible alcoholic hepatitis. Maddrey's score is 64 on 08/02 labs, unchanged Tbili and stable INR. -Ceftriaxone IV for nonpurulent cellulitis. Will likely complete 7 day course in the hospital. MRSA screen negative. -Continue pain relief with oxycodone, tylenol as needed. -lactic acidosis as a function of liver function, this is not a function of sepsis. This was not trended. -will need outpatient follow up with GI/hepatology may be candidate for TIPPS procedure -hold NSAIDs for pain. -main issue now is leg edema and volume overload, have increased furosemide to 80 mg IV BID today. Midline ordered as he has lost IV access. Continue to monitor renal function and electrolytes with labs. Will continue diuresis until more euvolemic. Changed to inpatient status given continued volume overload and need for more diuresis along with continued LE pain and swelling. Anticipate 2-3 more days in the hospital. Time-Based Coding :: 35 minutes spent with patient and on the chart (including review of chart, obtaining history, exam, reviewing outside data, placing orders, documenting exam and treatment plan, and counseling patient). Discharge Providers Provider Date of admission: 07/31/24 14:33 Discharge Date: 08/05/24 Primary care physician: ISMAEL Fernandez Discharge provider: Umberto Pinzon MD Exam Vital Signs (past 8 hours): - 08/05/24 09:00 Temperature 97.8 F Pulse Rate 86 Respiratory Rate 16 Blood Pressure 122/85 Pulse Oximetry 94 Oxygen Flow Rate 0 Oxygen Delivery Method Room Air Oxygen Flow Rate 0 Objective Labs 08/05/24 05:41 08/05/24 05:41 Labs: Laboratory Results - last 24 hr 08/05/24 05:41 WBC 9.2 RBC 2.65 L Hgb 11.2 L Hct 31.9 L MCV 120.3 H MCH 42.2 H MCHC 35.1 RDW 16.5 H Plt Count 101 L Neut % (Auto) 75.5 H Lymph % (Auto) 11.8 L [place] % (Auto) 9.2 Eos % (Auto) 2.1 Baso % (Auto) 1.4 Neut # (Auto) 6900 Lymph # (Auto) 1100 [place] # (Auto) 800 Eos # (Auto) 200 Baso # (Auto) 100 RBC Morphology Not Reportable Macrocytosis 3+ H Sodium 129 L Potassium 3.5 Chloride 94 L Carbon Dioxide 28 BUN 16 Creatinine 0.75 Estimated GFR > 60 BUN/Creatinine Ratio 21.3 Glucose 104 H Calcium 8.3 L Magnesium 1.9 Total Bilirubin 4.7 H AST 109 H ALT 61 H Alkaline Phosphatase 131 H Total Protein 6.6 Albumin 3.0 L Globulin 3.6 Albumin/Globulin Ratio 0.8 L PFSH Medical History Loculated pleural effusion Nicotine dependence Emphysema lung Tobacco use disorder Reactive airway disease Alcohol dependence Alcohol withdrawal seizure Alcohol abuse Social History household members: family Smoking Status: Former smoker alcohol intake: current substance use type: marijuana Discharge Plan Discharge Plan Patient Disposition: Home Discharge orders & Medications Prescriptions: New furosemide [Lasix] 40 mg tablet 40 mg PO BID Qty: 60 2RF spironolactone 100 mg tablet 100 mg PO BID Qty: 60 2RF Continued fluticasone propion-salmeterol 250-50 mcg/dose blister with device 1 ea INHALATION BID tizanidine 4 mg tablet 4 mg PO Q8H PRN (Reason: Muscle Spasm) albuterol sulfate 90 mcg/actuation HFA aerosol inhaler 1 puff INHALATION Q4H PRN (Reason: wheezing/ sob) ipratropium-albuterol 0.5 mg-3 mg(2.5 mg base)/3 mL solution for nebulization 3 ml inhalation Q6H PRN (Reason: sob) epinephrine 0.3 mg/0.3 mL auto-injector 0.3 mg IM PRN PRN (Reason: Anaphylaxis) lorazepam [Ativan] 0.5 mg tablet 0.5 mg PO BID PRN (Reason: muscle spasm) Qty: 10 0RF tiotropium bromide [Spiriva with HandiHaler] 18 mcg capsule, w/inhalation device 1 cap inhalation DAILY Qty: 60 4RF Rx Instructions: puncture 1 cap using device; one dose = 2 inhalations Discontinued ibuprofen 600 mg tablet 600 mg PO TID PRN (Reason: pain/discomfort) furosemide [Lasix] 40 mg tablet 40 mg PO DAILY Qty: 10 0RF meloxicam 7.5 mg tablet 7.5 mg PO BID PRN (Reason: pain) Qty: 10 0RF gabapentin 600 mg tablet 600 mg PO TID PRN (Reason: Pain (Scale Score 1-3)) Follow up/Referrals: Elizabeth Milian ARNP [Primary Care Provider] Visit Report/Discharge Packet Stand Alone Forms: Patient Portal/API, Stroke Signs & Symptoms Discharge Data Primary Care Provider: Elizabeth Milian
[2024-08-05] MEDS: POTASSIUM CHLORIDE 20 MEQ TAB 40 MEQ PO (12:03)
--- NOTE | 2024-08-05 12:34 | CM.DPNOTE ---
DCP note CONTROL ANALYST reviewed EMR per provider in morning rounds, anticipate dc today. CONTROL ANALYST met with pt in room and introduced self and role. pt eager to dc home. reports friend will transport and he plans to have local supportive brother help him at home. denies ETOH resouces from this CONTROL ANALYST at this time I know what I need to do I don't need no triple A or anything like that. inquired about emergency rent assistance, CONTROL ANALYST provided local comm action/local financial assistance information as well as food stamp/govt assistance contacts. pt appreciative and denies other CM needd at this time. P: anticipate dc today with friend to transport, will be with brother at home. no other CM needs identified at this time. CM team will continue to follow as needed [facility]
--- NOTE | 2024-08-05 13:31 | PC.NURSE ---
Pt is dressed and ready for discharge home with friend. IV has been removed. Went over d/c instructions with Pt-discussed d/c meds, time of last dose, reviewed stroke education, encouraged Pt to elevate lower ext. to decrease swelling, and follow up. Pt states he has appointments set up at [facility] to diagnose and treat his liver disease. Discussed not taking acetamimophen due to liver compromise. Pt denied further questions and was taken out via w/c to pov with friend and all belongings.
== END 2024-08-05 13:36 | disposition home or self-care (01) | DRG 433 ==
LOC: ED 10:39 → AC 13:29
PROVIDERS: Internal Medicine; Admitting Provider Hospitalist; Emergency Provider Emergency Medicine; PCP Nurse Practitioner Family; Referring Provider Emergency Medicine; Visit Provider Hospitalist
DX: K70.31 Alcoholic cirrhosis of liver with ascites (principal); E87.1 Hypo-osmolality and hyponatremia; E87.20 Acidosis, unspecified; K76.6 Portal hypertension; L03.116 Cellulitis of left lower limb; L03.115 Cellulitis of right lower limb; F10.988 Alcohol use, unspecified with other alcohol-induced disorder; K70.11 Alcoholic hepatitis with ascites; Y90.3 Blood alcohol level of 60-79 mg/100 ml; J45.909 Unspecified asthma, uncomplicated; Z87.891 Personal history of nicotine dependence
CPT/HCPCS: 36415; 71045; 80053; 80320; 81001; 82107; 82140; 83605; 83690; 83735; 83880; 84484; 85025; 85610; 85730; 87797; 93005; 94640; 96374; 96375; 99283; 99284; G0378; J0696; J1171; J1650; J1938; J2405; J7613

== ENCOUNTER 2024-09-12 10:44 | Inpatient (IN) | payer MEDICAID, SELFPAY ==
[2024-09-12] VITALS (35 sets, daily range): BP systolic 85–123; BP diastolic 50–67; PULSE 83–104; RESP 13–25; TEMP 36.1–36.9; O2SAT 90–97; BMI 24.3; BMI 24.2
--- NOTE | 2024-09-12 11:04 | EKG_ITS ---
[facility] [address], [place] [address] Test Date: 2024-09-12 Pat Name: Sam Morel Department: [facility] Room: Gender: Male Training And Development Manager: ISADORA : 1975 Requested By: Order Number: [id number] Reading MD: oLrne Rodríguez MD Measurements Intervals [place] Rate: 99 P: 66 DC: 134 QRS: 40 QRSD: 84 T: 29 QT: 360 QTc: 462 Interpretive Statements Normal sinus rhythm Electronically Signed On 09-12-2024 12:16:33 PDT by Lorne Rodríguez MD
--- NOTE | 2024-09-12 11:35 | DI.CT.S_ITS ---
PROCEDURE: CT ABDOMEN PELVIS W CON INDICATIONS: abd pain TECHNIQUE: After the administration of intravenous contrast, axial sections acquired from the lung bases to the pubic symphysis. Coronal and sagittal reformats were performed. For radiation dose reduction, the following was used: automated exposure control, adjustment of mA and/or kV according to patient size. COMPARISON: [facility], CT, CT ABDOMEN PELVIS W CON, 07/22/2024, 11:57. FINDINGS: Image quality: Diagnostic. Lower Chest: Bibasilar dependent atelectasis are seen. Heart size is normal, no pericardial effusion. Small hiatal hernia. ABDOMEN: Liver: No solid mass. Lobulated liver contour is seen. Gallbladder: Cholelithiasis is again seen. No gallbladder wall thickening. Biliary ducts: No biliary dilation. Pancreas: No ductal dilation. Spleen: Size is within normal limits. Adrenal Glands: No adrenal nodules. Kidneys and Ureters: No hydronephrosis. No solid mass. No complex renal cystic lesion which requires follow up. Stomach and Bowel: There is no bowel obstruction. Questionable wall thickening involving small bowel loops and colon loops. No abscess collection. Appendix is visualized and is within normal limits. Peritoneum: Moderate amount of ascites fluid. No free air. Ventral Wall: No significant ventral hernia. Abdominal Nodes: No retroperitoneal or mesenteric adenopathy by size criteria. Vessels: Aorta and inferior vena cava are normal in size. Previously described recanalized umbilical vein and upper abdominal varices are again seen. PELVIS: Pelvic Organs: Unremarkable. Bladder: No bladder wall thickening, accounting for underdistention. Pelvic Nodes: No enlarged lymph nodes. Miscellaneous: No inguinal hernias are seen. Bones: No aggressive osseous abnormality. IMPRESSION: 1. Finding is concerning for infectious inflammatory enterocolitis. No abscess collection. 2. Moderate to large ascites fluid. No peritoneal free air. 3. Cirrhosis with portal venous hypertension. 4. Cholelithiasis without CT evidence of acute cholecystitis. Dictated by: Dimitris Painter M.D. on 09/12/2024 at 13:14 Approved by: Dimitris Painter M.D. on 09/12/2024 at 13:22
[2024-09-12 11:44] LABS: Add Manual Diff / Slide Review NO; Hematocrit 30.1 % (41-53); Hemoglobin 10.7 g/dL (13.5-17.5); Lymphocytes Absolute Auto 1100 /uL (1100-4500); Mean Corpuscular HGB Conc 35.5 % (30-36); Mean Corpuscular Hemoglobin 38.3 PG (26-34); Mean Corpuscular Volume 107.9 fL (80-100); Platelet Count 140 X10^3/uL (150-400)
[2024-09-12 11:58] LABS: Alanine Aminotransferase 37 IU/L (<50); Albumin 3.3 g/dL (3.5-5.0); Albumin Globulin Ratio 0.8 (1.0-2.8); Alkaline Phosphatase 142 U/L (38-126); Blood Urea Nitrogen 23 mg/dL (9-20); Calcium 8.7 mg/dL (8.4-10.2); Carbon Dioxide 20 mmol/L (22-32); Chloride 86 mmol/L (98-107); Estimated Glomerular Filt Rate 30 mL/min (>60); Globulin 4.1 g/dL (1.7-4.1); Glucose 124 mg/dL (70-99); HEMOLYSIS < 15 (0-50); Lipase 271 U/L (23-300); Potassium 4.9 mmol/L (3.4-5.1); Total Protein 7.4 g/dL (6.3-8.2)
[2024-09-12 12:00] LABS: Sodium 118 mmol/L (137-145)
--- NOTE | 2024-09-12 12:01 | PC.NURSE ---
made aware of sodium 118
[2024-09-12 12:12] LABS: Lactate (Lactic Acid) 3.3 mmol/L (0.7-2.1); Magnesium 1.9 mg/dL (1.6-2.3)
[2024-09-12] MEDS: ONDANSETRON 4 MG/2 ML INJ IV (12:25)
[2024-09-12] MEDS: SODIUM CHLORIDE 0.9% 1,000 ML 1000 ML IV (12:26)
[2024-09-12] MEDS: HYDROMORPHONE 1 MG INJ IV (12:26)
[2024-09-12 12:30] LABS: Procalcitonin 0.253 ng/mL (<0.5)
[2024-09-12 12:43] LABS: Thyroid Stimulating Hormone 4.58 uIU/mL (0.47-4.68)
--- NOTE | 2024-09-12 12:48 | PC.NURSE ---
FLUIDS STOPEPD PER MD ORDER
[2024-09-12 12:54] LABS: Ammonia (NH3) 12 umol/L (9-30)
[2024-09-12] MEDS: SODIUM CHLORIDE 3 % 100 ML 20 ML IV ×2 (13:26→18:38)
[2024-09-12 13:35] LABS: Reflexed Lactate in 2 Hours Y
[2024-09-12 13:42] LABS: Coronavirus NL 63 Not Detected (Not Detect); SARS- CoV-2 Not Detected (Not Detecte)
--- NOTE | 2024-09-12 14:09 | ED.ABDPAIN ---
HPI - Abdominal Pain General Chief Complaint: Abdominal Pain Stated Complaint: Throwing up Meds . Pain in both legs, Stomach pain Time Seen by Provider: 09/12/24 10:59 History of Present Illness HPI narrative: Pleasant 49-year-old man with a history of cirrhosis and chronic lower extremity pain comes to the ER because of abdominal pain and leg pain. He states that his oxycodone which he used to take for his leg pain was discontinued about a month ago. He also feels generally unwell along with having some nausea and vomiting. He answers all questions appropriately denies any confusion, somnolence or any other concerns or complaints at this time. He also denies fever, chills, sweats, diarrhea, melena. Related Data Home Medications ?Medication ?Instructions ?Recorded ?Confirmed albuterol sulfate 90 mcg/actuation 1 puff inhalation Q4H PRN 02/16/23 07/29/24 aerosol inhaler wheezing/ sob fluticasone 250 mcg-salmeterol 50 1 ea inhalation BID 02/16/23 07/29/24 mcg/dose blistr powdr for inhalation tizanidine 4 mg tablet 4 mg PO Q8H PRN Muscle Spasm 02/16/23 07/29/24 epinephrine 0.3 mg/0.3 mL 0.3 mg IM PRN PRN Anaphylaxis 07/29/24 07/29/24 injection, auto-injector ipratropium 0.5 mg-albuterol 3 mg 3 ml inhalation Q6H PRN sob 07/29/24 07/29/24 (2.5 mg base)/3 mL nebulization soln Previous Rx's ?Medication ?Instructions ?Recorded tiotropium bromide 18 mcg capsule 1 cap inhalation DAILY #60 12/19/23 with inhalation device (Spiriva inhalations with HandiHaler) lorazepam 0.5 mg tablet (Ativan) 0.5 mg PO BID PRN muscle spasm #10 07/22/24 tabs furosemide 40 mg tablet (Lasix) 40 mg PO BID #60 tabs 08/05/24 oxycodone-acetaminophen 5 mg-325 1 tab PO Q6H PRN pain #14 tabs 08/05/24 mg tablet (Percocet) prednisone 20 mg tablet 20 mg PO DAILY #7 tabs 08/05/24 spironolactone 100 mg tablet 100 mg PO BID #60 tabs 08/05/24 Allergies Allergy/AdvReac Type Severity Reaction Status Date / Time aspirin (ASPIRIN) Allergy Unknown ?CHILDHOOD Verified 07/29/24 10:42 Patient History Medical History Loculated pleural effusion Nicotine dependence Emphysema lung Tobacco use disorder Reactive airway disease Alcohol dependence Alcohol withdrawal seizure Alcohol abuse Social History household members: family alcohol intake: current substance use type: marijuana tobacco type: cigarettes alcohol intake frequency: 3 or more drinks per day Alcohol type: beer Exam Initial Vital Signs Initial Vital Signs: Vital Signs Temperature 98 F 09/12/24 10:48 Pulse Rate 104 H 09/12/24 10:48 Respiratory Rate 17 09/12/24 10:48 Blood Pressure 99/55 L 09/12/24 10:48 Pulse Oximetry 96 09/12/24 10:48 Oxygen Delivery Method Room Air 09/12/24 10:48 Const General: cooperative, No acute distress and No lethargic Nutritional Appearance: overweight HENMT Head: normal to inspection, normocephalic and atraumatic Eyes General: Yes appearance normal, both eyes and all related structures Neck Neck: normal visual inspection and No tender Chest Chest: normal inspection of the chest Resp Effort & Inspection: normal respiratory effort and no respiratory distress Auscultation: clear to auscultation bilaterally Cardio Rate: regular rate Rhythm: regular rhythm Heart Sounds: S1 normal and S2 normal Neuro General: patient alert, patient awake, patient oriented x3 and moves all extremities Cranial Nerves: CN's II-XI intact bilaterally, PERRL and EOM intact bilaterally Course Course Course Narrative: Patient seen and examined by myself upon arrival in the ER. His exam was nonfocal. His pain was well controlled with 1 dose of Dilaudid. Given his history of cirrhosis he did not have a tense abdomen and also had no fevers so concern for SBP was pretty low. Nevertheless, I did do CT of the abdomen and labs. Labs showed sodium of 118 and he was started on hypertonic saline drip. Once the imaging was resident results were back which were nonacute I called the hospitalist who accepted the patient for admission to the ICU. Orders Ordered: ED Orders 09/12/24 10:58 EKG-12 Lead Stat 09/12/24 11:25 Complete Blood Count AUTO DIFF Stat Comprehensive Metabolic Panel Stat Lactate (Lactic Acid) Stat Lipase Stat Magnesium Stat Procalcitonin Stat TSH [Thyroid Stimulating Hormone] Stat 09/12/24 11:35 CT abdomen pelvis w con Stat 09/12/24 11:56 Urinalysis and Microscopic Stat 09/12/24 12:19 Respiratory Panel (Film Array) Stat 09/12/24 12:30 Ammonia (NH3) Stat Sodium Chloride (Hypertonic Saline 3%) 100 mls @ 20 mls/hr IV NOW ONE Stop: 09/12/24 18:00 Last Admin: 09/12/24 13:26 Dose: 20 mls/hr Documented By: JENIFFER Ondansetron HCl (Ondansetron 4 Mg/2 Ml Inj) 4 mg IV NOW PRN PRN Reason: Nausea And Vomiting Last Admin: 09/12/24 12:25 Dose: 4 mg Documented By: KAYODE Ondansetron HCl (Ondansetron 4 Mg Odt) 4 mg PO NOW PRN PRN Reason: Nausea And Vomiting Discontinued Medications Hydromorphone HCl (Hydromorphone 1 Mg Inj) 1 mg IV NOW ONE Stop: 09/12/24 11:54 Last Admin: 09/12/24 12:26 Dose: 1 mg Documented By: KAYODE Sodium Chloride (Normal Saline 0.9%) 1,000 mls @ 1,000 mls/hr IV BOLUS ONE Stop: 09/12/24 12:52 Last Infusion: 09/12/24 12:47 Dose: 0 mls/hr Documented By: Admin: 09/12/24 12:26 Dose: 1,000 mls/hr Documented By: KAYODE Vital Signs Vital signs: Vital Signs - 8 hr 09/12/24 10:48 09/12/24 11:05 09/12/24 11:06 Temperature 98 F Pulse Rate 104 H 100 H Respiratory Rate 17 Blood Pressure 99/55 L 103/61 Pulse Oximetry 96 95 Oxygen Delivery Method Room Air 09/12/24 11:30 09/12/24 11:30 09/12/24 11:40 Temperature Pulse Rate 97 H 96 H Respiratory Rate 20 Blood Pressure 98/60 Pulse Oximetry 93 94 Oxygen Delivery Method 09/12/24 11:40 09/12/24 12:13 09/12/24 12:14 Temperature Pulse Rate 94 H 93 H Respiratory Rate 21 Blood Pressure 93/60 Pulse Oximetry 95 95 Oxygen Delivery Method 09/12/24 12:14 07/11/25 12:30 09/12/24 12:33 Temperature Pulse Rate 93 H 94 H Respiratory Rate 25 H Blood Pressure 99/61 Pulse Oximetry 97 96 Oxygen Delivery Method 09/12/24 12:33 09/12/24 12:36 09/12/24 12:36 Temperature Pulse Rate 92 H Respiratory Rate Blood Pressure 101/61 102/59 L Pulse Oximetry 95 Oxygen Delivery Method 09/12/24 12:40 09/12/24 12:40 09/12/24 12:45 Temperature Pulse Rate 92 H 92 H Respiratory Rate 21 18 Blood Pressure 99/55 L Pulse Oximetry 91 93 Oxygen Delivery Method 09/12/24 12:45 09/12/24 13:00 09/12/24 13:00 Temperature Pulse Rate 92 H Respiratory Rate 22 Blood Pressure 101/57 L 99/55 L Pulse Oximetry 92 Oxygen Delivery Method 09/12/24 13:15 09/12/24 13:15 09/12/24 13:30 Temperature Pulse Rate 90 Respiratory Rate 14 Blood Pressure 93/50 L 97/52 L Pulse Oximetry 92 Oxygen Delivery Method 09/12/24 13:30 09/12/24 13:45 09/12/24 13:45 Temperature Pulse Rate 93 H 90 Respiratory Rate 23 Blood Pressure 93/55 L Pulse Oximetry 93 92 Oxygen Delivery Method 09/12/24 14:00 09/12/24 14:00 Temperature Pulse Rate 91 H Respiratory Rate 17 Blood Pressure 94/52 L Pulse Oximetry 94 Oxygen Delivery Method MDM - Abdominal Pain Differential Diagnosis Differential diagnosis: Likely abdominal pain, acute appendicitis, diverticulitis, gastroenteritis, pancreatitis and small bowel obstruction Lab Data 09/12/24 11:25 09/12/24 11:25 Labs: Lab Results 09/12/24 09/12/24 09/12/24 Range/Units 11:25 12:19 12:30 WBC 10.0 (4.5-11.0) X10^3/uL RBC 2.79 L (4.5-5.9) X10^6/uL Hgb 10.7 L (13.5-17.5) g/dL Hct 30.1 L (41-53) % MCV 107.9 H (80-100) fL MCH 38.3 H (26-34) PG MCHC 35.5 (30-36) % RDW 16.6 H (11.6-14.8) % Plt Count 140 L (150-400) X10^3/uL Neut % (Auto) 76.8 H (50-75) % Lymph % (Auto) 11.2 L (25-40) % Bowman % (Auto) 9.4 (3-14) % Eos % (Auto) 1.2 L (2-4) % Baso % (Auto) 1.4 (0-2) % Neut # (Auto) 7700 H (9058-4218) /uL Lymph # (Auto) 1100 (8717-1889) /uL Bowman # (Auto) 900 (0-900) /uL Eos # (Auto) 100 (0-450) /uL Baso # (Auto) 100 (0-100) /uL Sodium 118 L* (137-145) mmol/L Potassium 4.9 (3.4-5.1) mmol/L Chloride 86 L (98-107) mmol/L Carbon Dioxide 20 L (22-32) mmol/L BUN 23 H (9-20) mg/dL Creatinine 2.54 H (0.66-1.25) mg/dL Estimated GFR 30 L (>60) mL/min BUN/Creatinine Ratio 9.1 (6-22) Glucose 124 H (70-99) mg/dL Lactate 3.3 H (0.7-2.1) mmol/L Calcium 8.7 (8.4-10.2) mg/dL Magnesium 1.9 (1.6-2.3) mg/dL Total Bilirubin 7.1 H (0.2-1.3) mg/dL AST 60 H (17-59) IU/L ALT 37 (<50) IU/L Alkaline Phosphatase 142 H (38-126) U/L Ammonia 12 (9-30) umol/L Total Protein 7.4 (6.3-8.2) g/dL Albumin 3.3 L (3.5-5.0) g/dL Globulin 4.1 (1.7-4.1) g/dL Albumin/Globulin Ratio 0.8 L (1.0-2.8) Lipase 271 (23-300) U/L Procalcitonin 0.253 (<0.5) ng/mL TSH 4.58 (0.47-4.68) uIU/mL Chlamy pneumoniae PCR Not detected (Not Detect) Adenovirus (PCR) Not detected (Not Detect) B. pertussis DNA (PCR) Not detected (Not Detect) B.parapertussis DNA PCR Not detected (Not Detecte) Coronavirus OC43 (PCR) Not detected (Not Detect) Coronavirus HKU1 (PCR) Not detected (Not Detect) Coronavirus 229E (PCR) Not detected (Not Detect) SARS-CoV-2 (PCR) Not detected (Not Detecte) Coronavirus NL63 (PCR) Not detected (Not Detect) Human Metapneumovir PCR Not detected (Not Detect) Influenza Type A (PCR) Not detected (Not Detect) Influenza Type B (PCR) Not detected (Not Detect) M. pneumoniae (PCR) Not detected (Not Detect) Parainfluenza 1 (PCR) Not detected (Not Detect) Parainfluenza 2 (PCR) Not detected (Not Detect) Parainfluenza 3 (PCR) Not detected (Not Detect) Parainfluenza 4 (PCR) Not detected (Not Detect) RSV (PCR) Not detected (Not Detect) Entero/Rhino (PCR) Not detected (Not Detect) ECG Data Interpretation: NSR rate 99 Discharge Plan Departure Patient Disposition: Admitted As Inpatient Clinical Impression: Hyponatremia Admit Date/Time: 09/12/24 14:00 Admit Provider: Yue Rodriguez
--- NOTE | 2024-09-12 14:20 | PM.HP.1 ---
History of Present Illness History of Present Illness Date Patient Seen: 09/12/24 Chief complaint: Throwing up Meds . Pain in both legs, Stomach pain Narrative: This is a 49-year-old male with a history of alcoholism, alcoholic cirrhosis, loculated pleural effusion, tobacco use and cellulitis who presents with vomiting and increasing fatigue. He is found to have a sodium of 118, down from his usual mid 120 range. He was recently started on b.i.d. Lasix and spironolactone, which is a possible cause. He was last admitted in July. CT scan suggests infectious/inflammatory enterocolitis, moderate ascites, liver cirrhosis and cholelithiasis. [facility] Medical History ALC (alcoholic liver cirrhosis) Loculated pleural effusion Nicotine dependence Emphysema lung Tobacco use disorder Reactive airway disease Alcohol dependence Alcohol withdrawal seizure Alcohol abuse Social History household members: family alcohol intake: current substance use type: marijuana Meds Home Medications and Allergies Home Medications ?Medication ?Instructions ?Recorded ?Confirmed ?Type albuterol sulfate 90 mcg/actuation 1 puff inhalation Q4H PRN 02/16/23 07/29/24 History aerosol inhaler wheezing/ sob fluticasone 250 mcg-salmeterol 50 1 ea inhalation BID 02/16/23 07/29/24 History mcg/dose blistr powdr for inhalation tizanidine 4 mg tablet 4 mg PO Q8H PRN Muscle Spasm 02/16/23 07/29/24 History tiotropium bromide 18 mcg capsule 1 cap inhalation DAILY #60 12/19/23 07/29/24 Rx with inhalation device (Spiriva inhalations with HandiHaler) lorazepam 0.5 mg tablet (Ativan) 0.5 mg PO BID PRN muscle spasm #10 07/22/24 07/29/24 Rx tabs epinephrine 0.3 mg/0.3 mL 0.3 mg IM PRN PRN Anaphylaxis 07/29/24 07/29/24 History injection, auto-injector ipratropium 0.5 mg-albuterol 3 mg 3 ml inhalation Q6H PRN sob 07/29/24 07/29/24 History (2.5 mg base)/3 mL nebulization soln furosemide 40 mg tablet (Lasix) 40 mg PO BID #60 tabs 08/05/24 Rx oxycodone-acetaminophen 5 mg-325 1 tab PO Q6H PRN pain #14 tabs 08/05/24 Rx mg tablet (Percocet) prednisone 20 mg tablet 20 mg PO DAILY #7 tabs 08/05/24 Rx spironolactone 100 mg tablet 100 mg PO BID #60 tabs 08/05/24 Rx Allergies Allergy/AdvReac Type Severity Reaction Status Date / Time aspirin (ASPIRIN) Allergy Unknown ?CHILDHOOD Verified 07/29/24 10:42 Review of Systems Review of Systems Narrative: Positive for fatigue, vomiting, excessive bleeding. Negative for fevers, chills, sweats, nausea, dysuria, abdominal pain, chest pain, shortness breast, coughing, fever, sore throat, new allergies. Exam Vital Signs (past 8 hours): - 09/12/24 10:48 09/12/24 11:05 09/12/24 11:06 Temperature 98 F Pulse Rate 104 H 100 H Respiratory Rate 17 Blood Pressure 99/55 L 103/61 Pulse Oximetry 96 95 Oxygen Delivery Method Room Air 09/12/24 11:30 09/12/24 11:30 09/12/24 11:40 Temperature Pulse Rate 97 H 96 H Respiratory Rate 20 Blood Pressure 98/60 Pulse Oximetry 93 94 Oxygen Delivery Method 09/12/24 11:40 09/12/24 12:13 09/12/24 12:14 Temperature Pulse Rate 94 H 93 H Respiratory Rate 21 Blood Pressure 93/60 Pulse Oximetry 95 95 Oxygen Delivery Method 09/12/24 12:14 09/12/24 12:30 09/12/24 12:33 Temperature Pulse Rate 93 H 94 H Respiratory Rate 25 H Blood Pressure 99/61 Pulse Oximetry 97 96 Oxygen Delivery Method 09/12/24 12:33 09/12/24 12:36 09/12/24 12:36 Temperature Pulse Rate 92 H Respiratory Rate Blood Pressure 101/61 102/59 L Pulse Oximetry 95 Oxygen Delivery Method 09/12/24 12:40 09/12/24 12:40 09/12/24 12:45 Temperature Pulse Rate 92 H 92 H Respiratory Rate 21 18 Blood Pressure 99/55 L Pulse Oximetry 91 93 Oxygen Delivery Method 09/12/24 12:45 09/12/24 13:00 09/12/24 13:00 Temperature Pulse Rate 92 H Respiratory Rate 22 Blood Pressure 101/57 L 99/55 L Pulse Oximetry 92 Oxygen Delivery Method 09/12/24 13:15 09/12/24 13:15 09/12/24 13:30 Temperature Pulse Rate 90 Respiratory Rate 14 Blood Pressure 93/50 L 97/52 L Pulse Oximetry 92 Oxygen Delivery Method 09/12/24 13:30 09/12/24 13:45 09/12/24 13:45 Temperature Pulse Rate 93 H 90 Respiratory Rate 23 Blood Pressure 93/55 L Pulse Oximetry 93 92 Oxygen Delivery Method 09/12/24 14:00 09/12/24 14:00 Temperature Pulse Rate 91 H Respiratory Rate 17 Blood Pressure 94/52 L Pulse Oximetry 94 Oxygen Delivery Method Oxygen Delivery Method Room Air Narrative Exam Narrative: Alert and oriented x3. No apparent distress Significant cirrhotic stigmata including signs of unopposed estrogen, spider hemangioma of the chest and mild jaundice/icterus appearance. Pupils are equally round and reactive to light and accommodation. Sclerae are icteric Extraocular muscles are intact Heart is regular rate and rhythm without murmur Lungs are clear to auscultation bilaterally Abdomen is distended, soft, bowel sounds positive, nontender, no organomegaly, no evident ascites. Extremities have no ankle edema Neurologic exam: There is no asterixis, reflexes are normal, cranial nerves 2-12 test intact, there is no tremor, motor function is 4/5 throughout. Skin: Multiple chest wall spider hemangioma lesions. Mild jaundice. Objective Labs 09/12/24 11:25 09/12/24 11:25 Labs: Laboratory Results - last 24 hr 09/12/24 09/12/24 09/12/24 11: 12:19 12:30 WBC 10.0 RBC 2.79 L Hgb 10.7 L Hct 30.1 L MCV 107.9 H MCH 38.3 H MCHC 35.5 RDW 16.6 H Plt Count 140 L Neut % (Auto) 76.8 H Lymph % (Auto) 11.2 L Dickenson % (Auto) 9.4 Eos % (Auto) 1.2 L Baso % (Auto) 1.4 Neut # (Auto) 7700 H Lymph # (Auto) 1100 Dickenson # (Auto) 900 Eos # (Auto) 100 Baso # (Auto) 100 Sodium 118 L* Potassium 4.9 Chloride 86 L Carbon Dioxide 20 L BUN 23 H Creatinine 2.54 H Estimated GFR 30 L BUN/Creatinine Ratio 9.1 Glucose 124 H Lactate 3.3 H Calcium 8.7 Magnesium 1.9 Total Bilirubin 7.1 H AST 60 H ALT 37 Alkaline Phosphatase 142 H Ammonia 12 Total Protein 7.4 Albumin 3.3 L Globulin 4.1 Albumin/Globulin Ratio 0.8 L Lipase 271 Procalcitonin 0.253 TSH 4.58 Chlamy pneumoniae PCR Not detected Adenovirus (PCR) Not detected B. pertussis DNA (PCR) Not detected B.parapertussis DNA PCR Not detected Coronavirus OC43 (PCR) Not detected Coronavirus HKU1 (PCR) Not detected Coronavirus 229E (PCR) Not detected SARS-CoV-2 (PCR) Not detected Coronavirus NL63 (PCR) Not detected Human Metapneumovir PCR Not detected Influenza Type A (PCR) Not detected Influenza Type B (PCR) Not detected M. pneumoniae (PCR) Not detected Parainfluenza 1 (PCR) Not detected Parainfluenza 2 (PCR) Not detected Parainfluenza 3 (PCR) Not detected Parainfluenza 4 (PCR) Not detected RSV (PCR) Not detected Entero/Rhino (PCR) Not detected Assessment & Plan Assessment & Plan narrative: This is a 49-year-old male with a history of alcoholism, alcoholic cirrhosis, loculated pleural effusion, tobacco use and cellulitis who presents with vomiting and increasing fatigue. He is found to have a sodium of 118, down from his usual mid 120 range. He was recently started on b.i.d. Lasix and spironolactone, which is a possible cause. Hyponatremia, present on admission, active -sodium 118 probably secondary to spironolactone/Lasix. His Baseline sodium is generally in the mid 120s. -goal of increasing the sodium by 4-6 over the initial 24 hours. -3% sodium chloride infusion and repeat sodium after that is completed. -holding Lasix and spironolactone initially. Alcoholic liver cirrhosis, present on admission, chronic. -patient states he no longer drinks. -patient was referred to GI but it is unclear if he has ever gone. He maybe a candidate for TIPS? -he was recently started on Lasix 40 mg b.i.d. and spironolactone 100 mg b.i.d. but has not tolerated those doses. -continues with ascites on CT scan -bilirubin 7.1 on admission Portal hypertension with ascites, present on admission, chronic. -cautious IV fluid supplementation and resumption of diuretic treatment in the next few days. Enterocolitis, Infectious/Inflammatory, present on admission, active. -Supportive treatment for now. Lovenox for DVT prevention Unclear/undefined backup decision maker. Time-Based Coding :: [TOTAL MINUTES] spent with patient and on the chart (including review of chart, obtaining history, exam, reviewing outside data, placing orders, documenting exam and treatment plan, and counseling patient) on [DATE].
[2024-09-12 14:21] LABS: Lactate 2HR (Lactic Acid Rflx) 1.5 mmol/L (0.7-2.1)
[2024-09-12 15:57] LABS: Blood Urea Nitrogen 24 mg/dL (9-20); Calcium 8.0 mg/dL (8.4-10.2); Carbon Dioxide 22 mmol/L (22-32); Chloride 89 mmol/L (98-107); Estimated Glomerular Filt Rate 35 mL/min (>60); Glucose 124 mg/dL (70-99); HEMOLYSIS 25 (0-50); Potassium 4.9 mmol/L (3.4-5.1)
[2024-09-12 15:59] LABS: Sodium 118 mmol/L (137-145)
--- NOTE | 2024-09-12 17:59 | DI.RAD.S_ITS ---
PROCEDURE: XR CHEST 1V INDICATIONS: picc placement TECHNIQUE: One view of the chest was acquired. COMPARISON: [facility], , XR CHEST 1V, 07/29/2024, 11:09. FINDINGS: Surgical changes and devices: None. Lungs and pleura: Low lung volumes. Persistent small left pleural effusion with subjacent atelectasis. No new focal airspace consolidation.. Mediastinum: Mediastinal contours appear normal. Heart size is normal. Bones and chest wall: No suspicious bony lesions. Overlying soft tissues appear unremarkable. Chronic bilateral rib fracture deformities. IMPRESSION: Compared to prior radiograph on 07/29/2024, small left pleural effusion with subjacent atelectasis persists. No new focal airspace consolidation. Approved by: Melanie Franco M.D.,Ph.D. on 09/12/2024 at 20:46
--- NOTE | 2024-09-12 18:01 | PC.NURSE ---
PT ADMITTED AT 1505 TO ICU. A/OX4. 96% ON ROOM AIR. BP 115/56. HEART RATE 96. TEMP 97.5F. 3% NS RUNNING AT 20 MLS/HR IN LEFT AC. R UA ALSO PRESENT. LABS DRAWN. REPEAT Na CRITICAL AT 118. REPORTED TO DR NORRIS AT 1559. Q4 BMPS/ ORDER FOR PICC LINE PLACED. PICC LINE NURSE AT BEDSIDE CURRENTLY PLACING PICC. PT TOLERATING PO INTAKE. NO CONCERNS NOTED AT THIS TIME. NEXT BMP TO BE DRAWN AT 1930. CARE ONGOING.
[2024-09-12] MEDS: OXYCODONE/ACETAMINOPHEN 5/325 TABLET 1 TAB PO (18:38)
[2024-09-12 20:44] LABS: Blood Urea Nitrogen 26 mg/dL (9-20); Calcium 7.7 mg/dL (8.4-10.2); Carbon Dioxide 22 mmol/L (22-32); Chloride 87 mmol/L (98-107); Estimated Glomerular Filt Rate 33 mL/min (>60); Glucose 155 mg/dL (70-99); HEMOLYSIS 20 (0-50); Potassium 4.8 mmol/L (3.4-5.1)
[2024-09-12 20:51] LABS: Sodium 116 mmol/L (137-145)
[2024-09-12] MEDS: FUROSEMIDE 40 MG TABLET PO (21:22)
[2024-09-13] VITALS (35 sets, daily range): BP systolic 90–105; BP diastolic 52–68; PULSE 83–106; RESP 13–24; TEMP 35.8–36.6; O2SAT 88–100
[2024-09-13 00:18] LABS: Blood Urea Nitrogen 27 mg/dL (9-20); Calcium 7.8 mg/dL (8.4-10.2); Carbon Dioxide 23 mmol/L (22-32); Chloride 89 mmol/L (98-107); Estimated Glomerular Filt Rate 30 mL/min (>60); Glucose 132 mg/dL (70-99); HEMOLYSIS < 15 (0-50); Potassium 4.8 mmol/L (3.4-5.1)
[2024-09-13 00:22] LABS: Sodium 118 mmol/L (137-145)
[2024-09-13] MEDS: SODIUM CHLORIDE 0.9% 1,000 ML 100 ML IV (01:40)
[2024-09-13 02:47] LABS: MRSA (Nasal) PCR NOT DETECTED (Not Detect)
[2024-09-13 04:39] LABS: Add Manual Diff / Slide Review NO; Hematocrit 24.1 % (41-53); Hemoglobin 8.6 g/dL (13.5-17.5); Lymphocytes Absolute Auto 1400 /uL (1100-4500); Mean Corpuscular HGB Conc 35.8 % (30-36); Mean Corpuscular Hemoglobin 38.7 PG (26-34); Mean Corpuscular Volume 108.1 fL (80-100); Platelet Count 99 X10^3/uL (150-400)
[2024-09-13 04:50] LABS: Blood Urea Nitrogen 28 mg/dL (9-20); Calcium 8.0 mg/dL (8.4-10.2); Carbon Dioxide 22 mmol/L (22-32); Chloride 90 mmol/L (98-107); Estimated Glomerular Filt Rate 29 mL/min (>60); Glucose 113 mg/dL (70-99); HEMOLYSIS < 15 (0-50); Potassium 4.7 mmol/L (3.4-5.1)
[2024-09-13 04:56] LABS: Sodium 118 mmol/L (137-145)
[2024-09-13] MEDS: SODIUM CHLORIDE 0.9% FLUSH 10 ML IV ×2 (09:19→20:02)
--- NOTE | 2024-09-13 09:36 | CM.DANOTE ---
DCP Assessment Note pt is a 49yo M admitted with low sodium. remains 118. PCP Elizabeth Milian Payer Jamil and self pay CRISIS THERAPIST reviewed EMR. CRISIS THERAPIST entered room and introduced self and role. pt sitting up in bed finishing up breakfast. A/Ox4. lives alone indep in [place]. reports only CM need is he's been having trouble getting on SNAP/food stamps portal on phone/tablet. CRISIS THERAPIST provided the phone number to call and additional information. pt appreciative. has local family that can take him home at dc. 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 P: dc home when medically stable/sodium WNL. CM team will continue to follow in case any DCP needs should arise [facility] Discharge Planning/Care Management CM Discharge Assessment Start: 09/12/24 14:05 Freq: Status: Active Protocol: Document 09/13/24 09:35 SL (Rec: 09/13/24 09:36 SL Desktop) Discharge Planning Assessment Assigned Discharge [facility] DPOA/Assigned Elpidio, mother Designee Name Contact Information [phone] Advance Directives? No History Provided By Patient,Medical Record Prior Living House Arrangements Household Members none Type of Drives own vehicle transporation used prior to admit Independent with ADL Yes 's Is patient alert and Yes oriented? Discharge Plan Home Transportation Family Arrangement Referrals Initiated None needed Review Status In Process Please Provide Date 09/13/24 Initial DC Assessment Was Performed Next Review Type Continued Stay Review
[2024-09-13] MEDS: OXYCODONE/ACETAMINOPHEN 5/325 TABLET 1 TAB PO ×2 (10:44→20:02)
[2024-09-13 11:22] LABS: Blood Urea Nitrogen 26 mg/dL (9-20); Calcium 7.9 mg/dL (8.4-10.2); Carbon Dioxide 20 mmol/L (22-32); Chloride 90 mmol/L (98-107); Estimated Glomerular Filt Rate 32 mL/min (>60); Glucose 132 mg/dL (70-99); HEMOLYSIS < 15 (0-50); Potassium 4.6 mmol/L (3.4-5.1)
[2024-09-13 11:24] LABS: Sodium 118 mmol/L (137-145)
--- NOTE | 2024-09-13 11:29 | PC.NURSE ---
0741: REQUESTED LABS FROM MD. MESSAGE SEEN. NO RESPONSE. 0939: REQUESTED LABS FROM MD. MESSAGE SEEN. NO RESPONSE. 1100: REQUESTED LABS FROM MD. Q8 BMPS ORDERED. MD STATES TO HOLD LOVENOX D/T PT HX OF GI BLEEDS. ALSO STATES TO HOLD LASIX AND D/C FLUIDS. STATES HE WILL DISCUSS PLAN OF CARE WITH PATIENT. 1124: CRITICAL NA 118 REPORTED TO MD. NO NEW ORDERS. STATES THERE NO NEED TO MONITOR NA D/T PT HX/ CONDITION. STATES HE CAN GO HOME WHEN HE FEELS GOOD AND IS EATING/ DRINKING. MADE AWARE OF PT UNSTABLE ON AND BP'S SOFT. MAPS > 60. NO NEW ORDERS.
--- NOTE | 2024-09-13 16:55 | P.PN_ITS ---
Subjective Subjective Date Patient Seen: 09/13/24 Interval history: Chief complaint: Nausea vomiting abdominal discomfort secondary to enterocolitis in the setting of chronic liver disease and chronic hyponatremia HPI: 09/12: This is a 49-year-old male with a history of alcoholism, alcoholic cirrhosis, loculated pleural effusion, tobacco use and cellulitis who presents with vomiting and increasing fatigue. He is found to have a sodium of 118, down from his usual mid 120 range. He was recently started on b.i.d. Lasix and spironolactone, which is a possible cause. He was last admitted in July. CT scan suggests infectious/inflammatory enterocolitis, moderate ascites, liver cirrhosis and cholelithiasis. Hospital course: 09/13: Patient is feeling somewhat better but still having nausea and discomfort sodium remains unchanged at 118 and has not moved patient was started on normal saline and Lasix Review of systems: No unusual weight loss or weight gain No headache diplopia blurred vision No chest pain palpitations shortness for breath No urinary symptoms No paresis Physical exam: Chronically ill but alert cogent no acute distress No right labored respirations Abdomen is distended but nontender Trace edema of lower extremity Neurologic nonfocal Diminished light touch of feet bilaterally Assessment and plan: This is a 49-year-old male with a history of alcoholism, alcoholic cirrhosis, loculated pleural effusion, tobacco use and cellulitis who presents with vomiting and increasing fatigue. He is found to have a sodium of 118, down from his usual mid 120 range. He was recently started on b.i.d. Lasix and spironolactone, which is a possible cause. Hyponatremia, present on admission, active -sodium 118 probably secondary to spironolactone/Lasix. His Baseline sodium is generally in the mid 120s. -goal of increasing the sodium by 4-6 over the initial 24 hours. -3% sodium chloride infusion and repeat sodium after that is completed. -holding Lasix and spironolactone initially. Alcoholic liver cirrhosis, present on admission, chronic. -patient states he no longer drinks. -patient was referred to GI but it is unclear if he has ever gone. He maybe a candidate for TIPS? -he was recently started on Lasix 40 mg b.i.d. and spironolactone 100 mg b.i.d. but has not tolerated those doses. -continues with ascites on CT scan -bilirubin 7.1 on admission Portal hypertension with ascites, present on admission, chronic. -cautious IV fluid supplementation and resumption of diuretic treatment in the next few days. Enterocolitis, Infectious/Inflammatory, present on admission, active. -Supportive treatment for now. Lovenox for DVT prevention Unclear/undefined backup decision maker. Time-Based Coding :: 35 minutes spent with patient and on the chart (including review of chart, obtaining history, exam, reviewing outside data, placing orders, documenting exam and treatment plan, and counseling patient) Exam Vital Signs (past 8 hours): - 09/13/24 09:00 09/13/24 10:00 09/13/24 11:00 Temperature Pulse Rate 100 H 104 H 98 H Respiratory Rate 23 20 20 Blood Pressure 102/61 97/61 96/64 Pulse Oximetry 94 93 91 Oxygen Delivery Method Oxygen Flow Rate 09/13/24 12:00 09/13/24 12:00 09/13/24 14:30 Temperature 97.2 F L Pulse Rate Respiratory Rate Blood Pressure 97/54 L Pulse Oximetry Oxygen Delivery Method Room Air Oxygen Flow Rate 09/13/24 14:32 09/13/24 14:34 09/13/24 15:00 Temperature 96.4 F L Pulse Rate 102 H 101 H Respiratory Rate 24 Blood Pressure 97/54 L 99/55 L Pulse Oximetry 93 91 Oxygen Delivery Method Oxygen Flow Rate 0 09/13/24 15:00 09/13/24 15:30 09/13/24 15:57 Temperature Pulse Rate 102 H 97 H Respiratory Rate Blood Pressure Pulse Oximetry 91 88 L Oxygen Delivery Method Room Air Oxygen Flow Rate 09/13/24 16:00 09/13/24 16:00 09/13/24 16:00 Temperature 97.5 F L Pulse Rate 93 H Respiratory Rate Blood Pressure 93/52 L Pulse Oximetry 88 L Oxygen Delivery Method Oxygen Flow Rate Oxygen Delivery Method Room Air Oxygen Flow Rate 0 Objective Labs 09/13/24 04:25 09/14/24 12:58 Labs: Laboratory Results - last 24 hr 09/12/24 09/12/24 09/13/24 20:20 23:55 01:00 WBC RBC Hgb Hct MCV MCH MCHC RDW Plt Count Neut % (Auto) Lymph % (Auto) [place] % (Auto) Eos % (Auto) Baso % (Auto) Neut # (Auto) Lymph # (Auto) [place] # (Auto) Eos # (Auto) Baso # (Auto) Sodium 116 L* 118 L* Potassium 4.8 4.8 Chloride 87 L 89 L Carbon Dioxide 22 23 BUN 26 H 27 H Creatinine 2.38 H 2.54 H Estimated GFR 33 L 30 L BUN/Creatinine Ratio 10.9 10.6 Glucose 155 H 132 H Calcium 7.7 L 7.8 L Nasal Screen MRSA (PCR) Not detected 09/13/24 09/13/24 04:25 10:58 WBC 9.4 RBC 2.23 L Hgb 8.6 L Hct 24.1 L MCV 108.1 H MCH 38.7 H MCHC 35.8 RDW 16.7 H Plt Count 99 L Neut % (Auto) 71.2 Lymph % (Auto) 14.7 L [place] % (Auto) 9.3 Eos % (Auto) 2.2 Baso % (Auto) 2.6 H Neut # (Auto) 6700 Lymph # (Auto) 1400 [place] # (Auto) 900 Eos # (Auto) 200 Baso # (Auto) 200 H Sodium 118 L* 118 L* Potassium 4.7 4.6 Chloride 90 L 90 L Carbon Dioxide 22 20 L BUN 28 H 26 H Creatinine 2.65 H 2.46 H Estimated GFR 29 L 32 L BUN/Creatinine Ratio 10.6 10.6 Glucose 113 H 132 H Calcium 8.0 L 7.9 L Nasal Screen MRSA (PCR) PFSH Medical History ALC (alcoholic liver cirrhosis) Loculated pleural effusion Nicotine dependence Emphysema lung Tobacco use disorder Reactive airway disease Alcohol dependence Alcohol withdrawal seizure Alcohol abuse Social History household members: none Smoking Status: Current some day smoker alcohol intake: former substance use type: marijuana Assessment & Plan Time-Based Coding :: [TOTAL MINUTES] spent with patient and on the chart (including review of chart, obtaining history, exam, reviewing outside data, placing orders, documenting exam and treatment plan, and counseling patient) on [DATE]. Quality VTE Deep Vein Thrombosis/Pulmonary Embolism Present on Admission: No
[2024-09-13] MEDS: ONDANSETRON 4 MG/2 ML INJ IV (17:22)
[2024-09-13 19:05] LABS: Blood Urea Nitrogen 28 mg/dL (9-20); Calcium 7.7 mg/dL (8.4-10.2); Carbon Dioxide 23 mmol/L (22-32); Chloride 89 mmol/L (98-107); Estimated Glomerular Filt Rate 33 mL/min (>60); Glucose 120 mg/dL (70-99); HEMOLYSIS < 15 (0-50); Potassium 4.6 mmol/L (3.4-5.1)
[2024-09-13 19:10] LABS: Sodium 118 mmol/L (137-145)
[2024-09-14] VITALS (36 sets, daily range): BP systolic 89–117; BP diastolic 50–73; PULSE 90–107; RESP 18; TEMP 36.1–36.6; O2SAT 88–96
[2024-09-14] MEDS: OXYCODONE IR 5 MG TABLET PO ×4 (02:29→22:01)
[2024-09-14] MEDS: SODIUM CHLORIDE 0.9% FLUSH 10 ML IV ×2 (08:54→21:09)
--- NOTE | 2024-09-14 09:50 | PC.NURSE ---
0978 DR LARSEN AT BEDSIDE HAVING DISCUSSION WITH PATIENT AND BROTHER REGARDING PLAN OF CARE. MD STATES HE WILL RESUME LASIX AND GABAPENTIN AND DISCHARGE TOMORROW. ALSO STATES IS OK TO DOWNGRADE FROM ICU AND IS OKAY WITH Q12H VITAL SIGNS. AWARE OF PT HAVING HYPOTENSION.
[2024-09-14] MEDS: FUROSEMIDE 40 MG/4 ML VIAL 20 MG IV (12:53)
[2024-09-14 13:18] LABS: Blood Urea Nitrogen 28 mg/dL (9-20); Calcium 8.3 mg/dL (8.4-10.2); Carbon Dioxide 16 mmol/L (22-32); Chloride 86 mmol/L (98-107); Estimated Glomerular Filt Rate 37 mL/min (>60); Glucose 131 mg/dL (70-99); HEMOLYSIS < 15 (0-50); Potassium 4.9 mmol/L (3.4-5.1)
[2024-09-14 13:20] LABS: Sodium 114 mmol/L (137-145)
[2024-09-14] MEDS: GABAPENTIN 100 MG CAPSULE PO ×2 (14:07→20:56)
[2024-09-14] MEDS: SODIUM CHLORIDE 1,000 MG TABLET 1000 MG PO ×3 (14:07→20:56)
--- NOTE | 2024-09-14 14:37 | P.PN_ITS ---
Subjective Subjective Date Patient Seen: 09/14/24 Interval history: Chief complaint: Nausea vomiting abdominal discomfort secondary to enterocolitis in the setting of chronic liver disease and chronic hyponatremia HPI: 09/12: This is a 49-year-old male with a history of alcoholism, alcoholic cirrhosis, loculated pleural effusion, tobacco use and cellulitis who presents with vomiting and increasing fatigue. He is found to have a sodium of 118, down from his usual mid 120 range. He was recently started on b.i.d. Lasix and spironolactone, which is a possible cause. He was last admitted in July. CT scan suggests infectious/inflammatory enterocolitis, moderate ascites, liver cirrhosis and cholelithiasis. Hospital course: 09/13: Patient is feeling somewhat better but still having nausea and discomfort sodium remains unchanged at 118 and has not moved patient was started on normal saline and Lasix 09/14: Patient is having some nausea not feeling as well today increased neuropathic pain in his feet sodium dropped to 114 Review of systems: No unusual weight loss or weight gain No headache diplopia blurred vision No chest pain palpitations shortness for breath No urinary symptoms No paresis Physical exam: Chronically ill but alert cogent no acute distress No right labored respirations Abdomen is distended but nontender 2+ edema edema of lower extremity Neurologic nonfocal Diminished light touch of feet bilaterally Assessment and plan: This is a 49-year-old male with a history of alcoholism, alcoholic cirrhosis, loculated pleural effusion, tobacco use and cellulitis who presents with vomiting and increasing fatigue. He is found to have a sodium of 118, down from his usual mid 120 range. He was recently started on b.i.d. Lasix and spironolactone, which is a possible cause. Hyponatremia, present on admission, active * -sodium dropped to 114, 118 probably secondary to spironolactone/Lasix. His Baseline sodium is generally in the mid 120s. * -combined Lasix and salt tablets hopefully this will be effective * -3% sodium chloride infusion did not improve his sodium. * -holding spironolactone . Alcoholic liver cirrhosis, present on admission, chronic. * -patient states he no longer drinks. * -patient was referred to GI but it is unclear if he has ever gone. He maybe a candidate for TIPS? * -he was recently started on Lasix 40 mg b.i.d. and spironolactone 100 mg b.i.d. but has not tolerated those doses. * -continues with ascites on CT scan * -bilirubin 7.1 on admission Portal hypertension with ascites, present on admission, chronic. * -cautious IV fluid supplementation and resumption of diuretic treatment in the next few days. Enterocolitis, Infectious/Inflammatory, present on admission, active. * -Supportive treatment for now. Lovenox for DVT prevention Unclear/undefined backup decision maker. Time-Based Coding :: 35 minutes spent with patient and on the chart (including review of chart, obtaining history, exam, reviewing outside data, placing orders, documenting exam and treatment plan, and counseling patient) Exam Vital Signs (past 8 hours): - 09/14/24 07:00 09/14/24 07:30 09/14/24 08:00 Pulse Rate 95 H 90 92 H Blood Pressure Pulse Oximetry 93 93 91 Oxygen Delivery Method 09/14/24 08:45 09/14/24 08:55 09/14/24 08:55 Pulse Rate 98 H Blood Pressure 105/55 L Pulse Oximetry 94 Oxygen Delivery Method Room Air 09/14/24 08:59 09/14/24 09:00 Pulse Rate 100 H Blood Pressure 117/62 Pulse Oximetry 94 Oxygen Delivery Method Oxygen Delivery Method Room Air Oxygen Flow Rate 0 Objective Labs 09/13/24 04:25 09/14/24 12:58 Labs: Laboratory Results - last 24 hr 09/13/24 09/14/24 18:48 12:58 Sodium 118 L* 114 L* Potassium 4.6 4.9 Chloride 89 L 86 L Carbon Dioxide 23 16 L BUN 28 H 28 H Creatinine 2.34 H 2.13 H Estimated GFR 33 L 37 L BUN/Creatinine Ratio 12.0 13.1 Glucose 120 H 131 H Calcium 7.7 L 8.3 L PFSH Medical History ALC (alcoholic liver cirrhosis) Loculated pleural effusion Nicotine dependence Emphysema lung Tobacco use disorder Reactive airway disease Alcohol dependence Alcohol withdrawal seizure Alcohol abuse Social History household members: none Smoking Status: Current some day smoker alcohol intake: former substance use type: marijuana Assessment & Plan Time-Based Coding :: [TOTAL MINUTES] spent with patient and on the chart (including review of chart, obtaining history, exam, reviewing outside data, placing orders, documenting exam and treatment plan, and counseling patient) on [DATE]. Quality VTE Deep Vein Thrombosis/Pulmonary Embolism Present on Admission: No
[2024-09-14] MEDS: FUROSEMIDE 20 MG TABLET PO (17:40)
[2024-09-14 18:02] LABS: Blood Urea Nitrogen 27 mg/dL (9-20); Calcium 8.3 mg/dL (8.4-10.2); Carbon Dioxide 17 mmol/L (22-32); Chloride 87 mmol/L (98-107); Estimated Glomerular Filt Rate 42 mL/min (>60); Glucose 119 mg/dL (70-99); HEMOLYSIS < 15 (0-50); Potassium 5.1 mmol/L (3.4-5.1)
[2024-09-14 18:09] LABS: Sodium 113 mmol/L (137-145)
--- NOTE | 2024-09-14 18:37 | PC.NURSE ---
PT 1800 SODIUM 113. REPORTED TO MD. MD ORDERED 3% NS AND LASIX. PT BACK TO ICU STATUS. PHARMACY DIALYSIS BIOMED TECHNICIAN NOTIFIED TO OBTAIN 3% NS. PT REMAINS ASYMPTOMATIC. PT USING HIS HOME FLUTICASONE- SALMETEROL DISK BID AND ALBUTEROL NEEDED. SUZIE AWARE. STATES OK FOR PATIENT TO CONTINUE USING. MEDS LABELED AND PLACED AT BEDSIDE.
[2024-09-14] MEDS: FUROSEMIDE 40 MG/4 ML VIAL IV (18:47)
[2024-09-14] MEDS: SODIUM CHLORIDE 3 % 100 ML 20 ML IV (19:19)
[2024-09-15] VITALS (11 sets, daily range): BP systolic 79–110; BP diastolic 47–59; PULSE 91–106; RESP 16–18; TEMP 36.3; O2SAT 88–95
[2024-09-15] MEDS: CALCIUM CARBONATE 500 MG TAB 1000 MG PO ×3 (00:47→13:36)
[2024-09-15] MEDS: diphenhydrAMINE 25 MG TABLET PO (02:16)
[2024-09-15] MEDS: FUROSEMIDE 40 MG/4 ML VIAL IV (02:16)
[2024-09-15] MEDS: OXYCODONE IR 5 MG TABLET PO ×3 (02:16→13:08)
[2024-09-15 02:50] LABS: Blood Urea Nitrogen 25 mg/dL (9-20); Calcium 8.1 mg/dL (8.4-10.2); Carbon Dioxide 20 mmol/L (22-32); Chloride 88 mmol/L (98-107); Estimated Glomerular Filt Rate 48 mL/min (>60); Glucose 117 mg/dL (70-99); HEMOLYSIS < 15 (0-50); Potassium 4.9 mmol/L (3.4-5.1)
[2024-09-15 02:54] LABS: Sodium 114 mmol/L (137-145)
[2024-09-15 08:31] LABS: Alanine Aminotransferase 29 IU/L (<50); Albumin 2.6 g/dL (3.5-5.0); Albumin Globulin Ratio 0.8 (1.0-2.8); Alkaline Phosphatase 139 U/L (38-126); Blood Urea Nitrogen 25 mg/dL (9-20); Calcium 8.4 mg/dL (8.4-10.2); Carbon Dioxide 21 mmol/L (22-32); Chloride 88 mmol/L (98-107); Estimated Glomerular Filt Rate 53 mL/min (>60); Globulin 3.4 g/dL (1.7-4.1); Glucose 104 mg/dL (70-99); HEMOLYSIS < 15 (0-50); Potassium 5.0 mmol/L (3.4-5.1); Total Protein 6.0 g/dL (6.3-8.2)
[2024-09-15 08:32] LABS: Sodium 115 mmol/L (137-145)
[2024-09-15] MEDS: SODIUM CHLORIDE 0.9% FLUSH 10 ML IV (08:52)
[2024-09-15] MEDS: FUROSEMIDE 20 MG TABLET PO (08:52)
[2024-09-15] MEDS: GABAPENTIN 100 MG CAPSULE PO (08:52)
[2024-09-15] MEDS: SODIUM CHLORIDE 1,000 MG TABLET 1000 MG PO (08:52)
--- NOTE | 2024-09-15 11:09 | CM.DPNOTE ---
DCP note [employer] reviewed EMR. per provider in morning rounds, anticipate dc later this afternoon on PO salt tablets. no new CM needs identified at this time. DC today home with OP f/u likely. CM team will continue to follow in case any DCP needs should arise [facility]
--- NOTE | 2024-09-15 12:32 | PC.NURSE ---
Day shift: Pt critical Na overnight, relayed to day shift hospitalist Dr. Clarence Pinzon. New orders received. Updated Na also critical at 115, provider notified. No new orders. Pt reports being told he will be discharged. Showered w/ SBA. Provider notified pt would like to d/c home. Care ongoing.
--- NOTE | 2024-09-15 12:41 | P.DS_ITS ---
History of Present Illness History of Present Illness Date Patient Seen: 09/15/24 Chief complaint: Throwing up Meds . Pain in both legs, Stomach pain Narrative: Chief complaint: Nausea vomiting abdominal discomfort secondary to enterocolitis in the setting of chronic liver disease and chronic hyponatremia HPI: 09/12: This is a 49-year-old male with a history of alcoholism, alcoholic cirrhosis, loculated pleural effusion, tobacco use and cellulitis who presents with vomiting and increasing fatigue. He is found to have a sodium of 118, down from his usual mid 120 range. He was recently started on b.i.d. Lasix and spironolactone, which is a possible cause. He was last admitted in July. CT scan suggests infectious/inflammatory enterocolitis, moderate ascites, liver cirrhosis and cholelithiasis. Hospital course: 09/13: Patient is feeling somewhat better but still having nausea and discomfort sodium remains unchanged at 118 and has not moved patient was started on normal saline and Lasix 09/14: Patient is having some nausea not feeling as well today increased neuropathic pain in his feet sodium dropped to 114 09/15: Patient feeling better tolerating diet sodium 115 seems to be stable Review of systems: No unusual weight loss or weight gain No headache diplopia blurred vision No chest pain palpitations shortness for breath No urinary symptoms No paresis Physical exam: Chronically ill but alert cogent no acute distress No right labored respirations Abdomen is distended but nontender 2+ edema edema of lower extremity Neurologic nonfocal Diminished light touch of feet bilaterally Assessment and plan: This is a 49-year-old male with a history of alcoholism, alcoholic cirrhosis, loculated pleural effusion, tobacco use and cellulitis who presents with vomiting and increasing fatigue. He is found to have a sodium of 118, down from his usual mid 120 range. He was recently started on b.i.d. Lasix and spironolactone, which is a possible cause. Hyponatremia, chronic and very low new baseline is 115 on salt tablets and Lasix. * -patient states he no longer drinks. * -patient was referred to GI but it is unclear if he has ever gone. He maybe a candidate for TIPS? * -he was recently started on Lasix 40 mg b.i.d. and spironolactone 100 mg b.i.d. but has not tolerated those doses. * -continues with ascites on CT scan * -bilirubin 7.1 on admission Portal hypertension with ascites, present on admission, chronic. * -cautious IV fluid supplementation and resumption of diuretic treatment in the next few days. Enterocolitis, Infectious/Inflammatory, present on admission, resolved Time-Based Coding :: 35 minutes spent with patient and on the chart (including review of chart, obtaining history, exam, reviewing outside data, placing orders, documenting exam and treatment plan, and counseling patient) Discharge Providers Provider Date of admission: 09/12/24 14:00 Discharge Date: 09/15/24 Primary care physician: ISMAEL Fernandez Consults: 09/12/24 16:34 Consult After Hours PICC Line RN Routine Comment: Discharge provider: Umberto Pinzon MD Exam Vital Signs (past 8 hours): - 09/15/24 05:00 09/15/24 06:00 09/15/24 07:00 Pulse Rate Respiratory Rate Blood Pressure 95/51 L 100/59 L 99/55 L Pulse Oximetry Oxygen Delivery Method 09/15/24 08:00 09/15/24 08:00 09/15/24 12:00 Pulse Rate 91 H 106 H Respiratory Rate 18 16 Blood Pressure 99/55 L 110/58 L Pulse Oximetry 88 L 95 Oxygen Delivery Method Room Air Oxygen Delivery Method Room Air Oxygen Flow Rate 0 Objective Labs 09/13/24 04:25 09/15/24 08:00 Labs: Laboratory Results - last 24 hr 09/14/24 09/14/24 09/15/24 12:58 17:45 02:00 Sodium 114 L* 113 L* 114 L* Potassium 4.9 5.1 4.9 Chloride 86 L 87 L 88 L Carbon Dioxide 16 L 17 L 20 L BUN 28 H 27 H 25 H Creatinine 2.13 H 1.94 H 1.73 H Estimated GFR 37 L 42 L 48 L BUN/Creatinine Ratio 13.1 13.9 14.5 Glucose 131 H 119 H 117 H Calcium 8.3 L 8.3 L 8.1 L Total Bilirubin AST ALT Alkaline Phosphatase Total Protein Albumin Globulin Albumin/Globulin Ratio 09/15/24 08:00 Sodium 115 L* Potassium 5.0 Chloride 88 L Carbon Dioxide 21 L BUN 25 H Creatinine 1.59 H Estimated GFR 53 L BUN/Creatinine Ratio 15.7 Glucose 104 H Calcium 8.4 Total Bilirubin 4.0 H AST 54 ALT 29 Alkaline Phosphatase 139 H Total Protein 6.0 L Albumin 2.6 L Globulin 3.4 Albumin/Globulin Ratio 0.8 L PFSH Medical History ALC (alcoholic liver cirrhosis) Loculated pleural effusion Nicotine dependence Emphysema lung Tobacco use disorder Reactive airway disease Alcohol dependence Alcohol withdrawal seizure Alcohol abuse Social History household members: none Smoking Status: Current some day smoker alcohol intake: former substance use type: marijuana Discharge Plan Discharge Plan Patient Disposition: Home Discharge orders & Medications Prescriptions: New gabapentin 100 mg Capsule 100 mg PO TID Qty: 90 0RF oxycodone 5 mg Tablet 5 mg PO Q4HR PRN (Reason: Pain, Moderate (4-6)) Qty: 14 0RF Continued fluticasone propion-salmeterol 250-50 mcg/dose blister with device 1 ea INHALATION BID tizanidine 4 mg tablet 4 mg PO Q8H PRN (Reason: Muscle Spasm) albuterol sulfate 90 mcg/actuation HFA aerosol inhaler 1 puff INHALATION Q4H PRN (Reason: wheezing/ sob) ipratropium-albuterol 0.5 mg-3 mg(2.5 mg base)/3 mL solution for nebulization 3 ml inhalation Q6H PRN (Reason: sob) epinephrine 0.3 mg/0.3 mL auto-injector 0.3 mg IM PRN PRN (Reason: Anaphylaxis) furosemide [Lasix] 40 mg tablet 40 mg PO BID Qty: 60 2RF tiotropium bromide [Spiriva with HandiHaler] 18 mcg capsule, w/inhalation device 1 cap inhalation DAILY Qty: 60 4RF Rx Instructions: puncture 1 cap using device; one dose = 2 inhalations Discontinued spironolactone 100 mg tablet 100 mg PO BID Qty: 60 2RF Follow up/Referrals: Elizabeth Milian ARNP [Primary Care Provider, Nursing] Visit Report/Discharge Packet Stand Alone Forms: Patient Portal/API, Stroke Signs & Symptoms Discharge Data Primary Care Provider: Elizabeth Milian Quality VTE Deep Vein Thrombosis/Pulmonary Embolism Present on Admission: No
[2024-09-15] MEDS: ONDANSETRON 4 MG ODT PO (13:11)
== END 2024-09-15 13:36 | disposition home or self-care (01) | DRG 641 ==
LOC: ED 10:59 → AC 14:00 → ICU 14:32
PROVIDERS: Internal Medicine; Admitting Provider Family Medicine; Emergency Provider Emergency Medicine; PCP Nurse Practitioner Family; Referring Provider Emergency Medicine; Visit Provider Family Medicine
DX: E87.1 Hypo-osmolality and hyponatremia (principal); K76.6 Portal hypertension; K70.31 Alcoholic cirrhosis of liver with ascites; K52.9 Noninfective gastroenteritis and colitis, unspecified; F10.11 Alcohol abuse, in remission; T50.1X5A Adverse effect of loop [high-ceiling] diuretics, initial encounter; Z87.09 Personal history of other diseases of the respiratory system; Z72.0 Tobacco use
CPT/HCPCS: 36415; 36569; 36592; 71045; 74177; 80048; 80053; 82140; 83605; 83690; 83735; 83935; 84145; 84443; 85025; 87633; 87797; 93005; 93010; 96361; 96374; 99284; A9270; J1171; J1642; J1938; J2405; Q9967